=== PATIENT | female | born 1960 | race African-American/Black ===

== ENCOUNTER 2016-08-31 15:14 | Emergency (ER) | payer OTHER ==
[2016-08-31 15:42] VITALS: BP 129/78
--- NOTE | 2016-08-31 15:58 | UC ---
Lower Extremity/Ankle HPI - HPI Summary HPI Summary: 55 yo female with left great toe pain /swelling x 1 day hx gout - History of Current Complaint Chief Complaint: UCLowerExtremity Stated Complaint: LEFT FOOT SWELLING Time Seen by Provider: 08/31/16 15:50 Hx Obtained From: Patient Onset/Duration: Gradual Onset, Lasting Hours Pain Intensity: 6 Pain Scale Used: 0-10 Numeric Aggravating Factor(s): Standing, Ambulation Alleviating Factor(s): Rest Able to Bear Weight: Yes - Allergies/Home Medications Allergies/Adverse Reactions: Allergies Allergy/AdvReac Type Severity Reaction Status Date / Time Dust Mite Extract Allergy Unknown Unknown Verified 08/31/16 15:31 Reaction Details Perfume [Fragrance] Allergy Unknown Unknown Verified 08/31/16 15:31 Reaction Details DAIRY Allergy Unknown Unknown Uncoded 08/31/16 15:31 Reaction Details RAGWEED Allergy Unknown Unknown Uncoded 08/31/16 15:31 Reaction Details PMH/Surg Hx/FS Hx/Imm Hx Previously Healthy: Yes Endocrine History Of: Reports: Diabetes Cardiovascular History Of: Denies: Hypertension, Pacemaker/ICD Respiratory History Of: Reports: Asthma GI/ History Of: Denies: Renal Disease Cancer History Of: Denies: Breast Cancer - Surgical History Surgical History: Yes Surgery Procedure, Year, and Place: HYSTERECTOMY,WISDOM TEETH REMOVED - Family History Known Family History: Positive: Hypertension, Diabetes - Social History Alcohol Use: None Substance Use Type: None Smoking Status (MU): Never Smoked Tobacco Review of Systems Constitutional: Negative Skin: Negative Eyes: Negative ENT: Negative Respiratory: Negative Cardiovascular: Negative Gastrointestinal: Negative Genitourinary: Negative Motor: Negative Neurovascular: Negative Musculoskeletal: Arthralgia Neurological: Negative Psychological: Negative All Other Systems Reviewed And Are Negative: Yes Physical Exam Triage Information Reviewed: Yes Appearance: Well-Appearing, No Pain Distress, Well-Nourished Vital Signs: Initial Vital Signs Temp 98.0 F 08/31/16 15:36 Pulse 85 08/31/16 15:36 Resp 18 08/31/16 15:36 BP 129/78 08/31/16 15:36 Pulse Ox 100 08/31/16 15:36 Eyes: Positive: Conjunctiva Clear ENT: Positive: Hearing grossly normal. Negative: Nasal congestion, Nasal drainage, Trismus, Muffled/hoarse voice Neck: Positive: Supple, Nontender Respiratory: Positive: Lungs clear, Normal breath sounds, No respiratory distress Cardiovascular: Positive: RRR, No Murmur Musculoskeletal: Positive: Strength Intact, ROM Intact, Other: - see image Psychological Exam: Normal Skin Exam: Normal Lower Extremity Course/Dx - Differential Dx/Diagnosis Provider Diagnoses: gout Discharge - Discharge Plan Condition: Stable Disposition: HOME Prescriptions: Naproxen [Naproxen 500 MG TABS] 500 mg PO BID PRN #14 tab PRN Reason: Pain Patient Education Materials: Low Purine Diet (ED), Gout (ED) Referrals: Harjinder Roy MD [Primary Care Provider] - If Needed (in 2-5 days) Images Feet (Multiple View): 1 - red/swollen
== END 2016-08-31 16:00 | disposition home or self-care (01) ==
LOC: UCEAST 15:14
DX: M10.072 Idiopathic gout, left ankle and foot (principal)
CPT/HCPCS: 99213; G0463

== ENCOUNTER 2017-09-18 14:46 | Emergency (ER) | payer OTHER ==
[2017-09-18 15:58] LABS: Urine Appearance Cloudy; Urine Blood Negative (Negative); Urine Color Yellow; Urine Ketones Negative (Negative); Urine Protein Negative (Negative); Urine Specific Gravity 1.014 (1.010-1.030); Urine Urobilinogen Negative (Negative)
[2017-09-18 16:01] LABS: ABS Basophils 0.1 10^3/ul (0-0.2); ABS Eosinophils 0.2 10^3/ul (0-0.6); ABS Lymphocytes 2.6 10^3/ul (1.0-4.8); ABS Monocytes 0.6 10^3/ul (0-0.8); ABS Neutrophils 6.3 10^3/ul (1.5-7.7); ABS Nucleated RBC 0 10^3/ul; Eosinophil % 2.1 % (0-6); Hematocrit 38 % (35-47); Hemoglobin 12.8 g/dl (12.0-16.0); Lymphocyte % 26.2 % (25-47); Mean Corpuscular HGB Conc 33 g/dl (31-36); Mean Corpuscular Hemoglobin 28 pg (27-31); Mean Corpuscular Volume 84 fL (80-97); Mean Platelet Volume 7 um3 (7.4-10.4); Nucleated Red Blood Cells % 0.1; Platelet Count 309 10^3/ul (150-450); Red Blood Count 4.58 10^6/ul (4.0-5.4); Red Cell Distribution Width 14 % (10.5-15); White Blood Count 9.8 10^3/ul (3.5-10.8)
--- NOTE | 2017-09-18 16:02 | RAD ---
CLINICAL HISTORY: Left flank pain COMPARISON: None relevant available at the time of dictation TECHNIQUE: Multiple contiguous axial CT scans were obtained of the abdomen and pelvis, without intravenous contrast enhancement. Coronal and sagittal multiplanar reformations are submitted for review. Oral contrast was not administered. FINDINGS: The study is limited by the lack of intravenous contrast. This limits evaluation of the solid organs and vasculature. LUNG BASES: The lung bases are clear. LIVER: The liver is normal in shape, size, contour, and attenuation. BILE DUCTS: There is no intrahepatic or extrahepatic biliary dilatation. GALLBLADDER: The gallbladder is normal, without pericholecystic inflammatory change. PANCREAS: The pancreas is normal, without mass or ductal dilatation. SPLEEN: Normal in size and appearance. UPPER GI TRACT: Evaluation of the gastrointestinal tract is limited by incomplete gastric distention. The upper GI tract is unremarkable. SMALL BOWEL AND MESENTERY: The small bowel is normal in contour, course, and caliber. There is no obstruction or dilatation. COLON: There are multiple diverticula of the sigmoid colon. There is no pericolonic inflammatory change. There is a moderate to large amount of stool throughout the colon. ADRENALS: Normal bilaterally. KIDNEYS: The kidneys are normal in shape, size, contour, and axis. There is no hydronephrosis or nephrolithiasis. BLADDER: The bladder is smooth in contour. PELVIC ORGANS: The pelvic organs are not visualized. AORTA: The aorta is normal. IVC: Unremarkable LYMPH NODES: There is no lymphadenopathy by size criteria. ABDOMINAL WALL: There is no evidence for abdominal wall hernia. BONES AND SOFT TISSUES: There are mild diffuse degenerative changes. OTHER: None IMPRESSION: 1. NO HYDRONEPHROSIS OR NEPHROLITHIASIS. 2. DIVERTICULOSIS.
[2017-09-18 16:13] LABS: EGFR Non-African American 79.4 (>60)
[2017-09-18] MEDS ORDERED: Ciprofloxacin TAB* 250 MG PO ONE (16:49)
[2017-09-18 17:05] VITALS: BP 121/72
--- NOTE | 2017-09-20 08:03 | ED ---
Andrez Pérez Angela, scribed for Darnell Houser MD on 09/18/17 at 1508 . Abdominal Pain/Female - HPI Summary HPI Summary: This pt is a 56 y/o female presenting to [facility] c/o intermittent left flank pain x1 week. Pt reports her pain is sharp and it comes intermittently. She rates her pain 7-8 out of 10 in severity and is described as non radiating. She denies nausea, vomiting, fever. PMHx: diabetes, hysterectomy (approx 10 years ago), asthma, GERD. Denies hx of kidney stones. - History of Current Complaint Chief Complaint: EDFlankPain Stated Complaint: LT SIDE PAIN Time Seen by Provider: 09/18/17 15:01 Hx Obtained From: Patient Onset/Duration: Lasting Days, Still Present Timing: Days Severity Currently: Severe Pain Intensity: 8 Pain Scale Used: 0-10 Numeric Location: Flank - left Radiates: No Character: Sharp Aggravating Factor(s): Nothing Alleviating Factor(s): Nothing Associated Signs and Symptoms: Negative: Fever, Nausea, Vomiting Allergies/Adverse Reactions: Allergies Allergy/AdvReac Type Severity Reaction Status Date / Time MS Dust Mite Extract Allergy Unknown Unknown Verified 09/18/17 17:13 [Dust Mite Extract] Reaction Details Perfume [Fragrance] Allergy Unknown Unknown Verified 09/18/17 17:13 Reaction Details DAIRY Allergy Unknown Unknown Uncoded 09/18/17 17:13 Reaction Details RAGWEED Allergy Unknown Unknown Uncoded 09/18/17 17:13 Reaction Details PMH/Surg Hx/FS Hx/Imm Hx Endocrine/Hematology History: Reports: Hx Diabetes Cardiovascular History: Denies: Hx Hypertension, Hx Pacemaker/ICD Respiratory History: Reports: Hx Asthma GI History: Reports: Hx Gastroesophageal Reflux Disease History: Denies: Hx Kidney Stones, Hx Renal Disease Sensory History: Denies: Hx Hearing Aid Psychiatric History: Denies: Hx Panic Disorder - Cancer History Hx Chemotherapy: No Hx Radiation Therapy: No - Surgical History Surgery Procedure, Year, and Place: HYSTERECTOMY,WISDOM TEETH REMOVED Infectious Disease History: No Infectious Disease History: Reports: Hx Shingles - 12/2015 Denies: History Other Infectious Disease, Traveled Outside the [place] in Last 30 Days - Family History Known Family History: Positive: Hypertension, Diabetes - Social History Alcohol Use: None Substance Use Type: Reports: None Smoking Status (MU): Never Smoked Tobacco Review of Systems Negative: Fever, Chills Negative: Vomiting, Nausea Positive: flank pain - left Skin: Negative Neurological: Negative All Other Systems Reviewed And Are Negative: Yes Physical Exam - Summary Physical Exam Summary: VITAL SIGNS: Reviewed. GENERAL: Patient is a well-developed and nourished female who is lying comfortable in the stretcher. Patient is not in any acute respiratory distress. HEAD AND FACE: Normocephalic and atraumatic. EYES: PERRLA, EOMI x 2, No injected conjunctiva. EARS: Hearing grossly intact. Ear canals and tympanic membranes are WNL. MOUTH: Oropharynx within normal limits. NECK: Supple, trachea is midline, no adenopathy, no JVD. CHEST: Symmetric, no tenderness at palpation LUNGS: Clear to auscultation bilaterally. No wheezing or crackles. CVS: RRR, S1 and S2 present, no murmurs or gallops appreciated. ABDOMEN: Soft, non-tender. No signs of distention. Positive bowel sounds. No rebound no guarding, and no masses palpated. No abdominal bruit or pulsations. Negative costovertebral angle tenderness. EXTREMITIES: FROM in all major joints, no edema, no cyanosis or clubbing. NEURO: Alert and oriented x 3. No acute neurological deficits. Speech is normal. SKIN: Dry and warm Triage Information Reviewed: Yes Vital Signs On Initial Exam: Initial Vitals Temp Pulse Resp BP Pulse Ox 97.6 F 77 16 131/69 97 09/18/17 14:53 09/18/17 14:53 09/18/17 14:53 09/18/17 14:53 09/18/17 14:53 Vital Signs Reviewed: Yes Diagnostics - Vital Signs Vital Signs Temp Pulse Resp BP Pulse Ox 09/18/17 14:53 97.6 F 77 16 131/69 97 - Laboratory Lab Results: Lab Results 09/18/17 09/18/17 09/18/17 Range/Units 15:35 15:45 15:45 WBC 9.8 (3.5-10.8) 10^3/ul RBC 4.58 (4.0-5.4) 10^6/ul Hgb 12.8 (12.0-16.0) g/dl Hct 38 (35-47) % MCV 84 (80-97) fL MCH 28 (27-31) pg MCHC 33 (31-36) g/dl RDW 14 (10.5-15) % Plt Count 309 (150-450) 10^3/ul MPV 7 L (7.4-10.4) um3 Neut % (Auto) 64.4 (38-83) % Lymph % (Auto) 26.2 (25-47) % [place] % (Auto) 6.6 (0-7) % Eos % (Auto) 2.1 (0-6) % Baso % (Auto) 0.7 (0-2) % Absolute Neuts (auto) 6.3 (1.5-7.7) 10^3/ul Absolute Lymphs (auto) 2.6 (1.0-4.8) 10^3/ul Absolute Monos (auto) 0.6 (0-0.8) 10^3/ul Absolute Eos (auto) 0.2 (0-0.6) 10^3/ul Absolute Basos (auto) 0.1 (0-0.2) 10^3/ul Absolute Nucleated RBC 0 10^3/ul Nucleated RBC % 0.1 Sodium 137 (133-145) mmol/L Potassium 4.2 (3.5-5.0) mmol/L Chloride 101 (101-111) mmol/L Carbon Dioxide 31 (22-32) mmol/L Anion Gap 5 (2-11) mmol/L BUN 12 (6-24) mg/dL Creatinine 0.75 (0.51-0.95) mg/dL Est GFR ( Amer) 102.1 (>60) Est GFR (Non-Af Amer) 79.4 (>60) BUN/Creatinine Ratio 16.0 (8-20) Glucose 123 H (70-100) mg/dL Lactic Acid (0.5-2.0) mmol/L Calcium 9.4 (8.6-10.3) mg/dL Total Bilirubin 0.30 (0.2-1.0) mg/dL AST 18 (13-39) U/L ALT 27 (7-52) U/L Alkaline Phosphatase 177 H (34-104) U/L C-Reactive Protein 2.28 (< 5.00) mg/L Total Protein 7.2 (6.4-8.9) g/dL Albumin 4.1 (3.2-5.2) g/dL Globulin 3.1 (2-4) g/dL Albumin/Globulin Ratio 1.3 (1-3) Lipase 34 (11.0-82.0) U/L Urine Color Yellow Urine Appearance Cloudy Urine pH 5.0 (5-9) Ur Specific [place] 1.014 (1.010-1.030) Urine Protein Negative (Negative) Urine Ketones Negative (Negative) Urine Blood Negative (Negative) Urine Nitrate Negative (Negative) Urine Bilirubin Negative (Negative) Urine Urobilinogen Negative (Negative) Ur Leukocyte Esterase 3+ A (Negative) Urine WBC (Auto) 3+(>20/hpf) A (Absent) Urine RBC (Auto) Absent (Absent) Ur Squamous Epith Cells Present A (Absent) Urine Bacteria 3+ A (Absent) Urine Glucose Negative (Negative) 09/18/17 Range/Units 15:45 WBC (3.5-10.8) 10^3/ul RBC (4.0-5.4) 10^6/ul Hgb (12.0-16.0) g/dl Hct (35-47) % MCV (80-97) fL MCH (27-31) pg MCHC (31-36) g/dl RDW (10.5-15) % Plt Count (150-450) 10^3/ul MPV (7.4-10.4) um3 Neut % (Auto) (38-83) % Lymph % (Auto) (25-47) % [place] % (Auto) (0-7) % Eos % (Auto) (0-6) % Baso % (Auto) (0-2) % Absolute Neuts (auto) (1.5-7.7) 10^3/ul Absolute Lymphs (auto) (1.0-4.8) 10^3/ul Absolute Monos (auto) (0-0.8) 10^3/ul Absolute Eos (auto) (0-0.6) 10^3/ul Absolute Basos (auto) (0-0.2) 10^3/ul Absolute Nucleated RBC 10^3/ul Nucleated RBC % Sodium (133-145) mmol/L Potassium (3.5-5.0) mmol/L Chloride (101-111) mmol/L Carbon Dioxide (22-32) mmol/L Anion Gap (2-11) mmol/L BUN (6-24) mg/dL Creatinine (0.51-0.95) mg/dL Est GFR ( Amer) (>60) Est GFR (Non-Af Amer) (>60) BUN/Creatinine Ratio (8-20) Glucose (70-100) mg/dL Lactic Acid 1.0 (0.5-2.0) mmol/L Calcium (8.6-10.3) mg/dL Total Bilirubin (0.2-1.0) mg/dL AST (13-39) U/L ALT (7-52) U/L Alkaline Phosphatase (34-104) U/L C-Reactive Protein (< 5.00) mg/L Total Protein (6.4-8.9) g/dL Albumin (3.2-5.2) g/dL Globulin (2-4) g/dL Albumin/Globulin Ratio (1-3) Lipase (11.0-82.0) U/L Urine Color Urine Appearance Urine pH (5-9) Ur Specific [place] (1.010-1.030) Urine Protein (Negative) Urine Ketones (Negative) Urine Blood (Negative) Urine Nitrate (Negative) Urine Bilirubin (Negative) Urine Urobilinogen (Negative) Ur Leukocyte Esterase (Negative) Urine WBC (Auto) (Absent) Urine RBC (Auto) (Absent) Ur Squamous Epith Cells (Absent) Urine Bacteria (Absent) Urine Glucose (Negative) Result Diagrams: 09/18/17 15:45 09/18/17 15:45 Lab Statement: Any lab studies that have been ordered have been reviewed, and results considered in the medical decision making process. - CT Abdomen/Pelvis CT CT Interpretation: Positive (See Comments) - IMPRESSION: 1. No hydronephrosis or nephrolithiasis. 2. Diverticulosis. Dr. Houser has reviewed this radiology report. CT Interpretation Completed By: Radiologist Re-Evaluation - Re-Evaluation First Eval Re-Evaluation Time: 16:52 Comment: I reviewed the abdomen/pelvis CT with the pt. Abdominal Pain Fem Course/Dx - Course Course Of Treatment: This pt is a 56 y/o female presenting to [facility] c/o intermittent left flank pain x1 week. Pt reports her pain is sharp and it comes intermittently. She rates her pain 7-8 out of 10 in severity and is described as non radiating. She denies nausea, vomiting, fever. PMHx: diabetes, hysterectomy (approx 10 years ago), asthma, GERD. Denies hx of kidney stones. Test results without any significant abnormalities except for glucose of 123. Urinalysis is positive for UTI. Abdomen/pelvis CT: 1. No hydronephrosis or nephrolithiasis. 2. Diverticulosis. In the ED course pt declined any pain medications. Therefore pt will be discharged to home with a prescription for Ciprofloxacin for the UTI. Pt is advised to follow up with her PCP. She is instructed to return to the ED for any worsening or new symptoms. Pt is hemodynamically stable, alert and oriented x3. - Diagnoses Differential Diagnosis: Positive: Renal Colic, Urinary Tract Infection Provider Diagnoses: Urinary tract infection Discharge - Discharge Plan Condition: Stable Disposition: HOME Prescriptions: Ciprofloxacin TAB* [Cipro 250 MG Tab*] 250 mg PO BID #5 tab Patient Education Materials: Urinary Tract Infection in Women (ED) Referrals: Harjinder Roy MD [Primary Care Provider] - 3 Days Additional Instructions: Please follow up with your primary care provider. RETURN TO THE ED FOR ANY WORSENING SYMPTOMS. The documentation as recorded by the Andrez hopper Angela accurately reflects the service I personally performed and the decisions made by , Darnell Houser MD.
== END 2017-09-18 17:18 | disposition home or self-care (01) ==
LOC: ED 14:46
DX: N39.0 Urinary tract infection, site not specified (principal); R10.84 Generalized abdominal pain; Z87.19 Personal history of other diseases of the digestive system
CPT/HCPCS: 36415; 74176; 80053; 81003; 81015; 83605; 83690; 85025; 86140; 87086; 99283; A9270-GY

== ENCOUNTER 2018-03-31 13:42 | Emergency (ER) | payer OTHER ==
[2018-03-31] MEDS ORDERED: NS 0.9% 1000 ML* 1,000 ML IV ONE (17:10)
--- NOTE | 2018-03-31 17:27 | ED ---
Abdominal Pain/Female - HPI Summary HPI Summary: This patient is a 57 year old F presenting to [facility] with a chief complaint of diffuse abdominal pain onset two days ago. Pt is also experiencing nausea and bloat. The patient rates the pain as 7/10 severity at its worst, but it has since resolved. Pain is described as sharp and sudden-onset. Pt had diarrhea last week but it has resolved by eating soft foods this week. Denies: vomiting, fevers, chills, and dysuria. Pt had a colonoscopy 10 years ago that was negative and is due for another one next year. No PMHx: diverticulitis. Former smoker. - History of Current Complaint Chief Complaint: EDAbdPain Stated Complaint: ABD PAIN Time Seen by Provider: 03/31/18 17:03 Hx Obtained From: Patient Onset/Duration: Sudden Onset, Lasting Days, Still Present Timing: Constant Severity Initially: Moderate Severity Currently: Mild Pain Intensity: 4 - 7/10 at its worst Pain Scale Used: 0-10 Numeric Location: Diffuse Radiates: No Character: Sharp Associated Signs and Symptoms: Positive: Nausea, Diarrhea, Other: - pos: bloatedness; neg: chills. Negative: Fever, Urinary Symptoms, Vomiting Allergies/Adverse Reactions: Allergies Allergy/AdvReac Type Severity Reaction Status Date / Time MS Dust Mite Extract Allergy Unknown Unknown Verified 09/18/17 17:13 [Dust Mite Extract] Reaction Details Perfume [Fragrance] Allergy Unknown Unknown Verified 09/18/17 17:13 Reaction Details DAIRY Allergy Unknown Unknown Uncoded 09/18/17 17:13 Reaction Details RAGWEED Allergy Unknown Unknown Uncoded 09/18/17 17:13 Reaction Details PMH/Surg Hx/FS Hx/Imm Hx Previously Healthy: No Endocrine/Hematology History: Reports: Hx Diabetes Cardiovascular History: Denies: Hx Hypertension, Hx Pacemaker/ICD Respiratory History: Reports: Hx Asthma GI History: Reports: Hx Gastroesophageal Reflux Disease Denies: Hx Diverticulosis History: Denies: Hx Kidney Stones, Hx Renal Disease Sensory History: Denies: Hx Hearing Aid Psychiatric History: Denies: Hx Panic Disorder - Cancer History Hx Chemotherapy: No Hx Radiation Therapy: No - Surgical History Surgery Procedure, Year, and Place: HYSTERECTOMY,WISDOM TEETH REMOVED - Immunization History Date of Tetanus Vaccine: < 10 years Date of Influenza Vaccine: 2017 Immunizations Up to Date: Yes Infectious Disease History: No Infectious Disease History: Reports: Hx Shingles - 12/2015 Denies: History Other Infectious Disease, Traveled Outside the [place] in Last 30 Days - Family History Known Family History: Positive: Hypertension, Diabetes - Social History Occupation: Retired Lives: Alone Alcohol Use: None Hx Substance Use: No Substance Use Type: Reports: None Hx Tobacco Use: Yes Smoking Status (MU): Former Smoker Review of Systems Negative: Fever, Chills Positive: Abdominal Pain, Diarrhea, Nausea. Negative: Vomiting Negative: dysuria All Other Systems Reviewed And Are Negative: Yes Physical Exam - Summary Physical Exam Summary: GENERAL: Patient is a well-developed and nourished F who is lying comfortable in the stretcher. Patient is not in any acute respiratory distress. HEAD AND FACE: Normocephalic EYES: PERRLA, EOMI x 2. EARS: Hearing grossly intact. MOUTH: Oropharynx within normal limits. NECK: Supple, trachea is midline, no adenopathy, no JVD, no carotid bruit. CHEST: Symmetric, no tenderness at palpation LUNGS: Clear to auscultation bilaterally. No wheezing or crackles. CVS: Regular rate and rhythm, S1 and S2 present, no murmurs or gallops appreciated. ABDOMEN: Soft. Bowel sounds are normal. No abdominal abnormal pulsations. Mild tenderness in the LLQ. No rebound, no guarding. EXTREMITIES: Full ROM in all major joints, no edema, no cyanosis or clubbing. NEURO: Alert and oriented x 3. No acute neurological deficits. Speech is normal and follows commands. Triage Information Reviewed: Yes Vital Signs On Initial Exam: Initial Vitals Temp Pulse Resp BP Pulse Ox 97.6 F 93 18 133/64 96 03/31/18 13:45 03/31/18 13:45 03/31/18 13:45 03/31/18 13:45 03/31/18 13:45 Vital Signs Reviewed: Yes Diagnostics - Vital Signs Vital Signs Temp Pulse Resp BP Pulse Ox 03/31/18 16:00 98.5 F 86 16 130/74 98 03/31/18 13:45 97.6 F 93 18 133/64 96 - Laboratory Result Diagrams: 03/31/18 17:43 03/31/18 17:43 Lab Statement: Any lab studies that have been ordered have been reviewed, and results considered in the medical decision making process. Abdominal Pain Fem Course/Dx - Course Course Of Treatment: This patient is a 57 year old F presenting to [facility] with a chief complaint of diffuse abdominal pain onset two days ago. This pt will be signed out to Dr. Downey at shift change pending CT results. - Diagnoses Provider Diagnoses: Pyelonephritis Discharge - Sign-Out/Discharge Documenting (check all that apply): Sign-Out Patient Signing out patient TO: Murphy Downey - pending CT - Discharge Plan Condition: Good Disposition: HOME Prescriptions: Sulfamethox/Trimethoprim DS* [Bactrim DS 800/160 TAB*] 1 tab PO BID #20 tab Patient Education Materials: Kidney Infection (ED) Referrals: Harjinder Roy MD [Primary Care Provider] - - Billing Disposition and Condition Condition: GOOD Disposition: Home - Attestation Statements Document Initiated by Scribe: Yes Documenting Scribe: Devaughn Unger Provider For Whom Scribe is Documenting (Include Credential): Dr. Digna Dyer MD Scribe Attestation: IDevaughn, scribed for Dr. Digna Dyer MD on 04/01/18 at 0810. Scribe Documentation Reviewed: Yes Provider Attestation: The documentation as recorded by the Devaughn hopper accurately reflects the service I personally performed and the decisions made by me, Dr. Digna Dyer MD
[2018-03-31 18:00] LABS: ABS Basophils 0.1 10^3/ul (0-0.2); ABS Eosinophils 0.1 10^3/ul (0-0.6); ABS Lymphocytes 2.3 10^3/ul (1.0-4.8); ABS Monocytes 0.7 10^3/ul (0-0.8); ABS Neutrophils 7.7 10^3/ul (1.5-7.7); ABS Nucleated RBC 0 10^3/ul; Hematocrit 42 % (35-47); Hemoglobin 14.1 g/dl (12.0-16.0); Lymphocyte % 21.1 % (25-47); Mean Corpuscular HGB Conc 34 g/dl (31-36); Mean Corpuscular Hemoglobin 28 pg (27-31); Mean Corpuscular Volume 82 fL (80-97); Mean Platelet Volume 7.9 um3 (7.4-10.4); Nucleated Red Blood Cells % 0; Platelet Count 288 10^3/ul (150-450); Red Blood Count 5.05 10^6/ul (4.00-5.40); Red Cell Distribution Width 14 % (10.5-15); White Blood Count 10.9 10^3/ul (3.5-10.8)
[2018-03-31 18:19] LABS: EGFR Non-African American 81.6 (>60)
[2018-03-31] MEDS ORDERED: Iodixanol* (CONTRAST) 320 MG/ML 100 ML SDV IV ONE (18:45)
--- NOTE | 2018-03-31 19:54 | ED ---
Progress - Progress Note Progress Note: Pt was signed out by Dr. Dyer to Dr. Downey. Awaiting CT results. The CT was received and the patient has a Dx of pyelonephritis. - EKG/XRAY/CT CT: Diverticulosis without diverticulitis. No additional findings to correlate. Course/Dx - Course Course Of Treatment: This patient is a 57 year old F presenting to [facility] with a chief complaint of diffuse abdominal pain onset two days ago. This pt will be signed out to Dr. Downey at shift change pending CT results. - Diagnoses Provider Diagnoses: Pyelonephritis Discharge - Sign-Out/Discharge Documenting (check all that apply): Patient Departure - discharge Signing out patient TO: Murphy Downey Receiving patient FROM: Digna Dyer - Discharge Plan Condition: Good Disposition: HOME Prescriptions: Sulfamethox/Trimethoprim DS* [Bactrim DS 800/160 TAB*] 1 tab PO BID #20 tab Patient Education Materials: Kidney Infection (ED) Referrals: Harjinder Roy MD [Primary Care Provider] - - Attestation Statements Document Initiated by Scribe: Yes Documenting Scribe: Brandt White Provider For Whom Azulibe is Documenting (Include Credential): Murphy Downey MD Scribe Attestation: Brandt Pérez, azulibed for Murphy Downey MD on 03/31/18 at 2211.
--- NOTE | 2018-03-31 20:18 | RAD ---
EXAM: CT Abdomen and Pelvis With Intravenous Contrast CLINICAL HISTORY: 57 years old, female; Pain; Other: Llq pain, R/O diverticulitis; Patient HX: Iv contrast only per er provider; Additional info: Llq pain eval for diverticulitis TECHNIQUE: Axial computed tomography images of the abdomen and pelvis with intravenous contrast. All CT scans at this facility use at least one of these dose optimization techniques: automated exposure control; mA and/or kV adjustment per patient size (includes targeted exams where dose is matched to clinical indication); or iterative reconstruction. Coronal and sagittal reformatted images were created and reviewed. CONTRAST: 100 mL of VISIPAQUE 320 administered intravenously. COMPARISON: A/P WO CT ABD/PEL W/O 09/18/2017 3:30 PM FINDINGS: Lung bases: Normal. No mass. No consolidation. ABDOMEN: Liver: Normal. No masses. Portal and hepatic veins are patent. Gallbladder and bile ducts: Normal. No radiopaque calculi. No ductal dilation. Pancreas: Normal. No mass. No ductal dilation. Spleen: Normal. No splenomegaly. Adrenals: Normal. No mass. Kidneys and ureters: Normal. No solid mass. Stomach and bowel: Incompletely distended grossly normal stomach. Normal caliber small bowel. Distal colonic diverticula without adjacent inflammatory changes or associated wall thickening. PELVIS: Appendix: Normal caliber appendix without wall thickening or adjacent inflammation. Bladder: Thin-walled bladder with no focal nodularity, perivesicular stranding, or calcifications. Reproductive: Surgically absent uterus. Normal ovaries. ABDOMEN and PELVIS: Intraperitoneal space: Normal. No pneumoperitoneum. No ascities. Bones/joints: No fractures. No suspicious bone lesions. Soft tissues: Normal. No hernias. Vasculature: Normal caliber aorta with no evidence of dissection or rupture. Patent IVC. Lymph nodes: Normal. No enlarged lymph nodes. IMPRESSION: Diverticulosis without diverticulitis. No additional findings to correlate with patient's symptomatology.
[2018-03-31 21:31] LABS: Urine Appearance Cloudy; Urine Blood 2+ (Negative); Urine Color Yellow; Urine Ketones Negative (Negative); Urine Protein 1+(30 mg/dL) (Negative); Urine Red Blood Cell 2+(6-10/hpf) (Absent); Urine Specific Gravity 1.059 (1.010-1.030); Urine Urobilinogen Negative (Negative); Urine White Blood Cell 3+(>20/hpf) (Absent)
[2018-03-31] MEDS ORDERED: Sulfamethox/Trimethoprim DS 800/160* TAB PO ONE (22:10)
[2018-03-31 22:22] VITALS: BP 142/91
--- NOTE | 2018-04-03 10:08 | PN ---
Progress Note - Progress Note Date of Service: 03/31/18 Note: Pt. seen in ED 03/31 and started on Bactrim for pyelonephritis. Urine culture today is growing e. coli susceptible to bactrim. No change in treatment needed at this time.
== END 2018-03-31 22:21 | disposition home or self-care (01) ==
LOC: ED 13:42
DX: N12 Tubulo-interstitial nephritis, not specified as acute or chronic (principal); R11.0 Nausea; R19.7 Diarrhea, unspecified; R10.9 Unspecified abdominal pain; Z87.891 Personal history of nicotine dependence
CPT/HCPCS: 36415; 74177; 80053; 81003; 81015; 83605; 83690; 85025; 86140; 86803; 87040; 87077; 87086; 87186; 96360; 99283; A9270-GY; Q9967

== ENCOUNTER 2018-05-08 16:45 | Emergency (ER) | payer OTHER ==
[2018-05-08 16:54] VITALS: BP 144/73
--- NOTE | 2018-05-08 17:21 | ED ---
HPI Cardiac - HPI Summary HPI Summary: Pt presents w/ cough x 3 weeks. She had URI sx at onset but cough has remained and basically started at the beginning of fall (admits this happens every year - wondering about using a humidifier). Has had some sneezing and Rt ear pain today - otherwise denies fever, chills, nasal congestion, N/V/D rash, arthralgias, chest pain or back pain, headache or neck stiffness. She has a history of asthma and takes Breo daily and albuterol as needed. She does admit she has using her albuterol more than usual. When asked about using a nebulizer , she reports she forgot she had one at home and ran out of the liquid medication a while ago. She does admit her cough is worse at night and has had trouble sleeping the past 2 nights brought her in today. She is concerned she could have pneumonia although again admits her cough is dry. Other medical history significant for type 1 diabetes. She reports she is "trying to get her sugar under control". Notices increases with lack of attention to diet. GERD: acts up at times - was worse Monday. - History of Current Complaint Chief Complaint: UCRespiratory Stated Complaint: CHEST CONGESTION Time Seen by Provider: 05/08/18 17:04 Hx Obtained From: Patient Pain Intensity: 0 - Allergy/Home Medications Allergies/Adverse Reactions: Allergies Allergy/AdvReac Type Severity Reaction Status Date / Time Perfume [Fragrance] Allergy Unknown Unknown Verified 05/08/18 16:54 Reaction Details DAIRY Allergy Unknown Unknown Uncoded 05/08/18 16:54 Reaction Details RAGWEED Allergy Unknown Unknown Uncoded 05/08/18 16:54 Reaction Details dust mites Allergy Unknown Uncoded 05/08/18 16:54 Reaction Details Home Medications: Home Medications Fluticasone/Vilanterol MDI(NF) [Breo Ellipta MDI (NF)] 1 puff INH DAILY [History Confirmed 05/08/18] Insulin Glargine,Hum.rec.anlog [Basaglar Kwikpen] 100 unit SC 05/08/18 [History] Levothyroxine TAB* [Synthroid TAB*] 25 mcg PO 0800 05/08/18 [History Confirmed 05/08/18] Lisinopril [Zestril 2.5 MG-] 2.5 mg PO 10/30/18 [History] Pravastatin (NF) [Pravachol (NF)] 20 mg PO 05/08/18 [History] PMH/Surg Hx/FS Hx/Imm Hx Previously Healthy: Yes Endocrine/Hematology History: Reports: Hx Diabetes - type 1 Cardiovascular History: Denies: Hx Congestive Heart Failure, Hx Hypertension, Hx Pacemaker/ICD Respiratory History: Reports: Hx Asthma - uses Denies: Hx Chronic Obstructive Pulmonary Disease (COPD), Hx Pulmonary Edema, Hx Pulmonary Embolism GI History: Reports: Hx Gastroesophageal Reflux Disease Denies: Hx Diverticulosis History: Denies: Hx Kidney Stones, Hx Renal Disease Sensory History: Denies: Hx Hearing Aid Psychiatric History: Denies: Hx Panic Disorder - Cancer History Hx Chemotherapy: No Hx Radiation Therapy: No - Surgical History Surgery Procedure, Year, and Place: HYSTERECTOMY,WISDOM TEETH REMOVED - Immunization History Date of Tetanus Vaccine: < 10 years Date of Influenza Vaccine: 2016 Infectious Disease History: No Infectious Disease History: Reports: Hx Shingles - 12/2015 Denies: History Other Infectious Disease, Traveled Outside the [place] in Last 30 Days - Family History Known Family History: Positive: Hypertension, Diabetes - Social History Lives: Alone - engaged Alcohol Use: None Hx Substance Use: No Substance Use Type: Reports: None Hx Tobacco Use: Yes - not currently Smoking Status (MU): Former Smoker Review of Systems Constitutional: Negative Negative: Fever, Chills, Fatigue Eyes: Negative Negative: Drainage, Erythema Positive: Sore Throat - irritated from coughing - otherwise fine, Ear Ache. Negative: Nasal Discharge Negative: Chest Pain Positive: Cough. Negative: Shortness Of Breath Gastrointestinal: Negative Positive: no symptoms reported Musculoskeletal: Negative Skin: Negative Neurological: Negative Psychological: Normal All Other Systems Reviewed And Are Negative: Yes Physical Exam Triage Information Reviewed: Yes Vital Signs On Initial Exam: Initial Vitals Temp Pulse Resp BP Pulse Ox 97.7 F 94 18 144/73 100 05/08/18 16:49 05/08/18 16:49 05/08/18 16:49 05/08/18 16:49 05/08/18 16:49 Vital Signs Reviewed: Yes Appearance: Positive: Well-Appearing, No Pain Distress, Well-Nourished Skin: Positive: Warm, Skin Color Reflects Adequate Perfusion, Dry - no rash Head/Face: Positive: Normal Head/Face Inspection Eyes: Positive: Normal, EOMI, Conjunctiva Clear. Negative: Conjunctiva Inflammed, Discharge ENT: Positive: Normal ENT inspection, Hearing grossly normal, Pharynx normal - mild cobblestoning, TMs normal, Uvula midline. Negative: Nasal congestion, Nasal drainage, Tonsillar swelling, Tonsillar exudate, Trismus, Muffled voice, Sinus tenderness Neck: Positive: Supple, Nontender, No Lymphadenopathy Respiratory/Lung Sounds: Positive: Clear to Auscultation, Breath Sounds Present , Other - coughs after deep breathes. Negative: Rales, Rhonchi, Wheezes, Unable to speak in full sentences, Fatigue Cardiovascular: Positive: Normal, RRR, S1, S2. Negative: Murmur, Rub, Leg Edema Left, Leg Edema Right Abdomen Description: Positive: Soft Bowel Sounds: Positive: Present Musculoskeletal: Positive: Normal, Strength/ROM Intact Neurological: Positive: Normal, Sensory/Motor Intact, Alert, Oriented to Person Place, Time, CN Intact II-III Psychiatric: Positive: Normal Diagnostics - Vital Signs Vital Signs Temp Pulse Resp BP Pulse Ox 05/08/18 16:49 97.7 F 94 18 144/73 100 - Laboratory Lab Statement: Any lab studies that have been ordered have been reviewed, and results considered in the medical decision making process. Re-Evaluation - Re-Evaluation First Eval Change: Improved - reports she feels much better after duoneb Disposition - Course Course Of Treatment: CXR: no acute findings. Suspect combination of season change, possible dust in the air vents, dry atmosphere and GERD exacerbations may be triggering her asthma. She will make some lifestyle adjustments and follow-up with her PCP regarding a nebulizer machine tomorrow. Will send liquid medication at [facility]. Review danger signs and symptoms of when to seek medical care. - Diagnoses Provider Diagnoses: Asthma exacerbation Discharge - Sign-Out/Discharge Documenting (check all that apply): Patient Departure All imaging exams completed and their final reports reviewed: Yes - Discharge Plan Condition: Stable Disposition: HOME Prescriptions: Albuterol/Ipratropium NEB.ISRA* [Duoneb (Albuterol 2.5 MG/Ipratropium 0.5 MG)] 1 neb INH Q6H PRN #30 [email or web address] PRN Reason: Cough Patient Education Materials: Asthma (ED), Gastroesophageal Reflux Disease (ED) Referrals: Harjinder Roy MD [Primary Care Provider] - Additional Instructions: DuoNeb solution has been prescribed for you to use - this was sent to your pharmacy however you will need a nebulizer machine with tubing and mouthpiece. The latter may be prescribed for you by your PCP. Call in the morning to inquire. Additionally you may speak with your maintenance folks about cleaning out your air vents and/or changing her filters to prevent excess dust exposure. He may also use a humidifier and keep your heat at 68F or less to prevent evaporation of moisture. Finally, keeping her GERD under control should help her cough as well. An educational handout been provided for you today with basic reminders. If you feel that any of these issues or difficulty controlling on your own, follow-up with PCP however if you develop shortness of breath, difficulty breathing, fever, chills, difficulty swallowing, go to the emergency department. - Billing Disposition and Condition Condition: STABLE Disposition: Home - Attestation Statements Provider Attestation: I was available for consult. This patient was seen by the [facility]. The patient was not presented to, seen by, or examined by me. -Karri
[2018-05-08] MEDS ORDERED: Albuterol/Ipratropium NEB.SOL* Albuterol 2.5 MG/Ipratropium 0.5 MG 3 ML INH ONE (17:25)
--- NOTE | 2018-05-08 17:35 | RAD ---
INDICATION: Persistent cough for 3 weeks. History of asthma. COMPARISON: March 31, 2018 CT. February 28, 2013 TECHNIQUE: Dual energy PA and routine lateral views of the chest were obtained. REPORT: Chronic mild to moderate elevation of the RIGHT hemidiaphragm with associated minimal RIGHT basilar atelectasis.. No focal pulmonary lesion, compelling alveolar consolidation concerning for pneumonia, pleural effusion, pneumothorax. The heart, pulmonary vasculature, and mediastinal contours are unremarkable. IMPRESSION: #. No evidence for acute intrathoracic disease.
== END 2018-05-08 18:00 | disposition home or self-care (01) ==
LOC: UCEAST 16:45
DX: J45.901 Unspecified asthma with (acute) exacerbation (principal); E10.9 Type 1 diabetes mellitus without complications; Z91.011 Allergy to milk products; Z91.018 Allergy to other foods; Z91.048 Other nonmedicinal substance allergy status; Z79.4 Long term (current) use of insulin; Z87.891 Personal history of nicotine dependence
CPT/HCPCS: 71046; 99212; A9270-GY; G0463

== ENCOUNTER 2018-06-13 13:13 | Inpatient (IN) | payer OTHER ==
[2018-06-13] MEDS ORDERED: Naloxone* 0.4 MG/ML 1 ML VIAL IV ONE (13:14)
[2018-06-13] MEDS ORDERED: NS 0.9% 1000 ML* 2,000 ML IV ONE (13:14)
--- NOTE | 2018-06-13 13:22 | ED ---
HPI Diabetic - HPI Summary HPI Summary: Patient is a 57 y/o F presenting to ED via ambulance unresponsive, level 5 caveat. Arrival at 1310, provider in room to evaluate patient immediately. Boyfriend reported last known normal of 2200 last night to EMS, notes patient is diabetic. Upon EMS arrival, patient's insulin pump was noted to be unplugged and in the kitchen sink. EMS reported 500+ BG. They also note a right sided facial droop. BP of 96/50 is reported, EMS notes patient was tachycardic, had tachypnea. PMHx of DKA unknown at this time, EMS only reports known PMHx of seasonal allergies. No allergies to medicine reported. In room, pulse is 111, o2 98, BP is 96/50. Review of medical records showed PMHx of insulin-dependent diabetic, HTN, dyslipidemia, asthma. - History Of Current Complaint Time Seen by Provider: 06/13/18 13:14 Hx Obtained From: EMS, Medical Records Hx From Patient Unobtainable Due To: Other - UNRESPONSIVE, LEVEL 5 CAVEAT Onset/Duration: Still Present, Other - last known well 0 last night Timing: Constant Severity Currently: Severe Character: Other - unresponsive Aggravating: Nothing Alleviating: Nothing Associated Signs & Symptoms: Decreased Level of Conciousness - unresponsive, "Fruity Breath" - Allergies/Home Medications Allergies/Adverse Reactions: Allergies Allergy/AdvReac Type Severity Reaction Status Date / Time Perfume [Fragrance] Allergy Unknown Unknown Verified 05/08/18 16:54 Reaction Details DAIRY Allergy Unknown Unknown Uncoded 05/08/18 16:54 Reaction Details RAGWEED Allergy Unknown Unknown Uncoded 05/08/18 16:54 Reaction Details dust mites Allergy Unknown Uncoded 05/08/18 16:54 Reaction Details Home Medications: Home Medications Albuterol Sulfate [Proventil Hfa] 13.4 gm INH Q4HR PRN 06/13/18 [History Confirmed 06/13/18] Escitalopram (NF) [Lexapro 10 mg (NF)] 10 mg PO DAILY 06/13/18 [History Confirmed 06/13/18] Fluticasone/Vilanterol MDI(NF) [Breo Ellipta MDI 200/25(NF)] 1 puff INH DAILY [History Confirmed 06/13/18] Ibuprofen TAB* [Motrin TAB* 600 MG] 600 mg PO TID WITH MEALS PRN 06/13/18 [ History Confirmed 06/13/18] Insulin Glargine,Hum.rec.anlog [Basagljulio Kwikpen U-100] 40 units SUBCUT BEDTIME 06/13/18 [History Confirmed 06/13/18] Insulin Lispro [Admelog Solostar] 3 - 4 units SUBCUT AC 06/13/18 [History Confirmed 06/13/18] Insulin Lispro [Admelog] 0 unit SUBCUT DAILY 06/13/18 [History Confirmed ] Levothyroxine TAB* [Synthroid TAB*] 25 mcg PO DAILY 06/13/18 [History Confirmed 06/13/18] Losartan TAB* [Cozaar TAB*] 25 mg PO DAILY 06/13/18 [History Confirmed 06/13/18] Mometasone Furoate [Elocon] 0.1 % TOPICAL TID PRN 06/13/18 [History Confirmed ] Multivitamins/Minerals TAB* [Theragran/minerals TAB*] 1 tab PO DAILY 06/13/18 [ History Confirmed 06/13/18] Pioglitazone TAB* [Actos TAB*] 15 mg PO DAILY 06/13/18 [History Confirmed ] Ranitidine TAB (NF) [Zantac TAB (NF)] 150 mg PO BID 06/13/18 [History Confirmed 06/13/18] Simvastatin TAB(NF) [Zocor(NF)] 10 mg PO DAILY 06/13/18 [History Confirmed 06/13] metFORMIN* [Glucophage 1000 MG TAB *] 1,000 mg PO BID 06/13/18 [History Confirmed 06/13/18] PMH/Surg Hx/FS Hx/Imm Hx Endocrine/Hematology History: Reports: Hx Diabetes - type 1 Cardiovascular History: Denies: Hx Congestive Heart Failure, Hx Hypertension, Hx Pacemaker/ICD Respiratory History: Reports: Hx Asthma - uses Denies: Hx Chronic Obstructive Pulmonary Disease (COPD), Hx Pulmonary Edema, Hx Pulmonary Embolism GI History: Reports: Hx Gastroesophageal Reflux Disease Denies: Hx Diverticulosis History: Denies: Hx Kidney Stones, Hx Renal Disease Sensory History: Denies: Hx Hearing Aid Psychiatric History: Denies: Hx Panic Disorder - Cancer History Hx Chemotherapy: No Hx Radiation Therapy: No - Surgical History Surgery Procedure, Year, and Place: HYSTERECTOMY,WISDOM TEETH REMOVED - Immunization History Date of Tetanus Vaccine: < 10 years Date of Influenza Vaccine: 2017 Infectious Disease History: Reports: Hx Shingles - 12/2015 Denies: History Other Infectious Disease - Family History Known Family History: Positive: Unknown, Hypertension, Diabetes - Social History Alcohol Use: None Hx Substance Use: No Substance Use Type: Reports: None Hx Tobacco Use: Yes - not currently Smoking Status (MU): Former Smoker Review of Systems - ROS Summary Review of Systems Summary: level 5 caveat, unresponsive Positive: Other - POSITIVE - UNRESPONSIVE, ELEVATED BG Neurological: Other - POSITIVE - RIGHT FACIAL DROOP All Other Systems Reviewed And Are Negative: No - Comments Additional Review of Systems Comments: level 5 caveat, unresponsive Physical Exam - Summary Physical Exam Summary: VITAL SIGNS: Reviewed. GENERAL: Patient is a well-developed and nourished female lying in stretcher unresponsive. Level 5 caveat HEAD AND FACE: No signs of trauma. No ecchymosis, hematomas or skull depressions. No sinus tenderness. EYES: Pinpoint pupils that are sluggish. No injected conjunctiva, no nystagmus. EARS: Hearing grossly intact. Ear canals and tympanic membranes are within normal limits. MOUTH: Oropharynx within normal limits. Dry oral mucosa, fruity breath. NECK: Supple, trachea is midline, no adenopathy, no JVD, no carotid bruit, no c- spine tenderness, neck with full ROM. CHEST: Symmetric, no tenderness at palpation LUNGS: Clear to auscultation bilaterally. No wheezing or crackles. CVS: Tachycardia, S1 and S2 present, no murmurs or gallops appreciated. ABDOMEN: Soft, non-tender. No signs of distention. No rebound no guarding, and no masses palpated. Bowel sounds are normal. EXTREMITIES: No edema, no cyanosis or clubbing. NEURO: Unresponsive; GCS 6-7 SKIN: Dry and warm Triage Information Reviewed: Yes Vital Signs On Initial Exam: Initial Vitals Pulse Resp BP Pulse Ox 109 22 73/47 99 06/13/18 13:18 06/13/18 13:18 06/13/18 13:18 06/13/18 13:18 Vital Signs Reviewed: Yes Diagnostics - Laboratory Result Diagrams: 06/14/18 06:20 06/14/18 18:01 Lab Statement: Any lab studies that have been ordered have been reviewed, and results considered in the medical decision making process. - Radiology CXR Radiology Interpretation Completed By: Radiologist Summary of Radiographic Findings: CXR IMPRESSION: #. Low lung volumes with subsegmental atelectasis. #. Prominence of the superior mediastinal contour is nonspecific given low lung volumes. and rightward rotation. Consider repeat chest radiograph is improved inspiratory effort if. feasible or CT for further assessment if there is concern for potential aortic aneurysm or. dissection. THIS REPORT WAS REVIEWED BY ED PHYSICIAN. - CT BRAIN CT CT Interpretation Completed By: Radiologist Summary of CT Findings: BRAIN CT IMPRESSION: NO EVIDENCE FOR ACUTE INTRACRANIAL ABNORMALITY. THIS REPORT WAS REVIEWED BY ED PHYSICIAN. - EKG 1330 Cardiac Rate: Tachycardia EKG Rhythm: Sinus Tachycardia EKG Comparison: No Significant Change - compared to 03/01/13 Summary of EKG Findings: EKG showed sinus tachycardia with rate of 109 BPM, no ST elevation, similar to EKG from 03/01/13 Diabetic Course/Dx - Course Course Of Treatment: Endotracheal Intubation Procedure Note. Procedure - Endotracheal Intubation. Permit was implied secondary to emergent situation. An LMA and bougie were placed within arm's reach. A Glidescope blade was inserted into the oropharynx at which time the vocal cords were visualized. A 7.5 Persian endotracheal tube was inserted and visualized going through the vocal cords. The stylet was removed. Colorimetric change was visualized on the CO2 meter. Breath sounds were heard in both lung espinoza equally. The endotracheal tube was placed at 23 cm, measured at the teeth. Portable chest x- ray ordered for confirmation of tube level. Post intubation sedation ordered. Intubation was made at the first attempt. No complications were encountered. Assessment/Plan: Patient is a 57 y/o F presenting to ED via ambulance unresponsive, level 5 caveat. Arrival at 1310, provider in room to evaluate patient immediately. Boyfriend reported last known normal of 2200 last night to EMS, notes patient is diabetic. Upon EMS arrival, patient's insulin pump was noted to be unplugged and in the kitchen sink. EMS reported 500+ BG. They also note a right sided facial droop. BP of 96/50 is reported, EMS notes patient was tachycardic, had tachypnea. PMHx of DKA unknown at this time, EMS only reports known PMHx of seasonal allergies. No allergies to medicine reported. In room, pulse is 111, o2 98, BP is 96/50. Review of medical records showed PMHx of insulin-dependent diabetic, HTN, dyslipidemia, asthma. Initially when the patient arrived to the emergency department with nausea the patient is unresponsive. The patient's pupils were constricted and very sluggish. The blood pressure is low therefore we obtained 3 IV accesses with a large-bore and we started IV fluids. The fingerstick showed blood sugars high therefore we believe that the patient is in DKA since she has history of insulin-dependent diabetes. The patient was sent to CT to rule out any intracranial pathology. Head CT impression: No acute intra-Pathology. CXR IMPRESSION: #. Low lung volumes with subsegmental atelectasis. #. Prominence of the superior mediastinal contour is nonspecific given low lung volumes and rightward rotation. Consider repeat chest radiograph is improved inspiratory effort if feasible or CT for further assessment if there is concern for potential aortic aneurysm or dissection. In the ED course and the patients GCS is between 6 and 7. The pH is less than 7 therefore I decided to intubate the patient. Please see intubation note. Intubation was successful on the first attempt. Blood work shows WBCs of 35, absolute neutrophils 28.8, sodium 133 potassium 6.6 , chloride this 85, cholelithiasis 7, BUN is 84 creatinine of 4.71, troponin 0.04 and magnesium at 3. ABG shows a pH of less than 7, PCO2 26 PO2 is 146 O2 sat is 98.8. In the ED course initially the patient was given a 4 L of IV fluids. Patient is still hypotensive therefore the patient was started on Levophed. Patient also was given etomidate and succinylcholine for intubation. Patient was given 8 units of insulin and Dr. Lucio from ICU assisted with the patient and insulin drip. The patient also was given cefepime and vancomycin since about also count a significant elevated and there is a suspicion for infection. Patient also was given calcium gluconate, for the hypokalemia. This was recommended by Dr. Lucio. Patient also was given bicarbonate recommended with Dr. Lucio [address] At this point Dr. Lucio from the ICU services accepted the patient for admission. The patient is more stable however the patient still critical. - Diagnoses Provider Diagnoses: DKA (diabetic ketoacidoses), Acute renal failure, Hyperkalemia, Leukocytosis, Metabolic acidosis - Physician Notifications Discussed Care Of Patient With: Adrian Lucio Time Discussed With Above Provider: 13:44 Instructed by Provider To: Other - Patient's case was discussed with Dr. Lucio, Dr. Lucio accepts for admission, will come to ED to evaluate patient. - Critical Care Time Critical Care Time: 75-104 min Discharge - Sign-Out/Discharge Documenting (check all that apply): Patient Departure - admit All imaging exams completed and their final reports reviewed: Yes - Discharge Plan Condition: Critical Disposition: ADMITTED TO [facility] - Billing Disposition and Condition Condition: CRITICAL Disposition: Admitted to [facility] - Attestation Statements Document Initiated by Scribe: Yes Documenting Scribe: JUANITO HOLM Provider For Whom Kenyon is Documenting (Include Credential): ROXANA ANDRADE MD Scribe Attestation: JUANITO Pérez, scribed for ROXANA ANDRADE MD on 06/14/18 at 2159. Scribe Documentation Reviewed: Yes Provider Attestation: The documentation as recorded by the JUANITO hopper accurately reflects the service I personally performed and the decisions made by ut, ROXANA ANDRADE MD Status of Scribe Document: Viewed Procedures - Intubation Time of Intubation: 14:20 Intubation Method: orotracheal Tube Size (cm): 7.5 Medications: Succinylcholine Breath Sounds after Intubation: equal Intubation Complications: no complications Post Intubation Xray: Yes
[2018-06-13] MEDS ORDERED: Ondansetron INJ* 2 MG/ML VIAL ONE (13:24)
[2018-06-13 13:32] LABS: Hematocrit 47 % (35-47); Platelet Count 346 10^3/ul (150-450); Red Blood Count 4.68 10^6/ul (4.00-5.40); Red Cell Distribution Width 15 % (10.5-15); White Blood Count 35.3 10^3/ul (3.5-10.8)
[2018-06-13 13:39] LABS: INR 0.96 (0.77-1.02)
[2018-06-13] MEDS ORDERED: Insulin IVPB 100 units/100 ml 100 UNITS/100 ML UNIT IVPB ONE (13:42)
[2018-06-13] MEDS ORDERED: Insulin REGULAR(*) 1 UNITS UNIT IV PUSH ONE (13:46)
[2018-06-13] MEDS ORDERED: Insulin REGULAR(*) 1 UNITS UNIT ONE ×2 (13:49→13:53)
[2018-06-13] MEDS ORDERED: Cefepime 2 GM in Dextrose(*) 2 GM/50 ML BAG IV ONE (13:49)
[2018-06-13] MEDS ORDERED: Vancomycin(*) 1,000 MG in NS 0.9% 250 ML* 250 ML IVPB ONE (13:49)
[2018-06-13] MEDS ORDERED: NS 0.9% 250 ML* 246 ML with Norepinephrine VIAL* 4 MG IV SCH ×2 (14:00)
[2018-06-13] MEDS ORDERED: Norepinephrine VIAL* 4 MG in NS 0.9% 250 ML* 246 ML IV SCH ×3 (14:00→23:00)
[2018-06-13] MEDS ORDERED: Sodium Bicarbonate 8.4%* 50 ML SYRINGE ONE (14:15)
[2018-06-13] MEDS ORDERED: Sodium Bicarbonate 8.4%* 50 ML SYRINGE IV ONE ×3 (14:17→14:33)
[2018-06-13] MEDS ORDERED: Vancomycin(*) 1,000 MG BAG/ADDV IVPB ONE (14:23)
[2018-06-13] MEDS ORDERED: Midazolam* 1 MG/ML 5 ML VIAL (5 MG) ONE (14:31)
[2018-06-13 14:35] LABS: TSH (Thyroid Stimulating Horm) 12.26 mcIU/mL (0.34-5.60)
[2018-06-13 14:37] LABS: Albumin/Globulin Ratio 1.3 (1-3); BUN/Creatinine Ratio 17.8 (8-20); Calcium 9.4 mg/dL (8.6-10.3); EGFR Non-African American 9.5 (>60); Globulin 3.2 g/dL (2-4); Total Bilirubin 0.7 mg/dL (0.2-1.0); Total Protein 7.2 g/dL (6.4-8.9)
[2018-06-13 14:38] LABS: Potassium 6.6 mmol/L (3.5-5.0)
[2018-06-13 14:50] LABS: ABS Basophils 0.4 10^3/ul (0-0.2); ABS Eosinophils 0 10^3/ul (0-0.6); ABS Lymphocytes 3.3 10^3/ul (1.0-4.8); ABS Monocytes 2.8 10^3/ul (0-0.8); ABS Neutrophils 28.8 10^3/ul (1.5-7.7); Hemoglobin 13.1 g/dl (12.0-16.0); Mean Corpuscular HGB Conc 28 g/dl (31-36); Mean Corpuscular Hemoglobin 28 pg (27-31); Mean Corpuscular Volume 101 fL (80-97)
[2018-06-13 14:53] LABS: Immature Granulocytes 7 % (0-9); Lymphocytes % 12 %; Metamyelocytes % 4 % (0-2); Monocytes % 5 %; Myelocytes % 1 % (0-1); Neutrophil % 76 %
[2018-06-13 14:54] LABS: ABS Neutrophils 29.3 10^3/ul (1.5-7.7)
[2018-06-13] MEDS ORDERED: Sodium Bicarbonate 8.4% IV* 50 ML VIAL IV ONE ×3 (15:03→16:40)
[2018-06-13] MEDS ORDERED: Calcium Gluconate INJ* 1 GM in NS 0.9% 50 ML* 50 ML IVPB ONE (15:03)
[2018-06-13] MEDS: Midazolam* 1 MG/ML 5 ML VIAL (5 MG) IV PRN (15:15)
[2018-06-13] MEDS ORDERED: Benzoin Compound STICK ONE (15:37)
[2018-06-13] MEDS ORDERED: NS 0.9% 1000 ML* 1,000 ML IV SCH (15:45)
[2018-06-13] MEDS ORDERED: Vasopressin* 100 UNITS in D5W 250 ML BAG* 245 ML IVPB SCH (16:00)
[2018-06-13] MEDS ORDERED: Propofol* 100 ML ONE (16:13)
[2018-06-13] MEDS ORDERED: Albuterol 2.5 MG/3 ML NEB.SOL* (0.083%) INH PRN (16:35)
--- NOTE | 2018-06-13 16:40 | ED ---
Throat Pain/Nasal Congestion - HPI Summary HPI Summary: Patient is a 57 y/o F presenting to ED via ambulance unresponsive, level 5 caveat. Arrival at 1310, provider in room to evaluate patient immediately. Boyfriend reported last known normal of 2200 last night to EMS, notes patient is diabetic. Upon EMS arrival, patient's insulin pump was noted to be unplugged and in the kitchen sink. EMS reported 500+ BG. They also note a right sided facial droop. BP of 96/50 is reported, EMS notes patient was tachycardic, had tachypnea. PMHx of DKA unknown at this time, EMS only reports known PMHx of seasonal allergies. No allergies to medicine reported. In room, pulse is 111, o2 98, BP is 96/50. Review of medical records showed PMHx of insulin-dependent diabetic, HTN, dyslipidemia, asthma. - History of Current Complaint Chief Complaint: EDDiabeticProb Time Seen by Provider: 06/13/18 13:14 Hx Obtained From: EMS, Medical Records Hx From Patient Unobtainable Due To: Other - UNRESPONSIVE, LEVEL 5 CAVEAT Onset/Duration: Still Present, Other - last known well 2200 last night - Allergies/Home Medications Allergies/Adverse Reactions: Allergies Allergy/AdvReac Type Severity Reaction Status Date / Time Perfume [Fragrance] Allergy Unknown Unknown Verified 05/08/18 16:54 Reaction Details DAIRY Allergy Unknown Unknown Uncoded 05/08/18 16:54 Reaction Details RAGWEED Allergy Unknown Unknown Uncoded 05/08/18 16:54 Reaction Details dust mites Allergy Unknown Uncoded 05/08/18 16:54 Reaction Details Home Medications: Home Medications Albuterol Sulfate [Proventil Hfa] 13.4 gm INH Q4HR PRN 06/13/18 [History Confirmed 06/13/18] Escitalopram (NF) [Lexapro 10 mg (NF)] 10 mg PO DAILY 06/13/18 [History Confirmed 06/13/18] Fluticasone/Vilanterol MDI(NF) [Breo Ellipta MDI 200/25(NF)] 1 puff INH DAILY [History Confirmed 06/13/18] Ibuprofen TAB* [Motrin TAB* 600 MG] 600 mg PO TID WITH MEALS PRN 06/13/18 [ History Confirmed 06/13/18] Insulin Glargine,Hum.rec.anlog [Basaglar Kwikpen U-100] 40 units SUBCUT BEDTIME 06/13/18 [History Confirmed 06/13/18] Insulin Lispro [Admelog Solostar] 3 - 4 units SUBCUT AC 06/13/18 [History Confirmed 06/13/18] Insulin Lispro [Admelog] 0 unit SUBCUT DAILY 06/13/18 [History Confirmed ] Levothyroxine TAB* [Synthroid TAB*] 25 mcg PO DAILY 06/13/18 [History Confirmed 06/13/18] Losartan TAB* [Cozaar TAB*] 25 mg PO DAILY 06/13/18 [History Confirmed 06/13/18] Mometasone Furoate [Elocon] 0.1 % TOPICAL TID PRN 06/13/18 [History Confirmed ] Multivitamins/Minerals TAB* [Theragran/minerals TAB*] 1 tab PO DAILY 06/13/18 [ History Confirmed 06/13/18] Pioglitazone TAB* [Actos TAB*] 15 mg PO DAILY 06/13/18 [History Confirmed ] Ranitidine TAB (NF) [Zantac TAB (NF)] 150 mg PO BID 06/13/18 [History Confirmed 06/13/18] Simvastatin TAB(NF) [Zocor(NF)] 10 mg PO DAILY 06/13/18 [History Confirmed 06/13] metFORMIN* [Glucophage 1000 MG TAB *] 1,000 mg PO BID 06/13/18 [History Confirmed 06/13/18] PMH/Surg Hx/FS Hx/Imm Hx Endocrine/Hematology History: Reports: Hx Diabetes - type 1 Cardiovascular History: Denies: Hx Congestive Heart Failure, Hx Hypertension, Hx Pacemaker/ICD Respiratory History: Reports: Hx Asthma - uses Denies: Hx Chronic Obstructive Pulmonary Disease (COPD), Hx Pulmonary Edema, Hx Pulmonary Embolism GI History: Reports: Hx Gastroesophageal Reflux Disease Denies: Hx Diverticulosis History: Denies: Hx Kidney Stones, Hx Renal Disease Sensory History: Denies: Hx Hearing Aid Psychiatric History: Denies: Hx Panic Disorder - Cancer History Hx Chemotherapy: No Hx Radiation Therapy: No - Surgical History Surgery Procedure, Year, and Place: HYSTERECTOMY,WISDOM TEETH REMOVED - Immunization History Date of Tetanus Vaccine: < 10 years Date of Influenza Vaccine: 2017 Infectious Disease History: No Infectious Disease History: Reports: Hx Shingles - 12/2015 Denies: History Other Infectious Disease, Traveled Outside the [place] in Last 30 Days - Family History Known Family History: Positive: Unknown, Hypertension, Diabetes - Social History Alcohol Use: None Hx Substance Use: No Substance Use Type: Reports: None Hx Tobacco Use: Yes - not currently Smoking Status (MU): Former Smoker Review of Systems - ROS Summary Review of Systems Summary: level 5 caveat, unresponsive Positive: Other - POSITIVE - UNRESPONSIVE, ELEVATED BG Neurological: Other - POSITIVE - RIGHT FACIAL DROOP All Other Systems Reviewed And Are Negative: No - Comments Additional Review of Systems Comments: level 5 caveat, unresponsive Physical Exam - Summary Physical Exam Summary: VITAL SIGNS: Reviewed. GENERAL: Patient is a well-developed and nourished female lying in stretcher unresponsive. Level 5 caveat HEAD AND FACE: No signs of trauma. No ecchymosis, hematomas or skull depressions. No sinus tenderness. EYES: Pinpoint pupils that are sluggish. No injected conjunctiva, no nystagmus. EARS: Hearing grossly intact. Ear canals and tympanic membranes are within normal limits. MOUTH: Oropharynx within normal limits. Dry oral mucosa, fruity breath. NECK: Supple, trachea is midline, no adenopathy, no JVD, no carotid bruit, no c- spine tenderness, neck with full ROM. CHEST: Symmetric, no tenderness at palpation LUNGS: Clear to auscultation bilaterally. No wheezing or crackles. CVS: Tachycardia, S1 and S2 present, no murmurs or gallops appreciated. ABDOMEN: Soft, non-tender. No signs of distention. No rebound no guarding, and no masses palpated. Bowel sounds are normal. EXTREMITIES: No edema, no cyanosis or clubbing. NEURO: Unresponsive; GCS 6-7 SKIN: Dry and warm Triage Information Reviewed: Yes Vital Signs On Initial Exam: Initial Vitals Pulse Resp BP Pulse Ox 109 22 73/47 99 06/13/18 13:18 06/13/18 13:18 06/13/18 13:18 06/13/18 13:18 Vital Signs Reviewed: Yes Procedures - Intubation Intubation Method: orotracheal Tube Size (cm): 7.5 Medications: Succinylcholine Breath Sounds after Intubation: equal Intubation Complications: no complications Post Intubation Xray: Yes Diagnostics - Vital Signs Vital Signs Temp Pulse Resp BP Pulse Ox 06/13/18 14:39 108 96/47 98 06/13/18 14:35 108 93/53 98 06/13/18 14:34 109 80/52 98 06/13/18 14:32 109 83/46 98 06/13/18 14:29 105 85/48 99 06/13/18 14:28 108 75/57 100 06/13/18 14:23 105 90/55 96 06/13/18 14:18 100 96/57 90 06/13/18 14:13 18 98/51 06/13/18 14:09 101 29 80/40 96 06/13/18 14:05 100 31 83/61 93 06/13/18 14:01 103 24 90/50 93 06/13/18 14:00 32 06/13/18 13:58 32 86/60 06/13/18 13:51 194 31 82/48 90 06/13/18 13:46 31 78/49 06/13/18 13:44 106 30 81/44 06/13/18 13:42 104 25 77/47 93 06/13/18 13:37 96.6 F 125 12 70/36 98 06/13/18 13:26 106 30 97/52 98 06/13/18 13:21 110 31 96/50 98 06/13/18 13:18 109 22 73/47 99 - Laboratory Lab Results: Lab Results 06/13/18 06/13/18 06/13/18 Range/Units 13:20 13:20 13:20 WBC 35.3 H (3.5-10.8) 10^3/ul RBC 4.68 (4.00-5.40) 10^6/ul Hgb 13.1 (12.0-16.0) g/dl Hct 47 (35-47) % MCV 101 H (80-97) fL MCH 28 (27-31) pg MCHC 28 L (31-36) g/dl RDW 15 (10.5-15) % Plt Count 346 (150-450) 10^3/ul MPV 9.0 (7.4-10.4) fL Neut % (Auto) Not Reportable Lymph % (Auto) Not Reportable [place] % (Auto) Not Reportable Eos % (Auto) Not Reportable Baso % (Auto) Not Reportable Absolute Neuts (auto) 28.8 H (1.5-7.7) 10^3/ul Absolute Lymphs (auto) 3.3 (1.0-4.8) 10^3/ul Absolute Monos (auto) 2.8 H (0-0.8) 10^3/ul Absolute Eos (auto) 0 (0-0.6) 10^3/ul Absolute Basos (auto) 0.4 H (0-0.2) 10^3/ul Absolute Nucleated RBC Not Reportable Immature Gran % 7 (0-9) % Neutrophils % 76 % Band Neutrophils % 2 (0-8) % Lymphocytes % 12 % Monocytes % 5 % Metamyelocytes % 4 H (0-2) % Myelocytes % 1 (0-1) % Nucleated RBC % Not Reportable Abs Neuts (Manual) 29.3 H (1.5-7.7) 10^3/ul Abs Lymphs (Manual) 4.2 (1.0-4.8) 10^3/ul Abs Monocytes (Manual) 1.8 H (0-0.8) 10^3/ul Normal RBC Morphology Not Reportable Macrocytosis 1+ INR (Anticoag Therapy) (0.77-1.02) ABG pH (7.35-7.45) ABG pCO2 (35-45) mmHg ABG pO2 (80-100) mmHg ABG HCO3 (19-31) mmol/L ABG O2 Saturation (95-98) % ABG Base Excess (-2.0-2.0) Sodium 133 L (135-145) mmol/L Potassium 6.6 H* (3.5-5.0) mmol/L Chloride 85 L (101-111) mmol/L Carbon Dioxide 7 L* (22-32) mmol/L Anion Gap 41 H (2-11) mmol/L BUN 84 H (6-24) mg/dL Creatinine 4.71 H (0.51-0.95) mg/dL Est GFR ( Amer) 11.5 (>60) Est GFR (Non-Af Amer) 9.5 (>60) BUN/Creatinine Ratio 17.8 (8-20) Glucose 1462 H* (70-100) mg/dL POC Glucose (mg/dL) (70-100) mg/dL Hemoglobin A1c (4.0-5.6) % Lactic Acid 4.1 H* (0.5-2.0) mmol/L Calcium 9.4 (8.6-10.3) mg/dL Magnesium 3.0 H (1.9-2.7) mg/dL Total Bilirubin 0.70 (0.2-1.0) mg/dL AST 17 (13-39) U/L ALT 26 (7-52) U/L Alkaline Phosphatase 264 H (34-104) U/L Ammonia (16-53) mcmol/L Total Creatine Kinase 95 (10-223) U/L Troponin I 0.04 H* (<0.04) ng/mL Total Protein 7.2 (6.4-8.9) g/dL Albumin 4.0 (3.2-5.2) g/dL Globulin 3.2 (2-4) g/dL Albumin/Globulin Ratio 1.3 (1-3) TSH 12.26 H (0.34-5.60) mcIU/mL Cortisol Pending Salicylates 0.00 (<30) mg/dL Acetaminophen 1 mcg/mL Serum Alcohol 4 (<10) mg/dL 06/13/18 06/13/18 06/13/18 Range/Units 13:20 13:20 13:20 WBC (3.5-10.8) 10^3/ul RBC (4.00-5.40) 10^6/ul Hgb (12.0-16.0) g/dl Hct (35-47) % MCV (80-97) fL MCH (27-31) pg MCHC (31-36) g/dl RDW (10.5-15) % Plt Count (150-450) 10^3/ul MPV (7.4-10.4) fL Neut % (Auto) Lymph % (Auto) [place] % (Auto) Eos % (Auto) Baso % (Auto) Absolute Neuts (auto) (1.5-7.7) 10^3/ul Absolute Lymphs (auto) (1.0-4.8) 10^3/ul Absolute Monos (auto) (0-0.8) 10^3/ul Absolute Eos (auto) (0-0.6) 10^3/ul Absolute Basos (auto) (0-0.2) 10^3/ul Absolute Nucleated RBC Immature Gran % (0-9) % Neutrophils % % Band Neutrophils % (0-8) % Lymphocytes % % Monocytes % % Metamyelocytes % (0-2) % Myelocytes % (0-1) % Nucleated RBC % Abs Neuts (Manual) (1.5-7.7) 10^3/ul Abs Lymphs (Manual) (1.0-4.8) 10^3/ul Abs Monocytes (Manual) (0-0.8) 10^3/ul Normal RBC Morphology Macrocytosis INR (Anticoag Therapy) 0.96 (0.77-1.02) ABG pH (7.35-7.45) ABG pCO2 (35-45) mmHg ABG pO2 (80-100) mmHg ABG HCO3 (19-31) mmol/L ABG O2 Saturation (95-98) % ABG Base Excess (-2.0-2.0) Sodium (135-145) mmol/L Potassium (3.5-5.0) mmol/L Chloride (101-111) mmol/L Carbon Dioxide (22-32) mmol/L Anion Gap (2-11) mmol/L BUN (6-24) mg/dL Creatinine (0.51-0.95) mg/dL Est GFR ( Amer) (>60) Est GFR (Non-Af Amer) (>60) BUN/Creatinine Ratio (8-20) Glucose (70-100) mg/dL POC Glucose (mg/dL) (70-100) mg/dL Hemoglobin A1c 11.4 H (4.0-5.6) % Lactic Acid (0.5-2.0) mmol/L Calcium (8.6-10.3) mg/dL Magnesium (1.9-2.7) mg/dL Total Bilirubin (0.2-1.0) mg/dL AST (13-39) U/L ALT (7-52) U/L Alkaline Phosphatase (34-104) U/L Ammonia 70 H (16-53) mcmol/L Total Creatine Kinase (10-223) U/L Troponin I (<0.04) ng/mL Total Protein (6.4-8.9) g/dL Albumin (3.2-5.2) g/dL Globulin (2-4) g/dL Albumin/Globulin Ratio (1-3) TSH (0.34-5.60) mcIU/mL Cortisol Salicylates (<30) mg/dL Acetaminophen mcg/mL Serum Alcohol (<10) mg/dL 06/13/18 06/13/18 Range/Units 13:28 14:00 WBC (3.5-10.8) 10^3/ul RBC (4.00-5.40) 10^6/ul Hgb (12.0-16.0) g/dl Hct (35-47) % MCV (80-97) fL MCH (27-31) pg MCHC (31-36) g/dl RDW (10.5-15) % Plt Count (150-450) 10^3/ul MPV (7.4-10.4) fL Neut % (Auto) Lymph % (Auto) [place] % (Auto) Eos % (Auto) Baso % (Auto) Absolute Neuts (auto) (1.5-7.7) 10^3/ul Absolute Lymphs (auto) (1.0-4.8) 10^3/ul Absolute Monos (auto) (0-0.8) 10^3/ul Absolute Eos (auto) (0-0.6) 10^3/ul Absolute Basos (auto) (0-0.2) 10^3/ul Absolute Nucleated RBC Immature Gran % (0-9) % Neutrophils % % Band Neutrophils % (0-8) % Lymphocytes % % Monocytes % % Metamyelocytes % (0-2) % Myelocytes % (0-1) % Nucleated RBC % Abs Neuts (Manual) (1.5-7.7) 10^3/ul Abs Lymphs (Manual) (1.0-4.8) 10^3/ul Abs Monocytes (Manual) (0-0.8) 10^3/ul Normal RBC Morphology Macrocytosis INR (Anticoag Therapy) (0.77-1.02) ABG pH > 7.00 L* (7.35-7.45) ABG pCO2 26 L (35-45) mmHg ABG pO2 142 H (80-100) mmHg ABG HCO3 2.6 L* (19-31) mmol/L ABG O2 Saturation 98.8 H (95-98) % ABG Base Excess -28.7 L (-2.0-2.0) Sodium (135-145) mmol/L Potassium (3.5-5.0) mmol/L Chloride (101-111) mmol/L Carbon Dioxide (22-32) mmol/L Anion Gap (2-11) mmol/L BUN (6-24) mg/dL Creatinine (0.51-0.95) mg/dL Est GFR ( Amer) (>60) Est GFR (Non-Af Amer) (>60) BUN/Creatinine Ratio (8-20) Glucose (70-100) mg/dL POC Glucose (mg/dL) > 444 H* (70-100) mg/dL Hemoglobin A1c (4.0-5.6) % Lactic Acid (0.5-2.0) mmol/L Calcium (8.6-10.3) mg/dL Magnesium (1.9-2.7) mg/dL Total Bilirubin (0.2-1.0) mg/dL AST (13-39) U/L ALT (7-52) U/L Alkaline Phosphatase (34-104) U/L Ammonia (16-53) mcmol/L Total Creatine Kinase (10-223) U/L Troponin I (<0.04) ng/mL Total Protein (6.4-8.9) g/dL Albumin (3.2-5.2) g/dL Globulin (2-4) g/dL Albumin/Globulin Ratio (1-3) TSH (0.34-5.60) mcIU/mL Cortisol Salicylates (<30) mg/dL Acetaminophen mcg/mL Serum Alcohol (<10) mg/dL Result Diagrams: 06/13/18 13:20 06/13/18 13:20 Lab Statement: Any lab studies that have been ordered have been reviewed, and results considered in the medical decision making process. - Radiology CXR Radiology Interpretation Completed By: Radiologist Summary of Radiographic Findings: CXR IMPRESSION: #. Low lung volumes with subsegmental atelectasis. #. Prominence of the superior mediastinal contour is nonspecific given low lung volumes. and rightward rotation. Consider repeat chest radiograph is improved inspiratory effort if. feasible or CT for further assessment if there is concern for potential aortic aneurysm or. dissection. THIS REPORT WAS REVIEWED BY ED PHYSICIAN. - CT BRAIN CT CT Interpretation Completed By: Radiologist Summary of CT Findings: BRAIN CT IMPRESSION: NO EVIDENCE FOR ACUTE INTRACRANIAL ABNORMALITY. THIS REPORT WAS REVIEWED BY ED PHYSICIAN. - EKG 1330 Cardiac Rate: Tachycardia EKG Rhythm: Sinus Tachycardia EKG Comparison: No Significant Change - compared to 03/01/13 Summary of EKG Findings: EKG showed sinus tachycardia with rate of 109 BPM, no ST elevation, similar to EKG from 03/01/13 EENT Course/Dx - Course Course Of Treatment: Endotracheal Intubation Procedure Note. Procedure - Endotracheal Intubation. Permit was implied secondary to emergent situation. An LMA and bougie were placed within arm's reach. A Glidescope blade was inserted into the oropharynx at which time the vocal cords were visualized. A 7.5 Greek endotracheal tube was inserted and visualized going through the vocal cords. The stylet was removed. Colorimetric change was visualized on the CO2 meter. Breath sounds were heard in both lung espinoza equally. The endotracheal tube was placed at 23 cm, measured at the teeth. Portable chest x- ray ordered for confirmation of tube level. Post intubation sedation ordered. Intubation was made at the first attempt. No complications were encountered. Assessment/Plan: Patient is a 57 y/o F presenting to ED via ambulance unresponsive, level 5 caveat. Arrival at 1310, provider in room to evaluate patient immediately. Boyfriend reported last known normal of 2200 last night to EMS, notes patient is diabetic. Upon EMS arrival, patient's insulin pump was noted to be unplugged and in the kitchen sink. EMS reported 500+ BG. They also note a right sided facial droop. BP of 96/50 is reported, EMS notes patient was tachycardic, had tachypnea. PMHx of DKA unknown at this time, EMS only reports known PMHx of seasonal allergies. No allergies to medicine reported. In room, pulse is 111, o2 98, BP is 96/50. Review of medical records showed PMHx of insulin-dependent diabetic, HTN, dyslipidemia, asthma. Initially when the patient arrived to the emergency department with nausea the patient is unresponsive. The patient's pupils were constricted and very sluggish. The blood pressure is low therefore we obtained 3 IV accesses with a large-bore and we started IV fluids. The fingerstick showed blood sugars high therefore we believe that the patient is in DKA since she has history of insulin-dependent diabetes. The patient was sent to CT to rule out any intracranial pathology. Head CT impression: No acute intra-Pathology. CXR IMPRESSION: #. Low lung volumes with subsegmental atelectasis. #. Prominence of the superior mediastinal contour is nonspecific given low lung volumes and rightward rotation. Consider repeat chest radiograph is improved inspiratory effort if feasible or CT for further assessment if there is concern for potential aortic aneurysm or dissection. In the ED course and the patients GCS is between 6 and 7. The pH is less than 7 therefore I decided to intubate the patient. Please see intubation note. Intubation was successful on the first attempt. Blood work shows WBCs of 35, absolute neutrophils 28.8, sodium 133 potassium 6.6 , chloride this 85, cholelithiasis 7, BUN is 84 creatinine of 4.71, troponin 0.04 and magnesium at 3. ABG shows a pH of less than 7, PCO2 26 PO2 is 146 O2 sat is 98.8. In the ED course initially the patient was given a position 4 L of IV fluids. Patient is still hypotensive therefore the patient was started on Levophed. Patient also was given etomidate and succinylcholine for intubation. Patient was given 8 units of insulin and Dr. Lucio from ICU assisted with the patient and insulin drip. The patient also was given cefepime and vancomycin since about also count a significant elevated and there is a suspicion for infection. Patient also was given calcium gluconate, for the hypokalemia. This was recommended by Dr. Lucio. Patient also was given bicarbonate recommended with Dr. Lucio [address] At this point Dr. Shetty from the ICU services accepted the patient for admission. The patient is more stable however the patient still critical. - Diagnoses Provider Diagnoses: DKA (diabetic ketoacidoses), Acute renal failure, Hyperkalemia, Leukocytosis, Metabolic acidosis - Provider Notifications Time Discussed With Above Provider: 13:44 Instructed by Provider To: Other - Patient's case was discussed with Dr. Lucio, Dr. Lucio accepts for admission, will come to ED to evaluate patient. - Critical Care Time Critical Care Time: 75-104 min - Attestation Statements Document Initiated by Scribe: Yes
[2018-06-13] MEDS ORDERED: NS 0.9% 1000 ML* 1,000 ML IV ONE ×2 (16:48→23:27)
--- NOTE | 2018-06-13 16:50 | HP ---
H&P (Free Text) History and Physical: History and Physical -- Critical Care Limitations in history/physical:unresponsive, intubated HPI: 57y F w/pmhx of DM on insulin pump, Hypothyroidism, Asthma, GERD; Patient comes in via EMS for unresponsiveness. Patient was found by boyfriend at home unresponsive this morning, last known okay and normal last night at 2200. EMS found insulin pump unplugged in sink, fingerstick >500. Unclear if they noted a clear facial droop. She was tachycardic, hypotensive, tachypneic on arrival to ER with SBP 70s, tmax 96. She was started on IVF bolus given a total of 3L+ with FSBG of >450. Given her poor mental status she was intubated. She was started on levophed infusion for persistent hypotension. Labs noted to show elevated WBC, hyperglycemia >1400, metabolic acidosis with LA+ and REMY. She had a clear CXR on arrival. I saw patient, placed an emergent Arterial line and central line. We gave bicarb and calcium IV push. She is with a poor mental status, pupils 2mm and reactive, gag+. Given versed for sedation till BP improved. Now transferred to ICU. History limited due to encephalopathy/sedatives. ROS: unable to obtain, intubated/sedated PMHx: DM on insulin pump, Hypothyroidism, Asthma, GERD PSHx: hysterectomy Family History: unknown Social History: Alcohol-none, Smoking-former smoker, Drug use-none Allergies: Allergies Allergy/AdvReac Type Severity Reaction Status Date / Time Perfume [Fragrance] Allergy Unknown Unknown Verified 05/08/18 16:54 Reaction Details DAIRY Allergy Unknown Unknown Uncoded 05/08/18 16:54 Reaction Details RAGWEED Allergy Unknown Unknown Uncoded 05/08/18 16:54 Reaction Details dust mites Allergy Unknown Uncoded 05/08/18 16:54 Reaction Details Home Medications: Albuterol Sulfate [Proventil Hfa] 13.4 gm INH Q4HR PRN 06/13/18 [History Confirmed 06/13/18] Escitalopram (NF) [Lexapro 10 mg (NF)] 10 mg PO DAILY 06/13/18 [History Confirmed 06/13/18] Fluticasone/Vilanterol MDI(NF) [Breo Ellipta MDI 200/25(NF)] 1 puff INH DAILY [History Confirmed 06/13/18] Ibuprofen TAB* [Motrin TAB* 600 MG] 600 mg PO TID WITH MEALS PRN 06/13/18 [ History Confirmed 06/13/18] Insulin Glargine,Hum.rec.anlog [Basaglar Kwikpen U-100] 40 units SUBCUT BEDTIME 06/13/18 [History Confirmed 06/13/18] Insulin Lispro [Admelog Solostar] 3 - 4 units SUBCUT AC 06/13/18 [History Confirmed 06/13/18] Insulin Lispro [Admelog] 0 unit SUBCUT DAILY 06/13/18 [History Confirmed ] Levothyroxine TAB* [Synthroid TAB*] 25 mcg PO DAILY 06/13/18 [History Confirmed 06/13/18] Losartan TAB* [Cozaar TAB*] 25 mg PO DAILY 06/13/18 [History Confirmed 06/13/18] Mometasone Furoate [Elocon] 0.1 % TOPICAL TID PRN 06/13/18 [History Confirmed ] Multivitamins/Minerals TAB* [Theragran/minerals TAB*] 1 tab PO DAILY 06/13/18 [ History Confirmed 06/13/18] Pioglitazone TAB* [Actos TAB*] 15 mg PO DAILY 06/13/18 [History Confirmed ] Ranitidine TAB (NF) [Zantac TAB (NF)] 150 mg PO BID 06/13/18 [History Confirmed 06/13/18] Simvastatin TAB(NF) [Zocor(NF)] 10 mg PO DAILY 06/13/18 [History Confirmed 06/13] metFORMIN* [Glucophage 1000 MG TAB *] 1,000 mg PO BID 06/13/18 [History Confirmed 06/13/18] Tele: sinus tachy Vitals: Vital Signs Temp 96.6 F 06/13/18 13:37 Pulse 125 06/13/18 13:37 Resp 12 06/13/18 13:37 BP 70/36 06/13/18 13:37 Pulse Ox 92 06/13/18 15:00 Intake & Output 06/12/18 06/13/18 06/13/18 18:59 06:59 18:59 Weight 102.058 kg O2/Vent: AC mod 50% fio2 Infusions: levophed, NS Current Medications: Famotidine (Pepcid Iv*) 20 mg IV SLOW PU DAILY [facility] Insulin Human Regular (Insulin Regular Iv Drip 1 Unit/Ml) 100 units in 100 mls @ 10.206 mls/hr IVPB PER RATE ONE Stop: 06/13/18 23:29 Last Admin: 06/13/18 15:16 Dose: 10.206 mls/hr Norepinephrine Bitartrate 4 mg (/ Sodium Chloride) 250 mls @ 18.75 mls/hr IV Q13H [facility]UMA; Protocol Last Admin: 06/13/18 14:15 Dose: 18.75 mls/hr Vasopressin 100 units/ (Dextrose) 250 mls @ 6 mls/hr IVPB Q40H [facility]; Protocol Sodium Chloride (Ns 0.9% 1000 Ml*) 1,000 mls @ 100 mls/hr IV PER RATE [facility]UMA Cefepime HCl (Maxipime 1 Gm In Dextrose Duplex (*)) 1 gm in 50 mls @ 100 mls/ hr IV Q24H [facility] Levothyroxine Sodium (Synthroid Inj*) 12.5 mcg IV 0600 [facility]UMA Midazolam HCl (Versed 5mg/5ml*) 2 mg IV Q2H PRN PRN Reason: agitation Last Admin: 06/13/18 15:15 Dose: 2 mg Physical Exam: General: intubated, sedated Head: normocephalic, atraumatic HEENT: no pallor, no icterus, DRY mucous membranes Neck: soft, supple, no jvd CVS: tachy, regular, no murmur Resp: bilateral air entry, no rhales, no wheeze, no rhonchi, no acc muscle use Abdomen: soft, nontender, nondistended, bowel sounds present Ext: pulses+, warm, no edema Skin: intact Neuro: sedated, moving ext spontaneously Labs: Laboratory Results - last 24 hr 06/13/18 06/13/18 06/13/18 13:20 13:20 13:20 WBC 35.3 H RBC 4.68 Hgb 13.1 Hct 47 MCV 101 H MCH 28 MCHC 28 L RDW 15 Plt Count 346 MPV 9.0 Neut % (Auto) Not Reportable Lymph % (Auto) Not Reportable [place] % (Auto) Not Reportable Eos % (Auto) Not Reportable Baso % (Auto) Not Reportable Absolute Neuts (auto) 28.8 H Absolute Lymphs (auto) 3.3 Absolute Monos (auto) 2.8 H Absolute Eos (auto) 0 Absolute Basos (auto) 0.4 H Absolute Nucleated RBC Not Reportable Immature Gran % 7 Neutrophils % 76 Band Neutrophils % 2 Lymphocytes % 12 Monocytes % 5 Metamyelocytes % 4 H Myelocytes % 1 Nucleated RBC % Not Reportable Abs Neuts (Manual) 29.3 H Abs Lymphs (Manual) 4.2 Abs Monocytes (Manual) 1.8 H Normal RBC Morphology Not Reportable Macrocytosis 1+ INR (Anticoag Therapy) Patient Temperature ABG pH ABG pCO2 ABG pO2 ABG HCO3 ABG O2 Saturation ABG Base Excess Respiration Rate O2 Delivery Device Ventilator Type Vent Mode FiO2 Inspiratory Time PEEP Pressure Support Pressure Control EPAP IPAP BiPAP Sodium 133 L Potassium 6.6 H* Chloride 85 L Carbon Dioxide 7 L* Anion Gap 41 H BUN 84 H Creatinine 4.71 H Est GFR ( Amer) 11.5 Est GFR (Non-Af Amer) 9.5 BUN/Creatinine Ratio 17.8 Glucose 1462 H* POC Glucose (mg/dL) Hemoglobin A1c Lactic Acid 4.1 H* Calcium 9.4 Magnesium 3.0 H Total Bilirubin 0.70 AST 17 ALT 26 Alkaline Phosphatase 264 H Ammonia Total Creatine Kinase 95 Troponin I 0.04 H* Total Protein 7.2 Albumin 4.0 Globulin 3.2 Albumin/Globulin Ratio 1.3 TSH 12.26 H Salicylates 0.00 Acetaminophen 1 Serum Alcohol 4 06/13/18 06/13/18 06/13/18 13:20 13:20 13:20 WBC RBC Hgb Hct MCV MCH MCHC RDW Plt Count MPV Neut % (Auto) Lymph % (Auto) [place] % (Auto) Eos % (Auto) Baso % (Auto) Absolute Neuts (auto) Absolute Lymphs (auto) Absolute Monos (auto) Absolute Eos (auto) Absolute Basos (auto) Absolute Nucleated RBC Immature Gran % Neutrophils % Band Neutrophils % Lymphocytes % Monocytes % Metamyelocytes % Myelocytes % Nucleated RBC % Abs Neuts (Manual) Abs Lymphs (Manual) Abs Monocytes (Manual) Normal RBC Morphology Macrocytosis INR (Anticoag Therapy) 0.96 Patient Temperature ABG pH ABG pCO2 ABG pO2 ABG HCO3 ABG O2 Saturation ABG Base Excess Respiration Rate O2 Delivery Device Ventilator Type Vent Mode FiO2 Inspiratory Time PEEP Pressure Support Pressure Control EPAP IPAP BiPAP Sodium Potassium Chloride Carbon Dioxide Anion Gap BUN Creatinine Est GFR ( Amer) Est GFR (Non-Af Amer) BUN/Creatinine Ratio Glucose POC Glucose (mg/dL) Hemoglobin A1c 11.4 H Lactic Acid Calcium Magnesium Total Bilirubin AST ALT Alkaline Phosphatase Ammonia 70 H Total Creatine Kinase Troponin I Total Protein Albumin Globulin Albumin/Globulin Ratio TSH Salicylates Acetaminophen Serum Alcohol 06/13/18 06/13/18 06/13/18 13:28 14:00 16:17 WBC RBC Hgb Hct MCV MCH MCHC RDW Plt Count MPV Neut % (Auto) Lymph % (Auto) [place] % (Auto) Eos % (Auto) Baso % (Auto) Absolute Neuts (auto) Absolute Lymphs (auto) Absolute Monos (auto) Absolute Eos (auto) Absolute Basos (auto) Absolute Nucleated RBC Immature Gran % Neutrophils % Band Neutrophils % Lymphocytes % Monocytes % Metamyelocytes % Myelocytes % Nucleated RBC % Abs Neuts (Manual) Abs Lymphs (Manual) Abs Monocytes (Manual) Normal RBC Morphology Macrocytosis INR (Anticoag Therapy) Patient Temperature Not Reportable ABG pH > 7.00 L* ABG pCO2 26 L ABG pO2 142 H ABG HCO3 2.6 L* ABG O2 Saturation 98.8 H ABG Base Excess -28.7 L Respiration Rate 22 O2 Delivery Device vent Ventilator Type 550 Vent Mode cmv FiO2 80 Inspiratory Time Not Reportable PEEP 5 Pressure Support Not Reportable Pressure Control Not Reportable EPAP Not Reportable IPAP Not Reportable BiPAP Not Reportable Sodium Potassium Chloride Carbon Dioxide Anion Gap BUN Creatinine Est GFR ( Amer) Est GFR (Non-Af Amer) BUN/Creatinine Ratio Glucose POC Glucose (mg/dL) > 444 H* Hemoglobin A1c Lactic Acid Calcium Magnesium Total Bilirubin AST ALT Alkaline Phosphatase Ammonia Total Creatine Kinase Troponin I Total Protein Albumin Globulin Albumin/Globulin Ratio TSH Salicylates Acetaminophen Serum Alcohol Imaging: cxr 06/13 - ett above trudy, left IJ TLC+, no congestion, right hemidiaphragm elevated CT brain - no acute process noted Assessment: 57y F w/pmhx of DM on insulin pump, Hypothyroidism, Asthma, GERD; Patient comes in via EMS for unresponsiveness. Patient was found by boyfriend at home unresponsive this morning, last known okay and normal last night at 2200. EMS found insulin pump unplugged in sink, fingerstick >500. Unclear if they noted a clear facial droop. She was tachycardic, hypotensive, tachypneic on arrival to ER with SBP 70s, tmax 96. She was started on IVF bolus given a total of 3L+ with FSBG of >450. Given her poor mental status she was intubated. She was started on levophed infusion for persistent hypotension. Labs noted to show elevated WBC, hyperglycemia >1400, metabolic acidosis with LA+ and REMY. She had a clear CXR on arrival. -Acute Respiratory failure, unspecified -DKA -Shock, suspected hypovolemic/septic -Metabolic acidosis -Hyperkalemia -REMY -acute encephalopathy asthma Plan: Neuro- obtunded mental status. CT brain negative. noted slightly elevated ammonia, no known liver disease. Severe acidosis with hyperglycemia, REMY and possible sepsis may all be adding to this acute metabolic/toxic encephalopathy. unclear if any CVA to have occurred from history, will have to reassess once stabilized. -start propofol sedation -asp prec, neurochecks when off sedation CVS- shock, suspect hypovolemic/distributive/septic. obtain mixed venous gas. IVF NS 100cc/hr. IV Levophed and vasopressin. Would benefit from stress steroids but will have to correct sugars first. Trend LA. -TTE to eval LV function Resp- intubated on 50%. CXR without inffiltrate. ABG q4h. VAP bundle. Bronchodilators prn. sputum culture. send influenza swab. Asp Prec. ID- tmax 96. wbc 35. CXR clear. Send urinalysis/culture. send influenza. Empiric Cefepime 1gm q24h (day#1) and Vanco 1gm x1 (day#1). Check vanco random tomorrow AM. GI- NPO. GI proph. place NGT Renal- REMY suspected from hypovolemia from osmotic diuresis from hyperglycemia, possible PO po intake, pre-renal from shock from underlying sepsis. -hyperkalemia; s/p bicarb, on insulin infusion, s/p calcium; check bmp q4h. EKG without ST/T and QRS changes. -metabolic acidosis + hyperlactatemia; trend LA. Bicarb push repeat x2. suspect this to be DKA given severity and lack of severe lactic acidosis, also with REMY compounding acidosis. insulin and IVF would benefit. if urine output not picking up in next few hours, will change IVF to Na Bicarb. -corrected sodium 155 for hyperglycemia -Nephrology consult may be needed in next few hours. Heme- hg okay. plt okay. INr okay. DVT proph with heparin sq/SCDs Endo- DKA suspected; IVF bolus 3 L, NS infusion. Insulin infusion, fingerstick q1h. check phos/mg/k/bmp q4h. Endo consult once improved from DKA. Hold insulin pump for now. -restart synthroid 12.5mcg IV daily Musculsk- pressure ulcer prophylaxis. Bedrest. Wounds- none Nutrition- NPO DVT prophylaxis: scd/heparin sq GI prophylaxis: h2b Central Line: left ij 06/13 Arterial Line: right rad 06/13 Sung Cathetor: yes Disposition: admit to ICU, expected LOS>2 midnights Code Status: full code Total Critical Care time is 60 minutes, excluding procedures/teaching Adrian Lucio MD Industrial Painter (Electronically Signed)
--- NOTE | 2018-06-13 16:52 | PN ---
Progress Note - Progress Note Date of Service: 06/13/18 Note: Central Line Procedure Note Indication: venous access Diagnosis: DKA, shock, respiratory failure Performed by: Adrian Lucio MD Consent: Emergent [place] Protocol: Time-out was performed and the correct patient and site were verified - Prior labs/history was reviewed prior to procedure - Full sterile precautions with chlorhexidine/full drapes/gowns/gloves utilized - Left Internal jugular Vein visualized with ultrasound - Vessel accessed under ultrasound guidance with return of nonpulsatile blood. A guidewire was passed into vessel and confirmed in vessel with ultrasound. 1 attempt was made to access vessel. Vessel was dilated and cathetor was passed over wire into vessel. All ports demonstrated good blood return and flushed. Catheter was sutured to site and dressing applied. Adequate hemostasis was achieved EBL <5 cc No immediate complications noted, patient tolerated procedure well. Post Procedure CXR: confirmed left IJ with termination into SVC, no ptx Adrian Lucio MD Tin Pourer (Electronically Signed)
--- NOTE | 2018-06-13 16:52 | PN ---
Progress Note - Progress Note Date of Service: 06/13/18 Note: Arterial Line Procedure Note Indication: frequent arterial blood gases , invasive hemodynamic monitoring Diagnosis: DKA, shock, REMY, respiratory failure Performed by: Adrian Lucio MD Consent: Emergent [place] Protocol: Time-out was performed and the correct patient and site were verified - Prior labs/history was reviewed prior to procedure - Full sterile precautions with chlorhexidine/full drapes/gowns/gloves utilized - right radial artery visualized with US - Vessel accessed with return of pulsatile blood. One attempt was made to access vessel. A cathetor was threaded over wire into vessel. Good arterial waveform was observed on monitor. - Arterial Catheter was sutured to site; dressing applied to site. EBL <3 cc No immediate complications noted, patient tolerated procedure well. Adrian Lucio MD Spray Rig Operator (Electronically Signed)
[2018-06-13] MEDS ORDERED: Propofol* 100 ML IV SCH (17:00)
[2018-06-13 17:43] LABS: HDL Cholesterol 47.7 mg/dL
[2018-06-13 18:09] LABS: BUN/Creatinine Ratio 22.3 (8-20); Calcium 6.8 mg/dL (8.6-10.3); EGFR Non-African American 15.9 (>60); Potassium 3.4 mmol/L (3.5-5.0)
[2018-06-13] MEDS ORDERED: Etomidate* 2 MG/ML 20 ML VIAL (40 MG) ONE (18:50)
[2018-06-13 19:11] LABS: Urine Appearance Cloudy; Urine Bacteria 1+ (Absent); Urine Bilirubin Negative (Negative); Urine Blood 3+ (Negative); Urine Color Yellow; Urine Glucose 3+(>=500 mg/dL) (Negative); Urine Ketones 2+ (Negative); Urine Nitrite Negative (Negative); Urine Protein Negative (Negative); Urine Red Blood Cell Trace(0-2/hpf) (Absent); Urine Specific Gravity 1.012 (1.010-1.030); Urine Urobilinogen Negative (Negative); Urine White Blood Cell Trace(0-5/hpf) (Absent)
[2018-06-13 19:17] LABS: Amylase 798 U/L (29-103)
[2018-06-13 19:23] LABS: Glucose 762 mg/dL (70-100)
[2018-06-13] MEDS: Vasopressin* 100 UNITS in D5W 250 ML BAG* 245 ML IVPB SCH (19:30)
[2018-06-13 19:45] LABS: Barbiturates Urine Screen None Detected (None Detect); Benzodiazepine Urine Screen Presumptive Positive (None Detect); Urine Cannabinoids Screen None Detected (None Detect)
--- NOTE | 2018-06-13 20:05 | PN ---
Sepsis Event Evaluation Date of Evaluation: 06/13/18 Time of Evaluation: 19:00 Current Stage of Sepsis: Septic Shock Vital Signs - Last 12 Hours: Vital Signs - 12 hr Temp Pulse Resp BP Pulse Ox 06/13/18 19:56 133 32 100 06/13/18 17:16 94.6 F 110 100 06/13/18 17:01 94.5 F 110 100 06/13/18 17:00 94.5 F 110 82/60 100 06/13/18 16:47 96.6 F 110 16 102/65 100 06/13/18 16:46 94.3 F 110 104/57 100 06/13/18 16:36 96 F 06/13/18 16:30 110 97/61 100 06/13/18 16:24 110 102/65 100 06/13/18 16:15 109 71/47 100 06/13/18 16:03 83/64 06/13/18 16:00 96.6 F 110 28 83/64 100 06/13/18 15:44 110 101/58 99 06/13/18 15:39 106 109/62 100 06/13/18 15:34 107 114/56 100 06/13/18 15:29 105 84/68 100 06/13/18 15:24 107 103/61 100 06/13/18 15:19 106 106/51 100 06/13/18 15:14 106 105/64 100 06/13/18 15:09 107 86/69 98 06/13/18 15:04 105 98/61 100 06/13/18 15:00 106 100 06/13/18 14:58 107 111/53 100 06/13/18 14:53 107 108/60 99 06/13/18 14:48 107 99/60 98 06/13/18 14:46 108 94/53 99 06/13/18 14:43 108 96/50 98 06/13/18 14:39 108 96/47 98 06/13/18 14:35 108 93/53 98 06/13/18 14:34 109 80/52 98 06/13/18 14:32 109 83/46 98 06/13/18 14:29 105 85/48 99 06/13/18 14:28 108 75/57 100 06/13/18 14:23 105 90/55 96 06/13/18 14:18 100 96/57 90 06/13/18 14:13 18 98/51 06/13/18 14:09 101 29 80/40 96 06/13/18 14:05 100 31 83/61 93 06/13/18 14:01 103 24 90/50 93 06/13/18 14:00 32 06/13/18 13:58 32 86/60 06/13/18 13:51 194 31 82/48 90 06/13/18 13:46 31 78/49 06/13/18 13:44 106 30 81/44 06/13/18 13:42 104 25 77/47 93 06/13/18 13:37 96.6 F 125 12 70/36 98 06/13/18 13:26 106 30 97/52 98 06/13/18 13:21 110 31 96/50 98 06/13/18 13:18 109 22 73/47 99 Lactic Acid: 06/13/18 06/13/18 13:20 18:22 Lactic Acid 4.1 H* 2.1 H* - Cardiopulmonary Exam Capillary Refill: Immediate Respiratory: Symmetrical Chest Expansion and Respiratory Effort, Clear to Auscultation, Clear to Percussion, Clear to Palpation Cardiovascular: NL Sounds; No Murmurs; No JVD, No Edema - Peripheral Pulse Exam Radial Pulses: Bilateral Normal Pedal Pulses: Bilateral Normal - Skin Exam Skin Exam: Normal Turgor - [place]rera Coma Scale Best Eye Response: 1 - None Best Motor Response: 1 - None Best Verbal Response: 1 - Intubated Coma Scale Total: 3.0 Assess/Plan/Problems-Billing Assessment:
[2018-06-13] MEDS: Phenylephrine INJ* 50 MG in NS 0.9% 250 ML* 245 ML IV SCH (20:25)
[2018-06-13] MEDS: Famotidine IV* 10 MG/ML 2 ML (20 mg) IV SLOW PU SCH (20:25)
[2018-06-13] MEDS: Chlorhexidine MOUTHWASH 0.12%* 15 ML UDC TOPICAL SCH ×2 (20:45→22:32)
[2018-06-13] MEDS: Insulin IVPB 100 units/100 ml 100 UNITS/100 ML UNIT IVPB SCH (22:02)
[2018-06-13 22:20] LABS: Calcium 6.8 mg/dL (8.6-10.3); Potassium 2.9 mmol/L (3.5-5.0)
[2018-06-13 22:26] LABS: BUN/Creatinine Ratio 21.9 (8-20); EGFR Non-African American 15.6 (>60)
[2018-06-13] MEDS: Acetaminophen ADULT LIQ* 650 MG/20.3 ML UDC G TUBE PRN (22:32)
[2018-06-13] MEDS: KCL 20 MEQ/100 ML IVPREMIX* 20 MEQ/100 ML BAG IV SCH (23:16)
[2018-06-13 23:39] LABS: Glucose 493 mg/dL (70-100)
[2018-06-13 23:48] LABS: Magnesium 1.4 mg/dL (1.9-2.7)
[2018-06-13] MEDS ORDERED: Magnesium Sulfate IV* 2 GM in NS 0.9% 100 ML* 100 ML IV ONE (23:49)
[2018-06-13 23:51] LABS: Phosphorus < 1.0 mg/dL (2.5-5.0)
[2018-06-14] MEDS ORDERED: Midazolam* 1 MG/ML 2 ML VIAL (2 MG) ONE ×2 (00:30→05:16)
[2018-06-14] MEDS: Norepinephrine VIAL* 8 MG in NS 0.9% 500 ML* 492 ML IV SCH ×6 (00:43→22:26)
[2018-06-14] MEDS ORDERED: EPINEPHrine AMP 1 MG/ML* 1 MG in D5W 250 ML BAG* 250 ML IVPB SCH (01:00)
[2018-06-14] MEDS ORDERED: Potassium Phosphate IV* 15 MMOLE in NS 0.9% 250 ML* 250 ML IVPB ONE ×3 (01:00→21:00)
[2018-06-14] MEDS ORDERED: EPINEPHrine SYR 0.1MG/ML* SYRINGE ONE (01:12)
[2018-06-14] MEDS: Midazolam* 1 MG/ML 5 ML VIAL (5 MG) IV PRN ×2 (01:45→04:02)
[2018-06-14] MEDS: Phenylephrine INJ* 50 MG in NS 0.9% 250 ML* 245 ML IV SCH ×4 (01:50→19:56)
[2018-06-14] MEDS ORDERED: Magnesium Sulfate 2 GM IV (Premix) IVPB ONE ×2 (02:00→20:00)
[2018-06-14] MEDS ORDERED: Epinepherine DRIP 4 mcg/ml 250 mls (dosed in mcg/kg/min) IV SCH (02:00)
[2018-06-14] MEDS: Chlorhexidine MOUTHWASH 0.12%* 15 ML UDC TOPICAL SCH ×6 (02:33→19:55)
[2018-06-14 02:35] LABS: BUN/Creatinine Ratio 23.3 (8-20); Blood Urea Nitrogen 65 mg/dL (6-24); CO2 Carbon Dioxide 16 mmol/L (22-32); Calcium 6.8 mg/dL (8.6-10.3); EGFR Non-African American 17.4 (>60); Glucose 275 mg/dL (70-100)
[2018-06-14 02:42] LABS: Anion Gap 13 mmol/L (2-11); Chloride 125 mmol/L (101-111); Potassium 2.7 mmol/L (3.5-5.0); Sodium 154 mmol/L (135-145)
[2018-06-14] MEDS: metroNIDAZOLE IV 500 MG/100ML* 500 MG/100 ML BAG IVPB SCH ×3 (03:10→16:38)
[2018-06-14 03:26] LABS: Magnesium 1.2 mg/dL (1.9-2.7)
[2018-06-14 03:29] LABS: Phosphorus < 1.0 mg/dL (2.5-5.0)
[2018-06-14] MEDS ORDERED: Midazolam* 1 MG/ML 2 ML VIAL (2 MG) IV ONE (04:00)
[2018-06-14] MEDS ORDERED: D5W 1/2 NS 40 Meq KCL 1000 ML* 1,000 ML IV SCH (04:00)
[2018-06-14] MEDS: KCL 20 MEQ/100 ML IVPREMIX* 20 MEQ/100 ML BAG IV SCH ×2 (04:03→06:28)
[2018-06-14] MEDS ORDERED: Magnesium Sulfate 2 GM IV* 2 GM/50 ML BAG IVPB ONE (05:12)
[2018-06-14] MEDS ORDERED: Midazolam* 1 MG/ML 5 ML VIAL (5 MG) IV PRN (05:13)
[2018-06-14] MEDS: fentaNYL* 50 MCG/ML 2 ML VIAL (100 MCG VIAL) IV SLOW PU PRN (06:05)
[2018-06-14] MEDS: Insulin IVPB 100 units/100 ml 100 UNITS/100 ML UNIT IVPB SCH ×3 (06:08→21:47)
[2018-06-14] MEDS: Levothyroxine INJ* 100 MCG/5 ML VIAL IV SCH (06:29)
[2018-06-14 06:36] LABS: Hematocrit 32 % (35-47); Hemoglobin 10.8 g/dl (12.0-16.0); Mean Corpuscular HGB Conc 34 g/dl (31-36); Mean Corpuscular Hemoglobin 28 pg (27-31); Mean Corpuscular Volume 83 fL (80-97); Mean Platelet Volume 8.2 fL (7.4-10.4); Platelet Count 146 10^3/ul (150-450); Red Blood Count 3.87 10^6/ul (4.00-5.40); Red Cell Distribution Width 14 % (10.5-15); White Blood Count 13.1 10^3/ul (3.5-10.8)
[2018-06-14 06:54] LABS: Albumin 2.7 g/dL (3.2-5.2); Albumin/Globulin Ratio 1.3 (1-3); BUN/Creatinine Ratio 24.1 (8-20); Calcium 6.6 mg/dL (8.6-10.3); EGFR Non-African American 20.2 (>60); Globulin 2.1 g/dL (2-4); Indirect Bilirubin 0.2 mg/dL (0.3-1.0); Magnesium 1.7 mg/dL (1.9-2.7); Phosphorus 1.6 mg/dL (2.5-5.0); Potassium 3.8 mmol/L (3.5-5.0); Total Bilirubin 0.3 mg/dL (0.2-1.0); Total Protein 4.8 g/dL (6.4-8.9)
[2018-06-14 06:55] LABS: Vancomycin Random 9.3 mcg/mL
[2018-06-14] MEDS ORDERED: KCL 20 MEQ/100 ML IVPREMIX* 20 MEQ/100 ML BAG IV SCH (07:30)
[2018-06-14] MEDS ORDERED: NS 0.9% 1000 ML* 1,000 ML IV SCH (07:30)
[2018-06-14] MEDS: Midazolam IV for DRIP 100 MG in NS 0.9% IV SCH (08:52)
[2018-06-14] MEDS ORDERED: D5W 1000 ML BAG* 1,000 ML IV SCH (09:00)
[2018-06-14] MEDS ORDERED: Perflutren Lipid Microsphere* 3 ML VIAL ONE (09:13)
[2018-06-14] MEDS: Famotidine IV* 10 MG/ML 2 ML (20 mg) IV SLOW PU SCH (09:14)
--- NOTE | 2018-06-14 11:50 | PN ---
Progress Note - Progress Note Date of Service: 06/14/18 Note: Progress Note -- Critical Care 24 hour events -intubated; sedated, started on versed infusion given hemodynamics -on levo/vaso/moises/epi -making urine -BG improved, off insulin this morning but now on again -tmax 101.5, still febrile -CT abd/pelvis/chest done last night -boyfriend at bedside, updated Tele: sinus tachy Vitals: Vital Signs Temp 102.0 F 06/14/18 11:31 Pulse 126 06/14/18 11:31 Resp 22 06/14/18 11:00 BP 105/46 06/14/18 11:31 Pulse Ox 96 06/14/18 11:31 Intake & Output 06/13/18 06/14/18 06/14/18 18:59 06:59 18:59 Intake Total 5567.1 Output Total 700 1375 1265 Balance -700 4192.1 -1265 Weight 88 kg 90.9 kg 91 kg Intake: IV Fluids 2069 D5W 1/2 NS 40 meq KCL 200 NS (0.9%) 1869 IVPB 909 KCl/Mag 259 KPhos 650 Medicated IV 2589.1 CC - Insulin 253 CC - Norepinephrine/ 1655 Levophed CC - Phenylephrine/ 482.4 Neosynephrine CC - Vasopressin/ 133.7 Pitressin Epinephrine 13 Propofol 52 Output: Urine 250 Sung 700 1125 1265 O2/Vent: AC mod 40% fio2 Infusions: levophed 30, vaso 0.07u/min, moises 180, epi 2mcg/min, versed 3mg/hr, d5w 100cc/hr, insulin Current Medications: Acetaminophen (Tylenol Adult Liq*) 650 mg G TUBE Q4H PRN PRN Reason: FEVER Last Admin: 06/13/18 22:32 Dose: 650 mg Albuterol (Ventolin 2.5 Mg/3 Ml Neb.Gail*) 2.5 mg INH Q4H PRN PRN Reason: SOB/WHEEZING Chlorhexidine Gluconate (Peridex Mouth Wash 0.12%*) 15 ml TOPICAL Q4H [facility] Last Admin: 06/14/18 09:31 Dose: 15 ml Famotidine (Pepcid Iv*) 20 mg IV SLOW PU DAILY FATUMA Last Admin: 06/14/18 09:14 Dose: 20 mg Fentanyl Citrate (Fentanyl*) 25 mcg IV SLOW PU Q2HR PRN PRN Reason: PAIN Last Admin: 06/14/18 06:05 Dose: 25 mcg Cefepime HCl (Maxipime 1 Gm In Dextrose Duplex (*)) 1 gm in 50 mls @ 100 mls/ hr IV Q24H [facility] Propofol (Diprivan*) 100 mls @ 12.247 mls/hr IV .(Initial Rate) FATUMA; Protocol Last Admin: 06/13/18 17:05 Dose: 10.6 mls/hr Phenylephrine HCl 50 mg/ (Sodium Chloride) 250 mls @ 30 mls/hr IV .(Initial Rate) FATUMA; Protocol Stop: 06/14/18 11:59 Last Admin: 06/14/18 06:08 Dose: 30 mls/hr Vasopressin 100 units/ (Dextrose) 250 mls @ 10.5 mls/hr IVPB Q24H [facility]; Protocol Last Admin: 06/13/18 19:30 Dose: 10.5 mls/hr Insulin Human Regular (Insulin Regular Iv Drip 1 Unit/Ml) 100 units in 100 mls @ 10.206 mls/hr IVPB PER RATE FATUMA Last Admin: 06/14/18 06:08 Dose: 15 mls/hr Norepinephrine Bitartrate 8 mg (/ Sodium Chloride) 500 mls @ 18.75 mls/hr IV Q4H [facility]; Protocol Last Admin: 06/14/18 10:04 Dose: 113 mls/hr Metronidazole/Sodium Chloride (Flagyl 500 Mg Ivpb*) 500 mg in 100 mls @ 100 mls /hr IVPB Q8H [facility] Last Admin: 06/14/18 08:05 Dose: 100 mls/hr Epinephrine HCl 1 mg/ Dextrose 260 mls @ 27.45 mls/hr IV .PER PROTOCOL FATUMA; Protocol Stop: 06/14/18 11:59 Dextrose (D5w 1000 Ml Bag*) 1,000 mls @ 100 mls/hr IV .PER RATE FATUMA Last Admin: 06/14/18 09:14 Dose: 100 mls/hr Midazolam HCl 100 mg/ Sodium (Chloride) 100 mls @ 3 mls/hr IV Q24H [facility]; Protocol Last Admin: 06/14/18 08:52 Dose: 3 mls/hr Phenylephrine HCl 50 mg/ (Sodium Chloride) 250 mls @ 30 mls/hr IV Q7H [facility]; Protocol Epinephrine HCl 1 mg/ Dextrose 250 mls @ 26.4 mls/hr IV Q9H [facility]; Protocol Levothyroxine Sodium (Synthroid Inj*) 12.5 mcg IV 0600 [facility] Last Admin: 06/14/18 06:29 Dose: 12.5 mcg Midazolam HCl (Versed 2mg/2ml*) 2 mg IV Q1HR PRN PRN Reason: agitation Physical Exam: General: intubated, sedated Head: normocephalic, atraumatic HEENT: no pallor, no icterus, DRY mucous membranes Neck: soft, supple, no jvd CVS: tachy, regular, no murmur Resp: bilateral air entry, no rhales, no wheeze, no rhonchi, no acc muscle use Abdomen: soft, nontender, nondistended, bowel sounds present Ext: pulses+, warm, no edema Skin: intact Neuro: sedated, moving ext spontaneously Labs: Laboratory Results - last 24 hr 06/13/18 06/13/18 06/13/18 13:20 13:20 13:20 WBC 35.3 H RBC 4.68 Hgb 13.1 Hct 47 MCV 101 H MCH 28 MCHC 28 L RDW 15 Plt Count 346 MPV 9.0 Neut % (Auto) Not Reportable Lymph % (Auto) Not Reportable [place]ps % (Auto) Not Reportable Eos % (Auto) Not Reportable Baso % (Auto) Not Reportable Absolute Neuts (auto) 28.8 H Absolute Lymphs (auto) 3.3 Absolute Monos (auto) 2.8 H Absolute Eos (auto) 0 Absolute Basos (auto) 0.4 H Absolute Nucleated RBC Not Reportable Immature Gran % 7 Neutrophils % 76 Band Neutrophils % 2 Lymphocytes % 12 Monocytes % 5 Metamyelocytes % 4 H Myelocytes % 1 Nucleated RBC % Not Reportable Abs Neuts (Manual) 29.3 H Abs Lymphs (Manual) 4.2 Abs Monocytes (Manual) 1.8 H Normal RBC Morphology Not Reportable Macrocytosis 1+ INR (Anticoag Therapy) Patient Temperature ABG pH ABG pH (Temp Correct) ABG pCO2 ABG pCO2 (Temp Corrct ABG pO2 ABG pO2 (Temp Correct ABG HCO3 ABG O2 Saturation ABG Base Excess VBG pH VBG pCO2 VBG pO2 VBG HCO3 VBG O2 Saturation VBG Base Excess Respiration Rate O2 Delivery Device Ventilator Type Vent Mode FiO2 Inspiratory Time PEEP Pressure Support Pressure Control EPAP IPAP BiPAP Sodium 133 L Potassium 6.6 H* Chloride 85 L Carbon Dioxide 7 L* Anion Gap 41 H BUN 84 H Creatinine 4.71 H Est GFR ( Amer) 11.5 Est GFR (Non-Af Amer) 9.5 BUN/Creatinine Ratio 17.8 Glucose 1462 H* POC Glucose (mg/dL) Hemoglobin A1c Lactic Acid 4.1 H* Calcium 9.4 Phosphorus Magnesium 3.0 H Total Bilirubin 0.70 Direct Bilirubin Indirect Bilirubin AST 17 ALT 26 Alkaline Phosphatase 264 H Ammonia Total Creatine Kinase 95 Troponin I 0.04 H* Total Protein 7.2 Albumin 4.0 Globulin 3.2 Albumin/Globulin Ratio 1.3 Triglycerides 635 Cholesterol 287 LDL Cholesterol LDL Cholesterol Direct 97 HDL Cholesterol 47.7 Amylase Lipase Procalcitonin TSH 12.26 H Cortisol 55.41 Urine Color Urine Appearance Urine pH Ur Specific [place] Urine Protein Urine Ketones Urine Blood Urine Nitrate Urine Bilirubin Urine Urobilinogen Ur Leukocyte Esterase Urine WBC (Auto) Urine RBC (Auto) Ur Squamous Epith Cells Urine Bacteria Urine Glucose Random Vancomycin Salicylates 0.00 Urine Opiates Screen Acetaminophen 1 Ur Barbiturates Screen Ur Phencyclidine Scrn Ur Amphetamines Screen U Benzodiazepines Scrn Urine Cocaine Screen U Cannabinoids Screen Serum Alcohol 4 Influenza A (Rapid) Influenza B (Rapid) 06/13/18 06/13/18 06/13/18 13:20 13:20 13:20 WBC RBC Hgb Hct MCV MCH MCHC RDW Plt Count MPV Neut % (Auto) Lymph % (Auto) [place] % (Auto) Eos % (Auto) Baso % (Auto) Absolute Neuts (auto) Absolute Lymphs (auto) Absolute Monos (auto) Absolute Eos (auto) Absolute Basos (auto) Absolute Nucleated RBC Immature Gran % Neutrophils % Band Neutrophils % Lymphocytes % Monocytes % Metamyelocytes % Myelocytes % Nucleated RBC % Abs Neuts (Manual) Abs Lymphs (Manual) Abs Monocytes (Manual) Normal RBC Morphology Macrocytosis INR (Anticoag Therapy) 0.96 Patient Temperature ABG pH ABG pH (Temp Correct) ABG pCO2 ABG pCO2 (Temp Corrct ABG pO2 ABG pO2 (Temp Correct ABG HCO3 ABG O2 Saturation ABG Base Excess VBG pH VBG pCO2 VBG pO2 VBG HCO3 VBG O2 Saturation VBG Base Excess Respiration Rate O2 Delivery Device Ventilator Type Vent Mode FiO2 Inspiratory Time PEEP Pressure Support Pressure Control EPAP IPAP BiPAP Sodium Potassium Chloride Carbon Dioxide Anion Gap BUN Creatinine Est GFR ( Amer) Est GFR (Non-Af Amer) BUN/Creatinine Ratio Glucose POC Glucose (mg/dL) Hemoglobin A1c 11.4 H Lactic Acid Calcium Phosphorus Magnesium Total Bilirubin Direct Bilirubin Indirect Bilirubin AST ALT Alkaline Phosphatase Ammonia 70 H Total Creatine Kinase Troponin I Total Protein Albumin Globulin Albumin/Globulin Ratio Triglycerides Cholesterol LDL Cholesterol LDL Cholesterol Direct HDL Cholesterol Amylase Lipase Procalcitonin TSH Cortisol Urine Color Urine Appearance Urine pH Ur Specific [place] Urine Protein Urine Ketones Urine Blood Urine Nitrate Urine Bilirubin Urine Urobilinogen Ur Leukocyte Esterase Urine WBC (Auto) Urine RBC (Auto) Ur Squamous Epith Cells Urine Bacteria Urine Glucose Random Vancomycin Salicylates Urine Opiates Screen Acetaminophen Ur Barbiturates Screen Ur Phencyclidine Scrn Ur Amphetamines Screen U Benzodiazepines Scrn Urine Cocaine Screen U Cannabinoids Screen Serum Alcohol Influenza A (Rapid) Influenza B (Rapid) 06/13/18 06/13/18 06/13/18 13:20 13:28 14:00 WBC RBC Hgb Hct MCV MCH MCHC RDW Plt Count MPV Neut % (Auto) Lymph % (Auto) [place] % (Auto) Eos % (Auto) Baso % (Auto) Absolute Neuts (auto) Absolute Lymphs (auto) Absolute Monos (auto) Absolute Eos (auto) Absolute Basos (auto) Absolute Nucleated RBC Immature Gran % Neutrophils % Band Neutrophils % Lymphocytes % Monocytes % Metamyelocytes % Myelocytes % Nucleated RBC % Abs Neuts (Manual) Abs Lymphs (Manual) Abs Monocytes (Manual) Normal RBC Morphology Macrocytosis INR (Anticoag Therapy) Patient Temperature ABG pH > 7.00 L* ABG pH (Temp Correct) ABG pCO2 26 L ABG pCO2 (Temp Corrct ABG pO2 142 H ABG pO2 (Temp Correct ABG HCO3 2.6 L* ABG O2 Saturation 98.8 H ABG Base Excess -28.7 L VBG pH VBG pCO2 VBG pO2 VBG HCO3 VBG O2 Saturation VBG Base Excess Respiration Rate O2 Delivery Device Ventilator Type Vent Mode FiO2 Inspiratory Time PEEP Pressure Support Pressure Control EPAP IPAP BiPAP Sodium Potassium Chloride Carbon Dioxide Anion Gap BUN Creatinine Est GFR ( Amer) Est GFR (Non-Af Amer) BUN/Creatinine Ratio Glucose POC Glucose (mg/dL) > 444 H* Hemoglobin A1c Lactic Acid Calcium Phosphorus Magnesium Total Bilirubin Direct Bilirubin Indirect Bilirubin AST ALT Alkaline Phosphatase Ammonia Total Creatine Kinase Troponin I Total Protein Albumin Globulin Albumin/Globulin Ratio Triglycerides Cholesterol LDL Cholesterol LDL Cholesterol Direct HDL Cholesterol Amylase Lipase Procalcitonin 2.6 H TSH Cortisol Urine Color Urine Appearance Urine pH Ur Specific [place] Urine Protein Urine Ketones Urine Blood Urine Nitrate Urine Bilirubin Urine Urobilinogen Ur Leukocyte Esterase Urine WBC (Auto) Urine RBC (Auto) Ur Squamous Epith Cells Urine Bacteria Urine Glucose Random Vancomycin Salicylates Urine Opiates Screen Acetaminophen Ur Barbiturates Screen Ur Phencyclidine Scrn Ur Amphetamines Screen U Benzodiazepines Scrn Urine Cocaine Screen U Cannabinoids Screen Serum Alcohol Influenza A (Rapid) Influenza B (Rapid) 06/13/18 06/13/18 06/13/18 16:17 17:00 17:30 WBC RBC Hgb Hct MCV MCH MCHC RDW Plt Count MPV Neut % (Auto) Lymph % (Auto) [place] % (Auto) Eos % (Auto) Baso % (Auto) Absolute Neuts (auto) Absolute Lymphs (auto) Absolute Monos (auto) Absolute Eos (auto) Absolute Basos (auto) Absolute Nucleated RBC Immature Gran % Neutrophils % Band Neutrophils % Lymphocytes % Monocytes % Metamyelocytes % Myelocytes % Nucleated RBC % Abs Neuts (Manual) Abs Lymphs (Manual) Abs Monocytes (Manual) Normal RBC Morphology Macrocytosis INR (Anticoag Therapy) Patient Temperature Not Reportable ABG pH 7.00 L* ABG pH (Temp Correct) Not Reportable ABG pCO2 23 L ABG pCO2 (Temp Corrct Not Reportable ABG pO2 270 H ABG pO2 (Temp Correct Not Reportable ABG HCO3 6.1 L* ABG O2 Saturation 98.8 H ABG Base Excess -24.2 L VBG pH 7.12 L VBG pCO2 32 L VBG pO2 50 H VBG HCO3 10.8 L VBG O2 Saturation 86.3 H VBG Base Excess -17.8 L Respiration Rate 22 O2 Delivery Device vent Ventilator Type 550 Vent Mode cmv FiO2 80 Inspiratory Time Not Reportable PEEP 5 Pressure Support Not Reportable Pressure Control Not Reportable EPAP Not Reportable IPAP Not Reportable BiPAP Not Reportable Sodium 149 H D Potassium 3.4 L D Chloride 111 Carbon Dioxide 12 L* Anion Gap 26 H BUN 67 H Creatinine 3.01 H Est GFR ( Amer) 19.3 Est GFR (Non-Af Amer) 15.9 BUN/Creatinine Ratio 22.3 H Glucose 796 H* POC Glucose (mg/dL) Hemoglobin A1c Lactic Acid Calcium 6.8 L Phosphorus Magnesium Total Bilirubin Direct Bilirubin Indirect Bilirubin AST ALT Alkaline Phosphatase Ammonia Total Creatine Kinase Troponin I 0.07 H* Total Protein Albumin Globulin Albumin/Globulin Ratio Triglycerides Cholesterol LDL Cholesterol LDL Cholesterol Direct HDL Cholesterol Amylase Lipase Procalcitonin TSH Cortisol Urine Color Urine Appearance Urine pH Ur Specific [place] Urine Protein Urine Ketones Urine Blood Urine Nitrate Urine Bilirubin Urine Urobilinogen Ur Leukocyte Esterase Urine WBC (Auto) Urine RBC (Auto) Ur Squamous Epith Cells Urine Bacteria Urine Glucose Random Vancomycin Salicylates Urine Opiates Screen Acetaminophen Ur Barbiturates Screen Ur Phencyclidine Scrn Ur Amphetamines Screen U Benzodiazepines Scrn Urine Cocaine Screen U Cannabinoids Screen Serum Alcohol Influenza A (Rapid) Influenza B (Rapid) 06/13/18 06/13/18 06/13/18 18:22 18:22 18:22 WBC RBC Hgb Hct MCV MCH MCHC RDW Plt Count MPV Neut % (Auto) Lymph % (Auto) [place] % (Auto) Eos % (Auto) Baso % (Auto) Absolute Neuts (auto) Absolute Lymphs (auto) Absolute Monos (auto) Absolute Eos (auto) Absolute Basos (auto) Absolute Nucleated RBC Immature Gran % Neutrophils % Band Neutrophils % Lymphocytes % Monocytes % Metamyelocytes % Myelocytes % Nucleated RBC % Abs Neuts (Manual) Abs Lymphs (Manual) Abs Monocytes (Manual) Normal RBC Morphology Macrocytosis INR (Anticoag Therapy) Patient Temperature Not Reportable ABG pH 7.20 L ABG pH (Temp Correct) Not Reportable ABG pCO2 25 L ABG pCO2 (Temp Corrct Not Reportable ABG pO2 241 H ABG pO2 (Temp Correct Not Reportable ABG HCO3 12.0 L ABG O2 Saturation 98.3 H ABG Base Excess -16.6 L VBG pH VBG pCO2 VBG pO2 VBG HCO3 VBG O2 Saturation VBG Base Excess Respiration Rate 22 O2 Delivery Device vent Ventilator Type Not Reportable Vent Mode apv FiO2 80 Inspiratory Time Not Reportable PEEP 5 Pressure Support Not Reportable Pressure Control Not Reportable EPAP Not Reportable IPAP Not Reportable BiPAP Not Reportable Sodium Potassium Chloride Carbon Dioxide Anion Gap BUN Creatinine Est GFR ( Amer) Est GFR (Non-Af Amer) BUN/Creatinine Ratio Glucose POC Glucose (mg/dL) Hemoglobin A1c Lactic Acid 2.1 H* Calcium Phosphorus Magnesium Total Bilirubin Direct Bilirubin Indirect Bilirubin AST ALT Alkaline Phosphatase Ammonia Total Creatine Kinase Troponin I Total Protein Albumin Globulin Albumin/Globulin Ratio Triglycerides Cholesterol LDL Cholesterol LDL Cholesterol Direct HDL Cholesterol Amylase Lipase Procalcitonin 3.5 H TSH Cortisol Urine Color Urine Appearance Urine pH Ur Specific [place] Urine Protein Urine Ketones Urine Blood Urine Nitrate Urine Bilirubin Urine Urobilinogen Ur Leukocyte Esterase Urine WBC (Auto) Urine RBC (Auto) Ur Squamous Epith Cells Urine Bacteria Urine Glucose Random Vancomycin Salicylates Urine Opiates Screen Acetaminophen Ur Barbiturates Screen Ur Phencyclidine Scrn Ur Amphetamines Screen U Benzodiazepines Scrn Urine Cocaine Screen U Cannabinoids Screen Serum Alcohol Influenza A (Rapid) Influenza B (Rapid) 06/13/18 06/13/18 06/13/18 18:25 18:55 18:55 WBC RBC Hgb Hct MCV MCH MCHC RDW Plt Count MPV Neut % (Auto) Lymph % (Auto) [place] % (Auto) Eos % (Auto) Baso % (Auto) Absolute Neuts (auto) Absolute Lymphs (auto) Absolute Monos (auto) Absolute Eos (auto) Absolute Basos (auto) Absolute Nucleated RBC Immature Gran % Neutrophils % Band Neutrophils % Lymphocytes % Monocytes % Metamyelocytes % Myelocytes % Nucleated RBC % Abs Neuts (Manual) Abs Lymphs (Manual) Abs Monocytes (Manual) Normal RBC Morphology Macrocytosis INR (Anticoag Therapy) Patient Temperature ABG pH ABG pH (Temp Correct) ABG pCO2 ABG pCO2 (Temp Corrct ABG pO2 ABG pO2 (Temp Correct ABG HCO3 ABG O2 Saturation ABG Base Excess VBG pH VBG pCO2 VBG pO2 VBG HCO3 VBG O2 Saturation VBG Base Excess Respiration Rate O2 Delivery Device Ventilator Type Vent Mode FiO2 Inspiratory Time PEEP Pressure Support Pressure Control EPAP IPAP BiPAP Sodium Potassium Chloride Carbon Dioxide Anion Gap BUN Creatinine Est GFR ( Amer) Est GFR (Non-Af Amer) BUN/Creatinine Ratio Glucose 762 H* POC Glucose (mg/dL) Hemoglobin A1c Lactic Acid Calcium Phosphorus Magnesium Total Bilirubin Direct Bilirubin Indirect Bilirubin AST ALT Alkaline Phosphatase Ammonia Total Creatine Kinase Troponin I Total Protein Albumin Globulin Albumin/Globulin Ratio Triglycerides Cholesterol LDL Cholesterol LDL Cholesterol Direct HDL Cholesterol Amylase 798 H Lipase 720 H Procalcitonin TSH Cortisol Urine Color Yellow Urine Appearance Cloudy Urine pH 5.0 Ur Specific [place] 1.012 Urine Protein Negative Urine Ketones 2+ A Urine Blood 3+ A Urine Nitrate Negative Urine Bilirubin Negative Urine Urobilinogen Negative Ur Leukocyte Esterase Negative Urine WBC (Auto) Trace(0-5/hpf) Urine RBC (Auto) Trace(0-2/hpf) Ur Squamous Epith Cells Present A Urine Bacteria 1+ A Urine Glucose 3+(>=500 mg/dl) A Random Vancomycin Salicylates Urine Opiates Screen None detected Acetaminophen Ur Barbiturates Screen None detected Ur Phencyclidine Scrn None detected Ur Amphetamines Screen None detected U Benzodiazepines Scrn Presumptive positive A Urine Cocaine Screen None detected U Cannabinoids Screen None detected Serum Alcohol Influenza A (Rapid) Influenza B (Rapid) 06/13/18 06/13/18 06/13/18 19:44 19:46 20:40 WBC RBC Hgb Hct MCV MCH MCHC RDW Plt Count MPV Neut % (Auto) Lymph % (Auto) [place] % (Auto) Eos % (Auto) Baso % (Auto) Absolute Neuts (auto) Absolute Lymphs (auto) Absolute Monos (auto) Absolute Eos (auto) Absolute Basos (auto) Absolute Nucleated RBC Immature Gran % Neutrophils % Band Neutrophils % Lymphocytes % Monocytes % Metamyelocytes % Myelocytes % Nucleated RBC % Abs Neuts (Manual) Abs Lymphs (Manual) Abs Monocytes (Manual) Normal RBC Morphology Macrocytosis INR (Anticoag Therapy) Patient Temperature ABG pH ABG pH (Temp Correct) ABG pCO2 ABG pCO2 (Temp Corrct ABG pO2 ABG pO2 (Temp Correct ABG HCO3 ABG O2 Saturation ABG Base Excess VBG pH VBG pCO2 VBG pO2 VBG HCO3 VBG O2 Saturation VBG Base Excess Respiration Rate O2 Delivery Device Ventilator Type Vent Mode FiO2 Inspiratory Time PEEP Pressure Support Pressure Control EPAP IPAP BiPAP Sodium Potassium Chloride Carbon Dioxide Anion Gap BUN Creatinine Est GFR ( Amer) Est GFR (Non-Af Amer) BUN/Creatinine Ratio Glucose 699 H* 666 H* POC Glucose (mg/dL) > 444 H* Hemoglobin A1c Lactic Acid Calcium Phosphorus Magnesium Total Bilirubin Direct Bilirubin Indirect Bilirubin AST ALT Alkaline Phosphatase Ammonia Total Creatine Kinase Troponin I Total Protein Albumin Globulin Albumin/Globulin Ratio Triglycerides Cholesterol LDL Cholesterol LDL Cholesterol Direct HDL Cholesterol Amylase Lipase Procalcitonin TSH Cortisol Urine Color Urine Appearance Urine pH Ur Specific [place] Urine Protein Urine Ketones Urine Blood Urine Nitrate Urine Bilirubin Urine Urobilinogen Ur Leukocyte Esterase Urine WBC (Auto) Urine RBC (Auto) Ur Squamous Epith Cells Urine Bacteria Urine Glucose Random Vancomycin Salicylates Urine Opiates Screen Acetaminophen Ur Barbiturates Screen Ur Phencyclidine Scrn Ur Amphetamines Screen U Benzodiazepines Scrn Urine Cocaine Screen U Cannabinoids Screen Serum Alcohol Influenza A (Rapid) Influenza B (Rapid) 06/13/18 06/13/18 06/13/18 20:41 21:59 22:00 WBC RBC Hgb Hct MCV MCH MCHC RDW Plt Count MPV Neut % (Auto) Lymph % (Auto) [place] % (Auto) Eos % (Auto) Baso % (Auto) Absolute Neuts (auto) Absolute Lymphs (auto) Absolute Monos (auto) Absolute Eos (auto) Absolute Basos (auto) Absolute Nucleated RBC Immature Gran % Neutrophils % Band Neutrophils % Lymphocytes % Monocytes % Metamyelocytes % Myelocytes % Nucleated RBC % Abs Neuts (Manual) Abs Lymphs (Manual) Abs Monocytes (Manual) Normal RBC Morphology Macrocytosis INR (Anticoag Therapy) Patient Temperature ABG pH ABG pH (Temp Correct) ABG pCO2 ABG pCO2 (Temp Corrct ABG pO2 ABG pO2 (Temp Correct ABG HCO3 ABG O2 Saturation ABG Base Excess VBG pH VBG pCO2 VBG pO2 VBG HCO3 VBG O2 Saturation VBG Base Excess Respiration Rate O2 Delivery Device Ventilator Type Vent Mode FiO2 Inspiratory Time PEEP Pressure Support Pressure Control EPAP IPAP BiPAP Sodium 151 H Potassium 2.9 L Chloride 118 H Carbon Dioxide 15 L Anion Gap 18 H BUN 67 H Creatinine 3.06 H Est GFR ( Amer) 18.9 Est GFR (Non-Af Amer) 15.6 BUN/Creatinine Ratio 21.9 H Glucose 547 H* POC Glucose (mg/dL) > 444 H* > 444 H* Hemoglobin A1c Lactic Acid Calcium 6.8 L Phosphorus Magnesium Total Bilirubin Direct Bilirubin Indirect Bilirubin AST ALT Alkaline Phosphatase Ammonia Total Creatine Kinase Troponin I 0.19 H* Total Protein Albumin Globulin Albumin/Globulin Ratio Triglycerides Cholesterol LDL Cholesterol LDL Cholesterol Direct HDL Cholesterol Amylase Lipase Procalcitonin TSH Cortisol Urine Color Urine Appearance Urine pH Ur Specific [place] Urine Protein Urine Ketones Urine Blood Urine Nitrate Urine Bilirubin Urine Urobilinogen Ur Leukocyte Esterase Urine WBC (Auto) Urine RBC (Auto) Ur Squamous Epith Cells Urine Bacteria Urine Glucose Random Vancomycin Salicylates Urine Opiates Screen Acetaminophen Ur Barbiturates Screen Ur Phencyclidine Scrn Ur Amphetamines Screen U Benzodiazepines Scrn Urine Cocaine Screen U Cannabinoids Screen Serum Alcohol Influenza A (Rapid) Influenza B (Rapid) 06/13/18 06/13/18 06/13/18 22:13 22:55 22:57 WBC RBC Hgb Hct MCV MCH MCHC RDW Plt Count MPV Neut % (Auto) Lymph % (Auto) [place] % (Auto) Eos % (Auto) Baso % (Auto) Absolute Neuts (auto) Absolute Lymphs (auto) Absolute Monos (auto) Absolute Eos (auto) Absolute Basos (auto) Absolute Nucleated RBC Immature Gran % Neutrophils % Band Neutrophils % Lymphocytes % Monocytes % Metamyelocytes % Myelocytes % Nucleated RBC % Abs Neuts (Manual) Abs Lymphs (Manual) Abs Monocytes (Manual) Normal RBC Morphology Macrocytosis INR (Anticoag Therapy) Patient Temperature 38.9 ABG pH 7.34 L ABG pH (Temp Correct) Not Reportable ABG pCO2 24 L ABG pCO2 (Temp Corrct Not Reportable ABG pO2 242 H ABG pO2 (Temp Correct Not Reportable ABG HCO3 16.2 L ABG O2 Saturation 97.9 ABG Base Excess -11.2 L VBG pH VBG pCO2 VBG pO2 VBG HCO3 VBG O2 Saturation VBG Base Excess Respiration Rate 23 O2 Delivery Device mechanical ventillator Ventilator Type Not Reportable Vent Mode Apv/cmv FiO2 75 Inspiratory Time Not Reportable PEEP 5 Pressure Support Not Reportable Pressure Control Not Reportable EPAP Not Reportable IPAP Not Reportable BiPAP Not Reportable Sodium Potassium Chloride Carbon Dioxide Anion Gap BUN Creatinine Est GFR ( Amer) Est GFR (Non-Af Amer) BUN/Creatinine Ratio Glucose 493 H POC Glucose (mg/dL) 436 H* Hemoglobin A1c Lactic Acid Calcium Phosphorus < 1.0 L* Magnesium 1.4 L Total Bilirubin Direct Bilirubin Indirect Bilirubin AST ALT Alkaline Phosphatase Ammonia Total Creatine Kinase Troponin I Total Protein Albumin Globulin Albumin/Globulin Ratio Triglycerides Cholesterol LDL Cholesterol LDL Cholesterol Direct HDL Cholesterol Amylase Lipase Procalcitonin TSH Cortisol Urine Color Urine Appearance Urine pH Ur Specific [place] Urine Protein Urine Ketones Urine Blood Urine Nitrate Urine Bilirubin Urine Urobilinogen Ur Leukocyte Esterase Urine WBC (Auto) Urine RBC (Auto) Ur Squamous Epith Cells Urine Bacteria Urine Glucose Random Vancomycin Salicylates Urine Opiates Screen Acetaminophen Ur Barbiturates Screen Ur Phencyclidine Scrn Ur Amphetamines Screen U Benzodiazepines Scrn Urine Cocaine Screen U Cannabinoids Screen Serum Alcohol Influenza A (Rapid) Influenza B (Rapid) 06/14/18 06/14/18 06/14/18 00:01 00:05 00:21 WBC RBC Hgb Hct MCV MCH MCHC RDW Plt Count MPV Neut % (Auto) Lymph % (Auto) [place] % (Auto) Eos % (Auto) Baso % (Auto) Absolute Neuts (auto) Absolute Lymphs (auto) Absolute Monos (auto) Absolute Eos (auto) Absolute Basos (auto) Absolute Nucleated RBC Immature Gran % Neutrophils % Band Neutrophils % Lymphocytes % Monocytes % Metamyelocytes % Myelocytes % Nucleated RBC % Abs Neuts (Manual) Abs Lymphs (Manual) Abs Monocytes (Manual) Normal RBC Morphology Macrocytosis INR (Anticoag Therapy) Patient Temperature ABG pH ABG pH (Temp Correct) ABG pCO2 ABG pCO2 (Temp Corrct ABG pO2 ABG pO2 (Temp Correct ABG HCO3 ABG O2 Saturation ABG Base Excess VBG pH VBG pCO2 VBG pO2 VBG HCO3 VBG O2 Saturation VBG Base Excess Respiration Rate O2 Delivery Device Ventilator Type Vent Mode FiO2 Inspiratory Time PEEP Pressure Support Pressure Control EPAP IPAP BiPAP Sodium Potassium Chloride Carbon Dioxide Anion Gap BUN Creatinine Est GFR ( Amer) Est GFR (Non-Af Amer) BUN/Creatinine Ratio Glucose POC Glucose (mg/dL) 366 H Hemoglobin A1c Lactic Acid 5.6 H* Calcium Phosphorus Magnesium Total Bilirubin Direct Bilirubin Indirect Bilirubin AST ALT Alkaline Phosphatase Ammonia Total Creatine Kinase Troponin I Total Protein Albumin Globulin Albumin/Globulin Ratio Triglycerides Cholesterol LDL Cholesterol LDL Cholesterol Direct HDL Cholesterol Amylase Lipase Procalcitonin TSH Cortisol Urine Color Urine Appearance Urine pH Ur Specific [place] Urine Protein Urine Ketones Urine Blood Urine Nitrate Urine Bilirubin Urine Urobilinogen Ur Leukocyte Esterase Urine WBC (Auto) Urine RBC (Auto) Ur Squamous Epith Cells Urine Bacteria Urine Glucose Random Vancomycin Salicylates Urine Opiates Screen Acetaminophen Ur Barbiturates Screen Ur Phencyclidine Scrn Ur Amphetamines Screen U Benzodiazepines Scrn Urine Cocaine Screen U Cannabinoids Screen Serum Alcohol Influenza A (Rapid) Negative Influenza B (Rapid) Negative 06/14/18 06/14/18 06/14/18 00:51 02:09 02:10 WBC RBC Hgb Hct MCV MCH MCHC RDW Plt Count MPV Neut % (Auto) Lymph % (Auto) Phelps % (Auto) Eos % (Auto) Baso % (Auto) Absolute Neuts (auto) Absolute Lymphs (auto) Absolute Monos (auto) Absolute Eos (auto) Absolute Basos (auto) Absolute Nucleated RBC Immature Gran % Neutrophils % Band Neutrophils % Lymphocytes % Monocytes % Metamyelocytes % Myelocytes % Nucleated RBC % Abs Neuts (Manual) Abs Lymphs (Manual) Abs Monocytes (Manual) Normal RBC Morphology Macrocytosis INR (Anticoag Therapy) Patient Temperature ABG pH ABG pH (Temp Correct) ABG pCO2 ABG pCO2 (Temp Corrct ABG pO2 ABG pO2 (Temp Correct ABG HCO3 ABG O2 Saturation ABG Base Excess VBG pH VBG pCO2 VBG pO2 VBG HCO3 VBG O2 Saturation VBG Base Excess Respiration Rate O2 Delivery Device Ventilator Type Vent Mode FiO2 Inspiratory Time PEEP Pressure Support Pressure Control EPAP IPAP BiPAP Sodium 154 H Potassium 2.7 L* Chloride 125 H Carbon Dioxide 16 L Anion Gap 13 H BUN 65 H Creatinine 2.79 H Est GFR ( Amer) 21.0 Est GFR (Non-Af Amer) 17.4 BUN/Creatinine Ratio 23.3 H Glucose 275 H POC Glucose (mg/dL) 314 H 243 H Hemoglobin A1c Lactic Acid Calcium 6.8 L Phosphorus < 1.0 L* Magnesium 1.2 L Total Bilirubin Direct Bilirubin Indirect Bilirubin AST ALT Alkaline Phosphatase Ammonia Total Creatine Kinase Troponin I 0.33 H* Total Protein Albumin Globulin Albumin/Globulin Ratio Triglycerides Cholesterol LDL Cholesterol LDL Cholesterol Direct HDL Cholesterol Amylase Lipase Procalcitonin TSH Cortisol Urine Color Urine Appearance Urine pH Ur Specific [place] Urine Protein Urine Ketones Urine Blood Urine Nitrate Urine Bilirubin Urine Urobilinogen Ur Leukocyte Esterase Urine WBC (Auto) Urine RBC (Auto) Ur Squamous Epith Cells Urine Bacteria Urine Glucose Random Vancomycin Salicylates Urine Opiates Screen Acetaminophen Ur Barbiturates Screen Ur Phencyclidine Scrn Ur Amphetamines Screen U Benzodiazepines Scrn Urine Cocaine Screen U Cannabinoids Screen Serum Alcohol Influenza A (Rapid) Influenza B (Rapid) 06/14/18 06/14/18 06/14/18 03:24 03:25 04:08 WBC RBC Hgb Hct MCV MCH MCHC RDW Plt Count MPV Neut % (Auto) Lymph % (Auto) Phelps % (Auto) Eos % (Auto) Baso % (Auto) Absolute Neuts (auto) Absolute Lymphs (auto) Absolute Monos (auto) Absolute Eos (auto) Absolute Basos (auto) Absolute Nucleated RBC Immature Gran % Neutrophils % Band Neutrophils % Lymphocytes % Monocytes % Metamyelocytes % Myelocytes % Nucleated RBC % Abs Neuts (Manual) Abs Lymphs (Manual) Abs Monocytes (Manual) Normal RBC Morphology Macrocytosis INR (Anticoag Therapy) Patient Temperature ABG pH ABG pH (Temp Correct) ABG pCO2 ABG pCO2 (Temp Corrct ABG pO2 ABG pO2 (Temp Correct ABG HCO3 ABG O2 Saturation ABG Base Excess VBG pH VBG pCO2 VBG pO2 VBG HCO3 VBG O2 Saturation VBG Base Excess Respiration Rate O2 Delivery Device Ventilator Type Vent Mode FiO2 Inspiratory Time PEEP Pressure Support Pressure Control EPAP IPAP BiPAP Sodium Potassium Chloride Carbon Dioxide Anion Gap BUN Creatinine Est GFR ( Amer) Est GFR (Non-Af Amer) BUN/Creatinine Ratio Glucose POC Glucose (mg/dL) 196 H 186 H Hemoglobin A1c Lactic Acid 4.8 H* Calcium Phosphorus Magnesium Total Bilirubin Direct Bilirubin Indirect Bilirubin AST ALT Alkaline Phosphatase Ammonia Total Creatine Kinase Troponin I Total Protein Albumin Globulin Albumin/Globulin Ratio Triglycerides Cholesterol LDL Cholesterol LDL Cholesterol Direct HDL Cholesterol Amylase Lipase Procalcitonin TSH Cortisol Urine Color Urine Appearance Urine pH Ur Specific [place] Urine Protein Urine Ketones Urine Blood Urine Nitrate Urine Bilirubin Urine Urobilinogen Ur Leukocyte Esterase Urine WBC (Auto) Urine RBC (Auto) Ur Squamous Epith Cells Urine Bacteria Urine Glucose Random Vancomycin Salicylates Urine Opiates Screen Acetaminophen Ur Barbiturates Screen Ur Phencyclidine Scrn Ur Amphetamines Screen U Benzodiazepines Scrn Urine Cocaine Screen U Cannabinoids Screen Serum Alcohol Influenza A (Rapid) Influenza B (Rapid) 06/14/18 06/14/18 06/14/18 05:15 06:14 06:20 WBC RBC Hgb Hct MCV MCH MCHC RDW Plt Count MPV Neut % (Auto) Lymph % (Auto) Phelps % (Auto) Eos % (Auto) Baso % (Auto) Absolute Neuts (auto) Absolute Lymphs (auto) Absolute Monos (auto) Absolute Eos (auto) Absolute Basos (auto) Absolute Nucleated RBC Immature Gran % Neutrophils % Band Neutrophils % Lymphocytes % Monocytes % Metamyelocytes % Myelocytes % Nucleated RBC % Abs Neuts (Manual) Abs Lymphs (Manual) Abs Monocytes (Manual) Normal RBC Morphology Macrocytosis INR (Anticoag Therapy) Patient Temperature Not Reportable ABG pH 7.36 ABG pH (Temp Correct) Not Reportable ABG pCO2 25 L ABG pCO2 (Temp Corrct Not Reportable ABG pO2 143 H ABG pO2 (Temp Correct Not Reportable ABG HCO3 17.2 L ABG O2 Saturation 97.9 ABG Base Excess -9.9 L VBG pH VBG pCO2 VBG pO2 VBG HCO3 VBG O2 Saturation VBG Base Excess Respiration Rate 20 O2 Delivery Device vent Ventilator Type Not Reportable Vent Mode apv/cmv FiO2 40 Inspiratory Time Not Reportable PEEP 5 Pressure Support Not Reportable Pressure Control Not Reportable EPAP Not Reportable IPAP Not Reportable BiPAP Not Reportable Sodium Potassium Chloride Carbon Dioxide Anion Gap BUN Creatinine Est GFR ( Amer) Est GFR (Non-Af Amer) BUN/Creatinine Ratio Glucose POC Glucose (mg/dL) 148 H 130 H Hemoglobin A1c Lactic Acid Calcium Phosphorus Magnesium Total Bilirubin Direct Bilirubin Indirect Bilirubin AST ALT Alkaline Phosphatase Ammonia Total Creatine Kinase Troponin I Total Protein Albumin Globulin Albumin/Globulin Ratio Triglycerides Cholesterol LDL Cholesterol LDL Cholesterol Direct HDL Cholesterol Amylase Lipase Procalcitonin TSH Cortisol Urine Color Urine Appearance Urine pH Ur Specific [place] Urine Protein Urine Ketones Urine Blood Urine Nitrate Urine Bilirubin Urine Urobilinogen Ur Leukocyte Esterase Urine WBC (Auto) Urine RBC (Auto) Ur Squamous Epith Cells Urine Bacteria Urine Glucose Random Vancomycin Salicylates Urine Opiates Screen Acetaminophen Ur Barbiturates Screen Ur Phencyclidine Scrn Ur Amphetamines Screen U Benzodiazepines Scrn Urine Cocaine Screen U Cannabinoids Screen Serum Alcohol Influenza A (Rapid) Influenza B (Rapid) 06/14/18 06/14/18 06/14/18 06:20 06:20 07:08 WBC 13.1 H RBC 3.87 L Hgb 10.8 L Hct 32 L MCV 83 MCH 28 MCHC 34 RDW 14 Plt Count 146 L MPV 8.2 Neut % (Auto) Lymph % (Auto) Phelps % (Auto) Eos % (Auto) Baso % (Auto) Absolute Neuts (auto) Absolute Lymphs (auto) Absolute Monos (auto) Absolute Eos (auto) Absolute Basos (auto) Absolute Nucleated RBC Immature Gran % Neutrophils % Band Neutrophils % Lymphocytes % Monocytes % Metamyelocytes % Myelocytes % Nucleated RBC % Abs Neuts (Manual) Abs Lymphs (Manual) Abs Monocytes (Manual) Normal RBC Morphology Macrocytosis INR (Anticoag Therapy) Patient Temperature ABG pH ABG pH (Temp Correct) ABG pCO2 ABG pCO2 (Temp Corrct ABG pO2 ABG pO2 (Temp Correct ABG HCO3 ABG O2 Saturation ABG Base Excess VBG pH VBG pCO2 VBG pO2 VBG HCO3 VBG O2 Saturation VBG Base Excess Respiration Rate O2 Delivery Device Ventilator Type Vent Mode FiO2 Inspiratory Time PEEP Pressure Support Pressure Control EPAP IPAP BiPAP Sodium 157 H* Potassium 3.8 Chloride 129 H Carbon Dioxide 16 L Anion Gap 12 H BUN 59 H Creatinine 2.45 H Est GFR ( Amer) 24.4 Est GFR (Non-Af Amer) 20.2 BUN/Creatinine Ratio 24.1 H Glucose 130 H POC Glucose (mg/dL) 127 H Hemoglobin A1c Lactic Acid Calcium 6.6 L Phosphorus 1.6 L Magnesium 1.7 L Total Bilirubin 0.30 Direct Bilirubin 0.10 Indirect Bilirubin 0.2 L AST 97 H ALT 46 Alkaline Phosphatase 157 H Ammonia Total Creatine Kinase Troponin I Total Protein 4.8 L Albumin 2.7 L Globulin 2.1 Albumin/Globulin Ratio 1.3 Triglycerides Cholesterol LDL Cholesterol LDL Cholesterol Direct HDL Cholesterol Amylase 677 H Lipase 228 H Procalcitonin TSH Cortisol Urine Color Urine Appearance Urine pH Ur Specific [place] Urine Protein Urine Ketones Urine Blood Urine Nitrate Urine Bilirubin Urine Urobilinogen Ur Leukocyte Esterase Urine WBC (Auto) Urine RBC (Auto) Ur Squamous Epith Cells Urine Bacteria Urine Glucose Random Vancomycin 9.3 Salicylates Urine Opiates Screen Acetaminophen Ur Barbiturates Screen Ur Phencyclidine Scrn Ur Amphetamines Screen U Benzodiazepines Scrn Urine Cocaine Screen U Cannabinoids Screen Serum Alcohol Influenza A (Rapid) Influenza B (Rapid) 06/14/18 06/14/18 06/14/18 08:04 09:11 10:34 WBC RBC Hgb Hct MCV MCH MCHC RDW Plt Count MPV Neut % (Auto) Lymph % (Auto) Phelps % (Auto) Eos % (Auto) Baso % (Auto) Absolute Neuts (auto) Absolute Lymphs (auto) Absolute Monos (auto) Absolute Eos (auto) Absolute Basos (auto) Absolute Nucleated RBC Immature Gran % Neutrophils % Band Neutrophils % Lymphocytes % Monocytes % Metamyelocytes % Myelocytes % Nucleated RBC % Abs Neuts (Manual) Abs Lymphs (Manual) Abs Monocytes (Manual) Normal RBC Morphology Macrocytosis INR (Anticoag Therapy) Patient Temperature ABG pH ABG pH (Temp Correct) ABG pCO2 ABG pCO2 (Temp Corrct ABG pO2 ABG pO2 (Temp Correct ABG HCO3 ABG O2 Saturation ABG Base Excess VBG pH VBG pCO2 VBG pO2 VBG HCO3 VBG O2 Saturation VBG Base Excess Respiration Rate O2 Delivery Device Ventilator Type Vent Mode FiO2 Inspiratory Time PEEP Pressure Support Pressure Control EPAP IPAP BiPAP Sodium Potassium Chloride Carbon Dioxide Anion Gap BUN Creatinine Est GFR ( Amer) Est GFR (Non-Af Amer) BUN/Creatinine Ratio Glucose POC Glucose (mg/dL) 127 H 83 244 H Hemoglobin A1c Lactic Acid Calcium Phosphorus Magnesium Total Bilirubin Direct Bilirubin Indirect Bilirubin AST ALT Alkaline Phosphatase Ammonia Total Creatine Kinase Troponin I Total Protein Albumin Globulin Albumin/Globulin Ratio Triglycerides Cholesterol LDL Cholesterol LDL Cholesterol Direct HDL Cholesterol Amylase Lipase Procalcitonin TSH Cortisol Urine Color Urine Appearance Urine pH Ur Specific [place] Urine Protein Urine Ketones Urine Blood Urine Nitrate Urine Bilirubin Urine Urobilinogen Ur Leukocyte Esterase Urine WBC (Auto) Urine RBC (Auto) Ur Squamous Epith Cells Urine Bacteria Urine Glucose Random Vancomycin Salicylates Urine Opiates Screen Acetaminophen Ur Barbiturates Screen Ur Phencyclidine Scrn Ur Amphetamines Screen U Benzodiazepines Scrn Urine Cocaine Screen U Cannabinoids Screen Serum Alcohol Influenza A (Rapid) Influenza B (Rapid) 06/14/18 11:37 WBC RBC Hgb Hct MCV MCH MCHC RDW Plt Count MPV Neut % (Auto) Lymph % (Auto) Phel[place] % (Auto) Eos % (Auto) Baso % (Auto) Absolute Neuts (auto) Absolute Lymphs (auto) Absolute Monos (auto) Absolute Eos (auto) Absolute Basos (auto) Absolute Nucleated RBC Immature Gran % Neutrophils % Band Neutrophils % Lymphocytes % Monocytes % Metamyelocytes % Myelocytes % Nucleated RBC % Abs Neuts (Manual) Abs Lymphs (Manual) Abs Monocytes (Manual) Normal RBC Morphology Macrocytosis INR (Anticoag Therapy) Patient Temperature ABG pH ABG pH (Temp Correct) ABG pCO2 ABG pCO2 (Temp Corrct ABG pO2 ABG pO2 (Temp Correct ABG HCO3 ABG O2 Saturation ABG Base Excess VBG pH VBG pCO2 VBG pO2 VBG HCO3 VBG O2 Saturation VBG Base Excess Respiration Rate O2 Delivery Device Ventilator Type Vent Mode FiO2 Inspiratory Time PEEP Pressure Support Pressure Control EPAP IPAP BiPAP Sodium Potassium Chloride Carbon Dioxide Anion Gap BUN Creatinine Est GFR ( Amer) Est GFR (Non-Af Amer) BUN/Creatinine Ratio Glucose POC Glucose (mg/dL) 268 H Hemoglobin A1c Lactic Acid Calcium Phosphorus Magnesium Total Bilirubin Direct Bilirubin Indirect Bilirubin AST ALT Alkaline Phosphatase Ammonia Total Creatine Kinase Troponin I Total Protein Albumin Globulin Albumin/Globulin Ratio Triglycerides Cholesterol LDL Cholesterol LDL Cholesterol Direct HDL Cholesterol Amylase Lipase Procalcitonin TSH Cortisol Urine Color Urine Appearance Urine pH Ur Specific [place] Urine Protein Urine Ketones Urine Blood Urine Nitrate Urine Bilirubin Urine Urobilinogen Ur Leukocyte Esterase Urine WBC (Auto) Urine RBC (Auto) Ur Squamous Epith Cells Urine Bacteria Urine Glucose Random Vancomycin Salicylates Urine Opiates Screen Acetaminophen Ur Barbiturates Screen Ur Phencyclidine Scrn Ur Amphetamines Screen U Benzodiazepines Scrn Urine Cocaine Screen U Cannabinoids Screen Serum Alcohol Influenza A (Rapid) Influenza B (Rapid) Imaging: cxr 06/13 - ett above trudy, left IJ TLC+, no congestion, right hemidiaphragm elevated CT brain - no acute process noted CT abd/pelvis/chest 06/13 - bibasilar atelectasis vs consolidation, likley small amount of consolidation (reviewed report) Assessment: 57y F w/pmhx of DM on insulin pump, Hypothyroidism, Asthma, GERD; Patient comes in via EMS for unresponsiveness. Patient was found by boyfriend at home unresponsive this morning, last known okay and normal last night at 2200. EMS found insulin pump unplugged in sink, fingerstick >500. Unclear if they noted a clear facial droop. She was tachycardic, hypotensive, tachypneic on arrival to ER with SBP 70s, tmax 96. She was started on IVF bolus given a total of 3L+ with FSBG of >450. Given her poor mental status she was intubated. She was started on levophed infusion for persistent hypotension. Labs noted to show elevated WBC, hyperglycemia >1400, metabolic acidosis with LA+ and REMY. She had a clear CXR on arrival. -Acute Respiratory failure, unspecified -DKA -severe sepsis with shock -Metabolic acidosis 2/2 to sepsis/REMY/DKA -Hyperkalemia -REMY -hypernatremia -acute encephalopathy -Mild acute pancreatitis asthma Plan: Neuro- on versed infusion low dose; propofol caused worsening hemodynamics; keep low dose with fentanyl as needed. consider precedex. sedation weaning in AM , neurochecks then. -multifactorial encephalopathy from metabolic/toxic causes as above -asp prec CVS- Severe sepsis with shock; on levo/vaso/moises/epi; start weaning moises. Maintain MAP>65/SBP>90. TTE today. VBG yesterday with elevated mixed venous sat pointing toward distributive shock. IVF D5W 100cc/hr, will keep up with urinary output. Making good amounts of urine. Cortisol elevated yesterday, no steroids indicated. Resp- intubated on 40%. No wean plan today given hemodynamics/metabolic state. CT chest / with some small inifiltrates at bases, this could be some mild aspiration from unrepsonsiveness. ABGs with metabolic acidosis and resp alkalosis. breathign over the vent. VAP bundle. Bronchodilators prn. sputum culture. Asp Prec. ID- tmax 102. wbc jun to 13. CT chest mild basilar infiltrates+, possible aspiration. CT abd without acute process. Urine with bactereia+, pending cultures. Pending blood cultures. Influenza neg. Cont Empiric Cefepime 1gm q24h (day#2), Vanco 1gm x1 (day#2). Noted vanco random 9 this morning. GI- NPO. GI proph. -mild pancreatitis, Lipase trending down. CT abd without any acute findings. will monitor and trend enzymes. may consider GI consult. Renal- REMY multifactorial from hypovolemia/GI loss, hypotension/shock. Seems to be volume rescucitated well. IVF NS bolus as needed. -good urine output. Hypokalemia better, repleted with IV KCL and Kphos overnight -hypomag; repelete 2gm IV Mag Sulfate -Hyperkalemia resolved -metabolic acidosis+; BG better. Nongap acidosis with hyperchloremia+. Likely to be from REMY and septic shock than DKA now. trend LA. IVF as needed -cont d5w 100cc/hr, bmp q6h -Renal standbpoint iimproving, no indication for HD. likely to be in post ATN phase, putting out more urine now. Heme- hg okay. plt okay but drop noted. No bleeding. DVT proph with heparin sq/ SCDs Endo- DKA, BG better now in 100-200 range. Acidosis from sepsis/REMY. Change IV insulin protocol to hyperglycemia protocol. Maintain insulin infusuion. Q1h fingersticks. -cont IV levothyroxine 12.5mcg daily. Cortisol elevated on arrival, appropriate response. Musculsk- pressure ulcer prophylaxis. Bedrest. Wounds- none Nutrition- NPO DVT prophylaxis: scd/heparin sq GI prophylaxis: h2b Central Line: left ij 06/13 Arterial Line: right rad 06/13 Sung Cathetor: yes Disposition: ICU; critically ill and guarded status, but slowly improving Code Status: full code Total Critical Care time is 60 minutes, excluding procedures/teaching Adrian Lucio MD [employer] (Electronically Signed)
[2018-06-14] MEDS ORDERED: Vancomycin(*) 1,000 MG in NS 0.9% 250 ML* 250 ML IVPB ONE (12:07)
[2018-06-14] MEDS: Epinepherine DRIP 4 mcg/ml 250 mls (dosed in mcg/kg/min) IV SCH ×2 (12:10→14:52)
[2018-06-14] MEDS: Cefepime 1 GM in Dextrose(*) 1 GM/50 ML BAG IV SCH (12:18)
[2018-06-14] MEDS: Acetaminophen ADULT LIQ* 650 MG/20.3 ML UDC G TUBE PRN (12:20)
[2018-06-14 12:47] LABS: BUN/Creatinine Ratio 27.3 (8-20); Calcium 6.7 mg/dL (8.6-10.3); EGFR Non-African American 23.3 (>60); Potassium 3.9 mmol/L (3.5-5.0)
--- NOTE | 2018-06-14 13:29 | ECHO ---
Patient: FELICITY MEJIA [facility] Rec#: [id number] : 1960 Date: 06/14/2018 Age: 57y Height: 168 cm / 66.1 in Weight: 89 kg / 196.2 lbs Sex: F BSA: 1.99 Room#: ICU 7 Admit Date#: 06/13/2018 Type: Inpatient Referring: Adrian Lucio Reading: Jenna Cm MD [employer] Wirer: Leann Meadows,NADIRCS,RDMS CC: Harjinder Roy MD Transthoracic Echocardiogram Indication: Shock BP: 108/48 HR: 119 Rhythm: Tachycardia Findings History: DM, former smoker Technical Comments: The study quality is fair. The study is technically limited due to patient being intubated and on a ventilator. Left Ventricle: The left ventricular chamber size is normal. Mild concentric left ventricular hypertrophy is observed. Left ventricular systolic function is at the lower limits of normal. The estimated ejection fraction is 45-50%. Normal left ventricular diastolic filling is observed. Left Atrium: The left atrial chamber size is normal. Right Ventricle: The right ventricular chamber size and systolic function are within normal limits. Right Atrium: The right atrial cavity size is normal. Aortic Valve: The aortic valve is trileaflet. Systolic excursion of the aortic valve is normal. There is no evidence of aortic regurgitation. There is no evidence of aortic stenosis. Mitral Valve: The mitral valve leaflets appear normal. There is no evidence of mitral regurgitation. There is no evidence of mitral stenosis. Tricuspid Valve: The tricuspid valve leaflets are normal. There is mild to moderate tricuspid regurgitation. No pulmonary hypertension is noted. Pulmonic Valve: There is no evidence of pulmonic valve thickening. There is no evidence of pulmonic regurgitation. Pericardium: There is no significant pericardial effusion. Aorta: The aortic root appears normal. The aortic arch is not well visualized. Pulmonary Artery: The main pulmonary artery is not well visualized. Venous: Unable to accurately comment on the size collapsibility of the IVC as the patient in known to be on mechanical ventilation. Contrast: Definity was used to optimize study. A total of 3 ml was used. Summary: There was not any prior study for comparison. Conclusions The left ventricular chamber size is normal. Mild concentric left ventricular hypertrophy is observed. Left ventricular systolic function is at the lower limits of normal. The estimated ejection fraction is 45-50%. There is mild to moderate tricuspid regurgitation. No pulmonary hypertension is noted. Measurements Name Value Normal Range RVIDd (AP) 2D 2.1 cm (0.9 - 2.6) RVDdMajor (2D) 2.4 cm (2.2 - 4.4) RAd ISD 4CH 3.9 cm (3.4 - 4.9) RA (A4C)W 3.3 cm (2.9 - 4.6) IVSd (2D) 1.2 cm (0.6 - 1) LVPWd (2D) 1.2 cm (0.6 - 1) LVIDd (2D) 3.9 cm (3.6 - 5.4) LVIDs (2D) 2.2 cm - LV FS (2D) 43 % (25 - 45) Aortic Annulus 2 cm (1.4 - 2.6) Ao root diameter (2D) 2.6 cm (2.1 - 3.5) Ascending Ao 2.5 cm (2.1 - 3.4) LA dimension (AP) 2D 3.3 cm (2.3 - 3.8) LAd ISD 4CH 4.9 cm (2.9 - 5.3) LA ISD 4CH W 3.8 cm (2.5 - 4.5) Name Value Normal Range LA ESV BP (A/L) index 18 ml/m2 - Name Value Normal Range MV E-wave Vmax 0.6 m/sec - MV deceleration time 127 msec - MV A-wave Vmax 0.4 m/sec - MV E:A ratio 1.5 ratio - LV septal e' Vmax 0.1 m/sec - LV lateral e' Vmax 0.1 m/sec - LV E:e' septal ratio 6 ratio - LV E:e' lateral ratio 6 ratio - Name Value Normal Range AV Vmax 1.4 m/sec - AV VTI 16 cm - AV peak gradient 8 mmHg - AV mean gradient 4 mmHg - LVOT Vmax 1.1 m/sec - LVOT VTI 13 cm - LVOT peak gradient 5 mmHg - LVOT mean gradient 2 mmHg - DEE DEE Vmax 0.4 m/sec - Name Value Normal Range TR Vmax 2.2 m/sec - TR peak gradient 19 mmHg - RAP 8 mmHg - RVSP 27 mmHg - IVC diameter 1.5 cm - Name Value Normal Range PV Vmax 0.6 m/sec - PV peak gradient 1.4 mmHg -
[2018-06-14] MEDS ORDERED: NS 0.9% 500 ML* 500 ML IV ONE ×2 (13:56→17:00)
[2018-06-14] MEDS: Heparin VIAL(*) 5000 UNITS/ML VIAL (FIVE THOUSAND) SUBCUT SCH (16:40)
[2018-06-14 18:43] LABS: BUN/Creatinine Ratio 25.8 (8-20); Calcium 6.5 mg/dL (8.6-10.3); EGFR Non-African American 27.1 (>60); Potassium 3.6 mmol/L (3.5-5.0)
[2018-06-14] MEDS ORDERED: NS 0.9% 1000 ML* 1,000 ML IV ONE (18:56)
[2018-06-14 19:18] LABS: Magnesium 1.9 mg/dL (1.9-2.7); Phosphorus 1.8 mg/dL (2.5-5.0)
[2018-06-14] MEDS ORDERED: NS 0.9% 500 ML* 500 ML ONE (19:31)
[2018-06-14] MEDS ORDERED: Norepinephrine VIAL* 1 MG/ML 4 ML VIAL ONE (19:33)
[2018-06-14] MEDS ORDERED: KCL 20 MEQ/100 ML IVPREMIX* 20 MEQ/100 ML BAG IV ONE (19:33)
[2018-06-14] MEDS ORDERED: Magnesium Sulfate IV* 2 GM in NS 0.9% 100 ML* 100 ML IV ONE (19:34)
[2018-06-14] MEDS: D5W 1000 ML BAG* 1,000 ML IV SCH (19:46)
[2018-06-14] MEDS: Midazolam* 1 MG/ML 2 ML VIAL (2 MG) IV PRN (22:21)
[2018-06-14] MEDS ORDERED: Vancomycin per Pharmacy* NOTE FOLLOW UP SCH (23:00)
[2018-06-15] MEDS: Norepinephrine VIAL* 8 MG in NS 0.9% 500 ML* 492 ML IV SCH ×6 (00:18→21:10)
[2018-06-15] MEDS: Epinepherine DRIP 4 mcg/ml 250 mls (dosed in mcg/kg/min) IV SCH ×3 (00:18→16:55)
[2018-06-15] MEDS: Acetaminophen IV 1GM/100ML * 100 ML IVPB SCH ×2 (00:22→09:13)
[2018-06-15] MEDS: metroNIDAZOLE IV 500 MG/100ML* 500 MG/100 ML BAG IVPB SCH ×3 (00:23→16:54)
[2018-06-15] MEDS: Heparin VIAL(*) 5000 UNITS/ML VIAL (FIVE THOUSAND) SUBCUT SCH ×4 (00:23→22:38)
[2018-06-15] MEDS: Chlorhexidine MOUTHWASH 0.12%* 15 ML UDC TOPICAL SCH ×6 (00:23→22:38)
[2018-06-15 00:24] LABS: BUN/Creatinine Ratio 26.8 (8-20); EGFR Non-African American 32.1 (>60); Potassium 3.9 mmol/L (3.5-5.0)
[2018-06-15 00:25] LABS: Calcium 6.2 mg/dL (8.6-10.3)
[2018-06-15] MEDS: Vasopressin* 100 UNITS in D5W 250 ML BAG* 245 ML IVPB SCH ×2 (01:34→21:23)
[2018-06-15] MEDS: Vancomycin(*) 750 MG in NS 0.9% 250 ML* 250 ML IVPB SCH ×2 (01:34→13:09)
[2018-06-15] MEDS: Phenylephrine INJ* 50 MG in NS 0.9% 250 ML* 245 ML IV SCH ×3 (02:49→16:58)
[2018-06-15] MEDS: D5W 1000 ML BAG* 1,000 ML IV SCH ×2 (03:07→09:33)
[2018-06-15] MEDS: Levothyroxine INJ* 100 MCG/5 ML VIAL IV SCH (06:26)
[2018-06-15 06:41] LABS: Hematocrit 31 % (35-47); Hemoglobin 10.4 g/dl (12.0-16.0); Mean Corpuscular HGB Conc 34 g/dl (31-36); Mean Corpuscular Hemoglobin 28 pg (27-31); Mean Corpuscular Volume 84 fL (80-97); Mean Platelet Volume 8.5 fL (7.4-10.4); Platelet Count 103 10^3/ul (150-450); Red Blood Count 3.71 10^6/ul (4.00-5.40); Red Cell Distribution Width 14 % (10.5-15); White Blood Count 18.9 10^3/ul (3.5-10.8)
[2018-06-15 06:56] LABS: Activated Partial Thrombo Time 31.2 seconds (26.0-36.3); INR 1.39 (0.77-1.02)
[2018-06-15 06:59] LABS: BUN/Creatinine Ratio 25.3 (8-20); EGFR Non-African American 35.5 (>60); Magnesium 2.2 mg/dL (1.9-2.7); Phosphorus 3.5 mg/dL (2.5-5.0); Potassium 3.5 mmol/L (3.5-5.0)
[2018-06-15 07:04] LABS: Vancomycin Trough 19.7 mcg/mL
[2018-06-15 07:43] LABS: Calcium 5.9 mg/dL (8.6-10.3)
[2018-06-15] MEDS ORDERED: KCL 10 MEQ/50 ML IVPREMIX* 10 MEQ/50 ML BAG IV ONE (08:15)
[2018-06-15] MEDS ORDERED: Dextrose 50% Syringe 50 ML* 25 GM/50 ML SYRINGE IV PUSH PRN (08:16)
[2018-06-15] MEDS ORDERED: Calcium Gluconate INJ* 2 GM in NS 0.9% 100 ML* 100 ML IV ONE ×2 (08:45→13:40)
[2018-06-15] MEDS ORDERED: Albumin Human 25%* 25 GM/100 ML BTL IV ONE (09:00)
[2018-06-15] MEDS: Famotidine IV* 10 MG/ML 2 ML (20 mg) IV SLOW PU SCH (09:38)
[2018-06-15] MEDS: Midazolam IV for DRIP 100 MG in NS 0.9% IV SCH ×2 (10:49→14:33)
--- NOTE | 2018-06-15 12:53 | PN ---
Date of Service: 06/15/18 - [facility] note Critical Care Services: Pt seen and examined at bedside, o/n events noted Had fever spike of 102 yesterday- Septic w/u was resent, was placed on cooling blankets that were removed this am, remained afebrile Remains on broad spectrum abx Was on 3 pressors yesterday, able to taper off Vasopressin and phenylephrine, Levophed being tapered Renal function improving, acidosis improving Was on Insulin drip overnight, d/eufemia this am, episode of hypoglycemia- improved after D50, now on sliding scale coverage Vital Signs: Temp Pulse Resp BP SpO2 FiO2 97.9 F 104 20 108/64 98 35 06/15/18 12:15 06/15/18 12:15 06/15/18 12:00 06/15/18 12:15 06/15/18 12:15 06/15 12:00 Physical Exam: Gen: Pt is sedated, responds to painful stimuli HEENT: PERRLA, sclera slightly boggy, no JVD, ETT in place Lungs: Good a/e b/l, decreased at bases Cardiac: S1, S2+, regular Abdomen: Soft, BS+, diminished Extremities: No edema Neuro: Sedated, withdraws extremities to pain Fluid Balance (Past 24 Hours): I= 8899 O= 4790 Net 4109 Intake & Output 06/13/18 06/14/18 06/15/18 06/16/18 06:59 06:59 06:59 06:59 Intake Total 5567.1 8899.4 Output Total 2075 4790 815 Balance 3492.1 4109.4 -815 Weight 200 lb 6.403 oz 200 lb 9.93 oz 209 lb 14.081 oz Intake: IV Fluids 2068 4165.8 ABX 370 D5W 2542 D5W 1/2 NS 40 meq KCL 200 KCl/Mag 58 NS (0.9%) 1869 1087.8 Tylenol 108 IVPB 909 991 ABX 100 D5W 366 KCl/Mag 259 360 KPhos 650 165 Medicated IV 2589.1 3509.6 CC - Insulin 253 186.6 CC - Norepinephrine/ 1655 1717 Levophed CC - Phenylephrine/ 482.4 264 Neosynephrine CC - Vasopressin/ 133.7 224 Pitressin Epinephrine 13 1101 Propofol 52 Versed 17 IV Narcotic Infusion 18 Versed 18 NG Tube Irrigate Amount 60 Sung Irrigate Amount 155 Output: NG Tube Drainage Amount 200 200 Urine 250 Sung 1825 4563 615 Other: Date of Last Bowel 06/15/18 Movement # Bowel Movements 2 Estimated Stool Amount Large Labs: Laboratory Results - last 24 hr 06/13/18 06/14/18 06/14/18 13:20 11:36 12:31 WBC 35.3 H RBC 4.68 Hgb 13.1 Hct 47 MCV 101 H MCH 28 MCHC 28 L RDW 15 Plt Count 346 MPV 9.0 Absolute Neuts (auto) 28.8 H Absolute Lymphs (auto) 3.3 Absolute Monos (auto) 2.8 H Absolute Eos (auto) 0 Absolute Basos (auto) 0.4 H Immature Gran % 7 Neutrophils % 76 Band Neutrophils % 2 Lymphocytes % 12 Monocytes % 5 Metamyelocytes % 4 H Myelocytes % 1 Abs Neuts (Manual) 29.3 H Abs Lymphs (Manual) 4.2 Abs Monocytes (Manual) 1.8 H Macrocytosis 1+ Hem Pathologist Commnt Cancelled INR (Anticoag Therapy) APTT Sodium 152 H Potassium 3.9 Chloride 123 H Carbon Dioxide 13 L* Anion Gap 16 H BUN 59 H Creatinine 2.16 H Est GFR ( Amer) 28.2 Est GFR (Non-Af Amer) 23.3 BUN/Creatinine Ratio 27.3 H Glucose 272 H POC Glucose (mg/dL) Lactic Acid 2.1 H* Calcium 6.7 L Phosphorus Magnesium Amylase Lipase Vancomycin Trough 06/14/18 06/14/18 06/14/18 12:31 13:19 14:34 WBC RBC Hgb Hct MCV MCH MCHC RDW Plt Count MPV Absolute Neuts (auto) Absolute Lymphs (auto) Absolute Monos (auto) Absolute Eos (auto) Absolute Basos (auto) Immature Gran % Neutrophils % Band Neutrophils % Lymphocytes % Monocytes % Metamyelocytes % Myelocytes % Abs Neuts (Manual) Abs Lymphs (Manual) Abs Monocytes (Manual) Macrocytosis Hem Pathologist Commnt INR (Anticoag Therapy) APTT Sodium Potassium Chloride Carbon Dioxide Anion Gap BUN Creatinine Est GFR ( Amer) Est GFR (Non-Af Amer) BUN/Creatinine Ratio Glucose POC Glucose (mg/dL) 285 H 292 H 264 H Lactic Acid Calcium Phosphorus Magnesium Amylase Lipase Vancomycin Trough 06/14/18 06/14/18 06/14/18 16:37 18:01 18:01 WBC RBC Hgb Hct MCV MCH MCHC RDW Plt Count MPV Absolute Neuts (auto) Absolute Lymphs (auto) Absolute Monos (auto) Absolute Eos (auto) Absolute Basos (auto) Immature Gran % Neutrophils % Band Neutrophils % Lymphocytes % Monocytes % Metamyelocytes % Myelocytes % Abs Neuts (Manual) Abs Lymphs (Manual) Abs Monocytes (Manual) Macrocytosis Hem Pathologist Commnt INR (Anticoag Therapy) APTT Sodium 150 H Potassium 3.6 Chloride 124 H Carbon Dioxide 15 L Anion Gap 11 BUN 49 H Creatinine 1.90 H Est GFR ( Amer) 32.7 Est GFR (Non-Af Amer) 27.1 BUN/Creatinine Ratio 25.8 H Glucose 205 H POC Glucose (mg/dL) 232 H Lactic Acid 4.6 H* Calcium 6.5 L Phosphorus 1.8 L Magnesium 1.9 Amylase Lipase Vancomycin Trough 06/14/18 06/14/18 06/14/18 18:02 19:18 20:09 WBC RBC Hgb Hct MCV MCH MCHC RDW Plt Count MPV Absolute Neuts (auto) Absolute Lymphs (auto) Absolute Monos (auto) Absolute Eos (auto) Absolute Basos (auto) Immature Gran % Neutrophils % Band Neutrophils % Lymphocytes % Monocytes % Metamyelocytes % Myelocytes % Abs Neuts (Manual) Abs Lymphs (Manual) Abs Monocytes (Manual) Macrocytosis Hem Pathologist Commnt INR (Anticoag Therapy) APTT Sodium Potassium Chloride Carbon Dioxide Anion Gap BUN Creatinine Est GFR ( Amer) Est GFR (Non-Af Amer) BUN/Creatinine Ratio Glucose POC Glucose (mg/dL) 203 H 188 H 216 H Lactic Acid Calcium Phosphorus Magnesium Amylase Lipase Vancomycin Trough 06/14/18 06/14/18 06/14/18 21:10 22:02 23:10 WBC RBC Hgb Hct MCV MCH MCHC RDW Plt Count MPV Absolute Neuts (auto) Absolute Lymphs (auto) Absolute Monos (auto) Absolute Eos (auto) Absolute Basos (auto) Immature Gran % Neutrophils % Band Neutrophils % Lymphocytes % Monocytes % Metamyelocytes % Myelocytes % Abs Neuts (Manual) Abs Lymphs (Manual) Abs Monocytes (Manual) Macrocytosis Hem Pathologist Commnt INR (Anticoag Therapy) APTT Sodium Potassium Chloride Carbon Dioxide Anion Gap BUN Creatinine Est GFR ( Amer) Est GFR (Non-Af Amer) BUN/Creatinine Ratio Glucose POC Glucose (mg/dL) 192 H 142 H 134 H Lactic Acid Calcium Phosphorus Magnesium Amylase Lipase Vancomycin Trough 06/15/18 06/15/18 06/15/18 00:00 00:00 00:16 WBC RBC Hgb Hct MCV MCH MCHC RDW Plt Count MPV Absolute Neuts (auto) Absolute Lymphs (auto) Absolute Monos (auto) Absolute Eos (auto) Absolute Basos (auto) Immature Gran % Neutrophils % Band Neutrophils % Lymphocytes % Monocytes % Metamyelocytes % Myelocytes % Abs Neuts (Manual) Abs Lymphs (Manual) Abs Monocytes (Manual) Macrocytosis Hem Pathologist Commnt INR (Anticoag Therapy) APTT Sodium 147 H Potassium 3.9 Chloride 123 H Carbon Dioxide 17 L Anion Gap 7 BUN 44 H Creatinine 1.64 H Est GFR ( Amer) 38.8 Est GFR (Non-Af Amer) 32.1 BUN/Creatinine Ratio 26.8 H Glucose 122 H POC Glucose (mg/dL) 137 H Lactic Acid 2.8 H* Calcium 6.2 L* Phosphorus Magnesium Amylase Lipase Vancomycin Trough 06/15/18 06/15/18 06/15/18 01:22 02:11 03:05 WBC RBC Hgb Hct MCV MCH MCHC RDW Plt Count MPV Absolute Neuts (auto) Absolute Lymphs (auto) Absolute Monos (auto) Absolute Eos (auto) Absolute Basos (auto) Immature Gran % Neutrophils % Band Neutrophils % Lymphocytes % Monocytes % Metamyelocytes % Myelocytes % Abs Neuts (Manual) Abs Lymphs (Manual) Abs Monocytes (Manual) Macrocytosis Hem Pathologist Commnt INR (Anticoag Therapy) APTT Sodium Potassium Chloride Carbon Dioxide Anion Gap BUN Creatinine Est GFR ( Amer) Est GFR (Non-Af Amer) BUN/Creatinine Ratio Glucose POC Glucose (mg/dL) 101 H 115 H 117 H Lactic Acid Calcium Phosphorus Magnesium Amylase Lipase Vancomycin Trough 06/15/18 06/15/18 06/15/18 04:07 05:12 06:21 WBC RBC Hgb Hct MCV MCH MCHC RDW Plt Count MPV Absolute Neuts (auto) Absolute Lymphs (auto) Absolute Monos (auto) Absolute Eos (auto) Absolute Basos (auto) Immature Gran % Neutrophils % Band Neutrophils % Lymphocytes % Monocytes % Metamyelocytes % Myelocytes % Abs Neuts (Manual) Abs Lymphs (Manual) Abs Monocytes (Manual) Macrocytosis Hem Pathologist Commnt INR (Anticoag Therapy) APTT Sodium Potassium Chloride Carbon Dioxide Anion Gap BUN Creatinine Est GFR ( Amer) Est GFR (Non-Af Amer) BUN/Creatinine Ratio Glucose POC Glucose (mg/dL) 113 H 109 H 100 Lactic Acid Calcium Phosphorus Magnesium Amylase Lipase Vancomycin Trough 06/15/18 06/15/18 06/15/18 06:25 06:25 06:25 WBC 18.9 H RBC 3.71 L Hgb 10.4 L Hct 31 L MCV 84 MCH 28 MCHC 34 RDW 14 Plt Count 103 L MPV 8.5 Absolute Neuts (auto) Absolute Lymphs (auto) Absolute Monos (auto) Absolute Eos (auto) Absolute Basos (auto) Immature Gran % Neutrophils % Band Neutrophils % Lymphocytes % Monocytes % Metamyelocytes % Myelocytes % Abs Neuts (Manual) Abs Lymphs (Manual) Abs Monocytes (Manual) Macrocytosis Hem Pathologist Commnt INR (Anticoag Therapy) 1.39 H APTT 31.2 Sodium 147 H Potassium 3.5 Chloride 121 H Carbon Dioxide 17 L Anion Gap 9 BUN 38 H Creatinine 1.50 H Est GFR ( Amer) 43.0 Est GFR (Non-Af Amer) 35.5 BUN/Creatinine Ratio 25.3 H Glucose 92 POC Glucose (mg/dL) Lactic Acid Calcium 5.9 L* Phosphorus 3.5 Magnesium 2.2 Amylase 214 H Lipase 34 Vancomycin Trough 19.7 06/15/18 06/15/18 06/15/18 06:25 07:25 08:25 WBC RBC Hgb Hct MCV MCH MCHC RDW Plt Count MPV Absolute Neuts (auto) Absolute Lymphs (auto) Absolute Monos (auto) Absolute Eos (auto) Absolute Basos (auto) Immature Gran % Neutrophils % Band Neutrophils % Lymphocytes % Monocytes % Metamyelocytes % Myelocytes % Abs Neuts (Manual) Abs Lymphs (Manual) Abs Monocytes (Manual) Macrocytosis Hem Pathologist Commnt INR (Anticoag Therapy) APTT Sodium Potassium Chloride Carbon Dioxide Anion Gap BUN Creatinine Est GFR ( Amer) Est GFR (Non-Af Amer) BUN/Creatinine Ratio Glucose POC Glucose (mg/dL) 99 64 L Lactic Acid 1.9 Calcium Phosphorus Magnesium Amylase Lipase Vancomycin Trough 06/15/18 06/15/18 06/15/18 09:08 10:10 12:23 WBC RBC Hgb Hct MCV MCH MCHC RDW Plt Count MPV Absolute Neuts (auto) Absolute Lymphs (auto) Absolute Monos (auto) Absolute Eos (auto) Absolute Basos (auto) Immature Gran % Neutrophils % Band Neutrophils % Lymphocytes % Monocytes % Metamyelocytes % Myelocytes % Abs Neuts (Manual) Abs Lymphs (Manual) Abs Monocytes (Manual) Macrocytosis Hem Pathologist Commnt INR (Anticoag Therapy) APTT Sodium Potassium Chloride Carbon Dioxide Anion Gap BUN Creatinine Est GFR ( Amer) Est GFR (Non-Af Amer) BUN/Creatinine Ratio Glucose POC Glucose (mg/dL) 77 178 H 263 H Lactic Acid Calcium Phosphorus Magnesium Amylase Lipase Vancomycin Trough Studies: CXR: Was personally reviewed. ETT in place. Elevated rt hemidiaphragm, basilar atelctasis, small rt effusion CT chest/abdoemn was personally reviewed- Elevated rt hemidiaphragm, air space opacity at bases- atelectasis versus PNA. Hiatal hernia noted Nutrition: Tube feeds to be started today when pressor requirements improve Impression: 1. Sepsis with septic shock- Source unclear, likely PNA 2. Lactic acidosis, metabolic acidosis 3. DKA- Resolved 4. Resp failure 5. Hypernatremia 6. Hypokalemia 7.Hypocalcemia 8. Leucocytosis 9.Acute renal failure 10. Normocytic anemia- ? dilutional Plan: 1. Neuro: Metabolic/septic encephalopathy. Pt is sedated, sedation vacation attempted this am. Pt wakes up appropriately. Will titrate Versed to RASS score of 2-3. Aspiration precautions. Keep HOB elevated to 30. 2. Resp: Intubated for airway protection given AMS. CXR with evidence of air space opacities at bases. FiO2 requirements acceptable. Vent dynamics are acceptable. VAP precuations ordered 3. CVS: Septic shock, required 3 pressors yesterday, titrated off Vasopression and phenylephrine. Currently on Levophed at 15-18mcg. Will titrate as tolerated to MAP of 65. Tachycardia+ 4. ID: Septic shock- unclear etiology. On broad spectrum abx. Was febrile yesterday, has been afebrile since morning. Bl cx pending, UA negative. Sputum cx negative. PNA likely source of sepsis. CXR from this am was reviewed, no progression. Lactic acid normalized. 5. Renal: UO- 100-150cc/hr, acidosis improving. Lactic acidosis and DKA resolved. Electrolyte abnormalities being addressed. Calcium repleted, will rpt labs in pm. Creatinine improving. 6. GI: Will start tube feeds today. GI ppx 7. Endo: H/o DKA, resolved now, on SS insulin, had episode of hypoglycemia this am, D50 was administered. 8. Haem: Leucocytosis sec to sepsis. Normocytic anemia, drop in H&H likely dilutional. Thrombocytopenia likely sec to sepsis 9. Musculoskeletal: No evidence of skin break down or cellulitis 10. Psycho social: Pts domestic partner at bedside and was updated of plan of care and questions addressed Lines and tubes Lt IJ 12/5 A-line Rt radial 12/5 Sung catheter to prevent skin breakdown Critical Care Time: 45 min
[2018-06-15] MEDS: Cefepime 1 GM in Dextrose(*) 1 GM/50 ML BAG IV SCH (12:56)
[2018-06-15 13:03] LABS: BUN/Creatinine Ratio 26.6 (8-20); EGFR Non-African American 38.8 (>60); Potassium 3.7 mmol/L (3.5-5.0)
[2018-06-15] MEDS: Insulin LISPRO* 1 UNITS UNIT SUBCUT SCH ×2 (13:06→18:54)
[2018-06-15 13:13] LABS: Calcium 6.3 mg/dL (8.6-10.3)
[2018-06-15 18:15] LABS: BUN/Creatinine Ratio 25.2 (8-20); Calcium 6.6 mg/dL (8.6-10.3); EGFR Non-African American 38.8 (>60); Potassium 3.5 mmol/L (3.5-5.0)
[2018-06-15] MEDS: NS 0.9% 1000 ML* 1,000 ML IV SCH (19:00)
[2018-06-15] MEDS ORDERED: KCL 20 MEQ/100 ML IVPREMIX* 20 MEQ/100 ML BAG IV ONE ×2 (21:30→22:30)
[2018-06-16] MEDS: Norepinephrine VIAL* 8 MG in NS 0.9% 500 ML* 492 ML IV SCH ×6 (01:06→19:53)
[2018-06-16] MEDS: Epinepherine DRIP 4 mcg/ml 250 mls (dosed in mcg/kg/min) IV SCH ×2 (01:07→07:31)
[2018-06-16] MEDS: Phenylephrine INJ* 50 MG in NS 0.9% 250 ML* 245 ML IV SCH ×2 (01:07→05:29)
[2018-06-16] MEDS: Insulin LISPRO* 1 UNITS UNIT SUBCUT SCH ×4 (01:16→20:40)
[2018-06-16] MEDS: metroNIDAZOLE IV 500 MG/100ML* 500 MG/100 ML BAG IVPB SCH ×3 (01:17→18:37)
[2018-06-16] MEDS: Chlorhexidine MOUTHWASH 0.12%* 15 ML UDC TOPICAL SCH ×5 (01:17→18:37)
[2018-06-16 01:23] LABS: Albumin 2.7 g/dL (3.2-5.2); Albumin/Globulin Ratio 1.3 (1-3); BUN/Creatinine Ratio 24.8 (8-20); Calcium 6.7 mg/dL (8.6-10.3); EGFR Non-African American 39.5 (>60); Globulin 2.1 g/dL (2-4); Magnesium 2.1 mg/dL (1.9-2.7); Phosphorus 2.8 mg/dL (2.5-5.0); Potassium 4.3 mmol/L (3.5-5.0); Total Bilirubin 0.7 mg/dL (0.2-1.0); Total Protein 4.8 g/dL (6.4-8.9)
[2018-06-16] MEDS: Vancomycin(*) 750 MG in NS 0.9% 250 ML* 250 ML IVPB SCH ×2 (01:27→15:14)
[2018-06-16] MEDS ORDERED: Calcium Gluconate INJ* 1 GM in NS 0.9% 50 ML* 50 ML IVPB ONE (02:00)
[2018-06-16] MEDS: Midazolam* 1 MG/ML 2 ML VIAL (2 MG) IV PRN (04:36)
[2018-06-16] MEDS: Heparin VIAL(*) 5000 UNITS/ML VIAL (FIVE THOUSAND) SUBCUT SCH (06:04)
[2018-06-16] MEDS: Levothyroxine INJ* 100 MCG/5 ML VIAL IV SCH (06:05)
[2018-06-16] MEDS: fentaNYL* 50 MCG/ML 2 ML VIAL (100 MCG VIAL) IV SLOW PU PRN (06:07)
[2018-06-16] MEDS: NS 0.9% 1000 ML* 1,000 ML IV SCH (06:26)
[2018-06-16 06:50] LABS: Hematocrit 29 % (35-47); Hemoglobin 9.6 g/dl (12.0-16.0); Mean Corpuscular HGB Conc 34 g/dl (31-36); Mean Corpuscular Hemoglobin 28 pg (27-31); Mean Corpuscular Volume 83 fL (80-97); Mean Platelet Volume 8.9 fL (7.4-10.4); Platelet Count 78 10^3/ul (150-450); Red Blood Count 3.43 10^6/ul (4.00-5.40); Red Cell Distribution Width 15 % (10.5-15); White Blood Count 14.5 10^3/ul (3.5-10.8)
[2018-06-16 06:54] LABS: Activated Partial Thrombo Time 34.9 seconds (26.0-36.3); INR 1.14 (0.77-1.02)
[2018-06-16 07:00] LABS: BUN/Creatinine Ratio 24.2 (8-20); EGFR Non-African American 44.3 (>60); Magnesium 2.1 mg/dL (1.9-2.7); Phosphorus 2.1 mg/dL (2.5-5.0); Potassium 3.9 mmol/L (3.5-5.0)
[2018-06-16] MEDS: Famotidine IV* 10 MG/ML 2 ML (20 mg) IV SLOW PU SCH (07:30)
[2018-06-16] MEDS: Midazolam IV for DRIP 100 MG in NS 0.9% IV SCH (11:08)
[2018-06-16] MEDS ORDERED: Vancomycin Trough Check NOTE FOLLOW UP ONE (12:30)
[2018-06-16] MEDS: Cefepime 1 GM in Dextrose(*) 1 GM/50 ML BAG IV SCH (12:51)
--- NOTE | 2018-06-16 13:04 | PN ---
Date of Service: 06/16/18 - [facility] note Critical Care Services: Pt seen and examined at bedside. Labs, vitals, meds reviewed Overnight events: Remained stable o/n. Has been off Levophed Noted to have new skin changes on breast b/l, likely thermal injury from cold blanket Vital Signs: Temp Pulse Resp BP SpO2 FiO2 99.9 F 107 24 103/53 98 30 06/16/18 12:15 06/16/18 12:15 06/16/18 12:00 06/16/18 12:00 06/16/18 12:15 06/16 12:00 Physical Exam: Gen: Pt is sedated HEENT: ETT+, no JVD Lungs: Good a/e b/l, decreased at bases Cardiac: S1, S2+, regular, tachycardia+ Abdomen: Obese, BS+ Extremities: Edema of UE Neuro: Sedated, will attempt sedation vacation, no focal deficits Skin: Blistering of skin on breasts b/l, no evidence of cellulitis/abscess formation Fluid Balance (Past 24 Hours): I= 593 O= 540 Net 53 Intake & Output 06/14/18 06/15/18 06/16/18 06/17/18 06:59 06:59 06:59 06:59 Intake Total 5567.1 8899.4 5683.8 593 Output Total 2075 4790 3525 540 Balance 3492.1 4109.4 2158.8 53 Weight 200 lb 6.403 oz 200 lb 9.93 oz 212 lb 11.937 oz Intake: IV Fluids 2069 4165.8 4161 ABX 370 682 Calcium Gluconate 270 D5W 2542 1714 D5W 1/2 NS 40 meq KCL 200 KCl/Mag 58 200 NS (0.9%) 1869 1087.8 1215 Tylenol 108 80 IVPB 909 991 581 ABX 100 287 Calcium Gluconate 294 D5W 366 KCl/Mag 259 360 KPhos 650 165 Medicated IV 2589.1 3509.6 637.8 CC - Insulin 253 186.6 CC - Norepinephrine/ 1655 1717 627 Levophed CC - Phenylephrine/ 482.4 264 Neosynephrine CC - Vasopressin/ 133.7 224 10.8 Pitressin Epinephrine 13 1101 Propofol 52 Versed 17 IV Narcotic Infusion 18 21 Versed 18 21 Tube Feeding 233 203 Tube Feeding Flush Amount 50 50 NG Tube Irrigate Amount 60 340 Sung Irrigate Amount 155 Output: NG Tube Drainage Amount 200 200 Urine 250 40 Sung 1825 4590 3325 500 Other: Date of Last Bowel 06/16/2018 06/16/2018 Movement # Bowel Movements 2 1 Estimated Stool Amount Large Medium Labs: Laboratory Results - last 24 hr 06/15/18 06/15/18 06/15/18 12:40 12:40 17:45 WBC RBC Hgb Hct MCV MCH MCHC RDW Plt Count MPV INR (Anticoag Therapy) APTT Patient Temperature ABG pH ABG pCO2 ABG pO2 ABG HCO3 ABG O2 Saturation ABG Base Excess Respiration Rate O2 Delivery Device Ventilator Type Vent Mode FiO2 Inspiratory Time PEEP Pressure Support Pressure Control EPAP IPAP BiPAP Sodium 142 143 Potassium 3.7 3.5 Chloride 118 H 119 H Carbon Dioxide 15 L 16 L Anion Gap 9 8 BUN 37 H 35 H Creatinine 1.39 H 1.39 H Est GFR ( Amer) 47.0 47.0 Est GFR (Non-Af Amer) 38.8 38.8 BUN/Creatinine Ratio 26.6 H 25.2 H Glucose 289 H 347 H POC Glucose (mg/dL) Lactic Acid 1.1 Calcium 6.3 L* 6.6 L Ionized Calcium Phosphorus Magnesium Total Bilirubin AST ALT Alkaline Phosphatase Total Protein Albumin Globulin Albumin/Globulin Ratio Amylase Lipase 06/15/18 06/15/18 06/15/18 17:45 17:50 18:00 WBC RBC Hgb Hct MCV MCH MCHC RDW Plt Count MPV INR (Anticoag Therapy) APTT Patient Temperature 36.6 ABG pH 7.33 L ABG pCO2 29 L ABG pO2 119 H ABG HCO3 17.5 L ABG O2 Saturation 98.1 H ABG Base Excess -9.5 L Respiration Rate 20 O2 Delivery Device sifuentes c2 Ventilator Type Not Reportable Vent Mode Pcv FiO2 35 Inspiratory Time 0.8 PEEP 5 Pressure Support Not Reportable Pressure Control 20 EPAP Not Reportable IPAP Not Reportable BiPAP Not Reportable Sodium Potassium Chloride Carbon Dioxide Anion Gap BUN Creatinine Est GFR ( Amer) Est GFR (Non-Af Amer) BUN/Creatinine Ratio Glucose POC Glucose (mg/dL) 357 H Lactic Acid 1.6 Calcium Ionized Calcium Phosphorus Magnesium Total Bilirubin AST ALT Alkaline Phosphatase Total Protein Albumin Globulin Albumin/Globulin Ratio Amylase Lipase 06/16/18 06/16/18 06/16/18 00:57 00:57 01:11 WBC RBC Hgb Hct MCV MCH MCHC RDW Plt Count MPV INR (Anticoag Therapy) APTT Patient Temperature ABG pH ABG pCO2 ABG pO2 ABG HCO3 ABG O2 Saturation ABG Base Excess Respiration Rate O2 Delivery Device Ventilator Type Vent Mode FiO2 Inspiratory Time PEEP Pressure Support Pressure Control EPAP IPAP BiPAP Sodium 145 Potassium 4.3 Chloride 122 H Carbon Dioxide 18 L Anion Gap 5 BUN 34 H Creatinine 1.37 H Est GFR ( Amer) 47.7 Est GFR (Non-Af Amer) 39.5 BUN/Creatinine Ratio 24.8 H Glucose 326 H POC Glucose (mg/dL) 323 H Lactic Acid Calcium 6.7 L Ionized Calcium 0.96 L Phosphorus 2.8 Magnesium 2.1 Total Bilirubin 0.70 AST 71 H ALT 57 H Alkaline Phosphatase 147 H Total Protein 4.8 L Albumin 2.7 L Globulin 2.1 Albumin/Globulin Ratio 1.3 Amylase Lipase 06/16/18 06/16/18 06/16/18 06:15 06:15 06:15 WBC 14.5 H RBC 3.43 L Hgb 9.6 L Hct 29 L MCV 83 MCH 28 MCHC 34 RDW 15 Plt Count 78 L MPV 8.9 INR (Anticoag Therapy) 1.14 H APTT 34.9 Patient Temperature ABG pH ABG pCO2 ABG pO2 ABG HCO3 ABG O2 Saturation ABG Base Excess Respiration Rate O2 Delivery Device Ventilator Type Vent Mode FiO2 Inspiratory Time PEEP Pressure Support Pressure Control EPAP IPAP BiPAP Sodium 148 H Potassium 3.9 Chloride 123 H Carbon Dioxide 16 L Anion Gap 9 BUN 30 H Creatinine 1.24 H Est GFR ( Amer) 53.6 Est GFR (Non-Af Amer) 44.3 BUN/Creatinine Ratio 24.2 H Glucose 269 H POC Glucose (mg/dL) Lactic Acid Calcium 7.0 L Ionized Calcium Phosphorus 2.1 L Magnesium 2.1 Total Bilirubin AST ALT Alkaline Phosphatase Total Protein Albumin Globulin Albumin/Globulin Ratio Amylase 74 Lipase 37 06/16/18 06/16/18 06:16 12:13 WBC RBC Hgb Hct MCV MCH MCHC RDW Plt Count MPV INR (Anticoag Therapy) APTT Patient Temperature ABG pH ABG pCO2 ABG pO2 ABG HCO3 ABG O2 Saturation ABG Base Excess Respiration Rate O2 Delivery Device Ventilator Type Vent Mode FiO2 Inspiratory Time PEEP Pressure Support Pressure Control EPAP IPAP BiPAP Sodium Potassium Chloride Carbon Dioxide Anion Gap BUN Creatinine Est GFR ( Amer) Est GFR (Non-Af Amer) BUN/Creatinine Ratio Glucose POC Glucose (mg/dL) 293 H 343 H Lactic Acid Calcium Ionized Calcium Phosphorus Magnesium Total Bilirubin AST ALT Alkaline Phosphatase Total Protein Albumin Globulin Albumin/Globulin Ratio Amylase Lipase Studies: CXR 06/15: Small bibasilar infiltrate, ETT, OGT in place Nutrition: Tube feeds Impression: 1. Sepsis with septic shock- Source unclear, likely PNA, improving 2. Lactic acidosis, metabolic acidosis- resolved 3. DKA- Resolved 4. Resp failure requiring mechanical ventilation 5. Hypernatremia- improving 6. Acute renal failure- improving 7. Normocytic anemia- ? dilutional 8. Thrombocytopenia- ? sepsis Plan: Plan: 1. Neuro: Metabolic/septic encephalopathy. Pt is sedated, sedation vacation attempted this am. Pt wakes up appropriately. Will titrate Versed to RASS score of 1-2. Aspiration precautions. Keep HOB elevated to 30. 2. Resp: Intubated for airway protection given AMS. CXR with evidence of air space opacities at bases. FiO2 requirements acceptable. VAP precuations ordered 3. CVS: Septic shock, required 3 pressors, titrated off Vasopression and phenylephrine. Requiring Levophed intermittently. Will titrate as tolerated to MAP of 65. Tachycardia+ 4. ID: Septic shock- unclear etiology. On broad spectrum abx. Has been afebrile , low grades this am. Bl cx negative to date, UA negative. Sputum cx negative. PNA likely source of sepsis. 5. Renal: UO- 100cc/hr, acidosis improving. Lactic acidosis and DKA resolved. Electrolyte abnormalities being addressed. Phosphorus repleted, will rpt labs in pm. Creatinine improving. 6. GI: c/w tube feeds today. GI ppx d/eufemia due to low platelets 7. Endo: H/o DKA, resolved now, on SS insulin, bl sugars increasing since tube feeds started, lantus and SS insulin adjusted. 8. Haem: Leucocytosis sec to sepsis. Normocytic anemia, drop in H&H likely dilutional. Thrombocytopenia likely sec to sepsis. Will d/c Pepcid and Heparin. Will check HIT 9. Musculoskeletal: Evidence of blisters on breast- likely thermal injury from cooling blankets. Will apply Xeroform. No abscess or cellulitis 10. Psycho social: Pts domestic partner at bedside and was updated of plan of care and questions addressed Lines and tubes Lt IJ 12/5 A-line Rt radial 12/5 Sung catheter to prevent skin breakdown Critical Care Time: 30 min
[2018-06-16] MEDS ORDERED: Dextrose 50% Syringe 50 ML* 25 GM/50 ML SYRINGE IV PUSH PRN (13:20)
[2018-06-16] MEDS ORDERED: Potassium Phosphate IV* 15 MMOLE in NS 0.9% 250 ML* 250 ML IVPB ONE (13:24)
[2018-06-16] MEDS: Acetaminophen ADULT LIQ* 650 MG/20.3 ML UDC G TUBE PRN (16:57)
[2018-06-16] MEDS ORDERED: Insulin LISPRO* 1 UNITS UNIT SUBCUT ONE (20:10)
[2018-06-16] MEDS ORDERED: Insulin GLARGINE(*) 1 UNITS UNIT SUBCUT SCH (21:00)
[2018-06-16] MEDS: Insulin IVPB 100 units/100 ml 100 UNITS/100 ML UNIT IVPB SCH (21:40)
[2018-06-17] MEDS: Insulin LISPRO* 1 UNITS UNIT SUBCUT SCH ×5 (00:12→23:33)
[2018-06-17] MEDS: Norepinephrine VIAL* 8 MG in NS 0.9% 500 ML* 492 ML IV SCH ×8 (00:13→23:30)
[2018-06-17] MEDS: Chlorhexidine MOUTHWASH 0.12%* 15 ML UDC TOPICAL SCH ×7 (00:13→21:23)
[2018-06-17] MEDS: metroNIDAZOLE IV 500 MG/100ML* 500 MG/100 ML BAG IVPB SCH ×3 (00:55→15:54)
[2018-06-17] MEDS: Vancomycin(*) 750 MG in NS 0.9% 250 ML* 250 ML IVPB SCH ×2 (00:56→14:00)
[2018-06-17] MEDS: Midazolam IV for DRIP 100 MG in NS 0.9% IV SCH ×2 (02:37→13:38)
[2018-06-17] MEDS: NS 0.9% 1000 ML* 1,000 ML IV SCH ×2 (05:48→16:59)
[2018-06-17 06:20] LABS: INR 1.23 (0.77-1.02)
[2018-06-17 06:36] LABS: Phosphorus 1.9 mg/dL (2.5-5.0)
[2018-06-17 06:50] LABS: Hematocrit 27 % (35-47); Hemoglobin 9.2 g/dl (12.0-16.0); Mean Corpuscular HGB Conc 34 g/dl (31-36); Mean Corpuscular Hemoglobin 28 pg (27-31); Mean Corpuscular Volume 83 fL (80-97); Mean Platelet Volume 8.7 fL (7.4-10.4); Platelet Count 87 10^3/ul (150-450); Red Blood Count 3.25 10^6/ul (4.00-5.40); Red Cell Distribution Width 15 % (10.5-15); White Blood Count 12.6 10^3/ul (3.5-10.8)
[2018-06-17] MEDS: Levothyroxine INJ* 100 MCG/5 ML VIAL IV SCH (06:55)
[2018-06-17] MEDS: fentaNYL* 50 MCG/ML 2 ML VIAL (100 MCG VIAL) IV SLOW PU PRN ×3 (07:30→20:07)
[2018-06-17 07:52] LABS: BUN/Creatinine Ratio 22.6 (8-20); EGFR Non-African American 53.1 (>60); Potassium 3.8 mmol/L (3.5-5.0)
[2018-06-17] MEDS: Acetaminophen ADULT LIQ* 650 MG/20.3 ML UDC G TUBE PRN ×3 (09:31→22:27)
[2018-06-17] MEDS ORDERED: Insulin GLARGINE(*) 1 UNITS UNIT SUBCUT ONE (09:32)
[2018-06-17] MEDS ORDERED: Potassium Phosphate IV* 15 MMOLE in NS 0.9% 250 ML* 250 ML IVPB ONE (09:36)
--- NOTE | 2018-06-17 10:02 | PN ---
Date of Service: 06/17/18 - [facility] note Critical Care Services: Pt seen and examined at bedside. O/n events: Still requiring Levophed at 7mcg Elevated bl sugars, received SS coverage and 20 units Lispro. Is on 10 units Lantus. Ordered 10 units this am Opens eyes when sedation is held. Grimaces to pain. remained afebrile UO- 100-150/hr Vital Signs: Temp Pulse Resp BP SpO2 FiO2 100.0 F 103 21 113/73 97 30 06/17/18 09:15 06/17/18 09:15 06/17/18 09:11 06/17/18 09:10 06/17/18 09:15 06/17 08:00 Physical Exam: Gen: Pt is sedated on vent HEENT: ETT+, PERRLA, No JVD Lungs: Clear to auscultation b/l Cardiac: S1, S2+, regular Abdomen: Obese, BS+ Extremities: No edema in LE, edema+ in upper extremities Neuro: Sedated, opens eyes to stimuli Skin: Blisters on breasts from thermal injury, dressing applied Fluid Balance (Past 24 Hours): R=5200 L=1012 Net 2295 Intake & Output 06/15/18 06/16/18 06/17/18 06/18/18 06:59 06:59 06:59 06:59 Intake Total 8899.4 5683.8 5735 Output Total 4790 3525 3440 705 Balance 4109.4 2158.8 2295 -705 Weight 200 lb 9.93 oz 212 lb 11.937 oz 218 lb 4.122 oz Intake: IV Fluids 4165.8 4161 1534 ABX 370 682 Calcium Gluconate 270 D5W 2542 1714 KCl/Mag 58 200 NS (0.9%) 1087.8 1215 1534 Tylenol 108 80 IVPB 991 581 894 ABX 100 287 105 Calcium Gluconate 294 D5W 366 KCl/Mag 360 KPhos 165 271 NS (0.9%) 518 Medicated IV 3509.6 637.8 986 CC - Insulin 186.6 CC - Norepinephrine/ 1717 627 681 Levophed CC - Phenylephrine/ 264 Neosynephrine CC - Vasopressin/ 224 10.8 Pitressin Epinephrine 1101 Flagyl 100 Versed 17 vanco 205 IV Narcotic Infusion 18 21 Versed 18 21 Oral 60 Tube Feeding 233 1451 Tube Feeding Flush Amount 50 50 NG Tube Irrigate Amount 60 760 Sung Irrigate Amount 155 Output: NG Tube Drainage Amount 200 200 Urine 40 Sung 4590 3325 3400 705 Other: Date of Last Bowel 06/16/2018 06/16/2018 Movement # Bowel Movements 2 1 Estimated Stool Amount Large Medium Labs: Laboratory Results - last 24 hr 06/16/18 06/16/18 06/16/18 12:13 13:00 18:54 WBC RBC Hgb Hct MCV MCH MCHC RDW Plt Count MPV INR (Anticoag Therapy) Sodium Potassium Chloride Carbon Dioxide Anion Gap BUN Creatinine Est GFR ( Amer) Est GFR (Non-Af Amer) BUN/Creatinine Ratio Glucose POC Glucose (mg/dL) 343 H > 444 H* Glucose Meter Confirm Calcium Phosphorus Magnesium Vancomycin Trough 18.3 06/16/18 06/16/18 06/17/18 19:00 23:18 05:55 WBC 12.6 H RBC 3.25 L Hgb 9.2 L Hct 27 L MCV 83 MCH 28 MCHC 34 RDW 15 Plt Count 87 L MPV 8.7 INR (Anticoag Therapy) Sodium Potassium Chloride Carbon Dioxide Anion Gap BUN Creatinine Est GFR ( Amer) Est GFR (Non-Af Amer) BUN/Creatinine Ratio Glucose POC Glucose (mg/dL) 371 H Glucose Meter Confirm 413 H Calcium Phosphorus Magnesium Vancomycin Trough 06/17/18 06/17/18 06/17/18 05:55 05:55 06:59 WBC RBC Hgb Hct MCV MCH MCHC RDW Plt Count MPV INR (Anticoag Therapy) 1.23 H Sodium 154 H Potassium 3.8 Chloride 129 H Carbon Dioxide 20 L Anion Gap 5 BUN 24 Creatinine 1.06 H Est GFR ( Amer) 64.2 Est GFR (Non-Af Amer) 53.1 BUN/Creatinine Ratio 22.6 H Glucose 319 H POC Glucose (mg/dL) 360 H Glucose Meter Confirm Calcium 7.0 L Phosphorus 1.9 L Magnesium 2.0 Vancomycin Trough Studies: CXR 06/15: Small bibasilar infiltrates. Rpt CXR pending Nutrition: Tube feeds Impression: 1. Sepsis with septic shock- Source unclear, likely PNA, improving 2. Lactic acidosis, metabolic acidosis- resolved 3. DKA- Resolved 4. Resp failure requiring mechanical ventilation 5. Hypernatremia 6. Acute renal failure- improving 7. Normocytic anemia- ? dilutional 8. Thrombocytopenia- ? sepsis versus medications 9. Hyperglycemia Plan: 1. Neuro: Metabolic/septic encephalopathy. Pt is sedated, sedation vacation this am. Pt wakes up however doesnot make eye contact. Will titrate Versed to RASS score of 1-2. Aspiration precautions. Keep HOB elevated to 30. 2. Resp: Intubated for airway protection given AMS. CXR with evidence of air space opacities at bases. Rpt CXR pending. FiO2 requirements acceptable. No evidence of signficant secretions through ETT. VAP precuations ordered 3. CVS: Septic shock, required 3 pressors, titrated off Vasopression and phenylephrine. Requiring Levophed at 7mcg this am. Will titrate as tolerated to MAP of 65. Tachycardia+. 4. ID: Septic shock- unclear etiology. On broad spectrum abx- Doxycycline, Cefepime, Vancomycin day#5. Has been afebrile. Bl cx negative to date, UA negative. Sputum cx negative. PNA likely source of sepsis. 5. Renal: UO- 150-200cc/hr, acidosis improving. Lactic acidosis and DKA resolved. Electrolyte abnormalities being addressed. Phosphorus repleted, will rpt labs in pm. Creatinine improving. 6. GI: c/w tube feeds today. GI ppx d/eufemia due to low platelets 7. Endo: H/o DKA, resolved now, on SS insulin, Sugars elevated last night, lantus and SS insulin adjusted. 8. Haem: Leucocytosis sec to sepsis. Normocytic anemia, drop in H&H likely dilutional. Thrombocytopenia likely sec to sepsis. D/c Pepcid and Heparin. HIT was sent. Started on Argatroben for DVT px. Will continue to hold Pepcid 9. Musculoskeletal/Integumentary: Evidence of blisters on breast- likely thermal injury from cooling blankets. Xeroform to cover skin. No abscess or cellulitis in the area. 10. Psycho social: Pts brother, domestic partner and other family members at bedside and were updated of plan of care and all questions/concerns addressed Lines and tubes Lt IJ 12/5 A-line Rt radial 12/5 Sung catheter to prevent skin breakdown Full code Pt not ready for extuabtion yet. Critical Care Time: 30 min
[2018-06-17] MEDS: Cefepime 1 GM in Dextrose(*) 1 GM/50 ML BAG IV SCH (10:33)
[2018-06-17 11:52] LABS: Acetone Level 48 mg/dL; Ethanol Not Detected; Isopropanol Not Detected
[2018-06-17] MEDS: Fondaparinux* 2.5 MG/0.5 ML SYRINGE SUBCUT SCH (12:02)
[2018-06-17] MEDS: Insulin GLARGINE(*) 1 UNITS UNIT SUBCUT SCH (21:23)
[2018-06-18] MEDS: fentaNYL* 50 MCG/ML 2 ML VIAL (100 MCG VIAL) IV SLOW PU PRN ×2 (00:17→07:58)
[2018-06-18] MEDS: metroNIDAZOLE IV 500 MG/100ML* 500 MG/100 ML BAG IVPB SCH ×3 (00:37→18:02)
[2018-06-18] MEDS: Chlorhexidine MOUTHWASH 0.12%* 15 ML UDC TOPICAL SCH ×6 (00:42→22:11)
[2018-06-18] MEDS: Vancomycin(*) 750 MG in NS 0.9% 250 ML* 250 ML IVPB SCH ×2 (00:57→15:10)
[2018-06-18] MEDS: Norepinephrine VIAL* 8 MG in NS 0.9% 500 ML* 492 ML IV SCH ×2 (04:39→07:11)
[2018-06-18] MEDS: Insulin LISPRO* 1 UNITS UNIT SUBCUT SCH ×2 (06:00→13:23)
[2018-06-18] MEDS: Acetaminophen ADULT LIQ* 650 MG/20.3 ML UDC G TUBE PRN (06:01)
[2018-06-18] MEDS: Levothyroxine INJ* 100 MCG/5 ML VIAL IV SCH (06:02)
[2018-06-18 06:41] LABS: Hematocrit 27 % (35-47); Hemoglobin 9.2 g/dl (12.0-16.0); Mean Corpuscular HGB Conc 35 g/dl (31-36); Mean Corpuscular Hemoglobin 29 pg (27-31); Mean Corpuscular Volume 83 fL (80-97); Mean Platelet Volume 8.6 fL (7.4-10.4); Platelet Count 94 10^3/ul (150-450); Red Blood Count 3.21 10^6/ul (4.00-5.40); Red Cell Distribution Width 15 % (10.5-15); White Blood Count 10.2 10^3/ul (3.5-10.8)
[2018-06-18 06:44] LABS: INR 1.4 (0.77-1.02)
--- NOTE | 2018-06-18 08:58 | PN ---
Date of Service: 06/18/18 Critical Care Services: 57F with DM with insulin pump, hypothyroid, asthma, gerd, obesity presents with unresponsiveness and was found to be in severe DKA and septic shock. She reequired 4 pressors and mechanical ventilation. 06/18: Off pressors. Failed SBT today. Arousable to name calling. Not following commands. Vital Signs: Temp Pulse Resp BP SpO2 FiO2 101.1 F 116 26 135/70 95 30 06/18/18 08:01 06/18/18 08:01 06/18/18 08:00 06/18/18 08:00 06/18/18 08:01 06/18 08:00 Physical Exam: Gen - intubated, lethargic heent - ncat, perrl neck - no jvd cv - s1/s2, no murmur lungs - dec bs at bases abd - soft, nt ext - no cce neuro - arousable to voice, not following commands Fluid Balance (Past 24 Hours): I= O= Net Intake & Output 06/16/18 06/17/18 06/18/18 06/19/18 06:59 06:59 06:59 06:59 Intake Total 5683.8 5735 4758 Output Total 3525 3440 4005 315 Balance 2158.8 2295 753 -315 Weight 96.5 kg 99 kg 100.2 kg Intake: IV Fluids 4161 1534 2534 ABX 682 Calcium Gluconate 270 D5W 1714 KCl/Mag 200 KVO 78 NS (0.9%) 1215 1534 2456 Tylenol 80 IVPB 081 711 7934 ABX 287 105 Calcium Gluconate 294 Cefepime 100 Flagyl 310 KPhos 271 276 NS (0.9%) 518 Vancomycin 356 Medicated IV 637.8 986 315 CC - Norepinephrine/ 627 681 315 Levophed CC - Vasopressin/ 10.8 Pitressin Flagyl 100 vanco 205 IV Narcotic Infusion 21 Versed 21 Oral 60 Tube Feeding 233 1451 867 Tube Feeding Flush Amount 50 50 NG Tube Irrigate Amount 760 Output: NG Tube Drainage Amount 200 Urine 40 Sung 3325 3400 4005 315 Other: Date of Last Bowel 06/16/2018 06/16/2018 06/18/18 Movement # Bowel Movements 2 1 1 Estimated Stool Amount Large Medium Medium Labs: Laboratory Results - last 24 hr 06/13/18 06/17/18 06/17/18 13:20 11:28 11:34 WBC RBC Hgb Hct MCV MCH MCHC RDW Plt Count MPV INR (Anticoag Therapy) POC Glucose (mg/dL) 420 H* Glucose Meter Confirm 375 H Ethyl Alcohol Not detected Methyl Alcohol, Quant Not detected Isopropanol Not detected Acetone Level 48 H* 06/17/18 06/17/18 06/17/18 15:05 17:46 17:49 WBC RBC Hgb Hct MCV MCH MCHC RDW Plt Count MPV INR (Anticoag Therapy) POC Glucose (mg/dL) 331 H 404 H* Glucose Meter Confirm 374 H Ethyl Alcohol Methyl Alcohol, Quant Isopropanol Acetone Level 06/17/18 06/18/18 06/18/18 23:29 05:50 05:50 WBC 10.2 RBC 3.21 L Hgb 9.2 L Hct 27 L MCV 83 MCH 29 MCHC 35 RDW 15 Plt Count 94 L MPV 8.6 INR (Anticoag Therapy) 1.40 H POC Glucose (mg/dL) 349 H Glucose Meter Confirm Ethyl Alcohol Methyl Alcohol, Quant Isopropanol Acetone Level 06/18/18 05:52 WBC RBC Hgb Hct MCV MCH MCHC RDW Plt Count MPV INR (Anticoag Therapy) POC Glucose (mg/dL) 395 H Glucose Meter Confirm Ethyl Alcohol Methyl Alcohol, Quant Isopropanol Acetone Level Studies: 06/17 CXR IMPRESSION: #. Acceptable position of the endotracheal tube. #. The nasogastric tube should be repositioned to direct the tip distal. #. Low lung volumes with subsegmental atelectasis limiting assessment. Potential small RIGHT pleural effusion. Impression: 57F with DM with insulin pump, hypothyroid, asthma, gerd, obesity presents with unresponsiveness and was found to be in severe DKA and septic shock. She required 4 pressors and mechanical ventilation. Plan: Neuro - lethargic - likely 2/2 sedation remaining on board - hold versed - fentanyl prn CV - shock - 2/2 sepsis - now improved - tte with ef 45% pulm - hypoxic respiratory failure - 2/2 pna? - failed sbt today - repeat sbt tomorrow when more awake - wean vent as tolerated id - sepsis - unclear source -pna? - remains febrile - c/w vanc/cefepime/flagyl - wbc improving - cultures neg to date gi - tube feeds renal - monitor bmp heme - thrombocytopenia - HIT Ab sent - on arixtra - monitor cbc endo - dka, hypothyroid - fs still elevated - c/w lantus - c/w synthroid lines - [facility] TLC ppx - gi/dvt Full Code Critical Care Time: 65 mins
[2018-06-18] MEDS: NS 0.9% 1000 ML* 1,000 ML IV SCH (09:23)
[2018-06-18 09:26] LABS: Calcium 7.1 mg/dL (8.6-10.3); EGFR Non-African American 64.9 (>60); Potassium 3.8 mmol/L (3.5-5.0)
[2018-06-18] MEDS ORDERED: NS 0.45% 1000 ML BAG* 1,000 ML IV SCH (10:00)
[2018-06-18] MEDS: Lansoprazole susp Kit 3 MG/ML (15 MG = 5 ML) PO SCH (11:19)
[2018-06-18] MEDS: Cefepime(*) 1 GM in NS 0.9% 50 ML* 50 ML IVPB SCH (11:20)
[2018-06-18] MEDS ORDERED: Insulin GLARGINE(*) 1 UNITS UNIT SUBCUT ONE (13:00)
[2018-06-18] MEDS: Fondaparinux* 2.5 MG/0.5 ML SYRINGE SUBCUT SCH (15:10)
[2018-06-18 16:35] LABS: BUN/Creatinine Ratio 27.3 (8-20); EGFR Non-African American 65.8 (>60); Potassium 3.6 mmol/L (3.5-5.0)
[2018-06-18] MEDS: Insulin REGULAR(*) Infusion Protocol (IIP), non-DKA Adult Hyperglycemia (2017) IVPB SCH (17:45)
[2018-06-18] MEDS ORDERED: Potassium Chloride LIQUID* 20 MEQ PACKET PO ONE (18:00)
[2018-06-18] MEDS ORDERED: D5W 100 ML BAG* 100 ML IV SCH (18:00)
[2018-06-18] MEDS ORDERED: Potassium Chlor TAB* 20 MEQ TAB.ER PO ONE (18:00)
[2018-06-18] MEDS ORDERED: Insulin GLARGINE(*) 1 UNITS UNIT SUBCUT SCH (21:00)
[2018-06-18] MEDS: KCL 20 MEQ/100 ML IVPREMIX* 20 MEQ/100 ML BAG IV SCH ×2 (21:29→22:45)
[2018-06-18 22:15] LABS: Urine Creatinine Concentration 37.44 mg/dL
[2018-06-18 22:20] LABS: BUN/Creatinine Ratio 27.5 (8-20); Calcium 7.3 mg/dL (8.6-10.3); EGFR Non-African American 73.4 (>60); Potassium 3.4 mmol/L (3.5-5.0)
[2018-06-18] MEDS: Insulin GLARGINE(*) 1 UNITS UNIT SUBCUT SCH (23:16)
[2018-06-19] MEDS: Vancomycin(*) 750 MG in NS 0.9% 250 ML* 250 ML IVPB SCH ×2 (02:13→13:39)
[2018-06-19] MEDS: Chlorhexidine MOUTHWASH 0.12%* 15 ML UDC TOPICAL SCH ×3 (02:13→07:34)
[2018-06-19] MEDS: metroNIDAZOLE IV 500 MG/100ML* 500 MG/100 ML BAG IVPB SCH ×3 (02:15→16:52)
[2018-06-19] MEDS: KCL 20 MEQ/100 ML IVPREMIX* 20 MEQ/100 ML BAG IV SCH ×3 (02:15→18:05)
[2018-06-19] MEDS: fentaNYL* 50 MCG/ML 2 ML VIAL (100 MCG VIAL) IV SLOW PU PRN ×2 (04:22→08:21)
[2018-06-19] MEDS: D5W 1000 ML BAG* 1,000 ML IV SCH ×2 (05:02→15:08)
[2018-06-19 05:31] LABS: Hematocrit 28 % (35-47); Hemoglobin 9.2 g/dl (12.0-16.0); Mean Corpuscular HGB Conc 33 g/dl (31-36); Mean Corpuscular Hemoglobin 28 pg (27-31); Mean Corpuscular Volume 83 fL (80-97); Mean Platelet Volume 8.4 fL (7.4-10.4); Platelet Count 160 10^3/ul (150-450); Red Blood Count 3.34 10^6/ul (4.00-5.40); Red Cell Distribution Width 14 % (10.5-15); White Blood Count 11.9 10^3/ul (3.5-10.8)
[2018-06-19 05:56] LABS: BUN/Creatinine Ratio 27.4 (8-20); Calcium 7.3 mg/dL (8.6-10.3); EGFR Non-African American 81.6 (>60); Magnesium 1.9 mg/dL (1.9-2.7); Potassium 3.8 mmol/L (3.5-5.0)
[2018-06-19] MEDS: Insulin REGULAR(*) Infusion Protocol (IIP), non-DKA Adult Hyperglycemia (2017) IVPB SCH (06:09)
[2018-06-19] MEDS: Levothyroxine INJ* 100 MCG/5 ML VIAL IV SCH (06:23)
[2018-06-19 07:10] LABS: ABS Basophils 0 10^3/ul (0-0.2); ABS Eosinophils 0.2 10^3/ul (0-0.6); ABS Lymphocytes 1.9 10^3/ul (1.0-4.8); ABS Neutrophils 7.8 10^3/ul (1.5-7.7)
[2018-06-19 07:14] LABS: Immature Granulocytes 7 % (0-9); Lymphocytes % 23 %; Metamyelocytes % 2 % (0-2); Monocytes % 11 %; Neutrophil % 58 %; Nucleated Red Blood Cells/100 1 (0-0)
[2018-06-19 07:15] LABS: Polychromasia 1+
[2018-06-19 07:16] LABS: ABS Neutrophils 7.7 10^3/ul (1.5-7.7)
[2018-06-19 07:17] LABS: ABS Eosinophils 0.1 10^3/ul (0-0.6)
[2018-06-19] MEDS: Lansoprazole susp Kit 3 MG/ML (15 MG = 5 ML) PO SCH (07:35)
--- NOTE | 2018-06-19 09:33 | PN ---
Date of Service: 06/19/18 Critical Care Services: 57F with DM with insulin pump, hypothyroid, asthma, gerd, obesity presents with unresponsiveness and was found to be in severe DKA and septic shock. She reequired 4 pressors and mechanical ventilation. 06/18: Off pressors. Failed SBT today. Arousable to name calling. Not following commands. 06/19: Awake. Following commands. Tolerating SBT. Likely extubation. Vital Signs: Temp Pulse Resp BP SpO2 FiO2 99.5 F 105 17 124/74 97 30 06/19/18 09:15 06/19/18 09:15 06/19/18 09:00 06/19/18 09:00 06/19/18 09:15 06/19 08:00 Physical Exam: Gen - intubated heent - ncat, perrl neck - no jvd cv - s1/s2, no murmur lungs - dec bs at bases abd - soft, nt ext - no cce neuro - arousable. Following commands. Fluid Balance (Past 24 Hours): I= O= Net Intake & Output 06/17/18 06/18/18 06/19/18 06/20/18 06:59 06:59 06:59 06:59 Intake Total 5735 4758 4684.7 280 Output Total 3440 4005 2925 270 Balance 2295 753 1759.7 10 Weight 99 kg 100.2 kg 100.1 kg Intake: IV Fluids 1534 2534 2561.7 Cefepime 417 D5W 1161 Flagyl 87 KCl/Mag 300 KVO 78 NS (0.9%) 1534 2456 361.7 Vancomycin 235 IVPB 894 1042 167 ABX 105 Cefepime 100 65 Flagyl 310 102 KPhos 271 276 NS (0.9%) 518 Vancomycin 356 Medicated IV 986 315 333 CC - Insulin 68 CC - Norepinephrine/ 681 315 Levophed Flagyl 100 vanco 205 265 Oral 60 60 Tube Feeding 1918 455 7100 80 Tube Feeding Flush Amount 50 200 200 NG Tube Irrigate Amount 760 Output: Urine 40 Sung 3400 4005 2925 270 Other: Date of Last Bowel 06/16/2018 06/18/18 Movement # Bowel Movements 1 1 Estimated Stool Amount Medium Medium Labs: Laboratory Results - last 24 hr 06/17/18 06/18/1818 05:55 09:02 12:13 WBC RBC Hgb Hct MCV MCH MCHC RDW Plt Count MPV Neut % (Auto) Lymph % (Auto) [place] % (Auto) Eos % (Auto) Baso % (Auto) Absolute Neuts (auto) Absolute Lymphs (auto) Absolute Monos (auto) Absolute Eos (auto) Absolute Basos (auto) Absolute Nucleated RBC Immature Gran % Neutrophils % Band Neutrophils % Lymphocytes % Monocytes % Eosinophils % Metamyelocytes % Nucleated RBC % Abs Neuts (Manual) Abs Lymphs (Manual) Abs Monocytes (Manual) Absolute Eos (Manual) Nucleated RBCs/100 WBC Normal RBC Morphology Polychromasia Hem Pathologist Commnt Sodium 159 H* Potassium Chloride 131 H Carbon Dioxide Anion Gap 6 BUN Creatinine Est GFR ( Amer) Est GFR (Non-Af Amer) BUN/Creatinine Ratio Glucose POC Glucose (mg/dL) 411 H* Glucose Meter Confirm Serum Osmolality Calcium Magnesium Urine Osmolality Ur Creatinine Concen U Sodium Concentration 06/18/18 06/18/18 06/18/18 12:15 15:35 17:21 WBC RBC Hgb Hct MCV MCH MCHC RDW Plt Count MPV Neut % (Auto) Lymph % (Auto) [place] % (Auto) Eos % (Auto) Baso % (Auto) Absolute Neuts (auto) Absolute Lymphs (auto) Absolute Monos (auto) Absolute Eos (auto) Absolute Basos (auto) Absolute Nucleated RBC Immature Gran % Neutrophils % Band Neutrophils % Lymphocytes % Monocytes % Eosinophils % Metamyelocytes % Nucleated RBC % Abs Neuts (Manual) Abs Lymphs (Manual) Abs Monocytes (Manual) Absolute Eos (Manual) Nucleated RBCs/100 WBC Normal RBC Morphology Polychromasia Hem Pathologist Commnt Sodium 161 H* Potassium 3.6 Chloride 133 H Carbon Dioxide 22 Anion Gap 6 BUN 24 Creatinine 0.88 Est GFR ( Amer) 79.6 Est GFR (Non-Af Amer) 65.8 BUN/Creatinine Ratio 27.3 H Glucose 326 H POC Glucose (mg/dL) 341 H Glucose Meter Confirm 367 H Serum Osmolality Calcium 7.0 L Magnesium 2.0 Urine Osmolality Ur Creatinine Concen U Sodium Concentration 06/18/18 06/18/18 06/18/18 18:06 19:18 20:10 WBC RBC Hgb Hct MCV MCH MCHC RDW Plt Count MPV Neut % (Auto) Lymph % (Auto) [place] % (Auto) Eos % (Auto) Baso % (Auto) Absolute Neuts (auto) Absolute Lymphs (auto) Absolute Monos (auto) Absolute Eos (auto) Absolute Basos (auto) Absolute Nucleated RBC Immature Gran % Neutrophils % Band Neutrophils % Lymphocytes % Monocytes % Eosinophils % Metamyelocytes % Nucleated RBC % Abs Neuts (Manual) Abs Lymphs (Manual) Abs Monocytes (Manual) Absolute Eos (Manual) Nucleated RBCs/100 WBC Normal RBC Morphology Polychromasia Hem Pathologist Commnt Sodium Potassium Chloride Carbon Dioxide Anion Gap BUN Creatinine Est GFR ( Amer) Est GFR (Non-Af Amer) BUN/Creatinine Ratio Glucose POC Glucose (mg/dL) 347 H 305 H 256 H Glucose Meter Confirm Serum Osmolality Calcium Magnesium Urine Osmolality Ur Creatinine Concen U Sodium Concentration 06/18/18 06/18/18 06/18/18 21:26 21:35 21:35 WBC RBC Hgb Hct MCV MCH MCHC RDW Plt Count MPV Neut % (Auto) Lymph % (Auto) [place] % (Auto) Eos % (Auto) Baso % (Auto) Absolute Neuts (auto) Absolute Lymphs (auto) Absolute Monos (auto) Absolute Eos (auto) Absolute Basos (auto) Absolute Nucleated RBC Immature Gran % Neutrophils % Band Neutrophils % Lymphocytes % Monocytes % Eosinophils % Metamyelocytes % Nucleated RBC % Abs Neuts (Manual) Abs Lymphs (Manual) Abs Monocytes (Manual) Absolute Eos (Manual) Nucleated RBCs/100 WBC Normal RBC Morphology Polychromasia Hem Pathologist Commnt Sodium Potassium Chloride Carbon Dioxide Anion Gap BUN Creatinine Est GFR ( Amer) Est GFR (Non-Af Amer) BUN/Creatinine Ratio Glucose POC Glucose (mg/dL) 236 H Glucose Meter Confirm Serum Osmolality Calcium Magnesium Urine Osmolality 452 Ur Creatinine Concen 37.44 U Sodium Concentration 79 06/18/18 06/18/18 06/18/18 21:54 21:58 22:12 WBC RBC Hgb Hct MCV MCH MCHC RDW Plt Count MPV Neut % (Auto) Lymph % (Auto) [place] % (Auto) Eos % (Auto) Baso % (Auto) Absolute Neuts (auto) Absolute Lymphs (auto) Absolute Monos (auto) Absolute Eos (auto) Absolute Basos (auto) Absolute Nucleated RBC Immature Gran % Neutrophils % Band Neutrophils % Lymphocytes % Monocytes % Eosinophils % Metamyelocytes % Nucleated RBC % Abs Neuts (Manual) Abs Lymphs (Manual) Abs Monocytes (Manual) Absolute Eos (Manual) Nucleated RBCs/100 WBC Normal RBC Morphology Polychromasia Hem Pathologist Commnt Sodium 161 H* Potassium 3.4 L Chloride 131 H Carbon Dioxide 26 Anion Gap 4 BUN 22 Creatinine 0.80 Est GFR ( Amer) 88.8 Est GFR (Non-Af Amer) 73.4 BUN/Creatinine Ratio 27.5 H Glucose 207 H POC Glucose (mg/dL) 218 H Glucose Meter Confirm Serum Osmolality 330 H Calcium 7.3 L Magnesium Urine Osmolality Ur Creatinine Concen U Sodium Concentration 06/18/18 06/19/18 06/19/18 23:06 00:20 01:13 WBC RBC Hgb Hct MCV MCH MCHC RDW Plt Count MPV Neut % (Auto) Lymph % (Auto) [place] % (Auto) Eos % (Auto) Baso % (Auto) Absolute Neuts (auto) Absolute Lymphs (auto) Absolute Monos (auto) Absolute Eos (auto) Absolute Basos (auto) Absolute Nucleated RBC Immature Gran % Neutrophils % Band Neutrophils % Lymphocytes % Monocytes % Eosinophils % Metamyelocytes % Nucleated RBC % Abs Neuts (Manual) Abs Lymphs (Manual) Abs Monocytes (Manual) Absolute Eos (Manual) Nucleated RBCs/100 WBC Normal RBC Morphology Polychromasia Hem Pathologist Commnt Sodium Potassium Chloride Carbon Dioxide Anion Gap BUN Creatinine Est GFR ( Amer) Est GFR (Non-Af Amer) BUN/Creatinine Ratio Glucose POC Glucose (mg/dL) 194 H 151 H 160 H Glucose Meter Confirm Serum Osmolality Calcium Magnesium Urine Osmolality Ur Creatinine Concen U Sodium Concentration 06/19/18 06/19/18 06/19/18 02:04 03:13 04:06 WBC RBC Hgb Hct MCV MCH MCHC RDW Plt Count MPV Neut % (Auto) Lymph % (Auto) [place] % (Auto) Eos % (Auto) Baso % (Auto) Absolute Neuts (auto) Absolute Lymphs (auto) Absolute Monos (auto) Absolute Eos (auto) Absolute Basos (auto) Absolute Nucleated RBC Immature Gran % Neutrophils % Band Neutrophils % Lymphocytes % Monocytes % Eosinophils % Metamyelocytes % Nucleated RBC % Abs Neuts (Manual) Abs Lymphs (Manual) Abs Monocytes (Manual) Absolute Eos (Manual) Nucleated RBCs/100 WBC Normal RBC Morphology Polychromasia Hem Pathologist Commnt Sodium Potassium Chloride Carbon Dioxide Anion Gap BUN Creatinine Est GFR ( Amer) Est GFR (Non-Af Amer) BUN/Creatinine Ratio Glucose POC Glucose (mg/dL) 161 H 142 H 133 H Glucose Meter Confirm Serum Osmolality Calcium Magnesium Urine Osmolality Ur Creatinine Concen U Sodium Concentration 06/19/18 06/19/18 06/19/18 05:05 05:20 05:20 WBC 11.9 H RBC 3.34 L Hgb 9.2 L Hct 28 L MCV 83 MCH 28 MCHC 33 RDW 14 Plt Count 160 MPV 8.4 Neut % (Auto) Not Reportable Lymph % (Auto) Not Reportable [place] % (Auto) Not Reportable Eos % (Auto) Not Reportable Baso % (Auto) Not Reportable Absolute Neuts (auto) 7.8 H Absolute Lymphs (auto) 1.9 Absolute Monos (auto) 2.0 H Absolute Eos (auto) 0.2 Absolute Basos (auto) 0 Absolute Nucleated RBC Not Reportable Immature Gran % 7 Neutrophils % 58 Band Neutrophils % 5 Lymphocytes % 23 Monocytes % 11 Eosinophils % 1 Metamyelocytes % 2 Nucleated RBC % Not Reportable Abs Neuts (Manual) 7.7 Abs Lymphs (Manual) 2.7 Abs Monocytes (Manual) 1.3 H Absolute Eos (Manual) 0.1 Nucleated RBCs/100 WBC 1 H Normal RBC Morphology Not Reportable Polychromasia 1+ Hem Pathologist Commnt Sodium 159 H* Potassium 3.8 Chloride 130 H Carbon Dioxide 27 Anion Gap 2 BUN 20 Creatinine 0.73 Est GFR ( Amer) 98.7 Est GFR (Non-Af Amer) 81.6 BUN/Creatinine Ratio 27.4 H Glucose 112 H POC Glucose (mg/dL) 124 H Glucose Meter Confirm Serum Osmolality Calcium 7.3 L Magnesium 1.9 Urine Osmolality Ur Creatinine Concen U Sodium Concentration 06/19/18 06/19/18 06/19/18 06:07 07:03 08:31 WBC RBC Hgb Hct MCV MCH MCHC RDW Plt Count MPV Neut % (Auto) Lymph % (Auto) [place] % (Auto) Eos % (Auto) Baso % (Auto) Absolute Neuts (auto) Absolute Lymphs (auto) Absolute Monos (auto) Absolute Eos (auto) Absolute Basos (auto) Absolute Nucleated RBC Immature Gran % Neutrophils % Band Neutrophils % Lymphocytes % Monocytes % Eosinophils % Metamyelocytes % Nucleated RBC % Abs Neuts (Manual) Abs Lymphs (Manual) Abs Monocytes (Manual) Absolute Eos (Manual) Nucleated RBCs/100 WBC Normal RBC Morphology Polychromasia Hem Pathologist Commnt Sodium Potassium Chloride Carbon Dioxide Anion Gap BUN Creatinine Est GFR ( Amer) Est GFR (Non-Af Amer) BUN/Creatinine Ratio Glucose POC Glucose (mg/dL) 120 H 113 H 107 H Glucose Meter Confirm Serum Osmolality Calcium Magnesium Urine Osmolality Ur Creatinine Concen U Sodium Concentration Studies: 06/17 CXR IMPRESSION: #. Acceptable position of the endotracheal tube. #. The nasogastric tube should be repositioned to direct the tip distal. #. Low lung volumes with subsegmental atelectasis limiting assessment. Potential small RIGHT pleural effusion. Impression: 57F with DM with insulin pump, hypothyroid, asthma, gerd, obesity presents with unresponsiveness and was found to be in severe DKA and septic shock. She required 4 pressors and mechanical ventilation. Plan: Neuro - mental status improving CV - shock - 2/2 sepsis - now improved - tte with ef 45% pulm - hypoxic respiratory failure - 2/2 pna? - extubation today id - sepsis - unclear source -pna? - fever broke - c/w vanc/cefepime/flagyl - wbc improving - cultures neg to date gi - tube feeds renal - hypernatremia - now on d5w - repeat bmp at 2pm heme - thrombocytopenia - HIT Ab sent - on arixtra - monitor cbc endo - dka, hypothyroid - fs improved on insulin gtt - fs q1h - lantus sliding scale once extubated and eating - c/w synthroid lines - [facility] TLC ppx - gi/dvt Full Code Critical Care Time: 50 mins
[2018-06-19] MEDS ORDERED: Dextrose 50% Syringe 50 ML* 25 GM/50 ML SYRINGE IV PUSH PRN (10:32)
[2018-06-19] MEDS: Insulin GLARGINE(*) 1 UNITS UNIT SUBCUT SCH (10:45)
[2018-06-19] MEDS: Cefepime(*) 1 GM in NS 0.9% 50 ML* 50 ML IVPB SCH (10:45)
[2018-06-19] MEDS ORDERED: Vancomycin Trough Check NOTE FOLLOW UP ONE (13:00)
[2018-06-19 14:46] LABS: BUN/Creatinine Ratio 26.8 (8-20); Calcium 7.2 mg/dL (8.6-10.3); EGFR Non-African American 84.3 (>60); Potassium 3.7 mmol/L (3.5-5.0)
[2018-06-19] MEDS: Insulin LISPRO* 1 UNITS UNIT SUBCUT SCH ×3 (14:58→23:11)
[2018-06-19] MEDS: Fondaparinux* 2.5 MG/0.5 ML SYRINGE SUBCUT SCH (14:59)
[2018-06-19 20:13] LABS: HIT ELISA < 0.075 OD (<0.400)
[2018-06-19] MEDS ORDERED: Morphine VIAL* 4 MG/ML VIAL (1 ml vial) IV ONE (23:11)
[2018-06-20] MEDS: Vancomycin(*) 750 MG in NS 0.9% 250 ML* 250 ML IVPB SCH ×2 (00:46→13:00)
[2018-06-20] MEDS: metroNIDAZOLE IV 500 MG/100ML* 500 MG/100 ML BAG IVPB SCH ×3 (00:46→17:07)
[2018-06-20] MEDS: D5W 1000 ML BAG* 1,000 ML IV SCH ×2 (00:47→11:12)
[2018-06-20] MEDS: Insulin LISPRO* 1 UNITS UNIT SUBCUT SCH ×5 (03:18→21:12)
[2018-06-20] MEDS: Levothyroxine INJ* 100 MCG/5 ML VIAL IV SCH (05:56)
[2018-06-20 06:32] LABS: Hematocrit 28 % (35-47); Hemoglobin 9.1 g/dl (12.0-16.0); Mean Corpuscular HGB Conc 33 g/dl (31-36); Mean Corpuscular Hemoglobin 28 pg (27-31); Mean Corpuscular Volume 84 fL (80-97); Mean Platelet Volume 8.2 fL (7.4-10.4); Platelet Count 199 10^3/ul (150-450); Red Blood Count 3.29 10^6/ul (4.00-5.40); Red Cell Distribution Width 15 % (10.5-15); White Blood Count 15.2 10^3/ul (3.5-10.8)
[2018-06-20 06:54] LABS: BUN/Creatinine Ratio 23.5 (8-20); Calcium 6.9 mg/dL (8.6-10.3); EGFR Non-African American 88.6 (>60); Magnesium 1.8 mg/dL (1.9-2.7); Potassium 3.9 mmol/L (3.5-5.0)
[2018-06-20] MEDS ORDERED: Morphine VIAL* 4 MG/ML VIAL (1 ml vial) IV PRN (06:58)
[2018-06-20 07:41] LABS: ABS Basophils 0.1 10^3/ul (0-0.2); ABS Eosinophils 0.2 10^3/ul (0-0.6); ABS Lymphocytes 2.5 10^3/ul (1.0-4.8); ABS Monocytes 1.8 10^3/ul (0-0.8); ABS Neutrophils 10.6 10^3/ul (1.5-7.7)
[2018-06-20 07:44] LABS: Immature Granulocytes 8 % (0-9); Lymphocytes % 23 %; Metamyelocytes % 2 % (0-2); Monocytes % 8 %; Myelocytes % 1 % (0-1); Neutrophil % 57 %; Polychromasia 1+; Variant Lymph % 2 % (0-6)
[2018-06-20 07:45] LABS: ABS Neutrophils 9.9 10^3/ul (1.5-7.7)
[2018-06-20 07:46] LABS: ABS Eosinophils 0.3 10^3/ul (0-0.6)
[2018-06-20] MEDS: Cefepime(*) 1 GM in NS 0.9% 50 ML* 50 ML IVPB SCH (10:02)
[2018-06-20] MEDS: Insulin GLARGINE(*) 1 UNITS UNIT SUBCUT SCH (10:02)
--- NOTE | 2018-06-20 10:46 | PN ---
Date of Service: 06/20/18 Critical Care Services: 57F with DM with insulin pump, hypothyroid, asthma, gerd, obesity presents with unresponsiveness and was found to be in severe DKA and septic shock. She reequired 4 pressors and mechanical ventilation. 06/18: Off pressors. Failed SBT today. Arousable to name calling. Not following commands. 06/19: Awake. Following commands. Tolerating SBT. Likely extubation. 06/20: extubated yesterday. hypernatremia improving. Vital Signs: Temp Pulse Resp BP SpO2 FiO2 98.6 F 100 29 130/70 98 35 06/20/18 10:01 06/20/18 10:01 06/20/18 10:01 06/20/18 10:00 06/20/18 10:01 06/19 12:31 Physical Exam: Gen - nad heent - ncat, perrl neck - no jvd cv - s1/s2, no murmur lungs - dec bs at bases abd - soft, nt ext - no cce neuro - diffuse weakness but moves all extremities Fluid Balance (Past 24 Hours): I= O= Net Intake & Output 06/18/18 06/19/18 06/20/18 06/21/18 06:59 06:59 06:59 06:59 Intake Total 4758 4684.7 3770.1 Output Total 4005 2925 2590 290 Balance 753 1759.7 1180.1 -290 Weight 100.2 kg 100.1 kg 100.38 kg Intake: IV Fluids 2534 2561.7 2898 Cefepime 417 D5W 1161 2360 Flagyl 87 100 KCl/Mag 300 105 KVO 78 NS (0.9%) 2456 361.7 68 Vancomycin 235 265 IVPB 1042 167 510 Cefepime 100 65 50 Flagyl 310 102 210 KPhos 276 Vancomycin 356 250 Medicated IV 315 333 14.1 CC - Insulin 68 14.1 CC - Norepinephrine/ 315 Levophed vanco 265 Oral 60 Tube Feeding 867 1363 148 Tube Feeding Flush Amount 200 200 Output: Sung 4005 2925 2590 290 Other: Date of Last Bowel 06/18/18 06/19/18 Movement # Bowel Movements 1 1 Estimated Stool Amount Medium Small Labs: Laboratory Results - last 24 hr 06/16/18 06/19/18 06/19/18 13:00 10:28 12:13 WBC RBC Hgb Hct MCV MCH MCHC RDW Plt Count MPV Neut % (Auto) Lymph % (Auto) [place] % (Auto) Eos % (Auto) Baso % (Auto) Absolute Neuts (auto) Absolute Lymphs (auto) Absolute Monos (auto) Absolute Eos (auto) Absolute Basos (auto) Absolute Nucleated RBC Immature Gran % Neutrophils % Band Neutrophils % Lymphocytes % Reactive Lymphs % Monocytes % Eosinophils % Metamyelocytes % Myelocytes % Nucleated RBC % Abs Neuts (Manual) Abs Lymphs (Manual) Abs Monocytes (Manual) Absolute Eos (Manual) Normal RBC Morphology Polychromasia HIT Functional < 0.075 Sodium Potassium Chloride Carbon Dioxide Anion Gap BUN Creatinine Est GFR ( Amer) Est GFR (Non-Af Amer) BUN/Creatinine Ratio Glucose POC Glucose (mg/dL) 159 H Calcium Magnesium Vancomycin Trough 14.0 Heparin-PF4 Ab Interp Negative Heparin-PF4 Ab Comment See comment 06/19/18 06/19/18 06/19/18 12:13 14:02 17:56 WBC RBC Hgb Hct MCV MCH MCHC RDW Plt Count MPV Neut % (Auto) Lymph % (Auto) [place] % (Auto) Eos % (Auto) Baso % (Auto) Absolute Neuts (auto) Absolute Lymphs (auto) Absolute Monos (auto) Absolute Eos (auto) Absolute Basos (auto) Absolute Nucleated RBC Immature Gran % Neutrophils % Band Neutrophils % Lymphocytes % Reactive Lymphs % Monocytes % Eosinophils % Metamyelocytes % Myelocytes % Nucleated RBC % Abs Neuts (Manual) Abs Lymphs (Manual) Abs Monocytes (Manual) Absolute Eos (Manual) Normal RBC Morphology Polychromasia HIT Functional Sodium 155 H Potassium 3.7 Chloride 124 H Carbon Dioxide 27 Anion Gap 4 BUN 19 Creatinine 0.71 Est GFR ( Amer) 102.0 Est GFR (Non-Af Amer) 84.3 BUN/Creatinine Ratio 26.8 H Glucose 198 H POC Glucose (mg/dL) 160 H 222 H Calcium 7.2 L Magnesium Vancomycin Trough Heparin-PF4 Ab Interp Heparin-PF4 Ab Comment 06/19/18 06/20/18 06/20/18 22:54 03:05 06:05 WBC RBC Hgb Hct MCV MCH MCHC RDW Plt Count MPV Neut % (Auto) Lymph % (Auto) [place] % (Auto) Eos % (Auto) Baso % (Auto) Absolute Neuts (auto) Absolute Lymphs (auto) Absolute Monos (auto) Absolute Eos (auto) Absolute Basos (auto) Absolute Nucleated RBC Immature Gran % Neutrophils % Band Neutrophils % Lymphocytes % Reactive Lymphs % Monocytes % Eosinophils % Metamyelocytes % Myelocytes % Nucleated RBC % Abs Neuts (Manual) Abs Lymphs (Manual) Abs Monocytes (Manual) Absolute Eos (Manual) Normal RBC Morphology Polychromasia HIT Functional Sodium 150 H Potassium 3.9 Chloride 120 H Carbon Dioxide 28 Anion Gap 2 BUN 16 Creatinine 0.68 Est GFR ( Amer) 107.2 Est GFR (Non-Af Amer) 88.6 BUN/Creatinine Ratio 23.5 H Glucose 230 H POC Glucose (mg/dL) 235 H 226 H Calcium 6.9 L Magnesium 1.8 L Vancomycin Trough Heparin-PF4 Ab Interp Heparin-PF4 Ab Comment 06/20/18 06/20/18 06/20/18 06:05 06:07 09:47 WBC 15.2 H RBC 3.29 L Hgb 9.1 L Hct 28 L MCV 84 MCH 28 MCHC 33 RDW 15 Plt Count 199 MPV 8.2 Neut % (Auto) Not Reportable Lymph % (Auto) Not Reportable [place] % (Auto) Not Reportable Eos % (Auto) Not Reportable Baso % (Auto) Not Reportable Absolute Neuts (auto) 10.6 H Absolute Lymphs (auto) 2.5 Absolute Monos (auto) 1.8 H Absolute Eos (auto) 0.2 Absolute Basos (auto) 0.1 Absolute Nucleated RBC Not Reportable Immature Gran % 8 Neutrophils % 57 Band Neutrophils % 5 Lymphocytes % 23 Reactive Lymphs % 2 Monocytes % 8 Eosinophils % 2 Metamyelocytes % 2 Myelocytes % 1 Nucleated RBC % Not Reportable Abs Neuts (Manual) 9.9 H Abs Lymphs (Manual) 3.8 Abs Monocytes (Manual) 1.2 H Absolute Eos (Manual) 0.3 Normal RBC Morphology Not Reportable Polychromasia 1+ HIT Functional Sodium Potassium Chloride Carbon Dioxide Anion Gap BUN Creatinine Est GFR ( Amer) Est GFR (Non-Af Amer) BUN/Creatinine Ratio Glucose POC Glucose (mg/dL) 224 H 270 H Calcium Magnesium Vancomycin Trough Heparin-PF4 Ab Interp Heparin-PF4 Ab Comment Studies: 06/17 CXR IMPRESSION: #. Acceptable position of the endotracheal tube. #. The nasogastric tube should be repositioned to direct the tip distal. #. Low lung volumes with subsegmental atelectasis limiting assessment. Potential small RIGHT pleural effusion. Impression: 57F with DM with insulin pump, hypothyroid, asthma, gerd, obesity presents with unresponsiveness and was found to be in severe DKA and septic shock. She required 4 pressors and mechanical ventilation. Plan: Neuro - weakness - 2/2 deconditioning - pt/ot CV - shock - 2/2 sepsis - now resolved - tte with ef 45% pulm - hypoxic respiratory failure - 2/2 pna? - extubated - down to 3LNC id - sepsis - unclear source -pna? - improving - vanc/cefpime/flagyl x 7 days gi - failed swallow yesterday - repeat swallow eval today - advance diet as tolerated renal - hypernatremia - Na improved to 150 - c/w d5w for now heme - thrombocytopenia - HIT Ab neg - change arixtra to lovenox - monitor cbc endo - dka, hypothyroid - lantus and sliding scale - c/w synthroid lines - LUE PICC ppx - gi/dvt Full Code Transfer to floor later today Critical Care Time: 40 mins
[2018-06-20] MEDS ORDERED: Insulin GLARGINE(*) 1 UNITS UNIT SUBCUT ONE (11:33)
[2018-06-20 14:38] LABS: Anion Gap 3 mmol/L (2-11); BUN/Creatinine Ratio 20.3 (8-20); Blood Urea Nitrogen 12 mg/dL (6-24); CO2 Carbon Dioxide 23 mmol/L (22-32); Chloride 103 mmol/L (101-111); EGFR Non-African American 104.3 (>60); Potassium 3.1 mmol/L (3.5-5.0); Sodium 129 mmol/L (135-145)
[2018-06-20 15:10] LABS: Calcium 5.5 mg/dL (8.6-10.3)
[2018-06-20 15:23] LABS: BUN/Creatinine Ratio 22.7 (8-20); Calcium 6.8 mg/dL (8.6-10.3); EGFR Non-African American 91.7 (>60); Potassium 3.8 mmol/L (3.5-5.0)
[2018-06-20] MEDS ORDERED: Alteplase (CATHFLO)* 2 MG VIAL IV ONE (22:30)
[2018-06-21] MEDS: metroNIDAZOLE IV 500 MG/100ML* 500 MG/100 ML BAG IVPB SCH ×2 (00:18→08:36)
[2018-06-21] MEDS: Vancomycin(*) 750 MG in NS 0.9% 250 ML* 250 ML IVPB SCH (01:36)
[2018-06-21 05:22] LABS: Hematocrit 26 % (35-47); Hemoglobin 8.7 g/dl (12.0-16.0); Mean Corpuscular HGB Conc 34 g/dl (31-36); Mean Corpuscular Hemoglobin 28 pg (27-31); Mean Corpuscular Volume 84 fL (80-97); Mean Platelet Volume 7.7 fL (7.4-10.4); Platelet Count 255 10^3/ul (150-450); Red Blood Count 3.06 10^6/ul (4.00-5.40); Red Cell Distribution Width 15 % (10.5-15); White Blood Count 15.8 10^3/ul (3.5-10.8)
[2018-06-21 05:41] LABS: ABS Basophils 0.1 10^3/ul (0-0.2); ABS Eosinophils 0.3 10^3/ul (0-0.6); ABS Lymphocytes 2.3 10^3/ul (1.0-4.8); ABS Monocytes 1.2 10^3/ul (0-0.8); ABS Nucleated RBC 0 10^3/ul; BUN/Creatinine Ratio 20.6 (8-20); Calcium 7.1 mg/dL (8.6-10.3); EGFR Non-African American 96.7 (>60); Magnesium 1.7 mg/dL (1.9-2.7); Potassium 3.5 mmol/L (3.5-5.0)
[2018-06-21 05:44] LABS: Immature Granulocytes 15 % (0-9); Lymphocytes % 21 %; Monocytes % 5 %; Myelocytes % 2 % (0-1); Neutrophil % 57 %; Promyelocytes % 1 %
[2018-06-21 05:45] LABS: Polychromasia 1+
[2018-06-21 05:46] LABS: ABS Eosinophils 0.3 10^3/ul (0-0.6)
[2018-06-21 05:48] LABS: ABS Neutrophils 11.4 10^3/ul (1.5-7.7)
[2018-06-21] MEDS: Levothyroxine TAB* 25 MCG TAB PO SCH (06:08)
[2018-06-21] MEDS: Insulin LISPRO* 1 UNITS UNIT SUBCUT SCH ×4 (08:32→22:02)
[2018-06-21] MEDS: Enoxaparin(*) 40 MG/0.4 ML SYR SUBCUT SCH (08:34)
[2018-06-21] MEDS ORDERED: Insulin GLARGINE(*) 1 UNITS UNIT SUBCUT SCH (09:00)
--- NOTE | 2018-06-21 09:09 | PN ---
Date of Service: 06/21/18 Critical Care Services: 57F with DM with insulin pump, hypothyroid, asthma, gerd, obesity presents with unresponsiveness and was found to be in severe DKA and septic shock. She reequired 4 pressors and mechanical ventilation. 06/18: Off pressors. Failed SBT today. Arousable to name calling. Not following commands. 06/19: Awake. Following commands. Tolerating SBT. Likely extubation. 06/20: extubated yesterday. hypernatremia improving. 06/21: Stable for transfer to floor. No bed available yet. Vital Signs: Temp Pulse Resp BP SpO2 FiO2 98.4 F 99 14 124/63 99 35 06/21/18 08:01 06/21/18 08:01 06/21/18 08:01 06/21/18 08:00 06/21/18 08:01 06/19 12:31 Physical Exam: Gen - nad heent - ncat, perrl neck - no jvd cv - s1/s2, no murmur lungs - dec bs at bases abd - soft, nt ext - no cce neuro - diffuse weakness but moves all extremities Fluid Balance (Past 24 Hours): I= O= Net Intake & Output 06/19/18 06/20/18 06/21/18 06/22/18 06:59 06:59 06:59 06:59 Intake Total 4684.7 3770.1 1925 Output Total 2925 2590 1565 Balance 1759.7 1180.1 360 Weight 100.1 kg 100.38 kg 102.832 kg Intake: IV Fluids 2561.7 2898 968 Cefepime 417 D5W 1161 2360 782 Flagyl 87 100 KCl/Mag 300 105 NS (0.9%) 361.7 68 186 Vancomycin 235 265 IVPB 167 510 717 Cefepime 65 50 50 Flagyl 102 210 284 Vancomycin 250 383 Medicated IV 333 14.1 CC - Insulin 68 14.1 vanco 265 Oral 60 240 Tube Feeding 1363 148 Tube Feeding Flush Amount 200 200 Output: Sung 2925 2590 1565 Other: Date of Last Bowel 06/19/18 Movement # Bowel Movements 1 Estimated Stool Amount Small Small Labs: Laboratory Results - last 24 hr 06/20/18 06/20/18 06/20/18 09:47 14:03 14:53 WBC RBC Hgb Hct MCV MCH MCHC RDW Plt Count MPV Neut % (Auto) Lymph % (Auto) [place] % (Auto) Eos % (Auto) Baso % (Auto) Absolute Neuts (auto) Absolute Lymphs (auto) Absolute Monos (auto) Absolute Eos (auto) Absolute Basos (auto) Absolute Nucleated RBC Immature Gran % Neutrophils % Band Neutrophils % Lymphocytes % Monocytes % Eosinophils % Myelocytes % Promyelocytes % Nucleated RBC % Abs Neuts (Manual) Abs Lymphs (Manual) Abs Monocytes (Manual) Absolute Eos (Manual) Normal RBC Morphology Polychromasia Sodium 129 L D 147 H D Potassium 3.1 L 3.8 Chloride 103 118 H Carbon Dioxide 23 27 Anion Gap 3 2 BUN 12 15 Creatinine 0.59 0.66 Est GFR ( Amer) 126.2 110.9 Est GFR (Non-Af Amer) 104.3 91.7 BUN/Creatinine Ratio 20.3 H 22.7 H Glucose TNP 283 H POC Glucose (mg/dL) 270 H Calcium 5.5 L* 6.8 L Magnesium 06/20/18 06/20/18 06/21/18 17:07 21:06 05:10 WBC RBC Hgb Hct MCV MCH MCHC RDW Plt Count MPV Neut % (Auto) Lymph % (Auto) [place] % (Auto) Eos % (Auto) Baso % (Auto) Absolute Neuts (auto) Absolute Lymphs (auto) Absolute Monos (auto) Absolute Eos (auto) Absolute Basos (auto) Absolute Nucleated RBC Immature Gran % Neutrophils % Band Neutrophils % Lymphocytes % Monocytes % Eosinophils % Myelocytes % Promyelocytes % Nucleated RBC % Abs Neuts (Manual) Abs Lymphs (Manual) Abs Monocytes (Manual) Absolute Eos (Manual) Normal RBC Morphology Polychromasia Sodium 148 H Potassium 3.5 Chloride 118 H Carbon Dioxide 28 Anion Gap 2 BUN 13 Creatinine 0.63 Est GFR ( Amer) 117.0 Est GFR (Non-Af Amer) 96.7 BUN/Creatinine Ratio 20.6 H Glucose 152 H POC Glucose (mg/dL) 284 H 211 H Calcium 7.1 L Magnesium 1.7 L 06/21/18 05:10 WBC 15.8 H RBC 3.06 L Hgb 8.7 L Hct 26 L MCV 84 MCH 28 MCHC 34 RDW 15 Plt Count 255 MPV 7.7 Neut % (Auto) Not Reportable Lymph % (Auto) Not Reportable [place] % (Auto) Not Reportable Eos % (Auto) Not Reportable Baso % (Auto) Not Reportable Absolute Neuts (auto) 12.0 H Absolute Lymphs (auto) 2.3 Absolute Monos (auto) 1.2 H Absolute Eos (auto) 0.3 Absolute Basos (auto) 0.1 Absolute Nucleated RBC 0 Immature Gran % 15 H Neutrophils % 57 Band Neutrophils % 12 H Lymphocytes % 21 Monocytes % 5 Eosinophils % 2 Myelocytes % 2 H Promyelocytes % 1 Nucleated RBC % Not Reportable Abs Neuts (Manual) 11.4 H Abs Lymphs (Manual) 3.3 Abs Monocytes (Manual) 0.8 Absolute Eos (Manual) 0.3 Normal RBC Morphology Not Reportable Polychromasia 1+ Sodium Potassium Chloride Carbon Dioxide Anion Gap BUN Creatinine Est GFR ( Amer) Est GFR (Non-Af Amer) BUN/Creatinine Ratio Glucose POC Glucose (mg/dL) Calcium Magnesium Studies: 06/17 CXR IMPRESSION: #. Acceptable position of the endotracheal tube. #. The nasogastric tube should be repositioned to direct the tip distal. #. Low lung volumes with subsegmental atelectasis limiting assessment. Potential small RIGHT pleural effusion. Impression: 57F with DM with insulin pump, hypothyroid, asthma, gerd, obesity presents with unresponsiveness and was found to be in severe DKA and septic shock. She required 4 pressors and mechanical ventilation. Plan: Neuro - weakness - 2/2 deconditioning - pt/ot CV - shock - 2/2 sepsis - now resolved - tte with ef 45% pulm - hypoxic respiratory failure - 2/2 pna? - extubated - down to 3LNC id - sepsis - unclear source -pna? - improving - vanc/cefpime/flagyl x 7 days gi - failed swallow yesterday - repeat swallow eval today - advance diet as tolerated renal - hypernatremia - Na improved to 148 - c/w d5w for now heme - thrombocytopenia - HIT Ab neg - monitor cbc endo - dka, hypothyroid - lantus and sliding scale - c/w synthroid lines - LUE PICC ppx - gi/dvt Full Code Transfer to floor
[2018-06-21] MEDS: KCL 20 MEQ/100 ML IVPREMIX* 20 MEQ/100 ML BAG IV SCH ×3 (09:44→12:15)
[2018-06-21] MEDS: Cefepime(*) 1 GM in NS 0.9% 50 ML* 50 ML IVPB SCH (09:47)
[2018-06-21] MEDS ORDERED: D5W 250 ML BAG* 250 ML IV ONE (10:00)
[2018-06-21] MEDS ORDERED: D5W 1000 ML BAG* 1,000 ML IV SCH (10:00)
[2018-06-21] MEDS ORDERED: Magnesium Sulfate 2 GM IV* 2 GM/50 ML BAG IVPB ONE (15:30)
[2018-06-22 05:07] LABS: Hematocrit 25 % (35-47); Hemoglobin 8.5 g/dl (12.0-16.0); Mean Corpuscular HGB Conc 34 g/dl (31-36); Mean Corpuscular Hemoglobin 28 pg (27-31); Mean Corpuscular Volume 84 fL (80-97); Mean Platelet Volume 7.3 fL (7.4-10.4); Platelet Count 276 10^3/ul (150-450); Red Blood Count 2.99 10^6/ul (4.00-5.40); Red Cell Distribution Width 15 % (10.5-15)
[2018-06-22 05:22] LABS: ABS Basophils 0.1 10^3/ul (0-0.2); ABS Eosinophils 0.2 10^3/ul (0-0.6); ABS Lymphocytes 2.5 10^3/ul (1.0-4.8); ABS Neutrophils 12.3 10^3/ul (1.5-7.7); ABS Nucleated RBC 0 10^3/ul; Eosinophil % 1.2 %; Lymphocyte % 15.8 %; Nucleated Red Blood Cells % 0
[2018-06-22 05:27] LABS: BUN/Creatinine Ratio 15.3 (8-20); Calcium 7.4 mg/dL (8.6-10.3); EGFR Non-African American 104.3 (>60); Magnesium 1.7 mg/dL (1.9-2.7); Potassium 3.6 mmol/L (3.5-5.0)
[2018-06-22] MEDS: Levothyroxine TAB* 25 MCG TAB PO SCH (06:17)
[2018-06-22] MEDS ORDERED: Furosemide IV* 10 MG/ML 2 ML VIAL (20 MG) IV SLOW PU ONE (08:25)
[2018-06-22] MEDS ORDERED: Magnesium Sulfate 2 GM IV* 2 GM/50 ML BAG IVPB ONE (08:25)
[2018-06-22] MEDS: Enoxaparin(*) 40 MG/0.4 ML SYR SUBCUT SCH (09:08)
[2018-06-22] MEDS: Insulin GLARGINE(*) 1 UNITS UNIT SUBCUT SCH (09:09)
--- NOTE | 2018-06-22 09:30 | PN ---
Date of Service: 06/22/18 Critical Care Services: 57F with DM with insulin pump, hypothyroid, asthma, gerd, obesity presents with unresponsiveness and was found to be in severe DKA and septic shock. She reequired 4 pressors and mechanical ventilation. 06/18: Off pressors. Failed SBT today. Arousable to name calling. Not following commands. 06/19: Awake. Following commands. Tolerating SBT. Likely extubation. 06/20: extubated yesterday. hypernatremia improving. 06/21: Stable for transfer to floor. No bed available yet. 06/22: continues to improve. awaiting floor bed. Vital Signs: Temp Pulse Resp BP SpO2 FiO2 98.8 F 93 20 121/54 99 35 06/22/18 08:01 06/22/18 08:01 06/22/18 08:01 06/22/18 08:01 06/22/18 08:01 06/19 12:31 Physical Exam: Gen - nad heent - ncat, perrl neck - no jvd cv - s1/s2, no murmur lungs - dec bs at bases abd - soft, nt ext - no cce neuro - diffuse weakness but moves all extremities Fluid Balance (Past 24 Hours): I= O= Net Intake & Output 06/20/18 06/21/18 06/22/18 06/23/18 06:59 06:59 06:59 06:59 Intake Total 3770.1 1925 1234 Output Total 2590 1565 1360 Balance 1180.1 360 -126 Weight 100.38 kg 102.832 kg Intake: IV Fluids 2898 968 659 D5W 2360 782 250 Flagyl 100 KCl/Mag 105 NS (0.9%) 68 186 409 Vancomycin 265 IVPB 510 717 Cefepime 50 50 Flagyl 210 284 Vancomycin 250 383 Medicated IV 14.1 CC - Insulin 14.1 Oral 240 575 Tube Feeding 148 Tube Feeding Flush Amount 200 Output: Sung 2590 1565 1360 Other: Date of Last Bowel 06/19/18 Movement # Bowel Movements 1 Estimated Stool Amount Small Small Small Labs: Laboratory Results - last 24 hr 06/21/18 06/21/18 06/21/18 11:47 16:55 20:58 WBC RBC Hgb Hct MCV MCH MCHC RDW Plt Count MPV Neut % (Auto) Lymph % (Auto) [place] % (Auto) Eos % (Auto) Baso % (Auto) Absolute Neuts (auto) Absolute Lymphs (auto) Absolute Monos (auto) Absolute Eos (auto) Absolute Basos (auto) Absolute Nucleated RBC Nucleated RBC % Sodium Potassium Chloride Carbon Dioxide Anion Gap BUN Creatinine Est GFR ( Amer) Est GFR (Non-Af Amer) BUN/Creatinine Ratio Glucose POC Glucose (mg/dL) 195 H 190 H 130 H Calcium Magnesium 06/22/18 06/22/18 04:55 04:55 WBC 16.0 H RBC 2.99 L Hgb 8.5 L Hct 25 L MCV 84 MCH 28 MCHC 34 RDW 15 Plt Count 276 MPV 7.3 L Neut % (Auto) 76.4 Lymph % (Auto) 15.8 [place] % (Auto) 6.2 Eos % (Auto) 1.2 Baso % (Auto) 0.4 Absolute Neuts (auto) 12.3 H Absolute Lymphs (auto) 2.5 Absolute Monos (auto) 1.0 H Absolute Eos (auto) 0.2 Absolute Basos (auto) 0.1 Absolute Nucleated RBC 0 Nucleated RBC % 0 Sodium 147 H Potassium 3.6 Chloride 115 H Carbon Dioxide 28 Anion Gap 4 BUN 9 Creatinine 0.59 Est GFR ( Amer) 126.2 Est GFR (Non-Af Amer) 104.3 BUN/Creatinine Ratio 15.3 Glucose 92 POC Glucose (mg/dL) Calcium 7.4 L Magnesium 1.7 L Studies: 06/17 CXR IMPRESSION: #. Acceptable position of the endotracheal tube. #. The nasogastric tube should be repositioned to direct the tip distal. #. Low lung volumes with subsegmental atelectasis limiting assessment. Potential small RIGHT pleural effusion. Impression: 57F with DM with insulin pump, hypothyroid, asthma, gerd, obesity presents with unresponsiveness and was found to be in severe DKA and septic shock. She required 4 pressors and mechanical ventilation. Plan: Neuro - weakness - 2/2 deconditioning - pt/ot CV - shock - 2/2 sepsis - now resolved - tte with ef 45% - trial of lasix for edema today pulm - hypoxic respiratory failure - 2/2 pna? - extubated - down to 3LNC id - sepsis - unclear source -pna? - improving - completed course of abx gi - advance diet as tolerated renal - hypernatremia - improving heme - thrombocytopenia - resolved - HIT Ab neg - monitor cbc endo - dka, hypothyroid - lantus and sliding scale - c/w synthroid lines - LUE PICC ppx - gi/dvt Full Code Transfer to floor
[2018-06-22] MEDS: KCL 20 MEQ/100 ML IVPREMIX* 20 MEQ/100 ML BAG IV SCH ×3 (10:30→12:47)
[2018-06-22] MEDS: Insulin LISPRO* 1 UNITS UNIT SUBCUT SCH ×4 (11:12→21:01)
[2018-06-23] MEDS: Levothyroxine TAB* 25 MCG TAB PO SCH (06:08)
[2018-06-23 06:26] LABS: Hematocrit 24 % (35-47); Hemoglobin 8.2 g/dl (12.0-16.0); Mean Corpuscular HGB Conc 34 g/dl (31-36); Mean Corpuscular Hemoglobin 28 pg (27-31); Mean Corpuscular Volume 84 fL (80-97); Mean Platelet Volume 7.6 fL (7.4-10.4); Platelet Count 261 10^3/ul (150-450); Red Blood Count 2.89 10^6/ul (4.00-5.40); Red Cell Distribution Width 14 % (10.5-15); White Blood Count 15.7 10^3/ul (3.5-10.8)
[2018-06-23 06:48] LABS: BUN/Creatinine Ratio 11.7 (8-20); Calcium 7.7 mg/dL (8.6-10.3); EGFR Non-African American 102.3 (>60); Magnesium 1.7 mg/dL (1.9-2.7); Potassium 3.9 mmol/L (3.5-5.0)
[2018-06-23 07:11] LABS: ABS Basophils 0 10^3/ul (0-0.2); ABS Eosinophils 0.1 10^3/ul (0-0.6); ABS Lymphocytes 2.3 10^3/ul (1.0-4.8); ABS Neutrophils 12.3 10^3/ul (1.5-7.7); ABS Nucleated RBC 0 10^3/ul; Eosinophil % 0.5 %; Lymphocyte % 14.5 %; Nucleated Red Blood Cells % 0.1
[2018-06-23] MEDS: Insulin LISPRO* 1 UNITS UNIT SUBCUT SCH ×4 (09:50→20:57)
[2018-06-23] MEDS: Enoxaparin(*) 40 MG/0.4 ML SYR SUBCUT SCH (09:51)
[2018-06-23] MEDS: Insulin GLARGINE(*) 1 UNITS UNIT SUBCUT SCH (09:51)
--- NOTE | 2018-06-23 16:46 | PN ---
Subjective Date of Service: 06/23/18 Interval History: Worried about edema.Otherwise no complaints Objective Active Medications: Acetaminophen (Tylenol Adult Liq*) 650 mg G TUBE Q6H PRN PRN Reason: FEVER Last Admin: 06/18/18 06:01 Dose: 650 mg Albuterol (Ventolin 2.5 Mg/3 Ml Neb.Gail*) 2.5 mg INH Q4H PRN PRN Reason: SOB/WHEEZING Last Admin: 06/19/18 12:31 Dose: 2.5 mg Dextrose (D50w Syringe 50 Ml*) 12.5 gm IV PUSH .FOR FS < 60 - SS PRN PRN Reason: FS < 60 Enoxaparin Sodium (Lovenox(*)) 40 mg SUBCUT DAILY [facility] Last Admin: 06/23/18 09:51 Dose: 40 mg Heparin Sodium (Porcine) (Heparin Flush Picc/Ml/Cvc(*)) 1 - 3 ml FLUSH 0600, 1800 [facility]; Protocol Last Admin: 06/23/18 05:31 Dose: 3 ml Insulin Glargine (Lantus(*)) 20 units SUBCUT DAILY [facility] Last Admin: 06/23/18 09:51 Dose: 20 unit Insulin Human Lispro (Humalog*) 0 units SUBCUT ACHS [facility]; Protocol Last Admin: 06/23/18 12:35 Dose: 6 units Levothyroxine Sodium (Synthroid Tab*) 25 mcg PO DAILY@0600 [facility] Last Admin: 06/23/18 06:08 Dose: 25 mcg Morphine Sulfate (Morphine Vial*) 2 mg IV Q4H PRN PRN Reason: PAIN Last Admin: 06/20/18 07:32 Dose: 2 mg Vital Signs - 8 hr 06/23/18 06/23/18 11:04 15:03 Temperature 98.7 F 99.5 F Pulse Rate 104 107 Respiratory 16 16 Rate Blood Pressure 120/54 109/60 (mmHg) O2 Sat by Pulse 90 95 Oximetry Oxygen Devices in Use Now: None Eyes: No Scleral Icterus Ears/Nose/Mouth/Throat: NL Teeth, Lips, Gums Neck: NL Appearance and Movements; NL JVP Respiratory: Symmetrical Chest Expansion and Respiratory Effort Cardiovascular: NL Sounds; No Murmurs; No JVD Abdominal: NL Sounds; No Tenderness; No Distention Extremities: No Edema Skin: No Rash or Ulcers Neurological: Alert and Oriented x 3 Result Diagrams: 06/23/18 06:00 06/23/18 06:00 Microbiology and Other Data: Microbiology 06/18/18 11:05 Aerobic Blood Culture - Final Blood Line No Growth Day 5 Anaerobic Blood Culture - Final No Growth Day 5 06/18/18 09:52 Aerobic Blood Culture - Final Blood Line No Growth Day 5 Anaerobic Blood Culture - Final No Growth Day 5 06/14/18 19:25 Aerobic Blood Culture - Final Blood Venous No Growth Day 5 Anaerobic Blood Culture - Final No Growth Day 5 06/14/18 19:20 Aerobic Blood Culture - Final Blood Venous No Growth Day 5 Anaerobic Blood Culture - Final No Growth Day 5 06/14/18 21:20 Gram Stain - Final Sputum Induced Sputum Culture - Final YEAST Normal Kira 06/13/18 18:55 Urine Culture - Final Urine No Growth (<1,000 CFU/mL) 06/13/18 16:27 Influenza Types A,B Antigen - Final Nasopharyngeal Specimen received for Influenza A/B Molecular testing 06/13/18 16:27 Nasal Screen MRSA (PCR) - Final Nasal Mrsa Not Detected Assess/Plan/Problems-Billing Assessment: 57 y/o female transferred from ICU after stablizing DKA, septic shock on 4 pressors and hypoxemic resp failure s/p extubation - Patient Problems (1) Septic shock Current Visit: Yes Status: Acute Code(s): A41.9 - SEPSIS, UNSPECIFIED ORGANISM; R65.21 - SEVERE SEPSIS WITH SEPTIC SHOCK SNOMED Code(s): 36218245 Comment: On 4 presssors. Weaned off pressors Weaned off antibiotics transferred to floor from icu yesterday (2) DKA (diabetic ketoacidoses) Current Visit: Yes Status: Acute Code(s): E13.10 - OTH DIABETES MELLITUS WITH KETOACIDOSIS WITHOUT COMA SNOMED Code(s): 994822356 Comment: on insulin pump at home ran out DKA stablized in ICU Continue current insulin regimen (3) Respiratory failure Current Visit: Yes Status: Acute Code(s): J96.90 - RESPIRATORY FAILURE, UNSP , UNSP W HYPOXIA OR HYPERCAPNIA SNOMED Code(s): 664867634 Comment: Improved Extubated completed antibiotics for poss pneumonia (4) Hypothyroidism Current Visit: No Status: Acute Code(s): E03.9 - HYPOTHYROIDISM, UNSPECIFIED SNOMED Code(s): 24107831 Comment: continue levothyroxine
[2018-06-23] MEDS ORDERED: Furosemide IV* 10 MG/ML 2 ML VIAL (20 MG) IV ONE (16:48)
[2018-06-23] MEDS ORDERED: Magnesium Sulfate 2 GM IV* 2 GM/50 ML BAG IVPB ONE (16:48)
[2018-06-24 04:45] LABS: Hematocrit 24 % (35-47); Hemoglobin 8.1 g/dl (12.0-16.0); Mean Corpuscular HGB Conc 33 g/dl (31-36); Mean Corpuscular Hemoglobin 28 pg (27-31); Mean Corpuscular Volume 84 fL (80-97); Mean Platelet Volume 7.3 fL (7.4-10.4); Platelet Count 315 10^3/ul (150-450); Red Blood Count 2.91 10^6/ul (4.00-5.40); Red Cell Distribution Width 14 % (10.5-15); White Blood Count 13.2 10^3/ul (3.5-10.8)
[2018-06-24 04:59] LABS: BUN/Creatinine Ratio 6.9 (8-20); Calcium 7.9 mg/dL (8.6-10.3); EGFR Non-African American 106.4 (>60); Potassium 3.5 mmol/L (3.5-5.0)
[2018-06-24 05:06] LABS: ABS Basophils 0.1 10^3/ul (0-0.2); ABS Eosinophils 0.1 10^3/ul (0-0.6); ABS Lymphocytes 2.3 10^3/ul (1.0-4.8); ABS Monocytes 0.9 10^3/ul (0-0.8); ABS Neutrophils 9.8 10^3/ul (1.5-7.7); ABS Nucleated RBC 0 10^3/ul
[2018-06-24 05:08] LABS: Immature Granulocytes 3 % (0-9); Lymphocytes % 20 %; Metamyelocytes % 1 % (0-2); Monocytes % 6 %; Neutrophil % 69 %; Nucleated Red Blood Cells/100 2 (0-0); Variant Lymph % 1 % (0-6)
[2018-06-24 05:09] LABS: Polychromasia 2+
[2018-06-24 05:10] LABS: ABS Neutrophils 9.5 10^3/ul (1.5-7.7)
[2018-06-24 05:11] LABS: ABS Basophils 0.1 10^3/ul (0-0.2)
[2018-06-24] MEDS: Levothyroxine TAB* 25 MCG TAB PO SCH (05:18)
[2018-06-24] MEDS: Insulin LISPRO* 1 UNITS UNIT SUBCUT SCH ×4 (09:06→21:04)
[2018-06-24] MEDS: Insulin GLARGINE(*) 1 UNITS UNIT SUBCUT SCH (09:07)
[2018-06-24] MEDS: Enoxaparin(*) 40 MG/0.4 ML SYR SUBCUT SCH (09:08)
--- NOTE | 2018-06-24 14:29 | PN ---
Subjective Date of Service: 06/24/18 Interval History: Denies any complaints.Edema improving.Denies sob Objective Active Medications: Acetaminophen (Tylenol Adult Liq*) 650 mg G TUBE Q6H PRN PRN Reason: FEVER Last Admin: 06/18/18 06:01 Dose: 650 mg Albuterol (Ventolin 2.5 Mg/3 Ml Neb.Gail*) 2.5 mg INH Q4H PRN PRN Reason: SOB/WHEEZING Last Admin: 06/19/18 12:31 Dose: 2.5 mg Dextrose (D50w Syringe 50 Ml*) 12.5 gm IV PUSH .FOR FS < 60 - SS PRN PRN Reason: FS < 60 Enoxaparin Sodium (Lovenox(*)) 40 mg SUBCUT DAILY [facility] Last Admin: 06/24/18 09:08 Dose: 40 mg Heparin Sodium (Porcine) (Heparin Flush Picc/Ml/Cvc(*)) 1 - 3 ml FLUSH 0600, 1800 [facility]; Protocol Last Admin: 06/24/18 04:19 Dose: 3 ml Insulin Glargine (Lantus(*)) 20 units SUBCUT DAILY [facility] Last Admin: 06/24/18 09:07 Dose: 20 unit Insulin Human Lispro (Humalog*) 0 units SUBCUT ACHS [facility]; Protocol Last Admin: 06/24/18 12:19 Dose: 2 units Levothyroxine Sodium (Synthroid Tab*) 25 mcg PO DAILY@0600 [facility] Last Admin: 06/24/18 05:18 Dose: 25 mcg Morphine Sulfate (Morphine Vial*) 2 mg IV Q4H PRN PRN Reason: PAIN Last Admin: 06/20/18 07:32 Dose: 2 mg Vital Signs - 8 hr 06/24/18 06/24/18 06/24/18 07:49 08:00 11:40 Temperature 97.6 F 98.0 F Pulse Rate 102 96 Respiratory 16 16 16 Rate Blood Pressure 98/74 137/65 (mmHg) O2 Sat by Pulse 96 97 Oximetry Oxygen Devices in Use Now: None Eyes: No Scleral Icterus Ears/Nose/Mouth/Throat: NL Teeth, Lips, Gums, Clear Oropharnyx Neck: NL Appearance and Movements; NL JVP Respiratory: Symmetrical Chest Expansion and Respiratory Effort, Clear to Auscultation Cardiovascular: NL Sounds; No Murmurs; No JVD, RRR Abdominal: NL Sounds; No Tenderness; No Distention Extremities: - - Edema improving Skin: No Rash or Ulcers Neurological: Alert and Oriented x 3 Result Diagrams: 06/24/18 04:30 06/24/18 04:30 Microbiology and Other Data: Microbiology 06/18/18 11:05 Aerobic Blood Culture - Final Blood Line No Growth Day 5 Anaerobic Blood Culture - Final No Growth Day 5 06/18/18 09:52 Aerobic Blood Culture - Final Blood Line No Growth Day 5 Anaerobic Blood Culture - Final No Growth Day 5 06/14/18 19:25 Aerobic Blood Culture - Final Blood Venous No Growth Day 5 Anaerobic Blood Culture - Final No Growth Day 5 06/14/18 19:20 Aerobic Blood Culture - Final Blood Venous No Growth Day 5 Anaerobic Blood Culture - Final No Growth Day 5 06/14/18 21:20 Gram Stain - Final Sputum Induced Sputum Culture - Final YEAST Normal Kira 06/13/18 18:55 Urine Culture - Final Urine No Growth (<1,000 CFU/mL) 06/13/18 16:27 Influenza Types A,B Antigen - Final Nasopharyngeal Specimen received for Influenza A/B Molecular testing 06/13/18 16:27 Nasal Screen MRSA (PCR) - Final Nasal Mrsa Not Detected Assess/Plan/Problems-Billing Assessment: 57 y/o female transferred from ICU after stablizing DKA, septic shock on 4 pressors and hypoxemic resp failure s/p extubation - Patient Problems (1) Septic shock Current Visit: Yes Status: Acute Code(s): A41.9 - SEPSIS, UNSPECIFIED ORGANISM; R65.21 - SEVERE SEPSIS WITH SEPTIC SHOCK SNOMED Code(s): 80631167 Comment: On 4 presssors. Weaned off pressors Weaned off antibiotics transferred to floor from icu this weekend (2) DKA (diabetic ketoacidoses) Current Visit: Yes Status: Acute Code(s): E13.10 - OTH DIABETES MELLITUS WITH KETOACIDOSIS WITHOUT COMA SNOMED Code(s): 080418557 Comment: on insulin pump at home ran out DKA stablized in ICU Continue current insulin regimen (3) Respiratory failure Current Visit: Yes Status: Acute Code(s): J96.90 - RESPIRATORY FAILURE, UNSP , UNSP W HYPOXIA OR HYPERCAPNIA SNOMED Code(s): 007822656 Comment: Improved Extubated completed antibiotics for poss pneumonia (4) Hypothyroidism Current Visit: No Status: Acute Code(s): E03.9 - HYPOTHYROIDISM, UNSPECIFIED SNOMED Code(s): 12995214 Comment: continue levothyroxine (5) Edema Current Visit: Yes Status: Acute Code(s): R60.9 - EDEMA, UNSPECIFIED SNOMED Code(s): 671755205 Comment: Vitals stabilized.IVF for volume recussitation initially Lasix 20 mg for edema.Improving Status and Disposition: PT/OT pending.Eval for rehab?
[2018-06-25 04:32] LABS: Hematocrit 25 % (35-47); Hemoglobin 8.1 g/dl (12.0-16.0); Mean Corpuscular HGB Conc 33 g/dl (31-36); Mean Corpuscular Hemoglobin 28 pg (27-31); Mean Corpuscular Volume 85 fL (80-97); Mean Platelet Volume 7.3 fL (7.4-10.4); Platelet Count 318 10^3/ul (150-450); Red Blood Count 2.91 10^6/ul (4.00-5.40); Red Cell Distribution Width 14 % (10.5-15); White Blood Count 12.3 10^3/ul (3.5-10.8)
[2018-06-25 04:46] LABS: BUN/Creatinine Ratio 6.2 (8-20); Calcium 7.9 mg/dL (8.6-10.3); EGFR Non-African American 93.3 (>60); Potassium 3.6 mmol/L (3.5-5.0)
[2018-06-25 04:51] LABS: ABS Basophils 0.1 10^3/ul (0-0.2); ABS Eosinophils 0.1 10^3/ul (0-0.6); ABS Lymphocytes 2.1 10^3/ul (1.0-4.8); ABS Nucleated RBC 0 10^3/ul; Eosinophil % 0.7 %; Lymphocyte % 17.3 %; Nucleated Red Blood Cells % 0.1
[2018-06-25] MEDS: Levothyroxine TAB* 25 MCG TAB PO SCH (05:23)
[2018-06-25] MEDS: Insulin LISPRO* 1 UNITS UNIT SUBCUT SCH ×4 (08:33→21:35)
[2018-06-25] MEDS: Insulin GLARGINE(*) 1 UNITS UNIT SUBCUT SCH (08:33)
[2018-06-25] MEDS: Enoxaparin(*) 40 MG/0.4 ML SYR SUBCUT SCH (08:33)
--- NOTE | 2018-06-25 16:33 | PN ---
Subjective Date of Service: 06/25/18 Interval History: Ms. Hernandez reports feeling well today. She is happy with her continued improvement. She knows that she remains weak and in need of rehab but looks forward to work to get better. She is hopeful for discharge to [facility] if her insurance will provide coverage. She notes some swelling in her legs but feels that overall her edema is improving. She denies chest pain or SOB. Objective Active Medications: Acetaminophen (Tylenol Adult Liq*) 650 mg G TUBE Q6H PRN Albuterol (Ventolin 2.5 Mg/3 Ml Neb.Gail*) 2.5 mg INH Q4H PRN Dextrose (D50w Syringe 50 Ml*) 12.5 gm IV PUSH .FOR FS < 60 - SS PRN Enoxaparin Sodium (Lovenox(*)) 40 mg SUBCUT DAILY [facility] Fluticasone/Vilanterol (Breo Ellipta Mdi 200/25(Nf)) 1 puff INH DAILY [facility] Heparin Sodium (Porcine) (Heparin Flush Picc/Ml/Cvc(*)) 1 - 3 ml FLUSH 0600, 1800 [facility]; Protocol Insulin Glargine (Lantus(*)) 20 units SUBCUT DAILY [facility] Insulin Human Lispro (Humalog*) 0 units SUBCUT ACHS [facility]; Protocol Levothyroxine Sodium (Synthroid Tab*) 25 mcg PO DAILY@0600 [facility] Morphine Sulfate (Morphine Vial*) 2 mg IV Q4H PRN Vital Signs: Temp Pulse Resp BP Pulse Ox 97.5 F 103 18 147/62 97 06/25/18 11:51 06/25/18 11:51 06/25/18 11:51 06/25/18 11:51 06/25/18 11:51 Oxygen Devices in Use Now: None Appearance: Female sitting up in chair in NAD Eyes: No Scleral Icterus Ears/Nose/Mouth/Throat: Mucous Membranes Moist Neck: Trachea Midline Respiratory: Symmetrical Chest Expansion and Respiratory Effort, Clear to Auscultation Cardiovascular: - - +1 edema LEs Abdominal: NL Sounds; No Tenderness; No Distention Neurological: Alert and Oriented x 3, NL Muscle Strength and Tone Nutrition: Taking PO's Result Diagrams: 06/25/18 04:20 06/25/18 04:20 Microbiology and Other Data: . Assess/Plan/Problems-Billing Assessment: Ms. Hernandez is a 57 y/o female transferred from ICU after treatment for DKA and septic shock on 4 pressors with hypoxemic resp failure s/p extubation. - Patient Problems (1) Septic shock Comment: - Resolved. - Required vasopressors. (2) DKA (diabetic ketoacidoses) Comment: - Resolved. - On insulin pump at home ran out, continue current regimen - Patient hopeful to return to using insulin pump at discharge, aware of importance of using appropriately, follows with Dr. Martinez (3) REMY (acute kidney injury) Comment: - Resolved (4) Hyperkalemia Comment: - Resolved, due to REMY (5) Respiratory failure Comment: - Resolved. - Required intubation, completed course of abx for suspected pneumonia. (6) Edema Comment: - Likely secondary to volume resuscitation during septic shock and DKA. - Lasix 20 mg for edema given 06/24, mild edema without SOB, no need for further diuresis, anticipate she will mobilize fluid independently (7) Hypothyroidism SNOMED Code(s): 34846152 Comment: - Continue levothyroxine (8) Asthma Comment: - No evidence of exacerbation - Albuterol available prn (9) DVT prophylaxis Comment: - Lovenox (10) Full code status Comment: Status and Disposition: Will need rehab, PMRU referral pending.
[2018-06-25] MEDS: PTO: Fluticasone/Vilanterol MDI(NF) 200/25 MDI INH SCH (17:38)
[2018-06-26] MEDS: Levothyroxine TAB* 25 MCG TAB PO SCH (05:46)
[2018-06-26] MEDS: PTO: Fluticasone/Vilanterol MDI(NF) 200/25 MDI INH SCH (07:30)
[2018-06-26] MEDS: Insulin GLARGINE(*) 1 UNITS UNIT SUBCUT SCH (08:19)
[2018-06-26] MEDS: Insulin LISPRO* 1 UNITS UNIT SUBCUT SCH ×4 (08:19→21:02)
[2018-06-26] MEDS: Enoxaparin(*) 40 MG/0.4 ML SYR SUBCUT SCH (08:20)
--- NOTE | 2018-06-26 08:49 | PN ---
Subjective Date of Service: 06/26/18 Interval History: Ms. Hernandez denies complaint today and notes that she continues to get stronger every day. She was able to take a few steps to the door today. She denies chest pain, SOB, nausea, or abdominal pain. Objective Active Medications: Acetaminophen (Tylenol Adult Liq*) 650 mg G TUBE Q6H PRN Albuterol (Ventolin 2.5 Mg/3 Ml Neb.Gail*) 2.5 mg INH Q4H PRN Dextrose (D50w Syringe 50 Ml*) 12.5 gm IV PUSH .FOR FS < 60 - SS PRN Enoxaparin Sodium (Lovenox(*)) 40 mg SUBCUT DAILY [facility] Fluticasone/Vilanterol (Breo Ellipta Mdi 200/25(Nf)) 1 puff INH DAILY [facility] Heparin Sodium (Porcine) (Heparin Flush Picc/Ml/Cvc(*)) 1 - 3 ml FLUSH 0600, 1800 [facility]; Protocol Insulin Glargine (Lantus(*)) 20 units SUBCUT DAILY [facility] Insulin Human Lispro (Humalog*) 0 units SUBCUT ACHS [facility]; Protocol Levothyroxine Sodium (Synthroid Tab*) 25 mcg PO DAILY@0600 [facility] Morphine Sulfate (Morphine Vial*) 2 mg IV Q4H PRN Vital Signs: Temp Pulse Resp BP Pulse Ox 97.3 F 99 18 138/63 93 06/26/18 04:28 06/26/18 04:28 06/26/18 07:39 06/26/18 04:28 06/26/18 04:28 Oxygen Devices in Use Now: None Appearance: Female sitting up in chair in NAD Eyes: No Scleral Icterus Ears/Nose/Mouth/Throat: Mucous Membranes Moist Respiratory: Symmetrical Chest Expansion and Respiratory Effort, Clear to Auscultation Cardiovascular: NL Sounds; No Murmurs; No JVD, - - + 1 pitting edema B LEs Abdominal: NL Sounds; No Tenderness; No Distention Skin: No Rash or Ulcers Neurological: Alert and Oriented x 3, NL Muscle Strength and Tone Nutrition: Taking PO's Result Diagrams: 06/25/18 04:20 06/25/18 04:20 Microbiology and Other Data: . Assess/Plan/Problems-Billing Assessment: Ms. Hernandez is a 57 y/o female transferred from ICU after treatment for DKA and septic shock on 4 pressors with hypoxemic resp failure s/p extubation. - Patient Problems (1) Septic shock Comment: - Resolved. - Required vasopressors. (2) DKA (diabetic ketoacidoses) Comment: - Resolved. - On insulin pump at home ran out, continue current regimen - Patient hopeful to return to using insulin pump at discharge, aware of importance of using appropriately, follows with Dr. Martinez (3) REMY (acute kidney injury) Comment: - Resolved (4) Hyperkalemia Comment: - Resolved, due to REMY (5) Respiratory failure Comment: - Resolved. - Required intubation, completed course of abx for suspected pneumonia. (6) Edema Comment: - Likely secondary to volume resuscitation during septic shock and DKA. - Lasix 20 mg for edema given 06/24, mild edema without SOB, no need for further diuresis, anticipate she will mobilize fluid independently (7) Hypothyroidism SNOMED Code(s): 78328102 Comment: - Continue levothyroxine (8) Asthma Comment: - No evidence of exacerbation - Albuterol available prn (9) DVT prophylaxis Comment: - Lovenox (10) Full code status Comment: Status and Disposition: Will need rehab, PMRU referral pending.
[2018-06-27] MEDS: Levothyroxine TAB* 25 MCG TAB PO SCH (05:25)
[2018-06-27] MEDS: PTO: Fluticasone/Vilanterol MDI(NF) 200/25 MDI INH SCH (07:50)
[2018-06-27] MEDS: Insulin GLARGINE(*) 1 UNITS UNIT SUBCUT SCH (08:10)
[2018-06-27] MEDS: Enoxaparin(*) 40 MG/0.4 ML SYR SUBCUT SCH (08:11)
[2018-06-27] MEDS: Acetaminophen ADULT LIQ* 650 MG/20.3 ML UDC G TUBE PRN (08:11)
[2018-06-27] MEDS: Insulin LISPRO* 1 UNITS UNIT SUBCUT SCH ×4 (08:11→20:47)
--- NOTE | 2018-06-27 11:07 | PN ---
Subjective Date of Service: 06/27/18 Interval History: Ms. Hernandez denies complaint today. She is very happy with the progress she continues to make with physical therapy. Objective Active Medications: Acetaminophen (Tylenol Adult Liq*) 650 mg G TUBE Q6H PRN Albuterol (Ventolin 2.5 Mg/3 Ml Neb.Gail*) 2.5 mg INH Q4H PRN Dextrose (D50w Syringe 50 Ml*) 12.5 gm IV PUSH .FOR FS < 60 - SS PRN Enoxaparin Sodium (Lovenox(*)) 40 mg SUBCUT DAILY [facility] Fluticasone/Vilanterol (Breo Ellipta Mdi 200/25(Nf)) 1 puff INH DAILY [facility] Heparin Sodium (Porcine) (Heparin Flush Picc/Ml/Cvc(*)) 1 - 3 ml FLUSH 0600, 1800 [facility]; Protocol Insulin Glargine (Lantus(*)) 20 units SUBCUT DAILY [facility] Insulin Human Lispro (Humalog*) 0 units SUBCUT ACHS [facility]; Protocol Levothyroxine Sodium (Synthroid Tab*) 25 mcg PO DAILY@0600 [facility] Vital Signs - 8 hr 06/27/18 06/27/18 06/27/18 04:00 07:16 07:30 Temperature 98.0 F 97.9 F Pulse Rate 95 98 Respiratory 16 18 16 Rate Blood Pressure 144/62 142/63 (mmHg) O2 Sat by Pulse 94 97 Oximetry Oxygen Devices in Use Now: None Appearance: Female sitting up in chair in NAD Eyes: No Scleral Icterus Ears/Nose/Mouth/Throat: Mucous Membranes Moist Neck: NL Appearance and Movements; NL JVP, Trachea Midline Respiratory: Symmetrical Chest Expansion and Respiratory Effort, Clear to Auscultation Cardiovascular: NL Sounds; No Murmurs; No JVD, - - +1 edema LEs Abdominal: NL Sounds; No Tenderness; No Distention Skin: - - desquamation noted to breasts Neurological: Alert and Oriented x 3, NL Muscle Strength and Tone Result Diagrams: 06/25/18 04:20 06/25/18 04:20 Microbiology and Other Data: . Assess/Plan/Problems-Billing Assessment: Ms. Hernandez is a 57 y/o female transferred from ICU after treatment for DKA and septic shock on 4 pressors with hypoxemic resp failure s/p extubation. - Patient Problems (1) Septic shock Comment: - Resolved. - Required vasopressors. (2) DKA (diabetic ketoacidoses) Comment: - Resolved. - On insulin pump at home ran out, continue current regimen - Patient hopeful to return to using insulin pump at discharge, aware of importance of using appropriately, follows with Dr. Martinez (3) REMY (acute kidney injury) Comment: - Resolved (4) Hyperkalemia Comment: - Resolved, due to REMY (5) Respiratory failure Comment: - Resolved. - Required intubation, completed course of abx for suspected pneumonia. (6) Edema Comment: - Likely secondary to volume resuscitation during septic shock and DKA. - Lasix 20 mg for edema given 06/24, mild edema without SOB, no need for further diuresis, anticipate she will mobilize fluid independently (7) Hypothyroidism SNOMED Code(s): 60640395 Comment: - Continue levothyroxine (8) Asthma Comment: - No evidence of exacerbation - Albuterol available prn (9) DVT prophylaxis Comment: - Lovenox (10) Full code status Comment: Status and Disposition: Has needed rehab but continues to progress well with therapy while awaiting insurance approval for PMRU. ? If she could return home with home VNS services as early as tomorrow.
[2018-06-28] MEDS: Levothyroxine TAB* 25 MCG TAB PO SCH (05:03)
[2018-06-28] MEDS: PTO: Fluticasone/Vilanterol MDI(NF) 200/25 MDI INH SCH (07:44)
[2018-06-28] MEDS: Enoxaparin(*) 40 MG/0.4 ML SYR SUBCUT SCH (09:07)
[2018-06-28] MEDS: Insulin LISPRO* 1 UNITS UNIT SUBCUT SCH ×4 (09:08→20:10)
[2018-06-28] MEDS: Insulin GLARGINE(*) 1 UNITS UNIT SUBCUT SCH (09:08)
--- NOTE | 2018-06-28 15:48 | PN ---
Subjective Date of Service: 06/28/18 Interval History: Ms. Hernandez is feeling well today. She has been up ambulating with PT and feels as though she is improving, but still weak. She is hoping for insurance approval for [facility]. She feels as though if she went home, she would be stressed d /t having a lot of visitors at her apartment. She does anticipate having help from her s/o once home. She still has some throat irritation, but feels like this is improving. Denies CP, SOB, N/V/D, dizziness. Appetite is good. Family History: Unchanged from Admission Social History: Unchanged from Admission Past Medical History: Unchanged from Admission Objective Active Medications: Acetaminophen (Tylenol Adult Liq*) 650 mg G TUBE Q6H PRN FEVER Albuterol (Ventolin 2.5 Mg/3 Ml Neb.Gail*) 2.5 mg INH Q4H PRN SOB/WHEEZING Dextrose (D50w Syringe 50 Ml*) 12.5 gm IV PUSH .FOR FS < 60 - SS PRN FS < 60 Enoxaparin Sodium (Lovenox(*)) 40 mg SUBCUT DAILY [facility] Fluticasone/Vilanterol (Breo Ellipta Mdi 200/25(Nf)) 1 puff INH DAILY [facility] Heparin Sodium (Porcine) (Heparin Flush Picc/Ml/Cvc(*)) 1 - 3 ml FLUSH 0600, 1800 [facility]; Protocol Insulin Glargine (Lantus(*)) 20 units SUBCUT DAILY [facility] Insulin Human Lispro (Humalog*) 0 units SUBCUT ACHS [facility]; Protocol Levothyroxine Sodium (Synthroid Tab*) 25 mcg PO DAILY@0600 [facility] Vital Signs - 8 hr 06/28/18 06/28/18 07:47 07:48 Pulse Rate 95 95 Respiratory 18 18 Rate O2 Sat by Pulse 95 95 Oximetry Oxygen Devices in Use Now: None Appearance: Middle-aged female sitting in chair in NAD Eyes: No Scleral Icterus Ears/Nose/Mouth/Throat: Mucous Membranes Moist Neck: NL Appearance and Movements; NL JVP, Trachea Midline Respiratory: Symmetrical Chest Expansion and Respiratory Effort, Clear to Auscultation Cardiovascular: NL Sounds; No Murmurs; No JVD, RRR Abdominal: NL Sounds; No Tenderness; No Distention Extremities: No Edema Skin: No Rash or Ulcers Neurological: Alert and Oriented x 3 Lines/Tubes/Other Access: Clean, Dry and Intact Peripheral IV Nutrition: Taking PO's Result Diagrams: 06/25/18 04:20 06/25/18 04:20 Assess/Plan/Problems-Billing Assessment: Ms. Hernandez is a 57 y/o female transferred from ICU after treatment for DKA and septic shock on 4 pressors with hypoxemic resp failure s/p extubation. - Patient Problems (1) Septic shock Code(s): A41.9 - SEPSIS, UNSPECIFIED ORGANISM; R65.21 - SEVERE SEPSIS WITH SEPTIC SHOCK Comment: - Resolved - 2/2 pneumonia - Required vasopressors (2) DKA (diabetic ketoacidoses) Code(s): E13.10 - OTH DIABETES MELLITUS WITH KETOACIDOSIS WITHOUT COMA Comment : - Resolved - On insulin pump at home and ran out; continue current regimen - Patient hopeful to return to using insulin pump at discharge; aware of importance of using appropriately; follows with Dr. Martinez (3) Respiratory failure Code(s): J96.90 - RESPIRATORY FAILURE, UNSP, UNSP W HYPOXIA OR HYPERCAPNIA Comment: - Resolved - Required intubation - 2/2 pneumonia; completed course of abx (4) REMY (acute kidney injury) Code(s): N17.9 - ACUTE KIDNEY FAILURE, UNSPECIFIED Comment: - Resolved - 2/2 septic shock and volume deficit (5) Edema Code(s): R60.9 - EDEMA, UNSPECIFIED Comment: - Resolved - 2/2 volume resuscitation during septic shock and DKA - No need for further diuresis; anticipate she will mobilize fluid independently (6) Hypothyroidism Code(s): E03.9 - HYPOTHYROIDISM, UNSPECIFIED Comment: - Continue levothyroxine (7) DVT prophylaxis Code(s): [id number] - Comment: - Lovenox (8) Full code status Code(s): Z78.9 - OTHER SPECIFIED HEALTH STATUS Status and Disposition: Has needed rehab but continues to progress well with therapy while awaiting insurance approval for [facility]. Attending: Vinayak Reardon
[2018-06-29] MEDS: Levothyroxine TAB* 25 MCG TAB PO SCH (05:40)
[2018-06-29] MEDS: PTO: Fluticasone/Vilanterol MDI(NF) 200/25 MDI INH SCH (08:01)
[2018-06-29] MEDS: Insulin GLARGINE(*) 1 UNITS UNIT SUBCUT SCH (09:29)
[2018-06-29] MEDS: Enoxaparin(*) 40 MG/0.4 ML SYR SUBCUT SCH (09:30)
[2018-06-29] MEDS: Insulin LISPRO* 1 UNITS UNIT SUBCUT SCH ×3 (09:30→17:18)
[2018-06-29] MEDS ORDERED: Gabapentin CAP(*) 100 MG PO SCH (12:00)
[2018-06-29 18:26] VITALS: BP 123/56
--- NOTE | 2018-06-30 05:21 | DS ---
CC: Dr. Harjinder Roy * DISCHARGE SUMMARY: DATE OF ADMISSION: 06/13/18 DATE OF DISCHARGE: 06/29/18 PRIMARY CARE PROVIDER: Dr. Harjinder Roy. ATTENDING PHYSICIAN: Dr. Raoul Reardon * (dictated by Deena Black NP) PRIMARY DIAGNOSES: 1. Septic shock secondary to community-acquired pneumonia. 2. Acute hypoxic respiratory failure secondary to community-acquired pneumonia. 3. Diabetes ketoacidosis. 4. Acute kidney injury. 5. Peripheral edema. 6. Peripheral neuropathy. SECONDARY DIAGNOSES: 1. Hypothyroidism. 2. Asthma. 3. Gastroesophageal reflux disease. STUDIES WHILE IN THE HOSPITAL: 1. EKG on 06/13/18 shows sinus tachycardia with the rate of 109, QTc 483. 2. Brain CT on 06/13/18 reads as no evidence for acute intracranial abnormality. 3. Chest x-ray on 06/13/18 reads as low lung volumes with subsegmental atelectasis. Prominence of the superior mediastinal contour is nonspecific given the low lung volumes and rightward rotation. 4. Chest x-ray on 06/13/18 reads as ileogastric tube tip in the region of the gastroesophageal junction. Low lung volume, small right bibasilar infiltrate most consistent with atelectasis. 5. Chest, abdomen, pelvis CT on 06/13/18 reads as bibasilar atelectasis versus consolidation. Right diaphragmatic eventration. Small hiatal hernia. Nasogastric tube terminating in the proximal stomach. Colonic diverticulosis with no evidence of acute diverticulitis. Moderate fecal load. 6. Transthoracic echocardiogram on 06/14/18 reads as the left ventricular chamber size is normal. Mild concentric left ventricular hypertrophy is observed. Left ventricular systolic function is at the lower limits of normal. The estimated ejection fraction is 45% to 50%. There is mild to moderate tricuspid regurgitation. No pulmonary hypertension was noted. 7. Chest x-ray on 06/15/18 reads as small bibasilar infiltrates and small right pleural effusion. 8. Chest x-ray on 06/17/18 reads as acceptable position of endotracheal tube. The nasogastric tube should be repositioned to direct the tip distal. Low lung volumes with subsegmental atelectasis limiting assessment. Potential small right pleural effusion. 9. Chest x-ray on 06/18/18 reads as lines and tubes noted in the body, low lung volumes. No active cardiopulmonary disease. 10. Chest x-ray on 06/18/18 reads as well positioned tubes and lines. Unchanged right greater than left pleural effusions and associated lung volume loss. HISTORY OF PRESENT ILLNESS AND HOSPITAL COURSE: Ms. Hernandez is a 57-year-old female with past medical history of diabetes, hypothyroidism, asthma and GERD, who presented to the emergency room on 06/13/18 after being found unresponsive. Please see the history and physical by Dr. Lucio for complete summary of events leading up to this hospitalization. In short, the patient was found unresponsive in her apartment in the morning. Her last known normal was 2200 the night before. EMS did find her insulin pump in her sink. Fingerstick glucose was greater than 500. No stroke-like symptom. She was tachycardic, hypotensive and tachypneic on arrival to the emergency room, hence meeting sepsis criteria. She was given an IV fluid bolus and was subsequently intubated. She was started on Levophed for a persistent hypotension despite IV fluids. She was noted to have metabolic acidosis with an elevated lactic acid and acute kidney injury. In the emergency room, an arterial line and central line were placed. She was given bicarb and calcium IV and was transferred to the intensive care unit. She was determined to have acute metabolic and toxic encephalopathy. She was additionally started on propofol for sedation. Acute kidney injury was secondary to hypovolemia. DKA was suspected and she was treated appropriately. She will continue on Levophed and vasopressin for septic shock. The patient had a slow recovery. The cause of the septic shock was not clear. There were no obvious sources of infection. The white blood count on arrival to the hospital was 35,000 and she was obviously septic. The most likely cause of the sepsis was pneumonia as there were some infiltrates noted on chest x-ray. Ultimately, she required four vasopressors for her septic shock. DKA was resolved with an insulin drip. She was ultimately taken off pressors on . She was finally able to be extubated on 06/19/18. She was noted to be hypernatremic up to 161, this resolved with IV fluids. She was able to be transferred out of the ICU on 06/22/18. The patient continued to improve. She was noted to have lower extremity edema, which was secondary to volume resuscitation during septic shock and she was treated with a small amount of Lasix. Electrolyte abnormalities resolved. She has been working with physical therapy and occupational therapy and they have recommended rehab. It was ultimately determined that the patient ran out of her insulin and therefore removed her insulin pump thereby causing the diabetic ketoacidosis. As of today , the patient is saturating well on room air. She has been ambulating short distances with physical therapy and has been working with occupational therapy on ADLs. She finished her course of antibiotics for pneumonia. Blood sugars have been ranging from the 130s to the mid 200s. She has been on half of her usual dose of glargine with lispro sliding scale coverage. On my exam today, the patient did note that she has some tingling "prickly" pain in bilateral feet , more so in the right foot. I did discuss the likelihood of peripheral neuropathy and the patient was agreeable to starting medication. I did start her on gabapentin 100 mg b.i.d. today for her neuropathic pain. The patient otherwise reports feeling well and is anxious to go to rehab to regain her strength so that she is eventually able to return home. Ms. Hernandez is stable for discharge today. Vital signs are as follows: Temperature 97.7, heart rate 96, respiratory rate 18, oxygen saturation 100% on room air, blood pressure 136/47. DISCHARGE MEDICATIONS: New medications: 1. Gabapentin 100 mg p.o. b.i.d. Changed Medications: 1. Lantus 20 units subcu daily (previously was 40 units daily.) 2. Lispro sliding scale subcu a.c. and at bedtime. For glucose 131-150, give 2 units; for glucose 151-200, give 3 units; for glucose 201-250, give 6 units; for glucose 251-300, give 9 units; for glucose 301-350, give 12 units; for glucose 351- 400, give 15 units (previously was 4 units with meals.) Continued Medications: 1. Simvastatin 10 mg p.o. daily. 2. Ranitidine 150 mg p.o. b.i.d. 3. Albuterol MDI one puff every four hours p.r.n. 4. Pioglitazone 15 mg p.o. daily. 5. Multivitamin one tab p.o. daily. 6. Metformin 1000 mg p.o. b.i.d. 7. Losartan 25 mg p.o. daily. 8. Levothyroxine 25 mcg p.o. daily. 9. Ibuprofen 600 mg p.o. t.i.d. p.r.n. pain. 10. Breo-Ellipta MDI 200/25 one puff daily. 11. Citalopram 10 mg p.o. daily. DISCHARGE PLAN: Ms. Hernandez will be discharged to [facility] here at [facility]. Activity will be as tolerated. Diet will be consistent carb. Medications as noted above. The patient has been started on gabapentin. I have changed her home dosing of Lantus and lispro while she is in [facility]. I did not place the patient back on her home dose of Lantus as we are restarting her metformin and pioglitazone, although she has been hyperglycemic while here, I feel as though the 20 units of Lantus may be appropriate with her oral medications on board. She can continue her other usual medications. I will note that the patient was off her losartan while here in the hospital due to hypotension during septic shock and acute kidney injury though her kidney function is back at normal and she can resume her ARB at this point. She will need to follow up with her primary care provider after discharge from [facility]. She should return to the emergency room for any worsening of symptoms, shortness of breath, lightheadedness, dizziness, chest discomfort, high fevers, chills, night sweats , loss of consciousness, or any other worrisome signs or symptoms that are not managed at PM. This is a summarized report of a complex medical history and hospital stay. For further details, please see the entire medical record. TIME SPENT: Approximately 45 minutes were spent on this discharge, greater than half of that time spent [id number] with the patient, discussing discharge plans and instructions. DEENA BLACK TRANSPORTATION ATTENDANT [id number]/[facility] #: [id number] FINA
== END 2018-06-29 18:00 | DRG 720 ==
LOC: ED 13:13 → ICU 14:42 → MEDTELE 06-22 18:16
PROVIDERS: ADMIT Internal Medicine Critical Care Medicine; ATTEND Student in an Organized Health Care Education/Training Program
PROC: 3E033XZ Introduction of Vasopressor into Peripheral Vein, Percutaneous Approach (ICD-10-PCS; principal; 2018-06-13)
PROC: 02HV33Z Insertion of Infusion Device into Superior Vena Cava, Percutaneous Approach (ICD-10-PCS; 2018-06-13)
PROC: B548ZZA Ultrasonography of Superior Vena Cava, Guidance (ICD-10-PCS; 2018-06-13)
PROC: 03HB33Z Insertion of Infusion Device into Right Radial Artery, Percutaneous Approach (ICD-10-PCS; 2018-06-13)
PROC: 0BH17EZ Insertion of Endotracheal Airway into Trachea, Via Natural or Artificial Opening (ICD-10-PCS; 2018-06-17)
PROC: 5A1935Z Respiratory Ventilation, Less than 24 Consecutive Hours (ICD-10-PCS; 2018-06-17)
PROC: 0BP1XDZ Removal of Intraluminal Device from Trachea, External Approach (ICD-10-PCS; 2018-06-19)
DX: A41.9 Sepsis, unspecified organism (principal); E11.10 Type 2 diabetes mellitus with ketoacidosis without coma; R65.21 Severe sepsis with septic shock; G92 Toxic encephalopathy; J96.01 Acute respiratory failure with hypoxia; J18.9 Pneumonia, unspecified organism; K85.90 Acute pancreatitis without necrosis or infection, unspecified; N17.9 Acute kidney failure, unspecified; E87.2 Acidosis; E87.0 Hyperosmolality and hypernatremia; E03.9 Hypothyroidism, unspecified; J45.909 Unspecified asthma, uncomplicated; K21.9 Gastro-esophageal reflux disease without esophagitis; E87.5 Hyperkalemia; E11.42 Type 2 diabetes mellitus with diabetic polyneuropathy; I07.1 Rheumatic tricuspid insufficiency; E66.9 Obesity, unspecified; D69.6 Thrombocytopenia, unspecified; Z90.710 Acquired absence of both cervix and uterus; Z87.891 Personal history of nicotine dependence; Z91.018 Allergy to other foods; Z91.048 Other nonmedicinal substance allergy status; Z83.3 Family history of diabetes mellitus; Z82.49 Family history of ischemic heart disease and other diseases of the circulatory system; Z79.4 Long term (current) use of insulin; Z68.37 Body mass index [BMI] 37.0-37.9, adult
CPT/HCPCS: 36415; 36600; 70450; 71045; 71250; 74176; 80048; 80053; 80061; 80076; 80202; 80307; 80320; 80329; 81003; 81015; 82140; 82150; 82330; 82533; 82550; 82570; 82803; 82947; 83036; 83605; 83690; 83721; 83735; 83930; 83935; 84100; 84145; 84300; 84443; 84484; 85025; 85027; 85060; 85610; 85730; 86022; 87040; 87070; 87086; 87205; 87641; 93005; 93306; 94003; 94640; 97530; 99285; A9270-GY; C1751; C8929; G0480; G8987-GO-CK; G8987-GO-CM; G8988-GO-CI; J0171; J0610; J0692; J1644; J1650; J1815; J1940; J2250; J2270; J2310; J2405; J2704; J2997; J3010; J3370; J3475; J3480; J3490; P9047

== ENCOUNTER 2018-06-29 13:59 | Inpatient (IN) | payer OTHER ==
[2018-06-29] MEDS ORDERED: Senna TAB PO PRN (18:46)
[2018-06-29] MEDS ORDERED: Dextrose 50% Syringe 50 ML* 25 GM/50 ML SYRINGE IV PUSH PRN (18:56)
[2018-06-29] MEDS: Docusate CAP* 100 MG PO SCH (22:43)
[2018-06-29] MEDS: Gabapentin CAP(*) 100 MG PO SCH (22:45)
[2018-06-29] MEDS: Insulin LISPRO* 1 UNITS UNIT SUBCUT SCH (22:59)
--- NOTE | 2018-06-30 01:13 | HP ---
HISTORY AND PHYSICAL: DATE OF ADMISSION: 06/29/18 REASON FOR ADMISSION: Diabetic ketoacidosis. HISTORY OF PRESENT ILLNESS: Shanonn Hernandez is a 57-year-old -[place] female. She has a medical history significant for diabetes and normally uses an insulin pump. According to the patient, her pump ran out of insulin, she forget to refill it. On 06/13/18, she was found at home by her boyfriend unresponsive. EMS found the insulin pump unplugged in the sink. They did a fingerstick which was greater than 500. She was tachycardiac and hypotensive upon arrival to the ER. She was started on IV fluids and had a fingerstick blood glucose of greater than 450. She was intubated. Labs were noted to show an elevated white blood cell count with a blood sugar of greater than 1400. She was in metabolic acidosis with acute kidney injury. She was transferred to the intensive care unit after she was intubated. She had a TSH of over 12, lactic acid was 4.1, and as mentioned, her blood glucose was 1462. By 06/14/18, she was on a cooling blanket. She was intubated. She was making urine. By 06/15/18, she had tapered off her vasopressin and phenylephrine and was still on Levophed, but that was being tapered. Her cooling blankets were removed 06/15/18. Her blood glucose was down to 272. Her BUN and creatinine were 59 and 2.16. She had thermal injuries to both breasts from the cooling blanket. She had blistering noted. Her metabolic acidosis had resolved and her DKA had resolved. She was still on mechanical ventilation. She was noted to be hypernatremic from the time of admission but that seemed to be improving. By 06/17/18, she was beginning to open her eyes as her sedation was lightened up. She continued to make urine. She remained on vanco, cefepime, and Flagyl. Her white blood cell counts were improving. All cultures were negative. She was noted to be thrombocytopenic with a platelet count in the 90s. By 06/19/18 , she was following commands and extubated. Her sodium level was getting better , although she remained with a sodium over 150. Her BUN and creatinine by 06/19 were down to 19 and 0.71. By 06/22/18, she was stable to transferred to the floor. By 06/23/18, she had been weaned off her antibiotics. She was on thyroid replacement. As mentioned, she was quite weak from the illness. She began to work with Physical and Occupational Therapy. Otherwise, she was fairly stable. She is now being admitted for inpatient rehab such that she may return to the independent living. PAST MEDICAL HISTORY: Significant for the aforementioned diabetes mellitus. She has a history of hypothyroidism, asthma, and GERD. MEDICATIONS: Current medications include: 1. Lovenox for DVT prophylaxis. 2. She is on Breo Ellipta. 3. She takes Neurontin. 4. Lantus insulin. 5. Lispro insulin. 6. Synthroid. ALLERGIES: The patient has no known drug allergies. SOCIAL HISTORY: She lives alone in an apartment in [facility]. She is a nonsmoker, nondrinker. She does have a boyfriend. REVIEW OF SYSTEMS: No current shortness of breath or chest pain. PHYSICAL EXAMINATION VITAL SIGNS: The patient's temperature is 98.4, blood pressure is 125/52, pulse is 109, respirations 16. HEENT: Her extraocular movements appear to be intact. Tongue is midline. NECK: Supple. LUNGS: Sound clear to auscultation bilaterally. HEART: Sounds are regular. S1, S2 are audible. ABDOMEN: Soft and nontender. EXTREMITIES: Showed trace edema in her lower extremities. Peripheral pulses were intact. NEUROLOGIC: She was awake, alert, and oriented. Sensation was slightly diminished in her feet. Muscle strength appeared to be 4+/5 throughout. FUNCTIONAL EXAM: She transfers with contact guard. ASSESSMENT: Diabetic ketoacidosis with respiratory failure and intubation. PLAN: Our plan is to integrate her into a comprehensive and therapeutic rehab program. We will have the following goals: 1. Physical Therapy will work with the patient. They are going to work on functional transfer training, ambulation training with a walker. 2. Occupational Therapy will see the patient, work on her activities of daily living including toileting and toilet transfers. 3. Lovenox for DVT prophylaxis. 4. For her diabetes, we will continue her Lantus and sliding scale insulin coverage. 5. Her bowels will be regulated. 6. Wheel Inspector will be closely involved to make sure that any services and equipment the patient requires are in place prior to discharge. 7. For hypothyroidism, we will continue Synthroid. 8. Family training as appropriate. 9. Home with appropriate services. ESTIMATED LENGTH OF STAY: 7 to 10 days. [id number]/CPS #: [id number] [facility]
[2018-06-30] MEDS: Levothyroxine TAB* 25 MCG TAB PO SCH (06:47)
[2018-06-30] MEDS: Insulin LISPRO* 1 UNITS UNIT SUBCUT SCH ×4 (08:11→22:00)
[2018-06-30] MEDS: Docusate CAP* 100 MG PO SCH ×2 (08:40→21:30)
[2018-06-30] MEDS: Gabapentin CAP(*) 100 MG PO SCH ×2 (08:41→21:30)
[2018-06-30] MEDS: Enoxaparin(*) 40 MG/0.4 ML SYR SUBCUT SCH (08:42)
[2018-06-30] MEDS: Insulin GLARGINE(*) 1 UNITS UNIT SUBCUT SCH (08:43)
[2018-06-30] MEDS: PTO:Fluticasone/Vilanterol MDI(NF) 200/25 MDI INH SCH (08:54)
--- NOTE | 2018-06-30 15:21 | PN ---
Progress Note Date of Service: 06/30/18 Note: FELICITY MEJIA was visited. Therapy notes read and reviewed. Recovering nicely from her intubation. Blood sugars acceptable with Lantus/SSI. Xeroform to breast blisters. In great spirits Current Medications: Active Medications Generic Name Dose Route Start Last Admin Trade Name Freq PRN Reason Stop Dose Admin Acetaminophen 650 mg 06/29/18 18:46 Tylenol Tab* PO Q6H PRN FEVER > 101 Dextrose 12.5 gm 06/29/18 18:56 D50w Syringe 50 Ml* IV PUSH .FOR FS < 60 - SS PRN FS < 60 Docusate Sodium 100 mg 06/29/18 21:00 06/30/18 08:40 Colace Cap* PO Not Given BID FATUMA Enoxaparin Sodium 40 mg 06/30/18 09:00 06/30/18 08:42 Lovenox(*) SUBCUT 40 mg Q24H FATUMA Administration Fluticasone/Vilanterol 1 puff 06/30/18 09:00 06/30/18 08:54 Breo Ellipta Mdi 200/25(Nf) INH 1 puff DAILY FATUMA Administration Gabapentin 100 mg 06/29/18 21:00 06/30/18 08:41 Neurontin Cap(*) PO 100 mg BID FATUMA Administration Insulin Glargine 20 units 06/30/18 09:00 06/30/18 08:43 Lantus(*) SUBCUT 20 units Q24H FATUMA Administration Insulin Human Lispro 0 - 15 units 06/29/18 21:00 06/30/18 12:06 Humalog* SUBCUT 3 units ACHS FATUMA Administration Protocol Levothyroxine Sodium 25 mcg 06/30/18 06:00 06/30/18 06:47 Synthroid Tab* PO 25 mcg DAILY@0600 FATUMA Administration Senna 2 tab 06/29/18 18:46 Senokot Tab* PO BEDTIME PRN CONSTIPATION Vital Signs: Vital Signs Temp Pulse Resp BP Pulse Ox 98.2 F 111 18 138/62 99 06/30/18 06:48 06/30/18 08:57 06/30/18 12:05 06/30/18 06:48 06/30/18 08:57 Lab Results: Laboratory Results - last 24 hr 12/21/18 12/22/18 12/22/18 22:48 07:40 11:22 POC Glucose (mg/dL) 201 H 158 H 167 H Exam: GENERAL: In good spirits. LUNGS: Clear bilaterally HEART: Reg rhythm ABDOMEN: Soft +BS NEUROLOGIC: moves all 4 extremities Assessment/Plan: 1. DKA: BS better and doing ok with Lantus/Lispro 2. Blisters on breast from cooling blanket: Xeroform 3. Hypothyroid: Synthroid 4. DVT Prophylaxis: Lovenox 5. DPN: Neurontin 6. Asthma: Breo Ellipta 7. Advanced Directives: Full code 06/30/18 15:18
[2018-07-01] MEDS: Levothyroxine TAB* 25 MCG TAB PO SCH (06:22)
[2018-07-01] MEDS: PTO:Fluticasone/Vilanterol MDI(NF) 200/25 MDI INH SCH (07:57)
[2018-07-01] MEDS: Gabapentin CAP(*) 100 MG PO SCH ×2 (08:20→21:38)
[2018-07-01] MEDS: Enoxaparin(*) 40 MG/0.4 ML SYR SUBCUT SCH (08:20)
[2018-07-01] MEDS: Docusate CAP* 100 MG PO SCH ×2 (08:21→21:38)
[2018-07-01] MEDS: Insulin LISPRO* 1 UNITS UNIT SUBCUT SCH ×4 (08:22→21:25)
[2018-07-01] MEDS: Insulin GLARGINE(*) 1 UNITS UNIT SUBCUT SCH (08:23)
--- NOTE | 2018-07-01 16:46 | PN ---
Progress Note Date of Service: 07/01/18 Note: FELICITY MEJIA was visited. Nursing notes read and reviewed. She has no complaints. She wants a rescue inhaler but not sure what she took. I will order ProAir Current Medications: Active Medications Generic Name Dose Route Start Last Admin Trade Name Freq PRN Reason Stop Dose Admin Acetaminophen 650 mg 06/29/18 18:46 Tylenol Tab* PO Q6H PRN FEVER > 101 Albuterol 2 puff 07/01/18 16:42 Ventolin Hfa Inhaler* INH Q6H PRN SOB/WHEEZING Dextrose 12.5 gm 06/29/18 18:56 D50w Syringe 50 Ml* IV PUSH .FOR FS < 60 - SS PRN FS < 60 Docusate Sodium 100 mg 06/29/18 21:00 07/01/18 08:21 Colace Cap* PO 100 mg BID FATUMA Administration Enoxaparin Sodium 40 mg 06/30/18 09:00 07/01/18 08:20 Lovenox(*) SUBCUT 40 mg Q24H FATUMA Administration Fluticasone/Vilanterol 1 puff 06/30/18 09:00 07/01/18 07:57 Breo Ellipta Mdi 200/25(Nf) INH 1 puff DAILY FATUMA Administration Gabapentin 100 mg 06/29/18 21:00 07/01/18 08:20 Neurontin Cap(*) PO 100 mg BID FATUMA Administration Insulin Glargine 20 units 06/30/18 09:00 07/01/18 08:23 Lantus(*) SUBCUT 20 units Q24H FATUMA Administration Insulin Human Lispro 0 - 15 units 06/29/18 21:00 07/01/18 11:59 Humalog* SUBCUT 6 units ACHS FATUMA Administration Protocol Levothyroxine Sodium 25 mcg 06/30/18 06:00 07/01/18 06:22 Synthroid Tab* PO 25 mcg DAILY@0600 FATUMA Administration Senna 2 tab 06/29/18 18:46 Senokot Tab* PO BEDTIME PRN CONSTIPATION Vital Signs: Vital Signs Temp Pulse Resp BP Pulse Ox 98.6 F 97 16 145/47 97 07/01/18 15:27 07/01/18 15:27 07/01/18 15:27 07/01/18 15:27 07/01/18 15:27 Lab Results: Laboratory Results - last 24 hr 06/30/18 06/30/18 07/01/18 16:02 21:43 07:37 POC Glucose (mg/dL) 151 H 176 H 147 H 07/01/18 11:26 POC Glucose (mg/dL) 223 H Exam: GENERAL: In good spirits. LUNGS: Clear bilaterally HEART: Reg rhythm ABDOMEN: Soft +BS NEUROLOGIC: moves all 4 extremities Assessment/Plan: 1. DKA: BS better and doing ok with Lantus/Lispro 2. Blisters on breast from cooling blanket: Xeroform 3. Hypothyroid: Synthroid 4. DVT Prophylaxis: Lovenox 5. DPN: Neurontin 6. Asthma: Breo Ellipta, ProAir HFA 7. Advanced Directives: Full code 07/01/18 16:46
[2018-07-02 05:14] LABS: Hematocrit 28 % (35-47); Mean Corpuscular HGB Conc 33 g/dl (31-36); Mean Corpuscular Hemoglobin 28 pg (27-31); Mean Corpuscular Volume 86 fL (80-97); Platelet Count 337 10^3/ul (150-450); Red Blood Count 3.19 10^6/ul (4.00-5.40); Red Cell Distribution Width 16 % (10.5-15)
[2018-07-02] MEDS: Levothyroxine TAB* 25 MCG TAB PO SCH (05:17)
[2018-07-02 05:24] LABS: ABS Basophils 0.1 10^3/ul (0-0.2); ABS Eosinophils 0.1 10^3/ul (0-0.6); ABS Lymphocytes 1.4 10^3/ul (1.0-4.8); ABS Monocytes 0.8 10^3/ul (0-0.8); ABS Neutrophils 2.8 10^3/ul (1.5-7.7); ABS Nucleated RBC 0 10^3/ul; Eosinophil % 1.3 %; Lymphocyte % 27.9 %; Nucleated Red Blood Cells % 0.2
[2018-07-02 05:33] LABS: Albumin/Globulin Ratio 1.2 (1-3); BUN/Creatinine Ratio 12.3 (8-20); Calcium 8.7 mg/dL (8.6-10.3); EGFR Non-African American 93.3 (>60); Globulin 2.6 g/dL (2-4); Potassium 4.2 mmol/L (3.5-5.0); Total Bilirubin 0.4 mg/dL (0.2-1.0); Total Protein 5.6 g/dL (6.4-8.9)
[2018-07-02] MEDS: Acetaminophen TAB* 325 MG PO PRN (07:05)
[2018-07-02] MEDS: PTO:Fluticasone/Vilanterol MDI(NF) 200/25 MDI INH SCH (08:22)
[2018-07-02] MEDS: Gabapentin CAP(*) 100 MG PO SCH ×2 (08:57→20:44)
[2018-07-02] MEDS: Docusate CAP* 100 MG PO SCH ×2 (08:57→20:44)
[2018-07-02] MEDS: Albuterol HFA INHALER* 8 gm MDI INH PRN ×2 (08:58→15:13)
[2018-07-02] MEDS: Enoxaparin(*) 40 MG/0.4 ML SYR SUBCUT SCH (08:59)
[2018-07-02] MEDS: Insulin GLARGINE(*) 1 UNITS UNIT SUBCUT SCH (09:10)
[2018-07-02] MEDS: Insulin LISPRO* 1 UNITS UNIT SUBCUT SCH ×4 (09:11→20:54)
--- NOTE | 2018-07-02 12:35 | PMRUTEAM ---
PMRU: Team Meeting Current Status: Nursing: Current Status Skin Deviations [Bilateral Wound Breast] Skin Deviations [Right Lower Wound Back] Skin Deviation Description [ Xeroform DSG in place Bilateral Breast] Skin Deviation Description [ slit in skin fold Right Lower Back] Physical Therapy: Current Status Bed Mobility Assistance Independent Transfer Mobility Assistance Contact Guard Assist Transfer/Bed Mobility Rolling Walker Recommended Devices Ambulation Assistance Contact Guard Assist Ambulation Assistive Devices Rolling Walker Number of Feet Patient 2x75 Ambulated Stairs Assistance Min Assist Stairs Recommended Devices Two Rails Number of Stairs 1 Objective Comments able to perform small step (3") with step to pattern, 3 times. Occupational Therapy: Current Status Upper Body Dressing Min Assist Lower Body Dressing Min Assist Bathing Min Assist Toileting Max Asst Toilet Transfer Contact Guard Assist Eating Ind with Adaptive Equip Social Work: Current Status Discharge Plan return home with home care svs and family support Potential for Family Training pt's family are involved and supportive Anticipated Discharge Home Destination Discharge With home care svs and family support Goals: Physical Therapy: Updated Goals Transfer/Bed Mobility Rolling Walker Recommended Devices Occupational Therapy: Initial Goals Goals to be Completed in (Days 14-18 ) Upper Body Bathing Routine Independent Lower Body Bathing Routine Modified Independent with Upper Body Dressing Routine Independent Lower Body Dressing Routine Modified Independent with Toilet Hygeine and Clothing Modified Independent with Management Routine Toilet Transfer Routine Modified Independent with Step-In Shower Transfer Modified Independent with Routine Functional Transfers for ADL Modified Independent with Grooming Routine Independent Feeding Routine Independent Social Work: Goals Discharge Plan return home with home care svs and family support Potential for Family Training pt's family are involved and supportive Anticipated Discharge Home Destination Discharge With home care svs and family support Care Plan: Care Plan ADL's - Improve/Maintain Start: 06/30/18 08:43 Freq: DAILY Status: Active Target: Protocol: Activity Type Activity Date Activity User E-Sign Co-Sign Detail Recorded Client Recorded Date Recorded By Document 06/30/18 08:43 [id number] 06/30/18 08:44 [id number] 06/30/18 08:43 PMRU Outcome: ADL's/ADL Transfers Orders/Interventions Occupational Therapy Evaluation & Treatment Communication Tool in Patient Room Device Yes Address Deficits Secondary To: septic shock Patient to receive OT 5x/wk for 60-120 Therex min/day Self Care Management Group Therapy Neuromuscular ReEducation UE/LE ADL's with Assist Yes: Regina ADL Transfers with Assist Yes: Regina Toileting: Transfers,Clothing Management Yes: Regina ,Hygeine w/Assist Light Kitchen/Laundry w/Assist Yes: Regina Progression Toward Outcome/Goals Progressing Outcome/Goals Met Pt participated well in ADL treatment session, open to use of AE, did well with use after initial instruction. Infection-Improve/Maintain Start: 07/01/18 01:33 Freq: DAILY@0400,1600 Status: Active Target: Protocol: Activity Type Activity Date Activity User E-Sign Co-Sign Detail Recorded Client Recorded Date Recorded By Document 07/02/18 05:18 [id number] 07/02/18 05:19 [id number] 07/02/18 05:18 Outcome: Infection Outcome/Goals Understand Infection Prevention Strategies Achieve Optimal Health Status Related to Diagnosis Progression Toward Outcome/Goals Progressing Mobility- Improve/Maintain Start: 06/30/18 15:14 Freq: DAILY Status: Active Target: Protocol: Activity Type Activity Date Activity User E-Sign Co-Sign Detail Recorded Client Recorded Date Recorded By Document 06/30/18 15:14 [id number] 06/30/18 15:16 [id number] 06/30/18 15:14 PMRU Outcome: Mobility Physical Therapy Evaluation and Yes Treatment Activity OOB with Assistance Yes Device Yes: FWW Assistance Yes: CGA-Min A Patient to be seen 5x/wk for 60-120 min/ Therex day for: Mobility Training Gait Training Balance Outcome/Goals Maintain/ Achieve Baseline Mobility Status Improve Mobility Status Demonstrates Proper Use of Assistive Devices Free from Complications of Immobility Progression Toward Outcome/Goals Progressing Bed Mobility Yes: Ind Transfers Yes: Mod I with walker Gait x ft Yes: Mod I with walker x150ft Up/Down Stairs Yes: CGA x4 steps, 2 rails With HEP Yes Skin-Improve/Maintain Start: 07/01/18 01:33 Freq: DAILY@0400,1600 Status: Active Target: Protocol: Activity Type Activity Date Activity User E-Sign Co-Sign Detail Recorded Client Recorded Date Recorded By Document 07/02/18 05:18 [id number] 07/02/18 05:19 [id number] 07/02/18 05:18 Outcome: Skin Outcome/Goals Maintain/ Improve Skin Intergrity Free from Decubitus Maintain/ Improve Wound Status Progression Toward Outcome/Goals Progressing Medicine Note: Length of Stay: 10 days Anticipated Discharge Destination: Home Tentative Discharge Date: 07/12/18 Discharged to: Home
--- NOTE | 2018-07-02 14:10 | PN ---
Progress Note Date of Service: 07/02/18 Note: FELICITY MEJIA was visited. Therapy notes read and reviewed. She was discussed in interdisciplinary team rounds. She is making gains but still tires easily. BS ok. Will d/c xeroform Current Medications: Active Medications Generic Name Dose Route Start Last Admin Trade Name Freq PRN Reason Stop Dose Admin Acetaminophen 650 mg 06/29/18 18:46 07/02/18 07:05 Tylenol Tab* PO 650 mg Q6H PRN Administration FEVER > 101 Albuterol 2 puff 07/01/18 16:42 07/02/18 08:58 Ventolin Hfa Inhaler* INH 2 puff Q6H PRN Administration SOB/WHEEZING Dextrose 12.5 gm 06/29/18 18:56 D50w Syringe 50 Ml* IV PUSH .FOR FS < 60 - SS PRN FS < 60 Docusate Sodium 100 mg 06/29/18 21:00 07/02/18 08:57 Colace Cap* PO 100 mg BID FATUMA Administration Enoxaparin Sodium 40 mg 06/30/18 09:00 07/02/18 08:59 Lovenox(*) SUBCUT 40 mg Q24H FATUMA Administration Fluticasone/Vilanterol 1 puff 06/30/18 09:00 07/02/18 08:22 Breo Ellipta Mdi 200/25(Nf) INH 1 puff DAILY FATUMA Administration Gabapentin 100 mg 06/29/18 21:00 07/02/18 08:57 Neurontin Cap(*) PO 100 mg BID FATUMA Administration Insulin Glargine 24 units 07/02/18 09:00 07/02/18 09:10 Lantus(*) SUBCUT 24 unit Q24H FATUMA Administration Insulin Human Lispro 0 - 15 units 06/29/18 21:00 07/02/18 13:22 Humalog* SUBCUT 6 units ACHS FATUMA Administration Protocol Levothyroxine Sodium 25 mcg 06/30/18 06:00 07/02/18 05:17 Synthroid Tab* PO 25 mcg DAILY@0600 FATUMA Administration Senna 2 tab 06/29/18 18:46 Senokot Tab* PO BEDTIME PRN CONSTIPATION Vital Signs: Vital Signs Temp Pulse Resp BP Pulse Ox 98.2 F 14 16 139/65 95 07/02/18 05:17 07/02/18 08:22 07/02/18 08:57 07/02/18 05:17 07/02/18 08:22 Lab Results: Laboratory Results - last 24 hr 07/01/18 07/01/18 07/02/18 16:15 20:15 05:02 WBC 5.0 RBC 3.19 L Hgb 9.0 L Hct 28 L MCV 86 MCH 28 MCHC 33 RDW 16 H Plt Count 337 MPV 7.0 L Neut % (Auto) 54.7 Lymph % (Auto) 27.9 [place] % (Auto) 15.0 Eos % (Auto) 1.3 Baso % (Auto) 1.1 Absolute Neuts (auto) 2.8 Absolute Lymphs (auto) 1.4 Absolute Monos (auto) 0.8 Absolute Eos (auto) 0.1 Absolute Basos (auto) 0.1 Absolute Nucleated RBC 0 Nucleated RBC % 0.2 Sodium Potassium Chloride Carbon Dioxide Anion Gap BUN Creatinine Est GFR ( Amer) Est GFR (Non-Af Amer) BUN/Creatinine Ratio Glucose POC Glucose (mg/dL) 309 H 170 H Calcium Total Bilirubin AST ALT Alkaline Phosphatase Total Protein Albumin Globulin Albumin/Globulin Ratio 07/02/18 07/02/18 05:02 12:01 WBC RBC Hgb Hct MCV MCH MCHC RDW Plt Count MPV Neut % (Auto) Lymph % (Auto) [place] % (Auto) Eos % (Auto) Baso % (Auto) Absolute Neuts (auto) Absolute Lymphs (auto) Absolute Monos (auto) Absolute Eos (auto) Absolute Basos (auto) Absolute Nucleated RBC Nucleated RBC % Sodium 139 Potassium 4.2 Chloride 104 Carbon Dioxide 28 Anion Gap 7 BUN 8 Creatinine 0.65 Est GFR ( Amer) 112.9 Est GFR (Non-Af Amer) 93.3 BUN/Creatinine Ratio 12.3 Glucose 215 H POC Glucose (mg/dL) 250 H Calcium 8.7 Total Bilirubin 0.40 AST 18 ALT 20 Alkaline Phosphatase 287 H Total Protein 5.6 L Albumin 3.0 L Globulin 2.6 Albumin/Globulin Ratio 1.2 Exam: GENERAL: In good spirits. LUNGS: Clear bilaterally HEART: Reg rhythm ABDOMEN: Soft +BS NEUROLOGIC: moves all 4 extremities Assessment/Plan: 1. DKA: BS better and doing ok with Lantus/Lispro 2. Blisters on breast from cooling blanket: Xeroform 3. Hypothyroid: Synthroid 4. DVT Prophylaxis: Lovenox 5. DPN: Neurontin 6. Asthma: Madinao Ellipta, Pro HFA 7. Advanced Directives: Full code 07/02/18 14:11
[2018-07-03] MEDS: Levothyroxine TAB* 25 MCG TAB PO SCH (05:23)
[2018-07-03] MEDS: PTO:Fluticasone/Vilanterol MDI(NF) 200/25 MDI INH SCH (08:37)
[2018-07-03] MEDS: Gabapentin CAP(*) 100 MG PO SCH ×2 (09:03→21:01)
[2018-07-03] MEDS: Docusate CAP* 100 MG PO SCH ×2 (09:03→21:01)
[2018-07-03] MEDS: Enoxaparin(*) 40 MG/0.4 ML SYR SUBCUT SCH (09:05)
[2018-07-03] MEDS: Insulin LISPRO* 1 UNITS UNIT SUBCUT SCH ×4 (09:13→21:02)
[2018-07-03] MEDS: Insulin GLARGINE(*) 1 UNITS UNIT SUBCUT SCH (09:13)
--- NOTE | 2018-07-03 13:22 | PN ---
Progress Note Date of Service: 07/03/18 Note: FELICITY MEJIA was visited. Nursing and Therapy notes read and reviewed. Blood sugars a little high but otherwise ok Current Medications: Active Medications Generic Name Dose Route Start Last Admin Trade Name Freq PRN Reason Stop Dose Admin Acetaminophen 650 mg 06/29/18 18:46 07/02/18 07:05 Tylenol Tab* PO 650 mg Q6H PRN Administration FEVER > 101 Albuterol 2 puff 07/01/18 16:42 07/02/18 15:13 Ventolin Hfa Inhaler* INH 2 puff Q6H PRN Administration SOB/WHEEZING Dextrose 12.5 gm 06/29/18 18:56 D50w Syringe 50 Ml* IV PUSH .FOR FS < 60 - SS PRN FS < 60 Docusate Sodium 100 mg 06/29/18 21:00 07/03/18 09:03 Colace Cap* PO 100 mg BID FATUMA Administration Enoxaparin Sodium 40 mg 06/30/18 09:00 07/03/18 09:05 Lovenox(*) SUBCUT 40 mg Q24H FATUMA Administration Fluticasone/Vilanterol 1 puff 06/30/18 09:00 07/03/18 08:37 Breo Ellipta Mdi 200/25(Nf) INH 1 puff DAILY FATUMA Administration Gabapentin 100 mg 06/29/18 21:00 07/03/18 09:03 Neurontin Cap(*) PO 100 mg BID FATUMA Administration Insulin Glargine 24 units 07/02/18 09:00 07/03/18 09:13 Lantus(*) SUBCUT 24 unit Q24H FATUMA Administration Insulin Human Lispro 0 - 15 units 06/29/18 21:00 07/03/18 12:38 Humalog* SUBCUT 12 units ACHS FATUMA Administration Protocol Levothyroxine Sodium 25 mcg 06/30/18 06:00 07/03/18 05:23 Synthroid Tab* PO 25 mcg DAILY@0600 FATUMA Administration Senna 2 tab 06/29/18 18:46 Senokot Tab* PO BEDTIME PRN CONSTIPATION Vital Signs: Vital Signs Temp Pulse Resp BP Pulse Ox 97.8 F 110 16 136/68 95 07/03/18 05:21 07/03/18 08:38 07/03/18 09:03 07/03/18 05:21 07/03/18 08:38 Lab Results: Laboratory Results - last 24 hr 07/02/18 07/02/18 07/03/18 16:28 20:50 07:58 POC Glucose (mg/dL) 151 H 235 H 196 H 07/03/18 11:22 POC Glucose (mg/dL) 307 H Exam: GENERAL: In good spirits. LUNGS: Clear bilaterally HEART: Reg rhythm ABDOMEN: Soft +BS NEUROLOGIC: moves all 4 extremities Assessment/Plan: 1. DKA: BS better and doing ok with Lantus/Lispro 2. Blisters on breast from cooling blanket: Mepilex 3. Hypothyroid: Synthroid 4. DVT Prophylaxis: Lovenox 5. DPN: Neurontin 6. Asthma: Breo Ellipta, ProAir HFA 7. Advanced Directives: Full code 07/03/18 13:23
[2018-07-03] MEDS: Albuterol HFA INHALER* 8 gm MDI INH PRN (17:32)
[2018-07-04] MEDS: Acetaminophen TAB* 325 MG PO PRN (01:08)
[2018-07-04] MEDS: Levothyroxine TAB* 25 MCG TAB PO SCH (05:11)
[2018-07-04] MEDS: PTO:Fluticasone/Vilanterol MDI(NF) 200/25 MDI INH SCH (08:21)
[2018-07-04] MEDS: Gabapentin CAP(*) 100 MG PO SCH ×2 (09:55→20:27)
[2018-07-04] MEDS: Enoxaparin(*) 40 MG/0.4 ML SYR SUBCUT SCH (09:55)
[2018-07-04] MEDS: Insulin LISPRO* 1 UNITS UNIT SUBCUT SCH ×4 (09:55→20:26)
[2018-07-04] MEDS: Docusate CAP* 100 MG PO SCH ×2 (09:55→20:27)
[2018-07-04] MEDS: Insulin GLARGINE(*) 1 UNITS UNIT SUBCUT SCH (09:56)
--- NOTE | 2018-07-04 19:31 | PN ---
Progress Note Date of Service: 07/04/18 Note: FELICITY MEJIA was visited. Therapy notes read and reviewed. She had spasms in her left leg today. Unclear why. Her BS are acceptable. Current Medications: Active Medications Generic Name Dose Route Start Last Admin Trade Name Freq PRN Reason Stop Dose Admin Acetaminophen 650 mg 06/29/18 18:46 07/04/18 01:08 Tylenol Tab* PO 650 mg Q6H PRN Administration FEVER > 101 Albuterol 2 puff 07/01/18 16:42 07/03/18 17:32 Ventolin Hfa Inhaler* INH 2 puff Q6H PRN Administration SOB/WHEEZING Collagenase 1 applic 07/05/18 09:00 Santyl 250 Mg/Gm Oint* TOPICAL DAILY FATUMA Dextrose 12.5 gm 06/29/18 18:56 D50w Syringe 50 Ml* IV PUSH .FOR FS < 60 - SS PRN FS < 60 Docusate Sodium 100 mg 06/29/18 21:00 07/04/18 09:55 Colace Cap* PO 100 mg BID FATUMA Administration Enoxaparin Sodium 40 mg 06/30/18 09:00 07/04/18 09:55 Lovenox(*) SUBCUT 40 mg Q24H FATUMA Administration Fluticasone/Vilanterol 1 puff 06/30/18 09:00 07/04/18 08:21 Breo Ellipta Mdi 200/25(Nf) INH 1 puff DAILY FATUMA Administration Gabapentin 100 mg 06/29/18 21:00 07/04/18 09:55 Neurontin Cap(*) PO 100 mg BID FATUMA Administration Insulin Glargine 24 units 07/02/18 09:00 07/04/18 09:56 Lantus(*) SUBCUT 24 unit Q24H FATUMA Administration Insulin Human Lispro 0 - 15 units 06/29/18 21:00 07/04/18 17:31 Humalog* SUBCUT 12 units ACHS FATUMA Administration Protocol Levothyroxine Sodium 25 mcg 06/30/18 06:00 07/04/18 05:11 Synthroid Tab* PO 25 mcg DAILY@0600 FATUMA Administration Methocarbamol 750 mg 07/04/18 19:28 Robaxin Tab* PO TID PRN SPASMS Senna 2 tab 06/29/18 18:46 Senokot Tab* PO BEDTIME PRN CONSTIPATION Vital Signs: Vital Signs Temp Pulse Resp BP Pulse Ox 97.7 F 94 16 137/73 97 07/04/18 04:54 07/04/18 08:20 07/04/18 13:37 07/04/18 04:54 07/04/18 08:20 Lab Results: Laboratory Results - last 24 hr 07/03/18 07/04/18 07/04/18 20:54 07:55 12:16 POC Glucose (mg/dL) 115 H 195 H 215 H 07/04/18 16:35 POC Glucose (mg/dL) 303 H Exam: GENERAL: In good spirits. LUNGS: Clear bilaterally HEART: Reg rhythm ABDOMEN: Soft +BS NEUROLOGIC: moves all 4 extremities Assessment/Plan: 1. DKA: BS better and doing ok with Lantus/Lispro 2. Blisters on breast from cooling blanket: Santyl/Vasline Gauze 3. Hypothyroid: Synthroid 4. DVT Prophylaxis: Lovenox 5. DPN: Neurontin 6. Asthma: Breo Ellipta, ProAir HFA 7. Advanced Directives: Full code 07/04/18 19:32
[2018-07-04] MEDS: Methocarbamol TAB* 500 MG PO PRN (20:26)
[2018-07-05] MEDS: Levothyroxine TAB* 25 MCG TAB PO SCH (06:01)
[2018-07-05] MEDS: PTO:Fluticasone/Vilanterol MDI(NF) 200/25 MDI INH SCH (08:47)
[2018-07-05] MEDS ORDERED: Insulin GLARGINE(*) 1 UNITS UNIT SUBCUT SCH (09:00)
[2018-07-05] MEDS: Insulin LISPRO* 1 UNITS UNIT SUBCUT SCH ×4 (09:48→21:03)
[2018-07-05] MEDS: Collagenase 250 MG/GM OINT* 30 GM TOPICAL SCH (09:49)
[2018-07-05] MEDS: Enoxaparin(*) 40 MG/0.4 ML SYR SUBCUT SCH (09:49)
[2018-07-05] MEDS: Docusate CAP* 100 MG PO SCH ×2 (09:49→21:03)
[2018-07-05] MEDS: Gabapentin CAP(*) 100 MG PO SCH ×2 (09:50→21:03)
[2018-07-05] MEDS: Acetaminophen TAB* 325 MG PO PRN (09:50)
--- NOTE | 2018-07-05 19:06 | PN ---
Progress Note Date of Service: 07/05/18 Note: FELICITY MEJIA was visited. Therapy notes read and reviewed. She is complaining of a toothache and wants to use Orajel. Otherwise doing ok. Current Medications: Active Medications Generic Name Dose Route Start Last Admin Trade Name Freq PRN Reason Stop Dose Admin Acetaminophen 650 mg 06/29/18 18:46 07/05/18 09:50 Tylenol Tab* PO 650 mg Q6H PRN Administration FEVER > 101 Albuterol 2 puff 07/01/18 16:42 07/03/18 17:32 Ventolin Hfa Inhaler* INH 2 puff Q6H PRN Administration SOB/WHEEZING Collagenase 1 applic 07/05/18 09:00 07/05/18 09:49 Santyl 250 Mg/Gm Oint* TOPICAL 1 applic DAILY FATUMA Administration Dextrose 12.5 gm 06/29/18 18:56 D50w Syringe 50 Ml* IV PUSH .FOR FS < 60 - SS PRN FS < 60 Docusate Sodium 100 mg 06/29/18 21:00 07/05/18 09:49 Colace Cap* PO 100 mg BID FATUMA Administration Enoxaparin Sodium 40 mg 06/30/18 09:00 07/05/18 09:49 Lovenox(*) SUBCUT 40 mg Q24H FATUMA Administration Fluticasone/Vilanterol 1 puff 06/30/18 09:00 07/05/18 08:47 Breo Ellipta Mdi 200/25(Nf) INH 1 puff DAILY FATUMA Administration Gabapentin 100 mg 06/29/18 21:00 07/05/18 09:50 Neurontin Cap(*) PO 100 mg BID FATUMA Administration Insulin Glargine 28 units 07/05/18 09:00 07/05/18 09:48 Lantus(*) SUBCUT 28 units Q24H FATUMA Administration Insulin Human Lispro 0 - 15 units 06/29/18 21:00 07/05/18 17:07 Humalog* SUBCUT 2 units ACHS FATUMA Administration Protocol Levothyroxine Sodium 25 mcg 06/30/18 06:00 07/05/18 06:01 Synthroid Tab* PO 25 mcg DAILY@0600 FATUMA Administration Methocarbamol 750 mg 07/04/18 19:28 07/04/18 20:26 Robaxin Tab* PO 750 mg TID PRN Administration SPASMS Non-Formulary Medication 1 applic 07/05/18 18:17 Orajel TOPICAL TID PRN Toothache Senna 2 tab 06/29/18 18:46 Senokot Tab* PO BEDTIME PRN CONSTIPATION Vital Signs: Vital Signs Temp Pulse Resp BP Pulse Ox 98.0 F 95 16 148/50 99 07/05/18 16:20 07/05/18 16:20 07/05/18 16:20 07/05/18 16:20 07/05/18 17:35 Lab Results: Laboratory Results - last 24 hr 07/04/18 07/05/18 07/05/18 20:19 08:04 12:33 POC Glucose (mg/dL) 121 H 212 H 225 H Exam: GENERAL: In good spirits. LUNGS: Clear bilaterally HEART: Reg rhythm ABDOMEN: Soft +BS NEUROLOGIC: moves all 4 extremities Assessment/Plan: 1. DKA: BS better and doing ok with Lantus/Lispro 2. Blisters on breast from cooling blanket: Santyl/Vaseline Gauze 3. Hypothyroid: Synthroid 4. DVT Prophylaxis: Lovenox 5. DPN: Neurontin 6. Asthma: Breo Ellipta, ProAir HFA 7. Advanced Directives: Full code 07/05/18 19:06
[2018-07-05] MEDS: Methocarbamol TAB* 500 MG PO PRN (21:02)
[2018-07-06] MEDS: Methocarbamol TAB* 500 MG PO PRN ×2 (03:52→21:44)
[2018-07-06] MEDS: Levothyroxine TAB* 25 MCG TAB PO SCH (06:10)
[2018-07-06] MEDS: Acetaminophen TAB* 325 MG PO PRN (06:12)
[2018-07-06] MEDS: PTO:Fluticasone/Vilanterol MDI(NF) 200/25 MDI INH SCH (07:08)
[2018-07-06] MEDS: Enoxaparin(*) 40 MG/0.4 ML SYR SUBCUT SCH (08:44)
[2018-07-06] MEDS: Insulin LISPRO* 1 UNITS UNIT SUBCUT SCH ×4 (08:47→21:41)
[2018-07-06] MEDS: Docusate CAP* 100 MG PO SCH ×2 (08:48→20:39)
[2018-07-06] MEDS: Gabapentin CAP(*) 100 MG PO SCH ×2 (08:48→20:38)
[2018-07-06] MEDS: Collagenase 250 MG/GM OINT* 30 GM TOPICAL SCH (08:53)
[2018-07-06] MEDS ORDERED: Insulin GLARGINE(*) 1 UNITS UNIT SUBCUT SCH (09:00)
--- NOTE | 2018-07-06 19:16 | PN ---
Progress Note Date of Service: 07/06/18 Note: FELICITY MEJIA was visited. Therapy notes read and reviewed. I discussed her case with her therapists. She is actually improving rapidly. Will likely go home next week earlier than originally planned. Current Medications: Active Medications Generic Name Dose Route Start Last Admin Trade Name Freq PRN Reason Stop Dose Admin Acetaminophen 650 mg 06/29/18 18:46 07/06/18 06:12 Tylenol Tab* PO 650 mg Q6H PRN Administration FEVER > 101 Albuterol 2 puff 07/01/18 16:42 07/03/18 17:32 Ventolin Hfa Inhaler* INH 2 puff Q6H PRN Administration SOB/WHEEZING Benzocaine 1 applic 07/05/18 18:17 Orajel 10%* TOPICAL TID PRN Toothache Collagenase 1 applic 07/05/18 09:00 07/06/18 08:53 Santyl 250 Mg/Gm Oint* TOPICAL 1 applic DAILY FATUMA Administration Dextrose 12.5 gm 06/29/18 18:56 D50w Syringe 50 Ml* IV PUSH .FOR FS < 60 - SS PRN FS < 60 Docusate Sodium 100 mg 06/29/18 21:00 07/06/18 08:48 Colace Cap* PO 100 mg BID FATUMA Administration Enoxaparin Sodium 40 mg 06/30/18 09:00 07/06/18 08:44 Lovenox(*) SUBCUT 40 mg Q24H FATUMA Administration Fluticasone/Vilanterol 1 puff 06/30/18 09:00 07/06/18 07:08 Breo Ellipta Mdi 200/25(Nf) INH 1 puff DAILY FATUMA Administration Gabapentin 100 mg 06/29/18 21:00 07/06/18 08:48 Neurontin Cap(*) PO 100 mg BID FATUMA Administration Insulin Glargine 30 units 07/06/18 09:00 07/06/18 08:48 Lantus(*) SUBCUT 30 units Q24H FATUMA Administration Insulin Human Lispro 0 - 15 units 06/29/18 21:00 07/06/18 17:05 Humalog* SUBCUT 6 units ACHS FATUMA Administration Protocol Levothyroxine Sodium 25 mcg 06/30/18 06:00 07/06/18 06:10 Synthroid Tab* PO 25 mcg DAILY@0600 FATUMA Administration Methocarbamol 750 mg 07/04/18 19:28 07/06/18 03:52 Robaxin Tab* PO 750 mg TID PRN Administration SPASMS Senna 2 tab 06/29/18 18:46 Senokot Tab* PO BEDTIME PRN CONSTIPATION Vital Signs: Vital Signs Temp Pulse Resp BP Pulse Ox 98.0 F 96 16 150/74 98 07/06/18 16:18 07/06/18 16:18 07/06/18 16:18 07/06/18 16:18 07/06/18 16:18 Lab Results: Laboratory Results - last 24 hr 07/05/18 07/05/18 07/06/18 16:28 20:11 07:21 POC Glucose (mg/dL) 134 H 302 H 245 H 07/06/18 07/06/18 11:36 16:35 POC Glucose (mg/dL) 283 H 241 H Exam: GENERAL: In good spirits. LUNGS: Clear bilaterally HEART: Reg rhythm ABDOMEN: Soft +BS NEUROLOGIC: moves all 4 extremities. Alert and oriented. Sensation intact Assessment/Plan: 1. DKA: BS better and doing ok with Lantus/Lispro. Will D/C Lantus. She will resume her insulin pump in the morning 2. Blisters on breast from cooling blanket: Santyl/Vaseline Gauze 3. Hypothyroid: Synthroid 4. DVT Prophylaxis: Lovenox 5. DPN: Neurontin 6. Asthma: Breo Ellipta, ProAir HFA 7. Advanced Directives: Full code 07/06/18 19:17
[2018-07-06] MEDS: Benzocaine (DENTAL) 10%* TOP.GEL TOPICAL PRN (20:40)
[2018-07-07] MEDS: Levothyroxine TAB* 25 MCG TAB PO SCH (05:39)
[2018-07-07] MEDS: Gabapentin CAP(*) 100 MG PO SCH ×3 (06:55→20:28)
[2018-07-07] MEDS: Acetaminophen TAB* 325 MG PO PRN ×2 (06:55→14:17)
[2018-07-07] MEDS: Docusate CAP* 100 MG PO SCH ×3 (06:56→20:29)
[2018-07-07] MEDS: Enoxaparin(*) 40 MG/0.4 ML SYR SUBCUT SCH ×2 (06:58→09:00)
[2018-07-07] MEDS ORDERED: Insulin LISPRO* FOR INSULIN PUMP SUBCUT SCH (08:00)
[2018-07-07] MEDS: PTO:Fluticasone/Vilanterol MDI(NF) 200/25 MDI INH SCH (08:37)
[2018-07-07] MEDS: Collagenase 250 MG/GM OINT* 30 GM TOPICAL SCH (08:59)
--- NOTE | 2018-07-07 16:13 | PN ---
Progress Note Date of Service: 07/07/18 Note: FELICITY MEJIA was visited. Therapy notes read and reviewed. She is back on her insulin pump. Lantus stopped. Current Medications: Active Medications Generic Name Dose Route Start Last Admin Trade Name Freq PRN Reason Stop Dose Admin Acetaminophen 650 mg 06/29/18 18:46 07/07/18 14:17 Tylenol Tab* PO 650 mg Q6H PRN Administration FEVER > 101 Albuterol 2 puff 07/01/18 16:42 07/03/18 17:32 Ventolin Hfa Inhaler* INH 2 puff Q6H PRN Administration SOB/WHEEZING Benzocaine 1 applic 07/05/18 18:17 07/06/18 20:40 Orajel 10%* TOPICAL 1 applic TID PRN Administration Toothache Collagenase 1 applic 07/05/18 09:00 07/07/18 08:59 Santyl 250 Mg/Gm Oint* TOPICAL 1 applic DAILY FATUMA Administration Dextrose 12.5 gm 06/29/18 18:56 D50w Syringe 50 Ml* IV PUSH .FOR FS < 60 - SS PRN FS < 60 Docusate Sodium 100 mg 06/29/18 21:00 07/07/18 09:00 Colace Cap* PO Not Given BID FATUMA Enoxaparin Sodium 40 mg 06/30/18 09:00 07/07/18 09:00 Lovenox(*) SUBCUT Not Given Q24H FATUMA Fluticasone/Vilanterol 1 puff 06/30/18 09:00 07/07/18 08:37 Breo Ellipta Mdi 200/25(Nf) INH 1 puff DAILY FATUMA Administration Gabapentin 100 mg 06/29/18 21:00 07/07/18 09:00 Neurontin Cap(*) PO Not Given BID FATUMA Insulin Human Lispro 0 units 07/07/18 08:00 07/07/18 08:16 Humalog* SUBCUT 1 units .SEE PROTOCOL FATUMA Administration Protocol Levothyroxine Sodium 25 mcg 06/30/18 06:00 07/07/18 05:39 Synthroid Tab* PO 25 mcg DAILY@0600 FATUMA Administration Methocarbamol 750 mg 07/04/18 19:28 07/06/18 21:44 Robaxin Tab* PO 750 mg TID PRN Administration SPASMS Senna 2 tab 06/29/18 18:46 Senokot Tab* PO BEDTIME PRN CONSTIPATION Vital Signs: Vital Signs Temp Pulse Resp BP Pulse Ox 97.6 F 104 16 152/82 94 07/07/18 05:44 07/07/18 08:38 07/07/18 09:55 07/07/18 05:44 07/07/18 08:38 Lab Results: Laboratory Results - last 24 hr 07/06/18 07/06/18 07/07/18 16:35 20:44 07:04 POC Glucose (mg/dL) 241 H 256 H 179 H 07/07/18 11:28 POC Glucose (mg/dL) 228 H Exam: GENERAL: In good spirits. LUNGS: Clear bilaterally HEART: Reg rhythm ABDOMEN: Soft +BS NEUROLOGIC: moves all 4 extremities. Alert and oriented. Sensation intact Assessment/Plan: 1. DKA: She has resumed her insulin pump 2. Blisters on breast from cooling blanket: Santyl/Vaseline Gauze 3. Hypothyroid: Synthroid 4. DVT Prophylaxis: Lovenox 5. DPN: Neurontin 6. Asthma: Breo Ellipta, ProAir HFA 7. Advanced Directives: Full code 07/07/18 16:13
[2018-07-07] MEDS: Methocarbamol TAB* 500 MG PO PRN (20:29)
[2018-07-07] MEDS: Benzocaine (DENTAL) 10%* TOP.GEL TOPICAL PRN (20:30)
[2018-07-08] MEDS: Methocarbamol TAB* 500 MG PO PRN ×2 (01:32→20:27)
[2018-07-08] MEDS: Levothyroxine TAB* 25 MCG TAB PO SCH (05:05)
[2018-07-08] MEDS: Acetaminophen TAB* 325 MG PO PRN ×2 (05:10→11:38)
[2018-07-08] MEDS: PTO:Fluticasone/Vilanterol MDI(NF) 200/25 MDI INH SCH (08:18)
[2018-07-08] MEDS: Enoxaparin(*) 40 MG/0.4 ML SYR SUBCUT SCH (08:19)
[2018-07-08] MEDS: Gabapentin CAP(*) 100 MG PO SCH ×2 (08:20→20:26)
[2018-07-08] MEDS: Collagenase 250 MG/GM OINT* 30 GM TOPICAL SCH (08:20)
[2018-07-08] MEDS: Docusate CAP* 100 MG PO SCH ×2 (08:20→20:26)
--- NOTE | 2018-07-08 16:54 | PN ---
Progress Note Date of Service: 07/08/18 Note: FELICITY MEJIA was visited. Therapy notes read and reviewed. She has no complaints and is ready for discharge in the morning. Current Medications: Active Medications Generic Name Dose Route Start Last Admin Trade Name Freq PRN Reason Stop Dose Admin Acetaminophen 650 mg 06/29/18 18:46 07/08/18 11:38 Tylenol Tab* PO 650 mg Q6H PRN Administration FEVER > 101 Albuterol 2 puff 07/01/18 16:42 07/03/18 17:32 Ventolin Hfa Inhaler* INH 2 puff Q6H PRN Administration SOB/WHEEZING Benzocaine 1 applic 07/05/18 18:17 07/07/18 20:30 Orajel 10%* TOPICAL 1 applic TID PRN Administration Toothache Collagenase 1 applic 07/05/18 09:00 07/08/18 08:20 Santyl 250 Mg/Gm Oint* TOPICAL 1 applic DAILY FATUMA Administration Dextrose 12.5 gm 06/29/18 18:56 D50w Syringe 50 Ml* IV PUSH .FOR FS < 60 - SS PRN FS < 60 Docusate Sodium 100 mg 06/29/18 21:00 07/08/18 08:20 Colace Cap* PO 100 mg BID FATUMA Administration Enoxaparin Sodium 40 mg 06/30/18 09:00 07/08/18 08:19 Lovenox(*) SUBCUT 40 mg Q24H FATUMA Administration Fluticasone/Vilanterol 1 puff 06/30/18 09:00 07/08/18 08:18 Breo Ellipta Mdi 200/25(Nf) INH 1 puff DAILY FATUMA Administration Gabapentin 100 mg 06/29/18 21:00 07/08/18 08:20 Neurontin Cap(*) PO 100 mg BID FATUMA Administration Insulin Human Lispro 0 units 07/07/18 08:00 07/07/18 08:16 Humalog* SUBCUT 1 units .SEE PROTOCOL FATUMA Administration Protocol Levothyroxine Sodium 25 mcg 06/30/18 06:00 07/08/18 05:05 Synthroid Tab* PO 25 mcg DAILY@0600 FATUMA Administration Methocarbamol 750 mg 07/04/18 19:28 07/08/18 01:32 Robaxin Tab* PO 750 mg TID PRN Administration SPASMS Senna 2 tab 06/29/18 18:46 Senokot Tab* PO BEDTIME PRN CONSTIPATION Vital Signs: Vital Signs Temp Pulse Resp BP Pulse Ox 97.9 F 104 18 130/55 96 07/08/18 05:11 07/08/18 08:20 07/08/18 10:18 07/08/18 05:11 07/08/18 08:20 Lab Results: Laboratory Results - last 24 hr 07/07/18 07/08/18 07/08/18 20:37 07:35 11:41 POC Glucose (mg/dL) 233 H 138 H 198 H Exam: GENERAL: In good spirits. LUNGS: Clear bilaterally HEART: Reg rhythm ABDOMEN: Soft +BS NEUROLOGIC: moves all 4 extremities. Alert and oriented. Sensation intact Assessment/Plan: 1. DKA: She has resumed her insulin pump 2. Blisters on breast from cooling blanket: Santyl/Vaseline Gauze 3. Hypothyroid: Synthroid 4. DVT Prophylaxis: Lovenox 5. DPN: Neurontin 6. Asthma: Breo Ellipta, ProAir HFA 7. Advanced Directives: Full code 8. Disposition: D/C tomorrow 07/08/18 16:55
[2018-07-09] MEDS: Acetaminophen TAB* 325 MG PO PRN ×2 (02:07→10:48)
[2018-07-09 05:36] VITALS: BP 149/72
[2018-07-09] MEDS: Levothyroxine TAB* 25 MCG TAB PO SCH (05:53)
[2018-07-09 06:40] LABS: ABS Basophils 0 10^3/ul (0-0.2); ABS Eosinophils 0.1 10^3/ul (0-0.6); ABS Lymphocytes 1.7 10^3/ul (1.0-4.8); ABS Monocytes 0.5 10^3/ul (0-0.8); ABS Nucleated RBC 0 10^3/ul; Eosinophil % 2.4 %; Hematocrit 33 % (35-47); Lymphocyte % 31.9 %; Mean Corpuscular HGB Conc 34 g/dl (31-36); Mean Corpuscular Hemoglobin 29 pg (27-31); Mean Corpuscular Volume 85 fL (80-97); Mean Platelet Volume 6.8 fL (7.4-10.4); Nucleated Red Blood Cells % 0; Platelet Count 326 10^3/ul (150-450); Red Blood Count 3.85 10^6/ul (4.00-5.40); Red Cell Distribution Width 16 % (10.5-15); White Blood Count 5.4 10^3/ul (3.5-10.8)
[2018-07-09 06:57] LABS: Albumin 3.8 g/dL (3.2-5.2); Albumin/Globulin Ratio 1.4 (1-3); BUN/Creatinine Ratio 17.1 (8-20); Calcium 9.5 mg/dL (8.6-10.3); EGFR Non-African American 85.6 (>60); Globulin 2.8 g/dL (2-4); Total Bilirubin 0.4 mg/dL (0.2-1.0); Total Protein 6.6 g/dL (6.4-8.9)
[2018-07-09] MEDS: Gabapentin CAP(*) 100 MG PO SCH (08:45)
[2018-07-09] MEDS: Enoxaparin(*) 40 MG/0.4 ML SYR SUBCUT SCH (08:45)
[2018-07-09] MEDS: Docusate CAP* 100 MG PO SCH (08:45)
[2018-07-09] MEDS: PTO:Fluticasone/Vilanterol MDI(NF) 200/25 MDI INH SCH (09:00)
[2018-07-09] MEDS: Collagenase 250 MG/GM OINT* 30 GM TOPICAL SCH (10:56)
--- NOTE | 2018-07-10 14:56 | DS ---
CC: Dr. Harjinder Roy * DISCHARGE SUMMARY: DATE OF ADMISSION: 06/29/18 DATE OF DISCHARGE: 07/09/18 DISCHARGE DIAGNOSES: 1. Diabetic ketoacidosis. 2. Asthma. 3. Diabetes mellitus. 4. Hypothyroidism. 5. Gastroesophageal reflux disease. HISTORY OF ILLNESS AND HOSPITAL COURSE: For complete history of the events leading up to her rehab stay, please see the history and physical dictated by me on 06/29/18. While on the rehab unit, the patient was initially kept on Lantus insulin with sliding scale coverage. The patient's blood sugars were in fairly good control. The patient did have blisters to both breasts as a result of cooling blanket when she was critically ill. These were treated initially with Mepilex dressings and later with Santyl. Otherwise, she was medically stable. She was seen by both Physical and Occupational Therapy and made good gains with both disciplines. With the physical therapy at the time of admission , she required contact guard for transfer and contact guard to ambulate about 60 feet. With occupational therapy at the time of admission, the patient required contact guard for upper body dressing, min assist for lower body dressing, max assist for toileting, contact guard for toilet transfer. By the time of discharge, the patient was independent transfers, independent ambulating, independent dressing, independent bathing. She was discharged to home to her own apartment on 07/09/18. DISCHARGE DIET: Consistent carbohydrate. DISCHARGE MEDICATIONS: 1. Albuterol HFA inhaler 2 puffs every 6 hours as needed. 2. Santyl ointment applied to her blisters on her breasts daily. 3. Breo Ellipta metered dose inhaler 1 puff daily. 4. Gabapentin 100 mg twice daily. 5. Methocarbamol 750 mg 3 times daily as needed. 6. Synthroid 25 mcg daily at 6 a.m. 7. Zocor 10 mg daily. 8. Lexapro 10 mg daily. SERVICES AFTER DISCHARGE: Through the visiting nurse service, she will have home nursing, home physical therapy, follow up with Dr. Ankit Martinez as well as her primary care doctor, Dr. Harjinder Roy. TIME SPENT: Time for this discharge was approximately 55 minutes, greater than half of that was spent with the patient and her significant other discussing post-rehab therapies, services and her home finger stick routine and diabetes management. [id number]/[facility] #: [id number] MTDD
== END 2018-07-09 13:00 | disposition home health service (06) | DRG 860 ==
LOC: PMRU 18:26 → OBSVTOIN 18:26 → PMRU 07-05 14:20
PROVIDERS: ADMIT Physical Medicine & Rehabilitation; ATTEND Physical Medicine & Rehabilitation
PROC: F07Z5ZZ Bed Mobility Treatment (ICD-10-PCS; principal; 2018-06-29)
PROC: F07Z9ZZ Gait Training/Functional Ambulation Treatment (ICD-10-PCS; 2018-06-29)
PROC: F07Z8ZZ Transfer Training Treatment (ICD-10-PCS; 2018-06-29)
PROC: F08Z0ZZ Bathing/Showering Techniques Treatment (ICD-10-PCS; 2018-06-29)
PROC: F08Z1ZZ Dressing Techniques Treatment (ICD-10-PCS; 2018-06-29)
PROC: F08Z3ZZ Feeding/Eating Treatment (ICD-10-PCS; 2018-06-29)
DX: Z51.89 Encounter for other specified aftercare (principal); E11.10 Type 2 diabetes mellitus with ketoacidosis without coma; R53.1 Weakness; Z96.41 Presence of insulin pump (external) (internal); E03.9 Hypothyroidism, unspecified; J45.909 Unspecified asthma, uncomplicated; K21.9 Gastro-esophageal reflux disease without esophagitis; S20.12 Blister (nonthermal) of breast; X58.XXXD Exposure to other specified factors, subsequent encounter; Z79.4 Long term (current) use of insulin; Z79.899 Other long term (current) drug therapy
CPT/HCPCS: 36415; 80053; 85025; 94640; A9270-GY; J1650; J1815

== ENCOUNTER 2018-07-15 07:14 | Emergency (ER) | payer OTHER ==
--- NOTE | 2018-07-15 07:47 | ED ---
Lower Extremity - HPI Summary HPI Summary: This patient is a 57 year old F brought in by ambulance accompanied by a male with a chief complaint of worsening lower back pain radiating down her right side, down to the ankle, since 07/10/2018. The patient rates the pain 8/10 in severity. Patient reports neuropathy in her feet, worse in the right. Patient denies difficulties urinating or passing stool, CP, SOB, nausea, vomiting, diarrhea, KRUEGER, or dizziness. The pain in her right leg is located more in the back of the leg. This patient was [place] [facility]/10/2018 and was in the ICU for a diabetic coma for 6 days. The patient uses a walker to ambulate. She denies recent travel and is no longer on a blood thinner. The patient denies recent heavy lifting or falling. PMHX neuropathy in feet, diabetes. No PMHx kidney problems. Vitals in the room: HR 95 bpm BP 172/ 98. Home Medications Medication Instructions Recorded Confirmed Type Escitalopram (NF) [Lexapro 10 mg 10 mg PO DAILY 06/13/18 07/15/18 History (NF)] Ibuprofen TAB* [Motrin TAB* 600 MG] 600 mg PO TID WITH MEALS PRN 06/13/18 History Losartan TAB* [Cozaar TAB*] 25 mg PO DAILY 06/13/18 07/15/18 History Multivitamins/Minerals TAB* 1 tab PO DAILY 06/13/18 07/15/18 History [Theragran/minerals TAB*] Pioglitazone TAB* [Actos TAB*] 15 mg PO DAILY 06/13/18 07/15/18 History Ranitidine TAB (NF) [Zantac TAB 150 mg PO BID 06/13/18 07/15/18 History (NF)] Simvastatin TAB(NF) [Zocor 10 MG 10 mg PO DAILY 06/13/18 07/15/18 History (NF)] metFORMIN* [Glucophage 1000 MG TAB 1,000 mg PO BID 06/13/18 07/15/18 History *] Insulin Pump Controller [Snap 1 each MC WEEKLY 07/01/18 07/15/18 History Insulin Pump Controller] Acetaminophen TAB* [Tylenol TAB*] 650 mg PO Q6H PRN tab 07/08/18 07/15/18 Rx Albuterol HFA INHALER* [Ventolin 2 puff INH Q6H PRN #1 mdi 07/08/18 07/15/18 Rx HFA Inhaler*] Collagenase 250 MG/GM OINT* 1 applic TOPICAL DAILY #30 gm 07/08/18 07/15/18 Rx [Santyl 250 mg/gm Oint*] Fluticasone/Vilanterol MDI(NF) 1 puff INH DAILY mdi 07/08/18 07/15/18 Rx [Breo Ellipta MDI 200/25(NF)] Gabapentin CAP(*) [Neurontin 100 100 mg PO BID #60 cap 07/08/18 07/15/18 Rx mg CAP(*)] Levothyroxine TAB* [Synthroid 25 25 mcg PO DAILY@0600 tab 07/08/18 07/15/18 Rx MCG TAB*] Methocarbamol TAB* [Robaxin 500 MG 750 mg PO TID PRN #120 tab 07/08/18 07/15/18 Rx TAB*] Senna TAB* [Senokot TAB*] 2 tab PO BEDTIME PRN tab 07/08/18 07/15/18 Rx Insulin Lispro [Admelog] 0 - 10 units INJ TID 07/15/18 07/15/18 History - History of Current Complaint Chief Complaint: EDExtremityLower Stated Complaint: RIGHT LEG PAIN/SPASM Time Seen by Provider: 07/15/18 07:35 Hx Obtained From: Patient Onset of Pain: Days - 6 Onset/Duration: Still Present Severity Initially: Moderate Severity Currently: Severe Pain Intensity: 8 Pain Scale Used: 0-10 Numeric Timing: Constant Location: Is Discrete @ - lower back, radiating down right leg Associated Signs And Symptoms: Positive: Knee Pain. Negative: Dizziness Aggravating Factor(s): Ambulation, Movement - Risk Factors Gout Risk Factors: Diabetes - Allergies/Home Medications Allergies/Adverse Reactions: Allergies Allergy/AdvReac Type Severity Reaction Status Date / Time Perfume [Fragrance] Allergy Unknown Unknown Verified 05/08/18 16:54 Reaction Details lactose Allergy Unknown Verified 06/16/18 11:54 Reaction Details ragweed pollen Allergy Unknown Verified 06/16/18 11:54 Reaction Details DAIRY Allergy Unknown Unknown Uncoded 05/08/18 16:54 Reaction Details dust mites Allergy Unknown Uncoded 05/08/18 16:54 Reaction Details Home Medications: Home Medications Insulin Lispro [Admelog] 0 - 10 units INJ TID 07/15/18 [History Confirmed ] PMH/Surg Hx/FS Hx/Imm Hx Endocrine/Hematology History: Reports: Hx Diabetes - type I on insulin pump Cardiovascular History: Denies: Hx Congestive Heart Failure, Hx Hypertension, Hx Pacemaker/ICD Respiratory History: Reports: Hx Asthma - uses Denies: Hx Chronic Obstructive Pulmonary Disease (COPD), Hx Pulmonary Edema, Hx Pulmonary Embolism GI History: Reports: Hx Gastroesophageal Reflux Disease Denies: Hx Diverticulosis History: Denies: Hx Kidney Stones, Hx Renal Disease Musculoskeletal History: Denies: Other Musculoskeletal History Sensory History: Reports: Hx Contacts or Glasses - reading Denies: Hx Hearing Aid Opthamlomology History: Reports: Hx Contacts or Glasses - reading Psychiatric History: Denies: Hx Panic Disorder - Cancer History Hx Chemotherapy: No Hx Radiation Therapy: No - Surgical History Surgery Procedure, Year, and Place: HYSTERECTOMY,WISDOM TEETH REMOVED - Immunization History Date of Tetanus Vaccine: < 10 years Date of Influenza Vaccine: 2017 Infectious Disease History: No Infectious Disease History: Reports: Hx Shingles - 12/2015 Denies: History Other Infectious Disease, Traveled Outside the [place] in Last 30 Days - Family History Known Family History: Positive: Hypertension, Diabetes - Social History Alcohol Use: None Hx Substance Use: No Substance Use Type: Reports: None Hx Tobacco Use: Yes - not currently Smoking Status (MU): Former Smoker Review of Systems Negative: Chest Pain Negative: Shortness Of Breath Negative: Vomiting, Diarrhea, Nausea Positive: no symptoms reported Positive: Myalgia - lower back, down right leg Positive: Numbness - feet. Negative: Headache All Other Systems Reviewed And Are Negative: Yes Physical Exam - Summary Physical Exam Summary: VITAL SIGNS: Reviewed. GENERAL: Patient is a well-developed and nourished female who is lying comfortable in the stretcher. Patient is not in any acute respiratory distress. HEAD AND FACE: No signs of trauma. No ecchymosis, hematomas or skull depressions. No sinus tenderness. EYES: PERRLA, EOMI x 2, No injected conjunctiva, no nystagmus. EARS: Hearing grossly intact. Ear canals and tympanic membranes are within normal limits. MOUTH: Oropharynx within normal limits. NECK: Supple, trachea is midline, no adenopathy, no JVD, no carotid bruit, no c- spine tenderness, neck with full ROM. CHEST: Symmetric, no tenderness at palpation LUNGS: Clear to auscultation bilaterally. No wheezing or crackles. CVS: Regular rate and rhythm, S1 and S2 present, no murmurs or gallops appreciated. ABDOMEN: Soft, non-tender. No signs of distention. No rebound no guarding, and no masses palpated. Bowel sounds are normal. EXTREMITIES: FROM in all major joints, no edema, no cyanosis or clubbing. Straight leg test passed at 45 degrees. MUSCULOSKELETAL: Paraspinal lumbar spine tenderness. NEURO: Alert and oriented x 3. No acute neurological deficits. Speech is normal and follows commands. SKIN: Dry and warm GCS: 15 Triage Information Reviewed: Yes Vital Signs On Initial Exam: Initial Vitals Temp Pulse Resp BP Pulse Ox 97.8 F 97 16 172/98 99 07/15/18 07:28 07/15/18 07:28 07/15/18 07:28 07/15/18 07:28 07/15/18 07:28 Vital Signs Reviewed: Yes Diagnostics - Vital Signs Vital Signs Temp Pulse Resp BP Pulse Ox 07/15/18 07:28 97.8 F 97 16 172/98 99 - Laboratory Lab Statement: Any lab studies that have been ordered have been reviewed, and results considered in the medical decision making process. - Radiology Lumbar Spine X Ray Radiology Interpretation Completed By: Radiologist Summary of Radiographic Findings: Degenerative changes include mild loss of intervertebral disc height at L5/S1 and multiple levels of the lower thoracic spine. ED physician has reviewed this report - CT L-Spine CT Interpretation Completed By: Radiologist Summary of CT Findings: Mild degenerative disc disease as described above without evidence of acute fracture or spondylolisthesis. ED physician has reviewed this report Lower Extremity Course/Dx - Course Course Of Treatment: This patient is a 57 year old F brought in by ambulance accompanied by a male with a chief complaint of worsening lower back pain radiating down her right side, down to the ankle, since 07/10/2018. The patient rates the pain 8/10 in severity. Patient reports neuropathy in her feet, worse in the right. Patient denies difficulties urinating or passing stool, CP, SOB, nausea, vomiting, diarrhea, KRUEGER, or dizziness. The pain in her right leg is located more in the back of the leg. This patient was recently [place] [facility] 07/10/2018 and was in the ICU for a diabetic coma for 6 days. The patient uses a walker to ambulate. She denies recent travel and is no longer on a blood thinner. The patient denies recent heavy lifting or falling. PMHX neuropathy in feet, diabetes. No PMHx kidney problems. Vitals in the room: HR 95 bpm BP 172/98. Lumbar spine x-ray impression: Degenerative changes including mild loss of the intervertebral disc height at L5 and S1 and multiple levels of the lower thoracic spine. Presented to do a CT of the lumbar spine since the pain did not resolve with Percocet and Norflex. Lumbar CT impression : Mild degenerative disc disease as described above without evidence of acute fracture or spondylolysis. The patient was given another Percocet and Toradol and the symptoms significantly improved. At this point the patient is able to ambulate without any help and she is feeling better. I discussed all the findings and test results with the patient. Patient was instructed to return to the emergency room immediately if any of the symptoms return or worsen. Plan of care was discussed with the patient and she understands and agrees. All questions were answered to patient satisfaction. There were no further complaints or concerns. Lung exam before discharge: CTA B/L. Good air exchange. No wheezing or crackles heard. CVS: S1 and S2 present. No murmurs appreciated. Patient is alert and oriented x 3. Patient is hemodynamically stable. Patient will be discharged home with follow up PCP in the next 2-3 days. Patient will be discharged with prescription for Oxycodone and follow up from Dr. Roy. The patient is agreeable with this plan. - Diagnoses Differential Diagnosis/HQI/PQRI: Positive: Fracture (Closed), Sprain, Strain, Tendonitis Provider Diagnoses: Back pain Discharge - Sign-Out/Discharge Documenting (check all that apply): Patient Departure - discharge - Discharge Plan Condition: Stable Disposition: HOME Prescriptions: oxyCODONE TAB* [Roxycodone TAB 5 mg*] 5 mg PO Q6H PRN #12 tab MDD 4 PRN Reason: Pain Patient Education Materials: Back Pain (ED) Referrals: Harjinder Roy MD [Primary Care Provider] - 2 Days Additional Instructions: Follow up with your primary care physician in 1-3 days. RETURN TO THE EMERGENCY DEPARTMENT FOR CHANGING OR WORSENING SYMPTOMS. - Billing Disposition and Condition Condition: STABLE Disposition: Home - Attestation Statements Document Initiated by Scribe: Yes Documenting Scribe: Brandt White Provider For Whom Kenyon is Documenting (Include Credential): Darnell Houser MD Scribe Attestation: Brandt Pérez, scribed for Darnell Houser MD on 07/15/18 at 1850. Scribe Documentation Reviewed: Yes Provider Attestation: The documentation as recorded by the Brandt hopper accurately reflects the service I personally performed and the decisions made by Darnell walters MD Status of Scribe Document: Viewed
[2018-07-15] MEDS ORDERED: Orphenadrine Citrate IV* 30 MG/ML 2 ML VIAL IM ONE (08:06)
[2018-07-15] MEDS ORDERED: oxyCODONE/Acetamin 5/325 MG* TAB PO ONE ×2 (08:06→09:49)
[2018-07-15] MEDS ORDERED: Ketorolac INJ* 30 MG/ML 1 ML VIAL IM ONE (08:06)
[2018-07-15 11:42] VITALS: BP 161/87
== END 2018-07-15 11:42 | disposition home or self-care (01) ==
LOC: ED 07:14
DX: M54.5 Low back pain (principal); M51.36 Other intervertebral disc degeneration, lumbar region; E10.9 Type 1 diabetes mellitus without complications; Z96.41 Presence of insulin pump (external) (internal); Z87.891 Personal history of nicotine dependence
CPT/HCPCS: 72100; 72131; 96372; 99284; A9270-GY; J1885; J2360

== ENCOUNTER 2019-07-11 13:31 | Emergency (ER) | payer OTHER ==
--- NOTE | 2019-07-11 17:00 | UC ---
Respiratory Complaint HPI - HPI Summary HPI Summary: 58-year-old female comes in with a chief complaint of cough chest congestion and wheezing for one week. Symptoms started when she was going through some old books and she felt like her asthma got worse. She typically takes Briel however she's been out of it for one week. Been using her rescue inhaler which does help. She get restarted on the Briel. She's been having yellow chest congestion. Patient's worried that if she doesn't get treated now this will turn into pneumonia. No edema. - History of Current Complaint Chief Complaint: UCRespiratory Stated Complaint: ASTHMA COUGH Time Seen by Provider: 07/11/19 16:48 Pain Intensity: 0 - Allergies/Home Medications Allergies/Adverse Reactions: Allergies Allergy/AdvReac Type Severity Reaction Status Date / Time Perfume [Fragrance] Allergy Unknown Unknown Verified 07/11/19 14:23 Reaction Details lactose Allergy Unknown Verified 07/11/19 14:23 Reaction Details ragweed pollen Allergy Unknown Verified 07/11/19 14:23 Reaction Details DAIRY Allergy Unknown Unknown Uncoded 07/11/19 14:23 Reaction Details dust mites Allergy Unknown Uncoded 07/11/19 14:23 Reaction Details Home Medications: Home Medications Insulin Glargine,Hum.rec.anlog [Basaglar Kwikpen] 100 unit SC BID 07/11/19 [ History Confirmed 07/11/19] Insulin Lispro [Admelog] 100 unit SQ BID WITH MEALS 07/11/19 [History Confirmed 07/11/19] PMH/Surg Hx/FS Hx/Imm Hx Previously Healthy: Yes Endocrine History: Diabetes Respiratory History: Asthma - Surgical History Surgical History: Yes Surgery Procedure, Year, and Place: HYSTERECTOMY,WISDOM TEETH REMOVED - Family History Known Family History: Positive: Unknown, Hypertension, Diabetes - Social History Alcohol Use: None Substance Use Type: None Smoking Status (MU): Former Smoker - Immunization History Most Recent Influenza Vaccination: Fall 2017 Most Recent Pneumonia Vaccination: never Review of Systems All Other Systems Reviewed And Are Negative: Yes Constitutional: Positive: Other - SEE HPI Skin: Positive: Negative Eyes: Positive: Negative ENT: Negative: Sinus Congestion Respiratory: Positive: Shortness Of Breath, Cough, Other - SEE HPI Cardiovascular: Positive: Negative Gastrointestinal: Positive: Negative Motor: Positive: Negative Neurovascular: Positive: Negative Musculoskeletal: Positive: Negative Neurological: Positive: Negative Psychological: Positive: Negative Is Patient Immunocompromised?: No Physical Exam Triage Information Reviewed: Yes Appearance: No Pain Distress, Well-Nourished, Ill-Appearing - MILD Vital Signs: Initial Vital Signs Temp 97.9 F 07/11/19 14:16 Pulse 90 07/11/19 14:16 Resp 18 07/11/19 14:16 BP 128/70 07/11/19 14:16 Pulse Ox 99 07/11/19 14:16 Vital Signs Reviewed: Yes Eye Exam: Normal Eyes: Positive: Conjunctiva Clear ENT: Positive: Pharynx normal, TMs normal Neck: Positive: Supple Respiratory: Positive: Lungs clear, Normal breath sounds, No respiratory distress Cardiovascular: Positive: RRR Musculoskeletal: Positive: Strength Intact, ROM Intact, No Edema - NO CALF TENDERNESS Neurological: Positive: Alert, Muscle Tone Normal Psychological: Positive: Age Appropriate Behavior Skin Exam: Normal Respiratory Course/Dx - Course Course Of Treatment: DISCUSSED VIRAL VERSES BACTERIAL INFECTIONS AND THE ROLE OF ANTIBIOTICS. THE PATIENT PREFERS TO BE ON ANTIBIOTICS AT THIS TIME. - Differential Dx/Diagnosis Provider Diagnosis: Bronchitis, Asthma exacerbation Discharge ED - Sign-Out/Discharge Documenting (check all that apply): Patient Departure All imaging exams completed and their final reports reviewed: No Studies - Discharge Plan Condition: Stable Disposition: HOME Prescriptions: Azithromyxin BRYSON (NF) [Z-Bryson (Zithromax) 250 mg tabs #6] 2 tab PO .TODAY, THEN 1 DAILY #6 tab methylPREDNISolone [Medrol Dosepak 4 MG*] 0 mg PO .SEE BRYSON INSTRUCTION #1 bryson Patient Education Materials: Asthma (ED), Acute Bronchitis (ED) Referrals: Harjinder Roy MD [Primary Care Provider] - Additional Instructions: FOLLOW UP WITH YOUR DOCTOR. GET REEVALUATED SOONER IF NOT IMPROVED OR WORSE OR ANY QUESTIONS OR CONCERNS. - Billing Disposition and Condition Condition: STABLE Disposition: Home
[2019-07-11 17:03] VITALS: BP 149/81
== END 2019-07-11 17:10 | disposition home or self-care (01) ==
LOC: UCEAST 13:31
DX: J45.901 Unspecified asthma with (acute) exacerbation (principal); E11.9 Type 2 diabetes mellitus without complications; Z91.011 Allergy to milk products; Z91.018 Allergy to other foods; Z91.09 Other allergy status, other than to drugs and biological substances; Z79.4 Long term (current) use of insulin; Z87.891 Personal history of nicotine dependence
CPT/HCPCS: 99212; G0463

== ENCOUNTER 2019-08-23 15:18 | Emergency (ER) | payer OTHER ==
[2019-08-23] MEDS ORDERED: guaiFENesin/CODIENE 100mg/10mg 5 ML UDC PO ONE (15:35)
--- NOTE | 2019-08-23 15:42 | ED ---
Influenza-Like Illness - HPI Summary HPI Summary: Patient is a 58 y/o F presenting to the ED via EMS for a chief complaint of influenza-like symptoms that began on 08/19/19. Patient notes fever, chills, productive cough, sore throat, nasal congestion, and generalized body aches. On 08/19/19, patient was prescribed antibiotics for her symptoms without relief. No aggravating or alleviating factors are reported. PMHx is significant for asthma. Allergies to any medications are denied. - History of Current Complaint Chief Complaint: EDUpperRespComplaint Time Seen by Provider: 08/23/19 15:35 Hx Obtained From: Patient Onset/Duration: Sudden Onset, Lasting Days, Still Present Severity: Moderate Associated Signs & Symptoms: Fever - In vitals, 98.6 F, Myalgia - Generalized body aches, Cough - Productive, Sore Throat, Nasal Congestion - Allergy/Home Medications Allergies/Adverse Reactions: Allergies Allergy/AdvReac Type Severity Reaction Status Date / Time Perfume [Fragrance] Allergy Unknown Unknown Verified 07/11/19 14:23 Reaction Details lactose Allergy Unknown Verified 07/11/19 14:23 Reaction Details ragweed pollen Allergy Unknown Verified 07/11/19 14:23 Reaction Details DAIRY Allergy Unknown Unknown Uncoded 07/11/19 14:23 Reaction Details dust mites Allergy Unknown Uncoded 07/11/19 14:23 Reaction Details PMH/Surg Hx/FS Hx/Imm Hx Previously Healthy: Yes Endocrine/Hematology History: Reports: Hx Diabetes - type I on insulin pump, Hx Thyroid Disease Cardiovascular History: Reports: Hx Hypercholesterolemia Denies: Hx Congestive Heart Failure, Hx Hypertension, Hx Pacemaker/ICD Respiratory History: Reports: Hx Asthma - uses Denies: Hx Chronic Obstructive Pulmonary Disease (COPD), Hx Pulmonary Edema, Hx Pulmonary Embolism GI History: Reports: Hx Gastroesophageal Reflux Disease Denies: Hx Diverticulosis, Hx Ulcer History: Denies: Hx Kidney Stones, Hx Renal Disease Musculoskeletal History: Reports: Hx Arthritis, Hx Back Problems Denies: Other Musculoskeletal History Sensory History: Reports: Hx Contacts or Glasses - reading Denies: Hx Legally Blind, Hx Deafness, Hx Hearing Aid Opthamlomology History: Reports: Hx Contacts or Glasses - reading Denies: Hx Legally Blind EENT History: Denies: Hx Deafness Psychiatric History: Reports: Hx Depression Denies: Hx Panic Disorder - Cancer History Hx Chemotherapy: No Hx Radiation Therapy: No - Surgical History Surgical History: Yes Surgery Procedure, Year, and Place: HYSTERECTOMY,WISDOM TEETH REMOVED - Immunization History Date of Tetanus Vaccine: < 10 years Date of Influenza Vaccine: 2017 Infectious Disease History: Yes Infectious Disease History: Reports: Hx Shingles - 12/2015 Denies: Hx Hepatitis, Hx Human Immunodeficiency Virus (HIV), History Other Infectious Disease, Traveled Outside the [place] in Last 30 Days - Family History Known Family History: Positive: Hypertension, Diabetes - Social History Occupation: Retired Lives: With Family Alcohol Use: None Hx Substance Use: No Substance Use Type: Reports: None Hx Tobacco Use: Yes - not currently Smoking Status (MU): Former Smoker Review of Systems Positive: Fever - In vitals, 98.6 F, Chills Positive: Sore Throat, Other - Positive nasal congestion Positive: Cough - Productive Positive: Myalgia - Generalized body aches All Other Systems Reviewed And Are Negative: Yes Physical Exam - Summary Physical Exam Summary: Appearance: The patient is well-nourished in no acute distress and in no acute pain. Skin: The skin is warm and dry, and skin color reflects adequate perfusion. HEENT: The head is normocephalic and atraumatic. The pupils are equal and reactive. The conjunctivae are clear and without drainage. Nares are patent and without drainage. Mouth reveals moist mucous membranes, and the throat is without erythema and exudate. The external ears are intact. The ear canals are patent and without drainage. The tympanic membranes are intact. Neck: The neck is supple with full range of motion and non-tender. There are no carotid bruits. There is no neck vein distension. Respiratory: Chest is non-tender. Lungs are clear to auscultation and breath sounds are symmetrical and equal. Cardiovascular: Heart is regular rate and rhythm. There is no murmur or rub auscultated. There is no peripheral edema and pulses are symmetrical and equal. Abdomen: The abdomen is soft and non-tender. There are normal bowel sounds heard in all four quadrants and there is no organomegaly palpated. Musculoskeletal: There is no back tenderness noted. Extremities are non-tender with full range of motion. There is good capillary refill. There is no peripheral edema or calf tenderness elicited. Neurological: Patient is alert and oriented to person, place and time. The patient has symmetrical motor strength in all four extremities. Cranial nerves are grossly intact. Deep tendon reflexes are symmetrical and equal in all four extremities. Psychiatric: The patient has an appropriate affect and does not exhibit any anxiety or depression. Triage Information Reviewed: Yes Vital Signs On Initial Exam: Initial Vitals Temp Pulse Resp BP Pulse Ox 98.6 F 96 16 130/80 97 08/23/19 15:26 08/23/19 15:26 08/23/19 15:26 08/23/19 15:26 08/23/19 15:26 Vital Signs Reviewed: Yes Procedures - Sedation Patient Received Moderate/Deep Sedation with Procedure: No Diagnostics - Vital Signs Vital Signs Temp Pulse Resp BP Pulse Ox 08/23/19 15:26 98.6 F 96 16 130/80 97 - Laboratory Lab Statement: Any lab studies that have been ordered have been reviewed, and results considered in the medical decision making process. - Radiology Chest X-ray Radiology Interpretation Completed By: Radiologist Summary of Radiographic Findings: Chest X-ray IMPRESSION: No active cardiopulmonary disease is noted. Reviewed by Dr. Callahan. Flu Symptom Course/Dx - Course Course Of Treatment: came in complaining that she's not getting better and her cough is in fact getting worse and she is been treated 5 days ago with antibiotics. She was nontoxic in appearance with stable vitals. Chest x-ray was unremarkable influenza swab came back positive for influenza A. She improved here in the department with Robitussin with codeine and I will treat her symptomatically with. - Diagnoses Provider Diagnoses: Influenza Discharge ED - Sign-Out/Discharge Documenting (check all that apply): Patient Departure - Discharge - Discharge Plan Condition: Stable Disposition: HOME Prescriptions: guaiFENesin/CODIENE 100mg/10mg [Robitussin AC 100Mg-10Mg*] 5 ml PO Q4H PRN #250 udc MDD 30 PRN Reason: Cough Patient Education Materials: Influenza (ED) Referrals: Harjinder Roy MD [Primary Care Provider] - Additional Instructions: RETURN TO THE EMERGENCY DEPARTMENT FOR CHANGING OR WORSENING SYMPTOMS. Follow up with your primary care physician in 2-3 days. - Billing Disposition and Condition Condition: STABLE Disposition: Home - Attestation Statements Document Initiated by Scribe: Yes Documenting Scribe: Leann Johnson Provider For Whom Scribe is Documenting (Include Credential): Murphy Callahan MD Scribe Attestation: I, Leann Johnson, scribed for Murphy Callahan MD on 08/23/19 at 1956. Scribe Documentation Reviewed: Yes Provider Attestation: The documentation as recorded by the markibLeann fermin accurately reflects the service I personally performed and the decisions made by me, Murphy Callahan MD Status of Scribe Document: Viewed
[2019-08-23 16:01] LABS: Influenza A Molecular POSITIVE (Negative)
[2019-08-23 17:24] VITALS: BP 106/61
== END 2019-08-23 17:23 | disposition home or self-care (01) ==
LOC: ED 15:18
DX: R50.9 Fever, unspecified (principal); J02.9 Acute pharyngitis, unspecified; R05 Cough; E10.9 Type 1 diabetes mellitus without complications; E03.9 Hypothyroidism, unspecified; E78.00 Pure hypercholesterolemia, unspecified; K21.9 Gastro-esophageal reflux disease without esophagitis; F32.9 Major depressive disorder, single episode, unspecified; Z96.41 Presence of insulin pump (external) (internal); Z87.891 Personal history of nicotine dependence
CPT/HCPCS: 71046; 99282; A9270-GY